=== PATIENT | male | born 1965 | race Caucasian/White ===

== ENCOUNTER 2017-02-24 12:22 | Emergency (ER) | payer MEDICARE ==
[2017-02-24] MEDS ORDERED: Ketorolac Tromethamine 30 MG/ML VIAL ONE (12:57)
[2017-02-24] MEDS ORDERED: Morphine 4 MG/ML VIAL ONE (12:57)
[2017-02-24 13:03] LABS: #Basophils 0.1 thou/uL (0.0-0.2); #Eosinphils 0.3 thou/uL (0.0-0.7); #Lymphocytes 2.4 thou/uL (1.20-3.40); #Monocytes 1.2 thou/uL (0.11-0.59); #Neutrophils 7.6 thou/uL (1.40-6.50); %Basophils 0.7 % (0.0-1.0); %Eosinophils 2.2 % (0.0-10.0); %Monocytes 10.6 % (0.0-10.0); Hematocrit 52.6 % (42.0-52.0); Mean Platelet Volume 8.6 fL (7.4-10.4); Red Blood Cell (RBC) Count 6.18 mill/uL (4.70-6.10); White Blood Cell (WBC) Count 11.6 thou/uL (4.8-10.8)
[2017-02-24 13:33] LABS: ALT (SGPT) 43 U/L (8-55); AST (SGOT) 28 U/L (5-34); Alkaline Phosphatase 109 U/L (40-150); Anion Gap 13 mmol/L (10-20); BUN (Urea Nitrogen) 15 mg/dL (8.9-20.6); Bilirubin, Total 0.7 mg/dL (0.2-1.2); CK (CPK) 52 U/L (30-200); Calc. Creatinine Clearance 0 mL/min (70-130); Carbon Dioxide 24 mmol/L (22-29); Chloride 104 mmol/L (98-107); Estimated GFR-MDRD Greater than 90; Globulin 3.3 g/dL (2.4-3.5); Protein, Total 7.4 g/dL (6.0-8.3)
[2017-02-24 13:37] LABS: Troponin I Less than 0.010 ng/mL (< 0.028)
--- NOTE | 2017-02-24 13:37 | RAD ---
CHEST 1 VIEW: HISTORY: Dizziness. COMPARISON: None. FINDINGS: Lungs are clear. No pneumothorax or effusion. Atrial appendage occlusion device is present. Multiple median sternotomy wires. IMPRESSION: No acute intrathoracic abnormality. POS: ONEL
== END 2017-02-24 15:13 | disposition home or self-care (01) ==
LOC: ERS 12:22
DX: R00.0 Tachycardia, unspecified (principal); R53.1 Weakness; I48.91 Unspecified atrial fibrillation; F17.210 Nicotine dependence, cigarettes, uncomplicated; Z79.899 Other long term (current) drug therapy
CPT/HCPCS: 71010; 80053; 82553; 83880; 84484; 85025; 93005; 96361; 96374; 96375; 99406; J1885; J2270

== ENCOUNTER 2017-08-12 19:12 | Observation (INO) | payer MEDICARE ==
[2017-08-12 19:52] LABS: #Basophils 0.1 thou/uL (0.0-0.2); #Eosinphils 0.5 thou/uL (0.0-0.7); #Lymphocytes 2.1 thou/uL (1.20-3.40); #Monocytes 0.9 thou/uL (0.11-0.59); #Neutrophils 6.1 thou/uL (1.40-6.50); %Basophils 0.6 % (0.0-1.0); %Eosinophils 4.9 % (0.0-10.0); %Lymphocytes 22.1 % (21.0-51.0); %Neutrophils 63.5 % (42.0-75.0); Hemoglobin 14.4 g/dL (14.0-18.0); Mean Corpuscular HGB CONC 32.1 g/dL (32.0-36.0); Mean Corpuscular Hemoglobin 26.8 pg (27.0-31.0); Mean Corpuscular Volume 83.6 fl (80.0-94.0); Mean Platelet Volume 7.9 fL (7.4-10.4); Platelet Count 240 thou/uL (130-400); Red Blood Cell (RBC) Count 5.37 mill/uL (4.70-6.10); White Blood Cell (WBC) Count 9.6 thou/uL (4.8-10.8)
[2017-08-12 20:07] LABS: ALT (SGPT) 41 U/L (8-55); AST (SGOT) 33 U/L (5-34); Alkaline Phosphatase 100 U/L (40-150); Anion Gap 12 mmol/L (10-20); BUN (Urea Nitrogen) 30 mg/dL (8.9-20.6); Bilirubin, Total 0.5 mg/dL (0.2-1.2); CK (CPK) 92 U/L (30-200); Calc. Creatinine Clearance 0 mL/min (70-130); Calcium 9.8 mg/dL (7.8-10.44); Carbon Dioxide 29 mmol/L (22-29); Chloride 102 mmol/L (98-107); Estimated GFR-MDRD Greater than 90; Globulin 3.3 g/dL (2.4-3.5); Glucose 91 mg/dL (70-105); Potassium 4.5 mmol/L (3.5-5.1); Protein, Total 7.3 g/dL (6.0-8.3); Sodium 138 mmol/L (136-145)
[2017-08-12 20:12] LABS: Troponin I 0.048 ng/mL (< 0.028)
--- NOTE | 2017-08-12 20:28 | RAD ---
PORTABLE CHEST: 08/12/17 HISTORY: Chest pain. COMPARISON: 02/24/17 Lung chappell appear. Heart size is upper normal and stable. Postop sternotomy changes. IMPRESSION: No acute finding or interval change noted. POS: AGW
[2017-08-12] MEDS ORDERED: Milk Of Magnesia 30 ML UDCUP PO PRN (22:56)
[2017-08-12] MEDS ORDERED: Acetaminophen 325 MG TAB PO PRN (22:56)
[2017-08-12] MEDS ORDERED: Nitroglycerin 0.4 MG TAB (25 Tab Bottle) PO PRN (22:57)
[2017-08-12] MEDS ORDERED: Albuterol Sulfate 2.5 mg/3 ml Neb NEB PRN (22:58)
[2017-08-12 23:41] LABS: Troponin I 0.057 ng/mL (< 0.028)
--- NOTE | 2017-08-13 00:28 | HP ---
PRIMARY CARE PHYSICIAN: None. PRESENTING COMPLAINT: Chest pain. HISTORY OF PRESENT ILLNESS: Mr. Carlos Young is a 51-year-old male with a past medical history of ankylosing spondylitis, COPD, history of polysubstance abuse and ? two valve replacements a year ago who presented to the emergency room for evaluation of chest pain. He reports sharp left-sided intermittent chest pain lasting about 30 seconds that have been occurring since yesterday. It does not radiate and has no aggravating or relieving factors. He also reports some nausea and weakness, but denies palpitations, cough, sputum production, loss of consciousness, PND, orthopnea, or lower extremity edema. There is no history of fevers, chills. He has no abdominal or urinary symptoms. He decided to come to the emergency room due to the frequent occurrences of this chest pain. PAST MEDICAL HISTORY: As stated in the HPI. PAST SURGICAL HISTORY: Reports heart surgery a year ago and has had back surgery. FAMILY HISTORY: Reviewed and noncontributory. SOCIAL HISTORY: He is a smoker, smokes every day. He drinks alcohol occasionally and reports recent use of methamphetamines. ALLERGIES: None. HOME MEDICATIONS: None. The patient has not taken any medications for several months. REVIEW OF SYSTEMS: Constitutional: Denies fevers or chills. HEENT: Negative. Cardiovascular: As stated in the HPI. Respiratory: Denies cough, sputum production. Abdomen: Positive for nausea, but otherwise negative. Neurologic: Negative. Psychiatric: Negative. Allergy/Immunology: Negative. Skin: Negative. Musculoskeletal: Negative. PHYSICAL EXAMINATION: VITAL SIGNS: Blood pressure on arrival was 124/81, oxygen saturation was 99% on room air, temperature was 97.6 degree Fahrenheit, respiratory rate was 16, and pulse rate was 89. GENERAL: Not in acute distress. He is lying comfortably in bed. HEENT: Normocephalic, atraumatic. Not pale, anicteric. Moist mucous membranes. PERRLA, EOMI. RESPIRATORY: Chest nontender to palpation. Vesicular breath sounds bilaterally. No wheezes, rales, or rhonchi. CARDIOVASCULAR: S1 and S2 only. No murmurs, rubs, or gallops. Regular rate and rhythm. NECK: Supple, full range of movement. ABDOMEN: Soft, nontender, nondistended. Bowel sounds normoactive. No hepatosplenomegaly. NEUROLOGIC: Alert and well oriented to time, place, and person. No focal deficits. SKIN: Warm, dry, well-perfused. No rashes or lesions. MUSCULOSKELETAL: Moves all extremities spontaneously and no edema. PSYCHIATRIC: Normal mood and affect. LABORATORY DATA: CBC was unremarkable. Serum chemistry was also unremarkable except for initial troponin of 0.048. Lipase was 16. EKG showed no signs of acute pathology. Chest x-ray showed no acute cardiopulmonary abnormalities as well. ASSESSMENT AND PLAN: 1. Chest pain: The patient with unclear cardiac history, presenting with unstable angina as concern for possibly drug induced chest pain. We will obtain a urine toxicology, trend troponin. He will be admitted to telemetry as well and placed on sublingual nitroglycerin p.r.n. for chest pain. Cardiology will also be consulted for stress test versus cardiac catheterization. He is currently chest pain free. Due to possibility of cocaine-induced chest pain, we will hold on beta-blockers for now. We will start patient on daily aspirin and monitor troponins. 2. Chronic obstructive pulmonary disease: The patient has not been taken any medications and is currently not in acute exacerbation. We will place him on p.r.n. bronchodilator therapy. 3. History of polysubstance abuse: The patient reports he has been sober, but recently used methamphetamines "accidentally." We will follow up on urine toxicology result and insurance counselor on cessation. CODE STATUS: FULL CODE. Deep venous thrombosis prophylaxis with subcutaneous heparin. MTDD
[2017-08-13 01:18] VITALS: BMI 26.7
[2017-08-13 02:07] LABS: Troponin I 0.059 ng/mL (< 0.028)
[2017-08-13 04:03] LABS: Medtox Reader # READER 1
[2017-08-13 04:04] LABS: Amphetamine Detected (NotDetected); Barbiturates Screen Not Detected (NotDetected); Benzodiazepine Screen Not Detected (NotDetected); Cocaine Metabolite Screen Not Detected (NotDetected); Medtox Control Line Valid? VALID (VALID); Methadone Not Detected (NotDetected); Methamphetamine Not Detected (NotDetected); Opiate Screen Not Detected (NotDetected); Oxycodone Screen Not Detected (NotDetected); Phencyclidine (PCP) Not Detected (NotDetected); THC/Cannabinoid Screen Detected (NotDetected); Tricyclic Screen Not Detected (NotDetected)
[2017-08-13 04:42] LABS: #Basophils 0.1 thou/uL (0.0-0.2); #Eosinphils 0.5 thou/uL (0.0-0.7); #Lymphocytes 2.2 thou/uL (1.20-3.40); #Monocytes 0.7 thou/uL (0.11-0.59); #Neutrophils 5.5 thou/uL (1.40-6.50); %Basophils 0.7 % (0.0-1.0); %Eosinophils 5.5 % (0.0-10.0); %Lymphocytes 24.3 % (21.0-51.0); %Monocytes 7.9 % (0.0-10.0); %Neutrophils 61.6 % (42.0-75.0); Hemoglobin 13.5 g/dL (14.0-18.0); Mean Corpuscular HGB CONC 31.8 g/dL (32.0-36.0); Mean Corpuscular Hemoglobin 26.7 pg (27.0-31.0); Mean Corpuscular Volume 83.8 fl (80.0-94.0); Mean Platelet Volume 8.3 fL (7.4-10.4); Platelet Count 232 thou/uL (130-400); RBC Distribution Width 13.9 % (11.5-14.5); Red Blood Cell (RBC) Count 5.07 mill/uL (4.70-6.10); White Blood Cell (WBC) Count 8.9 thou/uL (4.8-10.8)
[2017-08-13 04:53] LABS: Anion Gap 15 mmol/L (10-20); BUN (Urea Nitrogen) 24 mg/dL (8.9-20.6); Calc. Creatinine Clearance 130 mL/min (70-130); Calcium 9.4 mg/dL (7.8-10.44); Carbon Dioxide 24 mmol/L (22-29); Chloride 104 mmol/L (98-107); Estimated GFR-MDRD Greater than 90; Glucose 118 mg/dL (70-105); Potassium 4.2 mmol/L (3.5-5.1); Sodium 139 mmol/L (136-145)
[2017-08-13 06:52] LABS: Troponin I 0.068 ng/mL (< 0.028)
[2017-08-13] MEDS: Aspirin 325 MG TAB PO SCH (09:08)
[2017-08-13] MEDS: Heparin 5,000 UNITS/ML VIAL SC SCH ×4 (09:09→19:24)
[2017-08-13] MEDS: Docusate 100 MG CAP PO SCH ×2 (09:09→19:24)
[2017-08-13] MEDS: HYDROcodone/Acetaminophen 5/325 mg Tablet PO PRN ×2 (11:49→18:42)
[2017-08-13 12:35] LABS: Troponin I 0.058 ng/mL (< 0.028)
--- NOTE | 2017-08-13 12:53 | PDOC.PN ---
- Subjective Encounter Start Date: 08/13/17 Encounter Start Time: 12:51 Subjective: feels a little better.little wheezy but no chest pain/SOB -: reports H/O A-fib and Mitral & Tricuspid valve replacements last year - Objective MAR Reviewed: Yes Vital Signs & Weight: Vital Signs (12 hours) Temp Pulse Resp BP BP Pulse Ox 08/13/17 11:54 97.5 F L 96 20 139/89 97 08/13/17 08:00 97.5 F L 94 16 08/13/17 07:42 97.5 F L 94 16 138/89 96 08/13/17 05:58 97 18 135/86 95 08/13/17 02:30 96 Weight Weight 181 lb 6 oz I&O: 08/12/17 08/13/17 08/14/17 06:59 06:59 06:59 Intake Total 200 Balance 200 Result Diagrams: 08/13/17 01:35 08/13/17 01:35 Additional Labs: Laboratory Tests 08/12/17 08/12/17 08/13/17 19:46 22:54 01:35 Troponin I 0.048 H 0.057 H 0.059 H 08/13/17 08/13/17 06:02 11:29 Troponin I 0.068 H 0.058 H Radiology Reviewed by me: Yes EKG Reviewed by me: Yes (tele -NSR) Phys Exam - Physical Examination Constitutional: NAD HEENT: PERRLA, moist MMs, sclera anicteric, oral pharynx no lesions Neck: no nodes, no JVD, supple, full ROM Respiratory: no rales, no rhonchi, wheezing present, clear to auscultation bilateral Cardiovascular: RRR, no significant murmur, no rub, gallop Gastrointestinal: soft, non-tender, no distention, positive bowel sounds Musculoskeletal: no edema, pulses present Neurological: non-focal, normal sensation, moves all 4 limbs Psychiatric: normal affect, A&O x 3 Skin: no rash Dx/Plan (1) Chest pain Code(s): R07.9 - CHEST PAIN, UNSPECIFIED Status: Acute (2) Troponin level elevated Code(s): R74.8 - ABNORMAL LEVELS OF OTHER SERUM ENZYMES Status: Acute (3) Amphetamine abuse, episodic Code(s): F15.10 - OTHER STIMULANT ABUSE, UNCOMPLICATED Status: Acute (4) H/O atrial fibrillation without current medication Code(s): Z86.79 - PERSONAL HISTORY OF OTHER DISEASES OF THE CIRCULATORY SYSTEM Status: Chronic Comment: s/p Left atrial appandage clipping (5) Mitral valve replaced Code(s): Z95.2 - PRESENCE OF PROSTHETIC HEART VALVE Status: Chronic (6) Tricuspid valve replaced Code(s): Z95.2 - PRESENCE OF PROSTHETIC HEART VALVE Status: Chronic (7) COPD (chronic obstructive pulmonary disease) Status: Chronic - Plan out of bed/ambulate, DVT proph w/SCDs cont ASA.check ECHO. 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 * will follow. Review of Systems - Review of Systems Constitutional: weakness, malaise. negative: fever, chills, sweats, other ENT: negative: Ear Pain, Ear Discharge, Nose Pain, Nose Discharge, Nose Congestion, Mouth Pain, Mouth Swelling, Throat Pain, Throat Swelling, Other Respiratory: negative: Cough, Dry, Shortness of Breath, Hemoptysis, SOB with Excertion, Pleuritic Pain, Sputum, Wheezing Cardiovascular: negative: chest pain, palpitations, orthopnea, paroxysmal nocturnal dyspnea, edema, light headedness, other Gastrointestinal: negative: Nausea, Vomiting, Abdominal Pain, Diarrhea, Constipation, Melena, Hematochezia, Other Genitourinary: negative: Dysuria, Frequency, Incontinence, Hematuria, Retention , Other Musculoskeletal: negative: Neck Pain, Shoulder Pain, Arm Pain, Back Pain, Hand Pain, Leg Pain, Foot Pain, Other Skin: negative: Rash, Lesions, Yousuf, Bruising, Other Neurological: negative: Weakness, Numbness, Incoordination, Change in Speech, Confusion, Seizures, Other - Medications/Allergies Allergies/Adverse Reactions: Allergies Allergy/AdvReac Type Severity Reaction Status Date / Time No Known Drug Allergies Allergy Unverified 08/12/17 23:00 Medications: Current Medications Acetaminophen (Tylenol) 650 mg PO Q4H PRN PRN Reason: Headache/Fever or Pain Last Admin: 08/13/17 01:25 Dose: 650 mg Hydrocodone Bitart/Acetaminophen ([place] 5/325) 1 tab PO Q4H PRN PRN Reason: mod pain Last Admin: 08/13/17 11:49 Dose: 1 tab Albuterol Sulfate (Ventolin) 2.5 mg NEB [id number] PRN PRN Reason: SOB &/or Wheezing Albuterol/Ipratropium (Duoneb) 3 ml NEB [id number] PRN PRN Reason: SOB &/or Wheezing Albuterol/Ipratropium (Duoneb) 3 ml NEB [id number] [facility] Aspirin (Aspirin) 325 mg PO DAILY [facility] Last Admin: 08/13/17 09:08 Dose: 325 mg Docusate Sodium (Colace) 100 mg PO BID [facility] Last Admin: 08/13/17 09:09 Dose: 100 mg Heparin Sodium (Porcine) (Heparin) 5,000 units SC TID [facility] Last Admin: 08/13/17 09:09 Dose: 5,000 units Lactulose (Lactulose) 20 gm PO DAILYPRN PRN PRN Reason: Constipation Magnesium Hydroxide (Milk Of Magnesium) 30 ml PO DAILYPRN PRN PRN Reason: Constipation Nitroglycerin (Nitrostat) 0.4 mg PO Q5MIN PRN PRN Reason: Chest Pain
--- NOTE | 2017-08-13 14:47 | CON ---
DATE OF CONSULTATION: 08/13/2017 REASON FOR CONSULTATION: Chest pain. HISTORY OF PRESENT ILLNESS: Mr. Young is a pleasant 51-year-old white gentleman who comes to the ospital for chest pain. He states that about 3 days ago, he inhaled something that a friend gave him to get his back pain better and he states that ever since then he was having chest pain. It has bee n pretty much constant but he just kept working tried to get over it, but yesterday felt an electrica l sensation all over his body, so he decided to come in for evaluation. In the ER, he was found to h lione positive urine drug screen for amphetamines and for cannabis. He admits to the cannabis, but sta humphrey that the amphetamines are probably what his friend gave him just a few days ago. He otherwise is feeling much better now and he would like to go home. He does have a significant history. He has h ad a mitral valve repair, had a mitral valve ring placed and he also has a history of atrial fibrilla tion which is probably valvular atrial fibrillation. He has cards for mitral ring annuloplasty and zaida nielsen also has a card for left atrial appendage clip which he had all placed last year in May. Befo re this procedure, he had a heart catheterization that was unremarkable. He did not receive any [facility] ss at that time. PAST MEDICAL HISTORY: 1. Ankylosing spondylitis with chronic pain. 2. COPD. 3. Polysubstance abuse. 4. Mitral valve ring annuloplasty a year ago. 5. Atrial fibrillation, valvular. 6. Status post left atrial appendage clippage during his open heart surgery. 7. Normal heart catheterization a year ago. PAST SURGICAL HISTORY: As above. FAMILY HISTORY: Noncontributory. SOCIAL HISTORY: He smokes every day, drinks alcohol occasionally. Uses marijuana, but he denies con sistently using amphetamines or cocaine; however, when I told him that all his symptoms are probably related to the amphetamine, he told me that what he thought he was going to take was cocaine, which t ells me that he might have used as well in the past. OUTPATIENT MEDICATIONS: None for several months. ALLERGIES: No known drug allergies. REVIEW OF SYSTEMS: A 12 point review of systems was done and is negative unless stated in the histor y of present illness. PHYSICAL EXAMINATION: VITAL SIGNS: Temperature 97.5, pulse 96, respiration rate 20, satting 97% on room air, blood pressur e 139/89. GENERAL: Awake, alert, oriented x3, in no distress. HEENT: Normocephalic, atraumatic. NECK: Supple. LUNGS: Clear. CARDIOVASCULAR: S1, S2, no S3, S4. There is a very soft grade 2/6 systolic murmur in the right uppe r sternal border. ABDOMEN: Soft with good bowel sounds. EXTREMITIES: No edema. SKIN: Warm and dry. Multiple tattoos on both arms. LABORATORY WORK: Reviewed. CBC is unremarkable. Chemistry is unremarkable. GFR greater than 90. Troponin was 0.05, 0.05, 0.06 and 0.05. Toxicology positive for amphetamines and cannabis. EKG was reviewed. ASSESSMENT AND PLAN: 1. Chest pain, most likely related to amphetamine use. He had a negative catheterization before his mitral annuloplasty and left atrial appendage clipping. His elevation in troponins is more consiste nt with demand type of ischemia. I told him that he needs an echocardiogram to see what his LV funct ion looks like given his substance abuse and he tells me that he would like to do all of this as an o utpatient and he has moved here to [place] recently and has not established with a bath steward/stewardess yet. Zaida nielsen is adamant that he would prefer to leave today. I think it should be safe and he will follow up. I gave him my card and he will follow up with us in 1-2 weeks. We will get an echocardiogram as an o utpatient. I counseled him on the necessity of following up as it is very important to know what his heart function is at this time. He states that he will do so. He has no signs or symptoms of heart failure, mostly of just substance abuse. He also denies having injected himself with anything, it is just he snorted everything and smoked it. Thank you for letting us to participate in the care of your patient. He should be able to be dischar ge home today. Follow up in the office in 2 weeks.
[2017-08-14] MEDS: Aspirin 325 MG TAB PO SCH (08:36)
[2017-08-14] MEDS: Docusate 100 MG CAP PO SCH (08:36)
[2017-08-14] MEDS: HYDROcodone/Acetaminophen 5/325 mg Tablet PO PRN (08:37)
[2017-08-14] MEDS: Heparin 5,000 UNITS/ML VIAL SC SCH (08:38)
[2017-08-14] MEDS ORDERED: Metoprolol Tartrate 25 MG TAB PO SCH (09:00)
[2017-08-14 11:41] VITALS: BP 129/86; TEMP 97.9
--- NOTE | 2017-08-14 12:55 | PDOC.CTH ---
Cardiology Progress Note - Subjective He is doing well. he is not having any more episodes of chest pain. He has been walking around without issues. - Objective Vital Signs Temp Pulse Resp BP Pulse Ox 08/14/17 11:37 97.9 F 80 16 129/86 99 08/14/17 08:39 97 16 96 08/14/17 08:00 97.8 F 104 H 16 08/14/17 07:21 97.8 F 104 H 16 130/85 97 08/14/17 04:39 97.5 F L 110 H 18 161/104 H 98 Admit Weight 181 lb 6 oz Weight 181 lb 6 oz 08/13/17 08/14/17 08/15/17 06:59 06:59 06:59 Intake Total 200 1700 240 Output Total 1345 Balance 200 355 240 - Physical Examination General/Neuro: alert & oriented x3, NAD Neck: no JVD present Lungs: CTA, unlabored respirations Heart: RRR, other: (Same murmur) Abdomen: NT/ND Extremities: other: (no edema) - Telemetry Telemetry Rhythm: NSR - Labs Result Diagrams: 08/13/17 01:35 08/13/17 01:35 Troponin/CKMB CK-MB (CK-2) 4.0 ng/mL (0-6.6) 08/12/17 19:46 Troponin I 0.058 ng/mL (< 0.028) H 08/13/17 11:29 - Assessment/Plan 1. Chest pain, likely from amphetamine use. normal coronaries Feb last year. 2. S/P Mitral valve ring annuloplasty 3. S/P Tricuspid valve ring annuloplasty 4. Afib s/p KATERINA clipage 5. Mild LV dysfunction. EF at 45-50%. PLAN: - He is doing better. - Will plan on doing a KIRBY to evaluate his valves, I cannot see the mitral valve function well enough on transthoracic echo and I cant see how much AI he may have. he is not having any fevers or chills, no signs of infection. He is stable at this time, no evidence of ACS. - He may be discharged home and will plan on doing KIRBY as outpatient on of this week. - Mild troponin leak likely related to amphetamine use, it is not on a rise and fall pattern to suggest ACS and he remains asymptomatic now. - LV dysfunction I suspect is related to mitral valve repair and substance abuse. - Will have him sign as release of information to get records before he leaves today.
--- NOTE | 2017-08-14 20:23 | DIS ---
DATE OF ADMISSION: 08/12/2017 DATE OF DISCHARGE: 08/14/2017 CONDITION AT THE TIME OF DISCHARGE: Stable and improved. DISCHARGE DISPOSITION: Home. DISCHARGE DIAGNOSES: 1. Demand ischemia from amphetamine use. 2. Chest pain, likely from amphetamine use with history of normal cardiac catheterization in 05/2016 . 2. Hypertension. 3. Anxiety. 4. History of mitral valve and tricuspid valve ring annuloplasty. 5. History of atrial fibrillation, status post left atrial appendage clipping. 6. Mild left ventricular dysfunction with ejection fraction of 45%-50%. DISCHARGE MEDICATIONS: Aspirin 325 mg daily, metoprolol tartrate 25 mg p.o. b.i.d., DuoNeb as needed and albuterol inhaler as needed. INHOUSE CONSULTATION: Cardiology, Dr. Islas. PROCEDURES DONE IN THE HOSPITAL: Include transthoracic echocardiogram, which shows EF of 45%-50% wit h tricuspid and mitral ring in place and trivial aortic regurgitation. HISTORY OF PRESENTING ILLNESS: Mr. Young is a very pleasant 51-year-old male with past medical his tory of atrial fibrillation, hypertension, ankylosing spondylitis, COPD, history of tobacco and polys ubstance abuse, who presented to the ER with complaints of chest pain. Upon presentation, his chest x-ray was unremarkable. EKG was unremarkable. His initial troponin was elevated to 0.048. He was a dmitted for further evaluation and care. Cardiology was consulted. Please see admission history and physical for further details. HOSPITAL COURSE: The patient's urine drug screen did come back positive for marijuana and amphetamin es. His cardiac enzymes were trended and his troponin peaked to 0.068 and then started to trend down again. He was chest pain free throughout his hospitalization. It was found that the patient had cardiac catheterization and all of his cardiac care in [place]. He has history of mitral valve and tricuspid valve ring annuloplasty as well as history of atrial fibri llation treated with left atrial appendage clipping. Because of all this, Cardiology was consulted a nd he underwent echocardiogram which was normal. Dr. Islas saw the patient and recommended that he needs to get a KIRBY as an outpatient for further evaluation of his valves. Other than that, he was re started on aspirin and beta quin with improvement in his symptoms. At this time, he is instructed to follow up and establish care with a new physician in the area for primary care and he will be see n by Dr. Islas in his clinic on of this coming week for KIRBY. For now, the patient is hemod ynamically stable and symptom free. Most of his symptoms are thought due to be secondary to amphetam ine use. He has been extensively counseled about that and is very receptive. [facility] as well and will be discharged today. He was seen and examined prior to discharge. PHYSICAL EXAMINATION: This morning include, VITAL SIGNS: Temperature 97.9, pulse of 80, respirations 16, saturating 99% on room air, blood press ure 129/86. GENERAL: No acute distress, awake, alert, oriented x3. CHEST: Clear to auscultation without any wheezing, rales or rhonchi. Rate and rhythm is regular wit hout any murmur, rubs or gallops. NEUROLOGIC: Nonfocal. He is cleared for discharge from the hospital as he is hemodynamically stable at this time. Once aga in, he is instructed to establish care with a primary care physician locally as he has recently moved here from [place].
== END 2017-08-14 14:15 | disposition home or self-care (01) ==
LOC: ERS 19:12 → 2SW 08-13 00:56
PROVIDERS: ADMIT Internal Medicine; ATTEND Internal Medicine
DX: R07.89 Other chest pain (principal); I24.8 Other forms of acute ischemic heart disease; J44.9 Chronic obstructive pulmonary disease, unspecified; M45.9 Ankylosing spondylitis of unspecified sites in spine; I10 Essential (primary) hypertension; I48.91 Unspecified atrial fibrillation; F19.10 Other psychoactive substance abuse, uncomplicated; F12.10 Cannabis abuse, uncomplicated; F15.10 Other stimulant abuse, uncomplicated; F17.200 Nicotine dependence, unspecified, uncomplicated; Z98.890 Other specified postprocedural states
CPT/HCPCS: 71045; 80048; 80053; 80306; 82550; 82553; 83690; 84484 ×4; 85025 ×2; 93005; 93306; 94640 ×3; 94760; 99285; 99406; G0378; 36415; J1644; J7620

== ENCOUNTER → 2017-08-19 | Day surgery (SDC) | payer MEDICARE ==
[2017-08-18 16:27] VITALS: BMI 26.7
[~2017-08-19] MED LIST: Ketamine 50 MG/ML VIAL ONE; Lidocaine 1% PF 5 ML VIAL ONE; PROPOFOL 200 MG/20 ML VIAL ONE
--- NOTE | 2017-08-19 14:45 | ECHO ---
TRANSESOPHAGEAL ECHOCARDIOGRAM: DATE OF SERVICE: 08/19/17 REASON FOR STUDY: Transesophageal echo was performed for evaluation of tricuspid and mitral valves rings. DETAILS: The anesthesia department provided anesthesia for the patient. Please see their notes for details. Af ter adequate sedation was achieved, the transesophageal echo probe was inserted into the mouth and in to the esophagus without issues. Multiplanar views were then obtained. FINDINGS: Left ventricle is normal size and wall thickness. Systolic function is normal, estimated EF of 50-55% . Left atrium is a mildly dilated. Left atrial appendage is completely gone, consistent with his histo ry of left atrial appendage clippage. Right atrium is normal size. Interatrial septum appears to be intact; however, color Doppler suggest a small, fenestrated ASD. Right ventricle is normal size, normal RV systolic function. Aortic valve is a normal, three cusps. No stenosis or regurgitation. Pulmonary valve is structurally normal. No stenosis or regurgitation. Mitral valve has mitral annular ring. No stenosis. Mild mitral regurgitation. Tricuspid valve has tricuspid annular ring. No stenosis. Mild regurgitation. Thoracic aorta is normal caliber with no aneurysmal dilatations or dissections. No atherosclerotic di sease. CONCLUSIONS: 1. Normal systolic function, EF of 50-55%. 2. Small, fenestrated ASD. 3. Absence of left atrial appendage, consistent with history of surgical excision. 4. Mild left atrial enlargement. 5. Mitral annular ring with mild MR. Normal functioning. No vegetations. 6. Tricuspid annular ring with mild TR. No vegetations. Normal functioning.
== END ==
LOC: CCL 06:11
PROVIDERS: ATTEND Internal Medicine Cardiovascular Disease
PROC: B24BZZ4 Ultrasonography of Heart with Aorta, Transesophageal (ICD-10-PCS; principal; 2017-08-19)
DX: R07.89 Other chest pain (principal); I08.1 Rheumatic disorders of both mitral and tricuspid valves; M45.9 Ankylosing spondylitis of unspecified sites in spine; J44.9 Chronic obstructive pulmonary disease, unspecified; F19.10 Other psychoactive substance abuse, uncomplicated; F15.90 Other stimulant use, unspecified, uncomplicated; F17.200 Nicotine dependence, unspecified, uncomplicated; Z95.2 Presence of prosthetic heart valve; Z98.890 Other specified postprocedural states
CPT/HCPCS: 93312; J2001; J2704

== ENCOUNTER 2017-11-07 13:46 | Inpatient (IN) | payer MEDICARE ==
[~2017-11-07 13:46] MED LIST changes: +ISOVUE-370 76%-LOCM 1 ML ONE; -Ketamine 50 MG/ML VIAL ONE; -Lidocaine 1% PF 5 ML VIAL ONE; -PROPOFOL 200 MG/20 ML VIAL ONE
[2017-11-07 14:49] LABS: #Eosinphils 0.1 thou/uL (0.0-0.7); #Lymphocytes 1.4 thou/uL (1.20-3.40); #Monocytes 0.6 thou/uL (0.11-0.59); #Neutrophils 6.4 thou/uL (1.40-6.50); %Basophils 0.4 % (0.0-1.0); %Eosinophils 1.7 % (0.0-10.0); %Lymphocytes 16.7 % (21.0-51.0); %Monocytes 6.4 % (0.0-10.0); %Neutrophils 74.8 % (42.0-75.0); Hemoglobin 14.7 g/dL (14.0-18.0); Mean Corpuscular HGB CONC 31.2 g/dL (32.0-36.0); Mean Corpuscular Hemoglobin 26.7 pg (27.0-31.0); Mean Corpuscular Volume 85.6 fL (78.0-98.0); Mean Platelet Volume 8.7 fL (7.4-10.4); Platelet Count 160 thou/uL (130-400); RBC Distribution Width 15.7 % (11.5-14.5); White Blood Cell (WBC) Count 8.5 thou/uL (4.8-10.8)
[2017-11-07 15:11] LABS: ALT (SGPT) 23 U/L (8-55); AST (SGOT) 22 U/L (5-34); Alkaline Phosphatase 102 U/L (40-150); Anion Gap 13 mmol/L (10-20); BUN (Urea Nitrogen) 15 mg/dL (8.9-20.6); Bilirubin, Total 0.9 mg/dL (0.2-1.2); Calc. Creatinine Clearance 0 mL/min (70-130); Calcium 9.7 mg/dL (7.8-10.44); Carbon Dioxide 25 mmol/L (22-29); Chloride 103 mmol/L (98-107); Estimated GFR-MDRD Greater than 90; Globulin 3.3 g/dL (2.4-3.5); Glucose 135 mg/dL (70-105); Potassium 4.8 mmol/L (3.5-5.1); Protein, Total 7.3 g/dL (6.0-8.3); Sodium 136 mmol/L (136-145)
[2017-11-07 15:15] LABS: CKMB 5.1 ng/mL (0-6.6); Troponin I 0.017 ng/mL (< 0.028)
[2017-11-07] MEDS ORDERED: Furosemide 40 MG/4 ML VIAL ONE (16:20)
[2017-11-07 16:45] LABS: CK (CPK) 52 U/L (30-200); Lipase 15 U/L (8-78)
--- NOTE | 2017-11-07 17:41 | RAD ---
CHEST ONE VIEW: HISTORY: Dyspnea. Chest pain. COMPARISON: 08/12/2017 FINDINGS: The cardiac silhouette is magnified and enlarged. The pulmonary vasculature is at the upper limits o f normal. The mediastinum is midline with postoperative changes. Opacity at the right base has the appearance of a combination of parenchymal infiltrate and pleural fluid. Smoothly marginated density along the right upper lateral hemithorax has the appearance of loculated fluid. The left lung is cl ear. No evidence of pneumothorax. IMPRESSION: Right basilar infiltrate and pleural fluid with probable loculated fluid along the right upper latera l chest wall. Cause is not evident. POS: [facility]
[2017-11-07] MEDS ORDERED: Nitroglycerin 2% Ointment 1 INCH/1 GM Packet ONE (18:11)
--- NOTE | 2017-11-07 18:57 | PDOC.FPRHP ---
- History of Present Illness Chief Complaint: SOB History of Present Illness: Patient is a 52 yo male with PMH significant for CHF, presenting with SOB and substernal chest discomfort for the past 5 days. The patient states the chest discomfort comes and goes but lasts days at a time. He has noticed swelling in his bilateral lower extremities, feels fluid overloaded in his belly up to his neck. His SOB is worse lying flat and with exertion. He reports taking his albuterol inhaler which improved his SOB. He has not been taking his usual medications of plavix, metoprolol and ASA as he ran out about a month ago. The patient also endorses migraine headaches that he has had for years, but that have been worse the past few days. Loud sounds, noises make it worse and he has blurry vision during the migraine. He denies abdominal pain, fever, chills, NVD. ED Course: 40ml lasix, ASA, Nitro - Allergies/Adverse Reactions Allergies Allergy/AdvReac Type Severity Reaction Status Date / Time No Known Drug Allergies Allergy Verified 08/18/17 16:27 - Home Medications Medication Instructions Recorded Confirmed Type Clopidogrel Bisulfate [Plavix] 75 mg PO DAILY 08/13/17 11/07/17 History Albuterol Sulfate [Ventolin Hfa] 2 puff INH TID PRN #60 [email or web address] 08/14/17 Rx Ipratropium/Albuterol Sulfate 3 ml NEB QID PRN #30 neb 08/14/17 11/07/17 Rx [Duoneb] Metoprolol Tartrate 25 mg PO BID #60 tablet 08/14/17 11/07/17 Rx Nebulizer Accessories [Aeroneb Go] 1 each MC ASDIR #30 each 08/14/17 11/07/17 Rx Aspirin [Aspirin EC] 1 tab PO DAILY 08/18/17 11/07/17 History - History PMHx: CHF, atrial fibrillation, ankylosing spondylosis PSHx: mitral/tricuspid valve replacement 1 yr ago; cut atrial appendage FHx: mother: lung cancer; several other family members with bone cancers Social: smokes 1/2 pack/day for 35 yrs, - Review of Systems General: denies: fever/chills, weight/appetite/sleep changes, night sweats, fatigue Eyes: reports: vision changes (associated with migraines). denies: eye pain ENT: denies: nasal congestion, rhinorrhea Respiratory: reports: shortness of breath, exercise intolerance. denies: cough , congestion Cardiovascular: reports: chest pain, edema, orthopnea. denies: palpitation, paroxysmal nocturnal dyspnea Gastrointestinal: denies: nausea, vomiting, diarrhea, constipation, abdominal pain Genitourinary: denies: incontinence, dysuria, polyuria Skin: denies: rashes, lesions, jaundice Musculoskeletal: denies: pain, tenderness, stiffness, swelling Neurological: denies: numbness, syncope, seizure Psychological: denies: anxiety, depression - Vital signs BP: 136/95 HR: 118 RR: 16 Tmax: 97.4 Pox: 98% on RA Wt: 77.11 - Physical Exam Constitutional: NAD, awake, alert and oriented, well developed HEENT: normocephalic and atraumatic, EOMI, grossly normal vision, grossly normal hearing Neck: supple, no bruits, other (JVD +) Chest: no-tender to palpation, no lesions Heart: RRR, normal S1/S2, pulses present, other (1+ edema in bilateral extremities, midsystolic click) Lungs: other (Crackles heard in bilateral lower lung chappell, wheezing heard diffusely) Abdomen: bowel sounds present, other (distended, tympanic) Musculoskeletal: normal structure, normal tone Neurological: no focal deficit, CN II-XII intact Skin: no rash/lesions Heme/Lymphatic: no unusual bruising or bleeding, no purpura, no petechia Psychiatric: normal mood and affect FMR H&P: Results - Labs Result Diagrams: 11/07/17 14:41 11/07/17 14:41 Lab results: WBC 8.5 thou/uL (4.8-10.8) 11/07/17 14:41 Hgb 14.7 g/dL (14.0-18.0) 11/07/17 14:41 Hct 47.0 % (42.0-52.0) 11/07/17 14:41 MCV 85.6 fL (78.0-98.0) 11/07/17 14:41 Plt Count 160 thou/uL (130-400) 11/07/17 14:41 Neutrophils % 74.8 % (42.0-75.0) 11/07/17 14:41 Sodium 136 mmol/L (136-145) 11/07/17 14:41 Potassium 4.8 mmol/L (3.5-5.1) 11/07/17 14:41 Chloride 103 mmol/L (98-107) 11/07/17 14:41 Carbon Dioxide 25 mmol/L (22-29) 11/07/17 14:41 BUN 15 mg/dL (8.9-20.6) 11/07/17 14:41 Creatinine 0.84 mg/dL (0.6-1.3) 11/07/17 14:41 Glucose 135 mg/dL (70-105) H 11/07/17 14:41 Lactic Acid 2.1 mmol/L (0.5-2.2) 11/07/17 14:40 Calcium 9.7 mg/dL (7.8-10.44) 11/07/17 14:41 Total Bilirubin 0.9 mg/dL (0.2-1.2) 11/07/17 14:41 AST 22 U/L (5-34) 11/07/17 14:41 ALT 23 U/L (8-55) 11/07/17 14:41 Alkaline Phosphatase 102 U/L (40-150) 11/07/17 14:41 Creatine Kinase 52 U/L (30-200) 11/07/17 14:41 CK-MB (CK-2) 5.1 ng/mL (0-6.6) 11/07/17 14:41 B-Natriuretic Peptide 894.6 pg/mL (0-100) H 11/07/17 14:41 Serum Total Protein 7.3 g/dL (6.0-8.3) 11/07/17 14:41 Albumin 4.0 g/dL (3.5-5.0) 11/07/17 14:41 Lipase 15 U/L (8-78) 11/07/17 14:41 - EKG Interpretation EKG: Sinus tacycardia, RBBB, no ST elevation - Radiology Interpretation Chest x-ray Status: report reviewed by me Additional comment: Right basilar infiltrate and pleural fluid with probable loculated fluid along the right lateral chest wall CT scan - chest Additional comment: no pulmonary embolism, bilateral pleural effusions, right greater than left. FMR H&P: A/P - Problem List (1) CHF (congestive heart failure) Current Visit: Yes Status: Acute Code(s): I50.9 - HEART FAILURE, UNSPECIFIED (2) COPD (chronic obstructive pulmonary disease) Current Visit: No Status: Chronic (3) H/O atrial fibrillation without current medication Current Visit: No Status: Chronic Code(s): Z86.79 - PERSONAL HISTORY OF OTHER DISEASES OF THE CIRCULATORY SYSTEM Comment: s/p Left atrial appandage clipping (4) Mitral valve replaced Current Visit: No Status: Chronic Code(s): Z95.2 - PRESENCE OF PROSTHETIC HEART VALVE (5) Tricuspid valve replaced Current Visit: No Status: Chronic Code(s): Z95.2 - PRESENCE OF PROSTHETIC HEART VALVE (6) Tobacco abuse Current Visit: Yes Status: Acute Code(s): Z72.0 - TOBACCO USE - Plan 1. CHF exacerbation - Trend trop, EKG - Lasix Q8hr - Will start metoprolol 25mg - Will give prophylactic lovenox - Will order Echo for tomorrow - HEART Score 3 2. COPD exacerbation - Duoneb PRN - Start Prednisone 3. Mitral/Tricuspid Valve replacement - on prophylactic lovenox - Will monitor 4. A fib with RVR - started on metoprolol - Will monitor 5. HTN - Started on metoprolol - Will monitor BPs 6. Tobacco use - Pt counseled on quitting smoking and would like to try the patch - Will give nicotine patch Disposition/LOS: DISPO: likely stay > 2 midnights CODE: DNI Case discussed with Dr. Irvin FMR H&P: Upper Level - Pertinent history 52 y/o M with hx/o mitral and tricuspid valve replacement presents for SOB for 5d. Associated orthopnea, LE edema extending to belly. Some SOB Has not taken any additional medications for problem and problem is worsening. Has not taken his meds in around 1 month. Also has a hx/o amphetamine use. - Pertinent findings GEN: NAD, CARDIO: RRR, no MRG RESP: crackles at bases, mild wheezes or ronchi Extremities: 1+ LE edema to knees, pulses strong ABD: distendended an hard, no R/G or peritoneal signs. Neuro: no focal deficits, CN intact PSYCH: A&O x4, thoughts normal - Plan Date/Time: 11/07/171853 Bossman Cox, have evaluated this patient and agree with findings/plan as outlined by graphics intern resident. Pertinent changes/additions are listed here. # CHF Exacerbation: Possibly 2/2 valvular disease given recent ECHO, and medication noncompliance contributing to cardiomyopathy. Does have elevated BNP with fluid overload. Continue Diuresis, repeat BNP, O2 PRN. Pt already relieved of most sx in ED after Lasix. B/L pleural effusions present. Maintaining sats > 92% on RA. #Hx/o Valvular disease: Will restart ASA/Plavix and Metoprolol # Tachycardia: Restarting Metoprolol and continue to monitor. #FEN: regular diet, fluid restriction Attending Addendum - Attending Addendum Date/Time: 11/08/17 0005 I personally evaluated the patient and discussed the management with Dr. Higgins. I agree with the History, Examination, Assessment and Plan documented above with any addition or exceptions noted below. Noncompliance with meds has contributed to his CHF condition, Afib with RVR. Meds restarted. He reports never being on warfarin for his mechanical valves. We will address at this visit.
--- NOTE | 2017-11-07 19:27 | CT ---
CT PULMONARY ANGIOGRAM WITH IV CONTRAST AND 3D POST PROCESSING: HISTORY: Dyspnea. Chest pain. CHF. FINDINGS: The pulmonary arterial vasculature is well opacified without filling defects to suggest pulmonary emb olism. No evidence of aneurysmal dilatation of the thoracic aorta is seen. No pneumothoraces or per icardial effusion is identified. There are bilateral pleural effusions, right greater than left. Ad jacent infiltrate/atelectatic changes are present. IMPRESSION: 1. No CT evidence of pulmonary embolism. 2. Bilateral pleural effusions, right greater than left. POS: ONEL
[2017-11-07 20:09] LABS: Troponin I 0.013 ng/mL (< 0.028)
[2017-11-07] MEDS ORDERED: Ondansetron ODT 4 MG TAB SL PRN (21:10)
[2017-11-07] MEDS ORDERED: Ondansetron HCl/PF 4 MG/2 ML Vial IVP PRN (21:10)
[2017-11-07] MEDS ORDERED: Acetaminophen 650 MG Suppository PR PRN (21:12)
[2017-11-07] MEDS ORDERED: Acetaminophen 325 MG TAB PO PRN (21:12)
[2017-11-07 21:30] LABS: Lactic Acid 1.5 mmol/L (0.5-2.2)
[2017-11-07 21:43] LABS: Troponin I 0.014 ng/mL (< 0.028)
[2017-11-07] MEDS: Nicotine 14 MG PATCH TD SCH (21:52)
[2017-11-07] MEDS ORDERED: HYDROcodone/Acetaminophen 5/325 mg Tablet PO SCH (22:00)
[2017-11-07] MEDS: Furosemide 20 MG/2 ML VIAL SLOW IVP SCH (22:02)
--- NOTE | 2017-11-08 05:39 | PDOC.FM ---
- Subjective Subjective: Pt. states that his breathing is improved from over night. He states that he is still having some dyspnea. He denies chest pain. He states that he is having some nausea and a headache. The nurse states that pt. received nitro and that is what started the headache. He states that he is having decreased swelling. - Objective MAR Reviewed: Yes Vital Signs & Weight: Vital Signs (12 hours) Temp Pulse Resp BP Pulse Ox 11/08/17 04:00 98.1 F 116 H 20 123/80 92 L 11/07/17 21:12 97.9 F 117 H 16 11/07/17 20:45 97.9 F 117 H 16 129/81 95 Weight Weight 78.97 kg Result Diagrams: 11/08/17 05:39 11/08/17 05:39 Phys Exam - Physical Examination Constitutional: NAD HEENT: PERRLA, moist MMs Neck: no JVD, full ROM Respiratory: no rhonchi Pt. is moving air Cardiovascular: no significant murmur tachycardia Gastrointestinal: soft, non-tender, no distention, positive bowel sounds Musculoskeletal: edema present (1+ pitting to mid calf) Psychiatric: normal affect, A&O x 3 Skin: cap refill <2 seconds Dx/Plan (1) HTN (hypertension) Code(s): I10 - ESSENTIAL (PRIMARY) HYPERTENSION Status: Acute (2) CHF (congestive heart failure) Code(s): I50.9 - HEART FAILURE, UNSPECIFIED Status: Acute (3) Tobacco abuse Code(s): Z72.0 - TOBACCO USE Status: Acute (4) COPD (chronic obstructive pulmonary disease) Status: Chronic (5) H/O atrial fibrillation without current medication Code(s): Z86.79 - PERSONAL HISTORY OF OTHER DISEASES OF THE CIRCULATORY SYSTEM Status: Chronic (6) Mitral valve replaced Code(s): Z95.2 - PRESENCE OF PROSTHETIC HEART VALVE Status: Chronic (7) Tricuspid valve replaced Code(s): Z95.2 - PRESENCE OF PROSTHETIC HEART VALVE Status: Chronic - Plan Plan: This is a 52 yo male with a PMH of CHF, AFIB, ankylosing spondylitis CHF exacerbation -Troponins came back negative x3, EKG showed no ST changes, Xray showed pleural effusions. Pt. is receiving lasix and metoprolol for his CHF. He will get an echo today due to a heart score of 3 Acute bronchitis -Pt. is receiving duoneb PRN and prednisone. Mitral/tricuspid valve replacement -Pt. is on lovenox prophylaxis Afib with RVR -pt. is on metoprolol HTN -Metoprolol Tobacco use -Encourage cessation, will use patch during stay.
[2017-11-08] MEDS: Furosemide 20 MG/2 ML VIAL SLOW IVP SCH ×3 (05:52→22:19)
[2017-11-08] MEDS ORDERED: Aspirin 325 mg Enteric Coated Tablet PO SCH (06:00)
[2017-11-08 06:15] LABS: #Basophils 0.1 thou/uL (0.0-0.2); #Eosinphils 0.3 thou/uL (0.0-0.7); #Lymphocytes 2.1 thou/uL (1.20-3.40); #Monocytes 0.9 thou/uL (0.11-0.59); #Neutrophils 5.7 thou/uL (1.40-6.50); %Basophils 0.9 % (0.0-1.0); %Lymphocytes 23.2 % (21.0-51.0); %Monocytes 10.2 % (0.0-10.0); %Neutrophils 62.6 % (42.0-75.0); Hemoglobin 13.9 g/dL (14.0-18.0); Mean Corpuscular HGB CONC 30.9 g/dL (32.0-36.0); Mean Corpuscular Hemoglobin 26.1 pg (27.0-31.0); Mean Corpuscular Volume 84.5 fL (78.0-98.0); Mean Platelet Volume 8.7 fL (7.4-10.4); Platelet Count 181 thou/uL (130-400); RBC Distribution Width 15.7 % (11.5-14.5); Red Blood Cell (RBC) Count 5.32 mill/uL (4.70-6.10); White Blood Cell (WBC) Count 9.1 thou/uL (4.8-10.8)
[2017-11-08] MEDS ORDERED: HYDROcodone/Acetaminophen 5/325 mg Tablet PO SCH (06:15)
[2017-11-08 06:26] LABS: Anion Gap 12 mmol/L (10-20); BUN (Urea Nitrogen) 17 mg/dL (8.9-20.6); Calc. Creatinine Clearance 115 mL/min (70-130); Calcium 9.8 mg/dL (7.8-10.44); Carbon Dioxide 31 mmol/L (22-29); Chloride 101 mmol/L (98-107); Estimated GFR-MDRD Greater than 90; Glucose 96 mg/dL (70-105); Sodium 140 mmol/L (136-145)
[2017-11-08] MEDS ORDERED: Ondansetron ORAL SOLN. 4 MG/5 ML UDCUP PO PRN (06:54)
[2017-11-08 07:14] LABS: Amphetamine Not Detected (NotDetected); Barbiturates Screen Not Detected (NotDetected); Benzodiazepine Screen Not Detected (NotDetected); Cocaine Metabolite Screen Not Detected (NotDetected); Medtox Control Line Valid? VALID (VALID); Medtox Reader # READER 4; Methadone Not Detected (NotDetected); Methamphetamine Detected (NotDetected); Opiate Screen Not Detected (NotDetected); Oxycodone Screen Not Detected (NotDetected); Phencyclidine (PCP) Not Detected (NotDetected); THC/Cannabinoid Screen Not Detected (NotDetected); Tricyclic Screen Not Detected (NotDetected)
[2017-11-08] MEDS: predniSONE 20 MG TAB PO SCH (10:24)
[2017-11-08] MEDS: Enoxaparin Sodium 40 MG/0.4 ML SYRINGE SC SCH (10:24)
--- NOTE | 2017-11-08 11:21 | HP ---
I have examined the patient and discussed the case with Dr. Lisa Higgins. BRIEF HISTORY: Mr. Young is a 52-year-old white male patient who is status post mitral valve repai r who presented with symptoms of pulmonary congestion and heart failure. He has been given several d osages of Lasix and looks and feels much better. We are awaiting the results of an echocardiogram. PHYSICAL EXAMINATION: VITAL SIGNS: His blood pressure is 140/87, his heart rate is 110. He is afebrile and his room air p ulse ox is 98%. GENERAL: He is awake, alert, in no distress, lying nearly flat. EARS, NOSE AND THROAT: No erythema or exudate. NECK: Supple. He does have mild JVD. CARDIAC: Heart rhythm regular, no gallop or murmur noted. LUNGS: A few crackles heard at the lower lung chappell. He is in no distress and is not using accesso ry muscles. ABDOMEN: Flat and soft. No guarding, rebound or rigidity. NEUROLOGIC: No focal deficits. LABORATORY DATA: CBC: White count 7500, hemoglobin 14.7, hematocrit 47.0, MCV is 85.7. Chemistries : Sodium 140, potassium 4, chloride 101, bicarbonate 31, BUN 17, creatinine 0.83. TSH is 3.17. His chest x-ray shows a right basilar infiltrate and pleural fluid. The cardiac silhouette is magnif ied and enlarged. The pulmonary vasculature is at the upper limits of normal. Serum troponins are negative. EKG shows no acute ischemic changes. His EF in August was 55%. ASSESSMENT: 1. Possible heart failure with preserved ejection fraction. 2. Chronic obstructive pulmonary disease. PLAN: The patient has received Lasix and already feels better. He has also gotten some ____ for his COPD and his respirations now appear normal. We will await the results of his echo.
[2017-11-08 12:42] VITALS: BMI 24.7
[2017-11-08 13:33] LABS: Syphilis Antibody Nonreactive (Nonreactive); Syphilis Antibody Index 0.04 S/CO (<1.00 Non-Reactive)
[2017-11-08 13:53] LABS: HBSAB Concentration 1.96 mIU/mL; HBSAg Index 0.21 S/CO (0-0.99); HIV (1/2) Antibody/Antigen Non-Reactive (NonReactive); HIV 1/2 INDEX 0.16 S/CO (<1.00); Hep B Core Total Ab Non-Reactive (NonReactive); Hep B Core Total Index 0.15 S/CO (0-0.79); Hep B Surf AB Non-Reactive (NonReactive); Hep B Surf Ag Non-Reactive S/CO (NonReactive)
[2017-11-08] MEDS ORDERED: Lisinopril 5 MG TAB PO SCH (14:30)
[2017-11-08 16:31] LABS: Hep C IgG Ab Reflex HepC Qnt (NonReactive)
[2017-11-08 16:34] LABS: Hep C Index 11.25 S/CO (0-0.79)
[2017-11-08] MEDS ORDERED: Ketorolac Tromethamine 30 MG/ML VIAL IVP SCH (19:15)
[2017-11-08] MEDS: Nicotine 14 MG PATCH TD SCH (20:13)
[2017-11-09] MEDS: Furosemide 20 MG/2 ML VIAL SLOW IVP SCH (05:56)
--- NOTE | 2017-11-09 06:07 | PDOC.FM ---
- Subjective Subjective: Pt. states that he slept ok over night. He states that his back pain was severe and kept him up. He denies chest pain, trouble breathing, abdominal pain, and nausea/vomiting. He did state that he had some constipation. - Objective MAR Reviewed: Yes Vital Signs & Weight: Vital Signs (12 hours) Temp Pulse Resp BP Pulse Ox 11/09/17 04:00 97.9 F 122 H 18 116/74 94 L 11/08/17 22:52 77 110/77 11/08/17 20:09 98.1 F 120 H 18 122/92 H 95 11/08/17 20:00 98.1 F 120 H 18 95 Weight Admit Weight 78.97 kg Weight 73.21 kg I&O: 11/07/17 11/08/17 11/09/17 06:59 06:59 06:59 Intake Total 440 Output Total 2450 Balance -2009 Result Diagrams: 11/09/17 05:17 11/09/17 05:17 Phys Exam - Physical Examination Constitutional: NAD HEENT: PERRLA, moist MMs Neck: no JVD, full ROM rhonchi present, improved breath sounds Cardiovascular: no significant murmur tachycardic Gastrointestinal: soft, non-tender, no distention, positive bowel sounds Musculoskeletal: pulses present no edema today, improved from yesterday Neurological: moves all 4 limbs Psychiatric: normal affect, A&O x 3 Skin: normal turgor, cap refill <2 seconds Dx/Plan (1) HTN (hypertension) Code(s): I10 - ESSENTIAL (PRIMARY) HYPERTENSION Status: Acute (2) CHF (congestive heart failure) Code(s): I50.9 - HEART FAILURE, UNSPECIFIED Status: Acute (3) Tobacco abuse Code(s): Z72.0 - TOBACCO USE Status: Acute (4) COPD (chronic obstructive pulmonary disease) Status: Chronic (5) H/O atrial fibrillation without current medication Code(s): Z86.79 - PERSONAL HISTORY OF OTHER DISEASES OF THE CIRCULATORY SYSTEM Status: Chronic (6) Mitral valve replaced Code(s): Z95.2 - PRESENCE OF PROSTHETIC HEART VALVE Status: Chronic (7) Tricuspid valve replaced Code(s): Z95.2 - PRESENCE OF PROSTHETIC HEART VALVE Status: Chronic - Plan Plan: This is a 52 yo male with a PMH of CHF, Afib, and akylosing spondylitis CHF exacerbation -troponins neg x3, EKG showed no st changes, xray showed pleural effusions, pt. is receiving lasix and metoprolol for his CHF. Echo showed EF of 25-30%, sclerotic aortic valve, and intact mitral annuloplasty. We will continue to treat with lasix to improve his breathing. We are consulting cardioloigy due to his recent drop in EF from 45-50%. Acute bronchitis -Pt. has PRN duonebs for SOB/Wheezing Mitral/tricuspid replacement -Pt. is on prophylaxis lovenox Hx of Afib with RVR -pt. is on metoprolol HTN -Metoprolol Tobacco use -Pt. is motivated to quit. He is currently denying cravings Constipation -Miralax
[2017-11-09 06:10] LABS: #Basophils 0.1 thou/uL (0.0-0.2); #Eosinphils 0.1 thou/uL (0.0-0.7); #Monocytes 1.4 thou/uL (0.11-0.59); %Basophils 0.3 % (0.0-1.0); %Eosinophils 0.8 % (0.0-10.0); %Lymphocytes 13.8 % (21.0-51.0); %Monocytes 9.4 % (0.0-10.0); %Neutrophils 75.6 % (42.0-75.0); Hemoglobin 14.9 g/dL (14.0-18.0); Mean Corpuscular HGB CONC 32.4 g/dL (32.0-36.0); Mean Corpuscular Hemoglobin 27.2 pg (27.0-31.0); Mean Corpuscular Volume 83.9 fL (78.0-98.0); Mean Platelet Volume 8.9 fL (7.4-10.4); Platelet Count 201 thou/uL (130-400); RBC Distribution Width 15.3 % (11.5-14.5); Red Blood Cell (RBC) Count 5.47 mill/uL (4.70-6.10); White Blood Cell (WBC) Count 14.5 thou/uL (4.8-10.8)
[2017-11-09 06:22] LABS: Anion Gap 16 mmol/L (10-20); BUN (Urea Nitrogen) 23 mg/dL (8.9-20.6); Calc. Creatinine Clearance 106 mL/min (70-130); Calcium 9.7 mg/dL (7.8-10.44); Carbon Dioxide 27 mmol/L (22-29); Chloride 99 mmol/L (98-107); Estimated GFR-MDRD Greater than 90; Glucose 92 mg/dL (70-105); Potassium 4.3 mmol/L (3.5-5.1); Sodium 138 mmol/L (136-145)
[2017-11-09] MEDS ORDERED: Ketorolac Tromethamine 10 MG TAB PO PRN (08:38)
[2017-11-09] MEDS ORDERED: Ketorolac Tromethamine 10 MG TAB PO SCH (08:45)
[2017-11-09] MEDS ORDERED: Methocarbamol 1 GM in Sodium Chloride 0.9% 100 ML IVPB SCH (09:15)
[2017-11-09] MEDS: predniSONE 20 MG TAB PO SCH (10:36)
[2017-11-09] MEDS: Lisinopril 5 MG TAB PO SCH (10:36)
[2017-11-09] MEDS: Polyethylene Glycol 3350 17 GM Packet PO SCH (10:37)
--- NOTE | 2017-11-09 12:48 | ADD-PRG ---
DATE OF SERVICE: 11/09/2017 This is an addendum to the note of Dr. Ignacio Hill. Mr. Young looks and feels better and is diuresing briskly. His echo however, does demonstrate a si gnificant diminution in his EF down to 25%. We will ask Cardiology to see him regarding this and the placement of a defibrillator. Clinically, however, the patient is improved. His hepatitis C antibo dy was positive, and we are awaiting the results of hepatitis C RNA in order to proceed with this pro blem. Otherwise, continue medical management of his significant heart failure.
[2017-11-09] MEDS: Enoxaparin Sodium 40 MG/0.4 ML SYRINGE SC SCH (17:32)
--- NOTE | 2017-11-09 17:57 | CON ---
DATE OF CONSULTATION: 11/09/2017 CARDIOLOGY CONSULTATION INDICATION FOR CONSULTATION: A 52-year-old patient who has undergone both a tricuspid and mitral leigh ann ve repair with ring placement. He does not have any evidence of mitral valve or tricuspid valve repl acements. He also had a clip placed over the left atrial appendage. He has had a history of atrial fibrillation in the past. He is now in sinus rhythm. He had been on medications in the past for atr ial fibrillation, but this has subsequently been stopped. He seems to be maintaining a sinus rhythm. He presented to the emergency room after he complained of lower extremity edema. He said he felt l fara he had fluid all over and he had fullness in his chest, but he has fullness everywhere according to him. He said he had lower extremity edema for about 5 days, worse in the last 3 days. He denied any significant chest pain, just some fullness. He has not been compliant with followups in the [facility] nor has he taken his medications. He has been out of these medications for over a month and has n ot taken these medications. At the time of his cardiac catheterization prior to undergoing his valve repairs, apparently he had normal coronary arteries. His EKG does show evidence of what appears to be right ventricular hypertrophy and also right bundle branch block with some nonspecific T-wave rodriguez ges and sinus tachycardia. He continues to have sinus tachycardia in the hospital at this time. He denies any chest pain. He has diuresed about 3 liters and is feeling better and he has almost no low er extremity edema, but does have some minimal edema at this time. He is otherwise comfortable and w ants to know when he can be discharged from the hospital. Also of interest is he has a history of il licit drug use in the past and is positive for amphetamines at this time. He denies any other sympto ms and is doing quite well. PAST MEDICAL HISTORY: Significant for mitral valve ring replacement, tricuspid valve ring replacemen t and a left atrial appendage clip. He has had a history of intermittent atrial fibrillation in the past, but has remained in sinus rhythm. He has a history of ankylosing spondylitis with chronic pain . He has COPD, polysubstance abuse. He has had a history of tobacco abuse. He continues to smoke u nfortunately. He also says he has a history of asthma and this is in the form of his COPD. FAMILY HISTORY: Noncontributory. SOCIAL HISTORY: He has occasional alcohol use. He continues to smoke cigarettes. He also apparentl y continues to use amphetamines. MEDICATIONS: He had been on metoprolol as well as Plavix and aspirin, but has not been taking these medications. In the past, he was also taking amiodarone, but this was discontinued. His medications in the hospital included aspirin, atorvastatin. He has been placed on Lovenox, Lasix IV. He is on ketorolac, also lisinopril, methocarbamol, metoprolol, Nicoderm patch, potassium, pred nisone, ipratropium, albuterol inhaler or nebulizer treatments, Zofran. His last ejection fraction by echocardiogram showed ejection fraction of 50%-55% with left atrial dil atation, but also which was only mild to moderate. He also had evidence of a left atrial appendage l igation. He did have evidence also of mitral and tricuspid valve rings, which were placed, but there was no indication that the patient had any bioprosthetic or prosthetic valve replacements. Apparent ly at the time of his surgery, he did not have any bypass that was performed. It was felt that he mo st likely had normal coronary arteries. ALLERGIES: None. REVIEW OF SYSTEMS: A 12-point review of systems was unremarkable except what was noted in the histor y of present illness and lower extremity edema. PHYSICAL EXAMINATION: GENERAL: Reveals a middle-aged gentleman who is in no acute distress. He is alert and oriented. He denies any complaints at this time. VITAL SIGNS: His blood pressure is 109/71. He is afebrile. Heart rate is anywhere between 80-110, 120 at times, respiratory rate 16, O2 saturation 95% on room air. HEENT: Shows the head to be normocephalic and atraumatic. Carotid pulses are present. I did not he ar any bruits. CHEST: Decreased breath sounds in the right side at the base and he also has some rhonchi and some w heezing. Otherwise, his chest did not have any significant rales noted. CARDIOVASCULAR: Unremarkable. I did not hear any gross murmurs, heaves, thrills, bruits or rubs. H e has a regular rate and rhythm, occasionally some tachycardia during the examination, but this was s till regular. ABDOMEN: Soft and nontender. Positive bowel sounds are present. EXTREMITIES: Showed no clubbing, cyanosis or edema. Pedal pulses are present. NEUROLOGIC: The patient appears to be fully intact. There is no evidence of any significant abnorma lities. SKIN: Warm and dry. LABORATORY DATA: Shows WBC of 14.5, hemoglobin 14.9. Potassium is 4.3, creatinine 0.86. Cardiac en zymes are negative. Chest x-ray shows some small bilateral pleural effusions, right being more than the left. Also the laboratory data does show that the patient may have hepatitis C. He has at least been exposed to hepatitis C in the past. BNP was 894. IMPRESSION AND PLAN: 1. Mild congestive heart failure exacerbation due to noncompliance with taking his medications. The patient should go back on his medications and continue to take these. If he needs assistance, then this should be discussed with the patient if he does have Medicare, but may not be able to afford his medications. At this time, he has been placed on his medications. 2. History of mitral valve ring and tricuspid valve ring due to the repairs. I am uncertain as to w hy he underwent these procedures. He may have had endocarditis, but seems to be doing very well with this now. His last echocardiogram showed an ejection fraction of 50%-55%. This was in August of this year by Dr. Islas at which time he had mild mitral valve regurgitation and some mild left atrial dil atation. He also has had a clip placed over the left atrial appendage, which significantly decreases the risk of embolic phenomenon and cerebrovascular accidents. At this time, he remains in sinus rhy thm and I would not anticipate the patient would be on Coumadin or anticoagulation certainly if he loya s been noncompliant with followups and taking his medications, but since he has a clip in place, he i s certainly at low risk of having any acute embolic phenomenon associated with any atrial fibrillatio n, but I do not see any atrial fibrillation on the monitor. 3. History of chronic obstructive pulmonary disease in the form of asthma. He will continue taking his nebulizer treatments. 4. Lower extremity edema, which is significantly improved after he was started on diuretics. At thi s time, it would appear that the patient would be much more stable if he would just continue to take his medications and follow up in the office. 5. Patient does have a history of atrial fibrillation in the past, but remains in sinus rhythm. He has had a mitral and tricuspid valve repair with a ring. He does not have valves and he has had a cl ip placed over the left atrial appendage, which makes him at very low risk of any embolic phenomenon associated that would cause a CVA and it is not indicated to be on anticoagulation at this time, carmencita cially since the patient has been noncompliant with medical management. He is at low risk for any em bolic phenomenon associated with atrial fibrillation, especially since he remains in sinus rhythm and has had a clip placed over the left atrial appendage.
[2017-11-09] MEDS ORDERED: Atorvastatin Calcium 40 MG TAB PO SCH (21:00)
[2017-11-09] MEDS: Nicotine 14 MG PATCH TD SCH (21:30)
[2017-11-09] MEDS ORDERED: Ketorolac Tromethamine 60 MG/2 ML VIAL IM SCH (21:30)
[2017-11-09] MEDS ORDERED: Ketorolac Tromethamine 30 MG/ML VIAL IM SCH (21:45)
--- NOTE | 2017-11-10 05:23 | PDOC.FM ---
- Subjective Subjective: Pt. states he did well over night. No trouble breathing or chest pain. He states that his leg swelling is gone. Pt. denies nausea,vomiting, diarrhea, or constipation. He has no questions or concerns this morning. - Objective MAR Reviewed: Yes Vital Signs & Weight: Vital Signs (12 hours) Temp Pulse Resp BP Pulse Ox 11/10/17 04:20 97.7 F 117 H 14 110/76 95 11/09/17 20:00 98.3 F 120 H 16 115/74 95 Weight Admit Weight 78.97 kg Weight 73.21 kg I&O: 11/08/17 11/09/17 11/10/17 06:59 06:59 06:59 Intake Total 640 Output Total 2900 700 Balance -2260 -700 Result Diagrams: 11/10/17 05:48 11/10/17 05:48 Phys Exam - Physical Examination Constitutional: NAD HEENT: PERRLA, moist MMs Neck: no JVD, full ROM Respiratory: no wheezing, clear to auscultation bilateral Cardiovascular: no significant murmur tachycardia Gastrointestinal: soft, non-tender, no distention, positive bowel sounds Musculoskeletal: no edema, pulses present Neurological: normal sensation, moves all 4 limbs Psychiatric: normal affect, A&O x 3 Skin: normal turgor, cap refill <2 seconds Dx/Plan (1) HTN (hypertension) Code(s): I10 - ESSENTIAL (PRIMARY) HYPERTENSION Status: Acute (2) CHF (congestive heart failure) Code(s): I50.9 - HEART FAILURE, UNSPECIFIED Status: Acute (3) Tobacco abuse Code(s): Z72.0 - TOBACCO USE Status: Acute (4) COPD (chronic obstructive pulmonary disease) Status: Chronic (5) H/O atrial fibrillation without current medication Code(s): Z86.79 - PERSONAL HISTORY OF OTHER DISEASES OF THE CIRCULATORY SYSTEM Status: Chronic (6) Mitral valve replaced Code(s): Z95.2 - PRESENCE OF PROSTHETIC HEART VALVE Status: Chronic (7) Tricuspid valve replaced Code(s): Z95.2 - PRESENCE OF PROSTHETIC HEART VALVE Status: Chronic - Plan Plan: This is a 52 yo male with PMH of CHF, Afib, and ankylosing spondylitis CHF exacerbation -ER Tests: Troponins neg x3, EKG with no st changes, x ray showed pleural effusions -Pt. has been receiving lasix, metoprolol, and lisinopril for his CHF. Echo showed EF of 25-30 percent and previous echo showed ef of 45-50 percent. We consulted cardiology and they suggested close follow up with strict adherence to medications. Pt. appears improved clinically Acute bronchitis -Pt. breathing has improved and has duonebs for any SOB/Wheezing Mitral/tricuspid replacement -Pt. is on lovenox Hx of Afib with RVR -Tele has shown tachycardia in the 110s and NSR HTN -Medications from #1 Tobacco use -Pt. is motivated to quit Ankylosing spondilitis -Pt. complained of back pain yesterday. Pt. has history of IV drug abuse and we tried to minimize the use of opioid medications to treat his pain Constipation -Miralax Hyperkalemia 5.6 -Pt. is on lasix, will follow up in the out patient setting New diagnosis of Hepatitis C with Pending PCR -Will have patient follow up with PCP regarding treatment direction
[2017-11-10 06:25] LABS: #Monocytes 1.4 thou/uL (0.11-0.59); #Neutrophils 12.8 thou/uL (1.40-6.50); %Basophils 0.3 % (0.0-1.0); %Eosinophils 0.1 % (0.0-10.0); %Lymphocytes 12.3 % (21.0-51.0); %Monocytes 8.6 % (0.0-10.0); %Neutrophils 78.7 % (42.0-75.0); Hemoglobin 15.4 g/dL (14.0-18.0); Mean Corpuscular HGB CONC 30.8 g/dL (32.0-36.0); Mean Corpuscular Hemoglobin 26.1 pg (27.0-31.0); Mean Corpuscular Volume 84.8 fL (78.0-98.0); Mean Platelet Volume 8.6 fL (7.4-10.4); Platelet Count 231 thou/uL (130-400); RBC Distribution Width 15.3 % (11.5-14.5); Red Blood Cell (RBC) Count 5.91 mill/uL (4.70-6.10); White Blood Cell (WBC) Count 16.2 thou/uL (4.8-10.8)
[2017-11-10 06:42] LABS: Anion Gap 16 mmol/L (10-20); BUN (Urea Nitrogen) 27 mg/dL (8.9-20.6); Calc. Creatinine Clearance 101 mL/min (70-130); Calcium 10.1 mg/dL (7.8-10.44); Carbon Dioxide 29 mmol/L (22-29); Chloride 99 mmol/L (98-107); Estimated GFR-MDRD 88; Glucose 90 mg/dL (70-105); Potassium 5.6 mmol/L (3.5-5.1); Sodium 138 mmol/L (136-145)
[2017-11-10] MEDS ORDERED: Furosemide 40 MG TAB PO SCH (07:30)
[2017-11-10] MEDS ORDERED: Potassium Chloride 10 MEQ TAB PO SCH (08:00)
[2017-11-10] MEDS: Lisinopril 5 MG TAB PO SCH (08:14)
[2017-11-10] MEDS: Polyethylene Glycol 3350 17 GM Packet PO SCH (08:16)
[2017-11-10] MEDS ORDERED: predniSONE 20 MG TAB PO SCH (09:00)
--- NOTE | 2017-11-10 09:48 | PQF ---
CLINICAL DOCUMENTATION IMPROVEMENT CLARIFICATION FORM: ICD-10 Updated PLEASE DO AN ADDENDUM TO THE PROGRESS NOTE WITH ANY DOCUMENTATION UPDATES OR ADDITIONS AND CARRY THROUGH TO DC SUMMARY. THANK YOU. DATE: 11/10 ATTN: DR. PB TEIXEIRA / DR. Nikita CAPONE Please exercise your independent, professional judgment in responding to the clarification form. Clinical indicators are provided on the bottom of this form for your review. Please check appropriate box(s): HEART FAILURE, UNSPECIFIED, ACUTE TYPE: [ x ] Systolic / HFrEF [ ] Diastolic / HFpEF [ ] Combined Systolic / Diastolic [ ] Other diagnosis [ ] Unable to determine For continuity of documentation, please document condition throughout progress notes and discharge summary. Thank You. CLINICAL INDICATORS - SIGNS / SYMPTOMS / LABS ER PHYSICIAN DIAGNOSES 11/07: CHF EXACERBATION PHYSICIAN H&P DOCUMENTATION 11/07: PROBLEM LIST: 1) CHF, UNSPECIFIED, ACUTE PHYSICIAN PN 11/08 - 11/10: DX/PLAN: 2) CHF, UNSPECIFIED, ACUTE ECHO 11/08: OVERALL L VENTRICULAR FUNCTION IS SEVERELY DEPRESSED. EF VISUALLY ESTIMATED AT 25-30%. THE L ATRIUM IS MODERATELY DILATED BNP: 894 (11/07) RISKS: HISTORY OF CHF TOBACCO ABUSE AMPHETAMINE ABUSE TREATMENTS: IV LASIX (11/07 - 11/09) CARDIOLOGY CONSULT (11/09) ECHO (11/08) THANK YOU! Kendra (This form is maintained as a part of the permanent medical record) 2014 [employer]. All Rights Reserved Kendra Packer RN, BSN [email or web address] Office: [phone] [facility]
[2017-11-10 12:35] LABS: Anion Gap 14 mmol/L (10-20); BUN (Urea Nitrogen) 27 mg/dL (8.9-20.6); Calc. Creatinine Clearance 116 mL/min (70-130); Calcium 10.1 mg/dL (7.8-10.44); Carbon Dioxide 26 mmol/L (22-29); Chloride 102 mmol/L (98-107); Estimated GFR-MDRD Greater than 90; Glucose 97 mg/dL (70-105); Potassium 4.5 mmol/L (3.5-5.1); Sodium 137 mmol/L (136-145)
--- NOTE | 2017-11-10 13:02 | PRG ---
DATE OF SERVICE: 11/10/2017 Mr. Young continues to look and feel better. He continues to have reduction of his edema and short ness of breath. He was seen in consultation yesterday by Dr. Guthrie and we appreciate her input. She felt we should continue on medical management of his heart failure and felt that he also would be dif ficult because of previous noncompliance. As a courtesy, we will touch base with Dr. Islas before d ischarge since this is his regular 911 dispatcher. We were concerned about the recent diminution in hi s ejection fraction, but he seems to be responding well to medical therapy.
--- NOTE | 2017-11-10 14:28 | PDOC.CTH ---
Cardiology Progress Note - Subjective He is doing better. His breathing is back to baseline. - Objective Vital Signs Temp Pulse Resp BP BP Pulse Ox 11/10/17 12:09 97.5 F L 101 H 20 115/81 97 11/10/17 08:23 97.5 F L 101 H 20 99 11/10/17 08:14 108 H 120/74 11/10/17 04:20 97.7 F 117 H 14 110/76 95 Admit Weight 174 lb 1.6 oz Weight 163 lb 3.2 oz 11/09/17 11/10/17 11/11/17 06:59 06:59 06:59 Intake Total 640 200 Output Total 2900 1550 Balance -2260 -1350 - Physical Examination General/Neuro: alert & oriented x3, NAD Neck: no JVD present Lungs: CTA, unlabored respirations Heart: RRR Abdomen: NT/ND Extremities: + edema B (Trace) - Telemetry Telemetry Rhythm: NSR, NS VT. - Labs Result Diagrams: 11/10/17 05:48 11/10/17 12:05 Troponin/CKMB CK-MB (CK-2) 5.1 ng/mL (0-6.6) 11/07/17 14:41 Troponin I 0.014 ng/mL (< 0.028) 11/07/17 21:05 - Assessment/Plan 1. Dilated Cardiomyopathy, non ischemic 2. Substance abuse 3. HTN 4. EF at 20-25% 5. Non sustained VT 6. S/P Tricuspid valve replacement and mitral valve repair. 7. Paroxysmal afib 8. S/P KATERINA clippage. PLAN: - Will need lifevest setup before discharge. - Will increase BB dose - Continue ACEI. - Counselled on cessation of substance abuse.
[2017-11-10 16:02] VITALS: BP 129/84; TEMP 98.6
--- NOTE | 2017-11-11 06:30 | DIS-2 ---
DATE OF ADMISSION: 11/07/2017 DATE OF DISCHARGE: 11/10/2017 RESIDENT: Ignacio Hill DO. ADMITTING ATTENDING: Dr. Jonathon Lee. DISCHARGE ATTENDING: Dr. Jonathon Lee. CONSULTATIONS: Cardiology. PROCEDURES: Chest x-ray shows right basilar infiltrate and pleural effusions suspicious of loculated fluid along the right upper chest wall, cause not evident. Chest thorax CT, no evidence of PE, bilateral pleural effusions greater on the right. Echocardiogram shows severely depressed left ventricle function, ejection fraction is 25% to 30%. Left atrium is moderately dilated. Mitral annuloplasty ring in place. [id number] tricuspid regurgitation. PRIMARY DIAGNOSES: Congestive heart failure exacerbation, acute bronchitis. SECONDARY DIAGNOSES: Congestive heart failure, atrial fibrillation, ankylosing spondylitis, history of IV substance abuse. DISCHARGE MEDICATIONS: Atorvastatin 40 mg p.o. at bedtime, furosemide 40 mg p.o. daily, lisinopril 5 mg p.o. daily, metoprolol 50 mg p.o. daily, potassium 10 mEq p.o. daily, prednisone 60 mg p.o. daily. DISCONTINUED MEDICATIONS: None. HISTORY OF PRESENT ILLNESS AND HOSPITAL COURSE: This is a 52-year-old male who presented on the with a chief complaint of shortness of breath, accompanied by chest discomfort and lower leg swelling. Patient states that he ran out of his Plavix, metoprolol, and aspirin 1 month ago. Patient was put on Lasix, aspirin, and nitro in the ER, which resolved his chest pain. He has really received DuoNebs p.r.n. as needed for shortness of breath or wheezing. In the ER, we trended troponins were negative x3, EKG showed no ST changes. Cardiology was consulted due to decrease in ejection fraction from August. In August , his echocardiogram showed an EF of 50% to 55%. Echocardiogram, during this visit showed 25% to 30%. Cardiology was consulted and it was determined that he needed LifeVest before he could go home. We also diuresed the patient until symptomatically improved and clinically improved. We checked for hepatitis B and C, HIV, and syphilis. Hepatitis C came back positive for preliminary tests. Patient was informed of this diagnosis. Patient will be called upon completion of the final test. DISPOSITION: Stable. DISCHARGE INSTRUCTIONS: 1. Location: Home. 2. Diet: Heart-healthy. 3. Activity: As tolerated. 4. Follow up with primary care physician in 1-2 weeks. MTDD
[2017-11-12 04:17] LABS: HCV log10 4.843 (.); Hep C PCR-Quant 69700 IU/mL (.)
--- NOTE | 2017-11-13 23:03 | EKG ---
Test Reason : Blood Pressure : / mmHG Vent. Rate : 113 BPM Atrial Rate : 113 BPM P-R Int : 144 ms QRS Dur : 128 ms QT Int : 388 ms P-R-T Axes : 078 143 037 degrees QTc Int : 532 ms Sinus tachycardia Right bundle branch block Abnormal ECG When compared with ECG of 07-NOV-2017 13:52, (Unconfirmed) Non-specific change in ST segment in Anterior leads Confirmed by Alice CONDE ([id number]) on 11/13/2017 11:03:06 PM Referred By: PUNEET jackson Confirmed By:Alice CONDE
--- NOTE | 2017-11-13 23:09 | EKG ---
Test Reason : STAT Blood Pressure : / mmHG Vent. Rate : 115 BPM Atrial Rate : 115 BPM P-R Int : 136 ms QRS Dur : 124 ms QT Int : 378 ms P-R-T Axes : 000 137 039 degrees QTc Int : 522 ms Sinus tachycardia Right bundle branch block Abnormal ECG When compared with ECG of 10-NOV-2017 01:38, (Unconfirmed) Questionable change in QRS axis Confirmed by Alice CONDE ([id number]) on 11/13/2017 11:08:52 PM Referred By: KEIRA jackson Confirmed By:Alice CONDE
--- NOTE | 2017-11-13 23:09 | EKG ---
Test Reason : STAT Blood Pressure : / mmHG Vent. Rate : 119 BPM Atrial Rate : 119 BPM P-R Int : 134 ms QRS Dur : 126 ms QT Int : 374 ms P-R-T Axes : 000 194 042 degrees QTc Int : 526 ms Sinus tachycardia Right bundle branch block Abnormal ECG When compared with ECG of 09-NOV-2017 09:17, (Unconfirmed) ST now depressed in Anterior leads Confirmed by Alice CONDE ([id number]) on 11/13/2017 11:08:45 PM Referred By: KEIRA jackson Confirmed By:Alice CONDE
== END 2017-11-10 17:32 | disposition home or self-care (01) | DRG 292 ==
LOC: ERS 13:46 → 2NO 20:34
PROVIDERS: ADMIT Family Medicine; ATTEND Family Medicine
DX: I11.0 Hypertensive heart disease with heart failure (principal); J44.0 Chronic obstructive pulmonary disease with (acute) lower respiratory infection; I47.2 Ventricular tachycardia; I50.9 Heart failure, unspecified; J20.9 Acute bronchitis, unspecified; B19.20 Unspecified viral hepatitis C without hepatic coma; Z91.14 Patient's other noncompliance with medication regimen; I48.0 Paroxysmal atrial fibrillation; I42.0 Dilated cardiomyopathy; Z95.2 Presence of prosthetic heart valve; K59.00 Constipation, unspecified; E87.5 Hyperkalemia; M45.9 Ankylosing spondylitis of unspecified sites in spine; Z79.02 Long term (current) use of antithrombotics/antiplatelets; Z79.82 Long term (current) use of aspirin
CPT/HCPCS: 36415; 71045; 71275; 80048; 80053; 80306; 82553; 83605; 83690; 83880; 84443; 84484; 85025; 86704; 86706; 86780; 86803; 87040; 87340; 87389; 87522; 93005; 93010; 93306; 93798; 96374; 99406; A4216; J1650; J1885; J1940; J2800; J7050; J7506; Q0162

== ENCOUNTER 2017-11-13 10:08 | Emergency (ER) | payer MEDICARE ==
[2017-11-13 10:40] LABS: #Basophils 0.1 thou/uL (0.0-0.2); #Eosinphils 0.5 thou/uL (0.0-0.7); #Monocytes 1.3 thou/uL (0.11-0.59); #Neutrophils 7.7 thou/uL (1.40-6.50); %Basophils 0.7 % (0.0-1.0); %Eosinophils 3.6 % (0.0-10.0); %Monocytes 10.3 % (0.0-10.0); %Neutrophils 61.4 % (42.0-75.0); Hemoglobin 16.3 g/dL (14.0-18.0); Mean Corpuscular HGB CONC 30.7 g/dL (32.0-36.0); Mean Corpuscular Hemoglobin 26.5 pg (27.0-31.0); Mean Corpuscular Volume 86.5 fL (78.0-98.0); Mean Platelet Volume 8.7 fL (7.4-10.4); Platelet Count 234 thou/uL (130-400); RBC Distribution Width 15.4 % (11.5-14.5); Red Blood Cell (RBC) Count 6.15 mill/uL (4.70-6.10); White Blood Cell (WBC) Count 12.6 thou/uL (4.8-10.8)
[2017-11-13 10:49] LABS: PTT 31.4 SEC (22.9-36.1); Prothrombin Time 13.5 SEC (12.0-14.7)
[2017-11-13 11:05] LABS: ALT (SGPT) 35 U/L (8-55); AST (SGOT) 25 U/L (5-34); Albumin 4.6 g/dL (3.5-5.0); Alkaline Phosphatase 124 U/L (40-150); Anion Gap 19 mmol/L (10-20); BUN (Urea Nitrogen) 33 mg/dL (8.9-20.6); Bilirubin, Total 0.7 mg/dL (0.2-1.2); CK (CPK) 45 U/L (30-200); Calc. Creatinine Clearance 0 mL/min (70-130); Calcium 9.9 mg/dL (7.8-10.44); Carbon Dioxide 25 mmol/L (22-29); Chloride 104 mmol/L (98-107); Estimated GFR-MDRD 65; Globulin 3.2 g/dL (2.4-3.5); Glucose 72 mg/dL (70-105); Lipase 243 U/L (8-78); Potassium 4.9 mmol/L (3.5-5.1); Protein, Total 7.8 g/dL (6.0-8.3); Sodium 143 mmol/L (136-145)
[2017-11-13 11:09] LABS: CKMB 3.7 ng/mL (0-6.6); Troponin I 0.011 ng/mL (< 0.028)
--- NOTE | 2017-11-13 11:59 | RAD ---
CHEST 1 VIEW: Date: 11/13/17 HISTORY: Dyspnea. COMPARISON: Chest radiograph dated 11/07/17. FINDINGS: There is improvement of right basilar air space opacity and effusion. Heart size is enlarged. Pulmona ry arteries are dilated. IMPRESSION: Improved right basilar pneumonia and effusion. POS: CLINTH
== END 2017-11-13 14:52 | disposition home or self-care (01) ==
LOC: ERS 10:08
DX: T82.198A Other mechanical complication of other cardiac electronic device, initial encounter (principal); I48.91 Unspecified atrial fibrillation; I50.9 Heart failure, unspecified; I34.1 Nonrheumatic mitral (valve) prolapse; F17.210 Nicotine dependence, cigarettes, uncomplicated; Z79.82 Long term (current) use of aspirin; Z79.899 Other long term (current) drug therapy
CPT/HCPCS: 71045; 80053; 82553; 83690; 83880; 84484; 85025; 85610; 85730; 93005

== ENCOUNTER 2018-02-01 01:19 | Inpatient (IN) | payer MEDICARE ==
[2018-02-01 02:11] LABS: #Basophils 0.1 thou/uL (0.0-0.2); #Eosinphils 0.4 thou/uL (0.0-0.7); #Monocytes 0.9 thou/uL (0.11-0.59); #Neutrophils 8.4 thou/uL (1.40-6.50); %Basophils 0.5 % (0.0-1.0); %Eosinophils 3.4 % (0.0-10.0); %Monocytes 7.9 % (0.0-10.0); %Neutrophils 71.1 % (42.0-75.0); Mean Corpuscular Hemoglobin 25.5 pg (27.0-31.0); Mean Corpuscular Volume 85.2 fL (78.0-98.0); Mean Platelet Volume 8.8 fL (7.4-10.4); Platelet Count 238 thou/uL (130-400); RBC Distribution Width 15.5 % (11.5-14.5); Red Blood Cell (RBC) Count 5.87 mill/uL (4.70-6.10); White Blood Cell (WBC) Count 11.7 thou/uL (4.8-10.8)
[2018-02-01 02:15] LABS: ALT (SGPT) 50 U/L (8-55); AST (SGOT) 29 U/L (5-34); Albumin 4.3 g/dL (3.5-5.0); Alkaline Phosphatase 101 U/L (40-150); Anion Gap 12 mmol/L (10-20); BUN (Urea Nitrogen) 22 mg/dL (8.9-20.6); Bilirubin, Total 0.7 mg/dL (0.2-1.2); Calc. Creatinine Clearance 0 mL/min (70-130); Calcium 10.3 mg/dL (7.8-10.44); Carbon Dioxide 32 mmol/L (22-29); Chloride 102 mmol/L (98-107); Estimated GFR-MDRD 53; Globulin 3.7 g/dL (2.4-3.5); Glucose 123 mg/dL (70-105); Potassium 4.7 mmol/L (3.5-5.1); Sodium 141 mmol/L (136-145)
[2018-02-01 02:20] LABS: CKMB 5.6 ng/mL (0-6.6); Troponin I 0.017 ng/mL (< 0.028)
[2018-02-01 02:31] LABS: INR-International Normal Ratio 1.1; Prothrombin Time 14.4 SEC (12.0-14.7)
[2018-02-01] MEDS ORDERED: methylPREDNISolone Sod Succ/PF 125 MG/2 ML VIAL ONE (03:27)
[2018-02-01] MEDS ORDERED: Loperamide HCl 2 MG CAP PO PRN (05:16)
[2018-02-01] MEDS ORDERED: Nitroglycerin 0.4 MG TAB (25 Tab Bottle) SL PRN (05:16)
[2018-02-01] MEDS ORDERED: Bisacodyl 10 MG SUPP PR PRN (05:16)
[2018-02-01] MEDS ORDERED: Eucerin (Mineral Oil/Petrolatum,White) 30 gm Jar TOP PRN (05:16)
[2018-02-01] MEDS ORDERED: hydrALAZINE 20 MG/ML VIAL SLOW IVP PRN (05:16)
[2018-02-01] MEDS ORDERED: Bisacodyl 5 MG TAB PO PRN (05:16)
[2018-02-01] MEDS ORDERED: Loratadine 10 MG TAB PO PRN (05:16)
[2018-02-01] MEDS ORDERED: Senokot S 8.6-50 MG TAB PO PRN (05:16)
[2018-02-01] MEDS ORDERED: Artificial Tears 18 DROP/0.9 ML EA EYE PRN (05:16)
[2018-02-01] MEDS ORDERED: Cepastat Lozenges 1 LOZ PO PRN (05:16)
[2018-02-01] MEDS ORDERED: Ondansetron PF 4 MG/2 ML Vial IVP PRN (05:16)
[2018-02-01] MEDS ORDERED: Calcium Carbonate 500 MG ChewTAB PO PRN (05:16)
[2018-02-01] MEDS ORDERED: Diabetic Tussin 200 MG/10 ML UDCUP PO PRN (05:16)
[2018-02-01] MEDS ORDERED: Acetaminophen 325 MG TAB PO PRN (05:16)
[2018-02-01] MEDS ORDERED: Zolpidem Tartrate 5 MG TAB PO PRN (05:16)
[2018-02-01] MEDS ORDERED: Sodium Chloride 0.65% Nasal 44 ML BOT EA NARE PRN (05:16)
[2018-02-01] MEDS ORDERED: Ondansetron ODT 4 MG TAB PO PRN (05:16)
[2018-02-01] MEDS ORDERED: methylPREDNISolone Sod Succ/PF 125 MG/2 ML VIAL IVP SCH (06:00)
[2018-02-01 06:01] LABS: Troponin I 0.024 ng/mL (< 0.028)
--- NOTE | 2018-02-01 06:17 | HP ---
PRIMARY CARE PHYSICIAN: City call admission. REASON FOR ADMISSION: Acute bronchitis, acute on chronic systolic congestive heart failure exacerbation. HISTORY OF PRESENT ILLNESS: A 52-year-old male who has a diagnosis of chronic systolic heart failure. Based on most recent echocardiography on 10/2017, his EF is 25-30%. Patient was recently admitted in November in our hospital. At that time, LifeVest was arranged for low EF. The patient is not using LifeVest consistent basis. The patient also reports that he ran out all medication today including his inhalers and breathing treatment. For the last one week, the patient was experiencing upper respiratory symptoms including runny nose, postnasal drip, sore throat. For last 4 days, he has increasing cough productive of yellowish green sputum. He was also hearing his own wheezing. His shortness of breath gradually gotten worse. The patient was taking all his medication up until today, but he ran out everything and today his shortness of breath gotten worse. He was not able to talk in full sentences and he was not able to lie down flat because of shortness of breath. He was having subjective low-grade fever, but he did not measure temperature at home. He denies any hemoptysis. He denies any pleurisy. He denies any UTI symptoms. He denies any constipation, diarrhea, melena or lower extremity edema. He denies any PND. He does report chest tightness which he attributes due to shortness of breath. He was feeling congested in his chest. For the last couple of nights, he was not able to sleep because of shortness of breath. Patient denies any smoking. He quit smoking since last admission. He denies any focal neurological symptoms. He denies any UTI symptoms. In the emergency room, when he presented at that time, patient appeared in respiratory distress. He was tachycardic, tachypneic. He was relatively hypoxic. He was requiring oxygen. He was wheezing in his both lung chappell. He was also having rales. He was given 2 times DuoNeb therapy as well as Solu- Medrol. Even after that, the patient was not improved and he was still feeling shortness of breath and that is why we decided to keep this patient in hospital for admission. REVIEW OF SYSTEMS: The following complete review of systems was negative, unless otherwise mentioned in the HPI or below: Constitutional: Weight loss or gain, ability to conduct usual activities. Skin: Rash, itching. Eyes: Double vision, pain. ENT/Mouth: Nose bleeding, neck stiffness, pain, tenderness. Cardiovascular: Palpitations, dyspnea on exertion, orthopnea. Respiratory: Shortness of breath, wheezing, cough, hemoptysis, fever or night sweats. Gastrointestinal: Poor appetite, abdominal pain, heartburn, nausea, vomiting, constipation, or diarrhea. Genitourinary: Urgency, frequency, dysuria, nocturia. Musculoskeletal: Pain, swelling. Neurologic/Psychiatric: Anxiety, depression. Allergy/Immunologic: Skin rash, bleeding tendency. Please see my HPI for pertinent positive and negative. All other review of systems reviewed and negative except as mentioned in the HPI. ALLERGIES: No known drug allergies. CURRENT HOME MEDICATIONS: Patient did not bring any home medication and he reports that he ran out all medication, but based on our hospital record, the patient is on following medication: Aspirin 81 mg p.o. daily, Plavix 75 mg p.o. daily, Ventolin inhaler 2 puffs q.8 hourly p.r.n., Lasix 40 mg p.o. daily, Lipitor 40 mg p.o. at bedtime, DuoNeb q.i.d, lisinopril 5 mg p.o. daily, Toprol- XL 50 mg p.o. daily, potassium chloride 10 mEq p.o. daily. PAST MEDICAL HISTORY: Chronic systolic heart failure, nonischemic cardiomyopathy, asthma, paroxysmal atrial fibrillation, history of ankylosing spondylosis, history of tricuspid valve replacement and mitral valve repair, history of nonsustained ventricular tachycardia, history of polysubstance abuse , history of left atrial appendage clippage. PAST SURGICAL HISTORY: Back surgery, tricuspid valve replacement, mitral valve repair, left atrial appendage clippage. PAST PSYCHIATRIC HISTORY: Reviewed and negative. SOCIAL HISTORY: The patient has history of polysubstance abuse including marijuana smoking. Patient reports that he quit smoking one month ago, otherwise he used to smoke 1 pack per day for 30 years. FAMILY HISTORY: No strong family history of premature coronary artery disease, stroke, or cancer. EMERGENCY ROOM COURSE: Patient is given Solu-Medrol 125 mg, DuoNeb x2. PHYSICAL EXAMINATION: VITAL SIGNS: On arrival, blood pressure 149/99, temperature 98.3, pulse 130, respiratory rate 28, saturation 90% on room air, weight 74.8 kilograms. GENERAL: Patient is currently alert, awake, mild respiratory distress. HEAD: Normocephalic, atraumatic. EYES: Pupils round, reactive to light. Extraocular muscle intact. ENT: Oropharynx within normal limits. Moist mucous membranes. No oral lesion , no pharyngeal erythema, no exudate. NECK: Supple. No JVD, no thyromegaly, no carotid bruit. LUNGS: The patient does have bibasilar rales and expiratory wheezing heard bilaterally. No accessory muscles of respiration in use. CARDIAC: S1, S2 regular, tachycardia, systolic murmur noted. No gallop, no rub. ABDOMEN: Soft, bowel sounds present, nontender, nondistended. No organomegaly , no mass, no suprapubic tenderness. BACK: Unremarkable, no CVA tenderness. EXTREMITIES: Upper extremity: Passive movement of all joints are normal. Lower extremities: No edema. Good distal pulsation. SKIN: No skin rash. HEMATOLOGICAL: No lymphadenopathy. PSYCHIATRIC: Normal affect. NEUROLOGIC: The patient is alert, oriented x3. Cranial nerves II through XII intact. Motor and sensation within normal limits. No focal neurological deficit noted. SIGNIFICANT LABORATORY AND DIAGNOSTIC DATA: EKG showing sinus tachycardia, incomplete right bundle branch block pattern. Chest x-ray based on my review, the patient does have moderate bilateral upper and lower lobe bronchial wall thickening consistent with reactive airway disease. CT angiography reviewed. CBC: WBC 11.7, hemoglobin 15.0, platelet 238,000. INR 1.1. BMP: Sodium 141, potassium 4.7, chloride 102, carbon dioxide 32, BUN 22, creatinine 1.41, glucose 123, calcium 10.3. LFT: AST 29, ALT 50, alkaline phosphatase is 101, albumin 4.3, CK-MB 15.6, troponin 0.017. BNP 418.6. ASSESSMENT AND PLAN: 1. Acute asthmatic bronchitis with a history of chronic bronchitis/chronic obstructive pulmonary disease with exacerbation. This patient has increasing cough. He had a recent upper respiratory infection that has precipitated current problem. Patient also ran out all his rescue inhaler as well as DuoNeb solution. At this point, patient will require admission. We will give him empiric antibiotic therapy with Levaquin 500 mg IV daily, DuoNeb therapy every 4 hourly and p.r.n. basis, Solu-Medrol 40 mg IV q.8 hourly, Mucinex 600 mg twice daily, Dulera 2 puffs inhalation b.i.d. 2. Acute on chronic systolic congestive heart failure with history of nonischemic cardiomyopathy. This patient already has LifeVest at home, but he is noncompliant with using LifeVest. At this point, the patient will need outpatient Cardiology followup for repeat echocardiography to see any improvement in his EF. Otherwise, this patient will benefit from automated implantable cardioverter defibrillator evaluation. At this point, the patient does have mild congestive heart failure exacerbation and that is why we will continue Lasix 20 mg IV b.i.d. We will change his Toprol-XL to Coreg 12.5 mg twice daily. We will also continue lisinopril 5 mg p.o. daily. Fluid restriction 1500 mL per day. 3. Dyslipidemia. Continue Lipitor 40 mg p.o. at bedtime. 4. Polysubstance abuse. Patient is given counseling to avoid polysubstance abuse as well as to stick with a nonsmoking. 5. Chronic kidney disease, stage 3. We will monitor renal function and avoid nephrotoxin agents. 6. Deep venous thrombosis prophylaxis. Lovenox 40 mg subcu daily. 7. Gastrointestinal prophylaxis. Pepcid 20 mg p.o. daily. CODE STATUS: The patient is FULL CODE. Patient does not have any surrogate decision maker. Disposition plan based on clinical course. We are expecting patient's stay in hospital more than 2 midnights. Plan of care discussed with the patient in detail. MTDD
--- NOTE | 2018-02-01 08:19 | CT ---
PRELIMINARY REPORT/[facility]/EMERGENTY AFTER-HOURS PROCEDURE CT Angiography Chest With Intravenous Contrast EXAM DATE/TIME: 02/01/2018 2:01 AM CLINICAL HISTORY: 52 years old, male; Signs and symptoms; Dyspnea TECHNIQUE: Axial computed tomographic angiography images of the chest with intravenous contrast using CT angiogr aphy protocol. All CT scans at this facility use at least one of these dose optimization techniques: automated exposure control; mA and/or kV adjustment per patient size (includes targeted exams where d ose is matched to clinical indication); or iterative reconstruction. MIP reconstructed images were created and reviewed. COMPARISON: No relevant prior studies available. FINDINGS: Pulmonary arteries: No pulmonary embolism. Aorta: Normal. No aortic aneurysm. No aortic dissection. Lungs: Moderate bilateral upper and lower lobe bronchial wall thickening, compatible with reactive ai rway disease or bronchitis. Pleural space: Normal. No pneumothorax. No pleural effusion. Heart: Surgical changes of prior sternotomy with tricuspid and mitral valve repairs, as well as left atrial appendage occlusion. Mild four-chamber cardiac enlargement. Bones/joints: Partially visualized posterior lumbar spine fusion hardware. Soft tissues: Unremarkable. Lymph nodes: Unremarkable. No enlarged lymph nodes. Kidneys and ureters: Nonobstructive 3 mm left nephrolithiasis. IMPRESSION: 1. No pulmonary embolism. 2. Moderate bilateral upper and lower lobe bronchial wall thickening, compatible with reactive airway disease or bronchitis. Thank you for allowing us to participate in the care of your patient. Dictated and Authenticated by: Corey Guillen MD 02/01/2018 3:04 AM Central Time ([place] & [place]) FINAL REPORT: CT ARTERIOGRAM CHEST: Date: 02-01-18 Performed on an emergency basis at 0203 hours. History: Chest pain, dyspnea. Comparison: 11-07-17 FINDINGS: I agree with the preliminary report by Dr. Guillen from [facility]. No CT evidence of pulmonary embolus. Code QA
[2018-02-01 09:21] LABS: Troponin I 0.012 ng/mL (< 0.028)
[2018-02-01] MEDS ORDERED: Famotidine 20 MG TAB ONE (11:15)
[2018-02-01] MEDS ORDERED: ISOVUE-370 76%-LOCM 1 ML ONE (11:15)
[2018-02-01] MEDS ORDERED: Levofloxacin 500 mg/D5W 100 ml Premix Bag ONE (11:15)
[2018-02-01] MEDS ORDERED: Furosemide 20 MG/2 ML VIAL ONE (11:15)
[2018-02-01] MEDS ORDERED: Enoxaparin Sodium 40 MG/0.4 ML SYRINGE ONE (11:15)
[2018-02-01] MEDS ORDERED: Aspirin 81 mg Enteric Coated Tablet ONE (11:15)
[2018-02-01] MEDS ORDERED: Clopidogrel Bisulfate 75 MG TAB ONE (11:15)
[2018-02-01] MEDS ORDERED: HYDROcodone/Acetaminophen 5/325 mg Tablet ONE (11:32)
[2018-02-01] MEDS: Mometasone/Formoterol 120 PUFF INHALER INH SCH ×2 (12:01→18:58)
[2018-02-01] MEDS: Carvedilol 6.25 MG TAB PO SCH ×2 (17:01→22:01)
[2018-02-01] MEDS: Furosemide 20 MG/2 ML VIAL SLOW IVP SCH (17:01)
[2018-02-01] MEDS: Enoxaparin Sodium 40 MG/0.4 ML SYRINGE SC SCH (17:02)
[2018-02-01] MEDS: guaiFENesin ER 600 MG TAB PO SCH ×2 (17:02→22:01)
[2018-02-01] MEDS: Clopidogrel Bisulfate 75 MG TAB PO SCH (17:02)
[2018-02-01] MEDS: Famotidine 20 MG TAB PO SCH ×2 (17:02→22:00)
[2018-02-01] MEDS: Lisinopril 5 MG TAB PO SCH (17:03)
[2018-02-01] MEDS: HYDROcodone/Acetaminophen 5/325 mg Tablet PO PRN ×2 (17:30→22:35)
[2018-02-01] MEDS: Atorvastatin Calcium 40 MG TAB PO SCH (22:01)
[2018-02-02 05:33] LABS: Anion Gap 12 mmol/L (10-20); BUN (Urea Nitrogen) 27 mg/dL (8.9-20.6); Calc. Creatinine Clearance 108 mL/min (70-130); Calcium 10.2 mg/dL (7.8-10.44); Carbon Dioxide 32 mmol/L (22-29); Chloride 100 mmol/L (98-107); Estimated GFR-MDRD Greater than 90; Glucose 115 mg/dL (70-105); Potassium 4.6 mmol/L (3.5-5.1); Sodium 139 mmol/L (136-145); Uric Acid 6.3 mg/dL (3.5-7.2)
[2018-02-02] MEDS: Furosemide 20 MG/2 ML VIAL SLOW IVP SCH ×3 (05:36→13:58)
[2018-02-02] MEDS: HYDROcodone/Acetaminophen 5/325 mg Tablet PO PRN ×4 (05:56→22:12)
[2018-02-02 06:00] LABS: Band 15 % (5-11); Hemoglobin 15.1 g/dL (14.0-18.0); Lymphocytes 6 % (21-51); MDiff Complete? YES; Mean Corpuscular HGB CONC 29.6 g/dL (32.0-36.0); Mean Corpuscular Hemoglobin 25.4 pg (27.0-31.0); Mean Corpuscular Volume 85.8 fL (78.0-98.0); Mean Platelet Volume 8.7 fL (7.4-10.4); Monocytes 2 % (0-10); Neutrophil 77 % (42-75); Platelet Count 260 thou/uL (130-400); RBC Distribution Width 15.5 % (11.5-14.5); Red Blood Cell (RBC) Count 5.96 mill/uL (4.70-6.10); White Blood Cell (WBC) Count 23.3 thou/uL (4.8-10.8)
[2018-02-02] MEDS: Mometasone/Formoterol 120 PUFF INHALER INH SCH ×2 (08:31→19:00)
[2018-02-02] MEDS: Famotidine 20 MG TAB PO SCH ×2 (10:22→22:09)
[2018-02-02] MEDS: Clopidogrel Bisulfate 75 MG TAB PO SCH (10:22)
[2018-02-02] MEDS: Enoxaparin Sodium 40 MG/0.4 ML SYRINGE SC SCH (10:22)
[2018-02-02] MEDS: Carvedilol 6.25 MG TAB PO SCH ×2 (10:22→22:21)
[2018-02-02] MEDS: guaiFENesin ER 600 MG TAB PO SCH ×2 (10:23→22:09)
[2018-02-02] MEDS: Lisinopril 5 MG TAB PO SCH (10:23)
[2018-02-02 13:52] VITALS: BMI 24.5
--- NOTE | 2018-02-02 14:22 | PDOC.PN ---
- Subjective Encounter Start Date: 02/02/18 Encounter Start Time: 11:15 Subjective: pt up in bed no complains - Objective Resuscitation Status: Resuscitation Status FULL:Full Resuscitation Vital Signs & Weight: Vital Signs (12 hours) Temp Pulse Resp BP BP Pulse Ox 02/02/18 11:57 97.9 F 100 18 91/74 97 02/02/18 11:16 100 20 02/02/18 10:23 100 109/80 02/02/18 10:22 109/80 02/02/18 08:32 94 L 02/02/18 08:31 108 H 20 94 L 02/02/18 08:30 108 H 20 94 L 02/02/18 07:50 92 L 02/02/18 07:48 97.5 F L 100 18 109/80 92 L 02/02/18 04:00 96.6 F L 105 H 20 117/80 97 Weight Admit Weight 160 lb 11.2 oz Weight 165 lb 14.4 oz I&O: 02/01/18 02/02/18 02/03/18 06:59 06:59 06:59 Intake Total 500 700 Output Total 1400 Balance 500 -700 Result Diagrams: 02/02/18 04:21 02/02/18 04:21 Phys Exam - Physical Examination Neck: no nodes, no JVD, supple, full ROM Respiratory: no wheezing, no rales, no rhonchi, wheezing present, clear to auscultation bilateral Cardiovascular: RRR, no significant murmur, no rub, gallop, irregular Gastrointestinal: soft, non-tender, no distention, positive bowel sounds Dx/Plan (1) SOB (shortness of breath) Code(s): R06.02 - SHORTNESS OF BREATH Status: Acute (2) Bronchitis Code(s): J40 - BRONCHITIS, NOT SPECIFIED ACUTE OR CHRONIC Status: Acute (3) HTN (hypertension) Code(s): I10 - ESSENTIAL (PRIMARY) HYPERTENSION Status: Acute - Plan pt's last echo indicated worsening ef than his previous one on 08/2017 -: will check echo -: pt feels better will continue abx and steroids -: leukocytosis from iv steroids will change to po -: pt does not wear life vest * . Review of Systems - Review of Systems Respiratory: negative: Cough, Dry, Shortness of Breath, Hemoptysis, SOB with Excertion, Pleuritic Pain, Sputum, Wheezing Cardiovascular: negative: chest pain, palpitations, orthopnea, paroxysmal nocturnal dyspnea, edema, light headedness, other Gastrointestinal: negative: Nausea, Vomiting, Abdominal Pain, Diarrhea, Constipation, Melena, Hematochezia, Other - Medications/Allergies Allergies/Adverse Reactions: Allergies Allergy/AdvReac Type Severity Reaction Status Date / Time No Known Drug Allergies Allergy Verified 11/09/17 04:57 Medications: Current Medications Acetaminophen (Tylenol) 650 mg PO Q4H PRN PRN Reason: Headache/Fever/Mild Pain (1-3) Hydrocodone Bitart/Acetaminophen ([place] 5/325) 1 tab PO Q4H PRN PRN Reason: Moderate Pain (4-6) Last Admin: 02/02/18 10:23 Dose: 1 tab Albuterol/Ipratropium (Duoneb) 3 ml NEB [id number] [facility] Last Admin: 02/02/18 11:16 Dose: 3 ml Artificial Tears (Tears Naturale) 2 drop EA EYE PRN PRN PRN Reason: Dry Eyes Aspirin (Aspirin Chewable) 81 mg PO DAILY [facility] Last Admin: 02/02/18 10:22 Dose: 81 mg Atorvastatin Calcium (Lipitor) 40 mg PO HS [facility] Last Admin: 02/01/18 22:01 Dose: 40 mg Bisacodyl (Dulcolax) 10 mg PO DAILYPRN PRN PRN Reason: Constipation Bisacodyl (Dulcolax) 10 mg [place] DAILYPRN PRN PRN Reason: Constipation Calcium Carbonate (Tums) 1,000 mg PO Q4H PRN PRN Reason: Heartburn or Indigestion Carvedilol (Coreg) 12.5 mg PO BID [facility] Last Admin: 02/02/18 10:22 Dose: 12.5 mg Clopidogrel Bisulfate (Plavix) 75 mg PO DAILY [facility] Last Admin: 02/02/18 10:22 Dose: 75 mg Enoxaparin Sodium (Lovenox) 40 mg SC 0900 [facility] Last Admin: 02/02/18 10:22 Dose: 40 mg Famotidine (Pepcid) 20 mg PO BID [facility] Last Admin: 02/02/18 10:22 Dose: 20 mg Furosemide (Lasix) 20 mg SLOW IVP 0600,1400 [facility] Last Admin: 10/25/18 13:58 Dose: 20 mg Guaifenesin (Mucinex) 600 mg PO Q12HR [facility] Last Admin: 02/02/18 10:23 Dose: 600 mg Guaifenesin (Robitussin Sf) 200 mg PO Q4H PRN PRN Reason: Cough Hydralazine HCl (Apresoline) 10 mg SLOW IVP Q4H PRN PRN Reason: SBP > 180 and HR < 70 Levofloxacin 500 mg/ Device 100 mls @ 100 mls/hr IVPB DAILY [facility] Last Admin: 02/02/18 10:24 Dose: 100 mls Lisinopril (Zestril) 5 mg PO DAILY [facility] Last Admin: 02/02/18 10:23 Dose: 5 mg Loperamide HCl (Imodium) 2 mg PO PRN PRN PRN Reason: Diarrhea/Loose Stools Loratadine (Claritin) 10 mg PO DAILYPRN PRN PRN Reason: Sinus Symptoms Mineral Oil/White Petrolatum (Eucerin Cream) 0 gm TOP BIDPRN PRN PRN Reason: Dry Skin Mometasone Furoate/Formoterol Fumar (Dulera 200 Mcg/5 Mcg Inhaler) 2 puff INH BID-RT [facility] Last Admin: 02/02/18 08:31 Dose: 2 puff Nitroglycerin (Nitrostat) 0.4 mg SL Q5MIN PRN PRN Reason: Chest Pain Ondansetron HCl (Zofran Odt) 4 mg PO Q6H PRN PRN Reason: Nausea/Vomiting Ondansetron HCl (Zofran) 4 mg IVP Q6H PRN PRN Reason: Nausea/Vomiting Prednisone (Prednisone) 40 mg PO QA-[facility] Senna/Docusate Sodium (Senokot S) 2 tab PO BIDPRN PRN PRN Reason: Constipation Sodium Chloride ([place] Nasal [place] 0.65%) 0 ml EA NARE QIDPRN PRN PRN Reason: Nasal Congestion Throat Lozenges (Cepastat Lozenges) 1 geno PO Q2H PRN PRN Reason: Sore Throat Zolpidem Tartrate (Ambien) 5 mg PO HSPRN PRN PRN Reason: Insomnia
[2018-02-02] MEDS: Atorvastatin Calcium 40 MG TAB PO SCH (22:09)
[2018-02-03] MEDS: HYDROcodone/Acetaminophen 5/325 mg Tablet PO PRN ×4 (05:01→19:05)
[2018-02-03] MEDS: Furosemide 20 MG/2 ML VIAL SLOW IVP SCH ×2 (06:10→14:37)
[2018-02-03 06:43] LABS: #Eosinphils 0.1 thou/uL (0.0-0.7); #Lymphocytes 2.2 thou/uL (1.20-3.40); #Monocytes 1.8 thou/uL (0.11-0.59); %Basophils 0.2 % (0.0-1.0); %Eosinophils 0.4 % (0.0-10.0); %Lymphocytes 10.2 % (21.0-51.0); %Monocytes 8.5 % (0.0-10.0); %Neutrophils 80.7 % (42.0-75.0); Hemoglobin 14.5 g/dL (14.0-18.0); Mean Corpuscular HGB CONC 29.1 g/dL (32.0-36.0); Mean Corpuscular Hemoglobin 25.3 pg (27.0-31.0); Mean Corpuscular Volume 86.8 fL (78.0-98.0); Mean Platelet Volume 8.7 fL (7.4-10.4); Platelet Count 259 thou/uL (130-400); RBC Distribution Width 15.7 % (11.5-14.5); Red Blood Cell (RBC) Count 5.75 mill/uL (4.70-6.10); White Blood Cell (WBC) Count 21.1 thou/uL (4.8-10.8)
[2018-02-03] MEDS: Mometasone/Formoterol 120 PUFF INHALER INH SCH (08:21)
[2018-02-03] MEDS: predniSONE 20 MG TAB PO SCH (09:06)
[2018-02-03] MEDS: Enoxaparin Sodium 40 MG/0.4 ML SYRINGE SC SCH (09:06)
[2018-02-03] MEDS: Clopidogrel Bisulfate 75 MG TAB PO SCH (09:06)
[2018-02-03] MEDS: Famotidine 20 MG TAB PO SCH ×2 (09:07→21:34)
[2018-02-03] MEDS: guaiFENesin ER 600 MG TAB PO SCH ×2 (09:07→21:35)
[2018-02-03] MEDS: Lisinopril 5 MG TAB PO SCH (10:38)
[2018-02-03] MEDS: Carvedilol 6.25 MG TAB PO SCH ×2 (10:39→21:34)
[2018-02-03] MEDS ORDERED: Fentanyl 100 MCG/2 ML VIAL ONE (14:40)
[2018-02-03] MEDS ORDERED: HYDROmorphone 2 MG/ML VIAL ONE (14:41)
--- NOTE | 2018-02-03 16:50 | PDOC.PN ---
- Subjective Encounter Start Date: 02/03/18 Encounter Start Time: 09:00 Subjective: pt up in bed no complains - Objective Resuscitation Status: Resuscitation Status FULL:Full Resuscitation Vital Signs & Weight: Vital Signs (12 hours) Temp Pulse Pulse Pulse Resp BP BP 02/03/18 16:41 93 20 02/03/18 15:59 98.0 F 82 16 02/03/18 11:29 97.5 F L 102 H 18 02/03/18 10:39 118/81 02/03/18 10:38 105 H 118/81 02/03/18 09:48 105 H 89 118/81 02/03/18 07:44 97.9 F 92 16 02/03/18 07:30 BP BP Pulse Ox Pulse Ox Pulse Ox 02/03/18 16:41 98 02/03/18 15:59 85/64 L 95 02/03/18 11:29 94/68 97 02/03/18 10:39 02/03/18 10:38 02/03/18 09:48 99/60 92 L 97 02/03/18 07:44 86/68 L 92 L 02/03/18 07:30 92 L Weight Admit Weight 160 lb 11.2 oz Weight 165 lb 14.4 oz I&O: 02/02/18 02/03/18 02/04/18 06:59 06:59 06:59 Intake Total 500 1600 700 Output Total 2550 1040 Balance 500 -950 -340 Result Diagrams: 02/03/18 06:22 02/02/18 04:21 Phys Exam - Physical Examination Neck: no nodes, no JVD, supple, full ROM Respiratory: no wheezing, no rales, no rhonchi, wheezing present, clear to auscultation bilateral Cardiovascular: RRR, no significant murmur, no rub, gallop, irregular Gastrointestinal: soft, non-tender, no distention, positive bowel sounds Dx/Plan (1) SOB (shortness of breath) Code(s): R06.02 - SHORTNESS OF BREATH Status: Acute (2) Bronchitis Code(s): J40 - BRONCHITIS, NOT SPECIFIED ACUTE OR CHRONIC Status: Acute (3) HTN (hypertension) Code(s): I10 - ESSENTIAL (PRIMARY) HYPERTENSION Status: Acute - Plan echo done pending -: possible discharge today or daquan -: if ef on echo is worse will consult cardio * . Review of Systems - Review of Systems Cardiovascular: negative: chest pain, palpitations, orthopnea, paroxysmal nocturnal dyspnea, edema, light headedness, other Gastrointestinal: negative: Nausea, Vomiting, Abdominal Pain, Diarrhea, Constipation, Melena, Hematochezia, Other Genitourinary: negative: Dysuria, Frequency, Incontinence, Hematuria, Retention , Other - Medications/Allergies Allergies/Adverse Reactions: Allergies Allergy/AdvReac Type Severity Reaction Status Date / Time No Known Drug Allergies Allergy Verified 11/09/17 04:57 Medications: Current Medications Acetaminophen (Tylenol) 650 mg PO Q4H PRN PRN Reason: Headache/Fever/Mild Pain (1-3) Hydrocodone Bitart/Acetaminophen ([place] 5/325) 1 tab PO Q4H PRN PRN Reason: Moderate Pain (4-6) Last Admin: 02/03/18 14:42 Dose: 1 tab Albuterol/Ipratropium (Duoneb) 3 ml NEB Q4H PRN PRN Reason: SOB Last Admin: 02/03/18 16:41 Dose: 3 ml Artificial Tears (Tears Naturale) 2 drop EA EYE PRN PRN PRN Reason: Dry Eyes Aspirin (Aspirin Chewable) 81 mg PO DAILY [facility] Last Admin: 02/03/18 09:06 Dose: 81 mg Atorvastatin Calcium (Lipitor) 40 mg PO HS [facility] Last Admin: 02/02/18 22:09 Dose: 40 mg Bisacodyl (Dulcolax) 10 mg PO DAILYPRN PRN PRN Reason: Constipation Bisacodyl (Dulcolax) 10 mg [place] DAILYPRN PRN PRN Reason: Constipation Calcium Carbonate (Tums) 1,000 mg PO Q4H PRN PRN Reason: Heartburn or Indigestion Carvedilol (Coreg) 12.5 mg PO BID [facility] Last Admin: 02/03/18 10:39 Dose: 12.5 mg Clopidogrel Bisulfate (Plavix) 75 mg PO DAILY [facility] Last Admin: 02/03/18 09:06 Dose: 75 mg Enoxaparin Sodium (Lovenox) 40 mg SC 0900 [facility] Last Admin: 02/03/18 09:06 Dose: 40 mg Famotidine (Pepcid) 20 mg PO BID [facility] Last Admin: 02/03/18 09:07 Dose: 20 mg Furosemide (Lasix) 20 mg SLOW IVP 0600,1400 [facility] Last Admin: 02/03/18 14:37 Dose: 20 mg Guaifenesin (Mucinex) 600 mg PO Q12HR [facility] Last Admin: 02/03/18 09:07 Dose: 600 mg Guaifenesin (Robitussin Sf) 200 mg PO Q4H PRN PRN Reason: Cough Hydralazine HCl (Apresoline) 10 mg SLOW IVP Q4H PRN PRN Reason: SBP > 180 and HR < 70 Levofloxacin 500 mg/ Device 100 mls @ 100 mls/hr IVPB DAILY [facility] Last Admin: 02/03/18 09:01 Dose: 100 mls Lisinopril (Zestril) 5 mg PO DAILY [facility] Last Admin: 02/03/18 10:38 Dose: 5 mg Loperamide HCl (Imodium) 2 mg PO PRN PRN PRN Reason: Diarrhea/Loose Stools Loratadine (Claritin) 10 mg PO DAILYPRN PRN PRN Reason: Sinus Symptoms Mineral Oil/White Petrolatum (Eucerin Cream) 0 gm TOP BIDPRN PRN PRN Reason: Dry Skin Nitroglycerin (Nitrostat) 0.4 mg SL Q5MIN PRN PRN Reason: Chest Pain Ondansetron HCl (Zofran Odt) 4 mg PO Q6H PRN PRN Reason: Nausea/Vomiting Ondansetron HCl (Zofran) 4 mg IVP Q6H PRN PRN Reason: Nausea/Vomiting Prednisone (Prednisone) 40 mg PO QAM-[facility] Last Admin: 02/03/18 09:06 Dose: 40 mg Senna/Docusate Sodium (Senokot S) 2 tab PO BIDPRN PRN PRN Reason: Constipation Sodium Chloride ([place] Nasal [place] 0.65%) 0 ml EA NARE QIDPRN PRN PRN Reason: Nasal Congestion Sodium Chloride (Flush - Normal Saline) 10 ml IVF Q12HR [facility] Sodium Chloride (Flush - Normal Saline) 10 ml IVF PRN PRN PRN Reason: Saline Flush Throat Lozenges (Cepastat Lozenges) 1 geno PO Q2H PRN PRN Reason: Sore Throat Zolpidem Tartrate (Ambien) 5 mg PO HSPRN PRN PRN Reason: Insomnia
[2018-02-03] MEDS: Atorvastatin Calcium 40 MG TAB PO SCH (21:35)
[2018-02-04] MEDS: HYDROcodone/Acetaminophen 5/325 mg Tablet PO PRN ×2 (00:08→06:33)
[2018-02-04] MEDS: Furosemide 20 MG/2 ML VIAL SLOW IVP SCH ×2 (06:33→15:41)
[2018-02-04] MEDS: Enoxaparin Sodium 40 MG/0.4 ML SYRINGE SC SCH (09:45)
[2018-02-04] MEDS: Carvedilol 6.25 MG TAB PO SCH (09:46)
[2018-02-04] MEDS: predniSONE 20 MG TAB PO SCH (09:46)
[2018-02-04] MEDS: Clopidogrel Bisulfate 75 MG TAB PO SCH (09:47)
[2018-02-04] MEDS: guaiFENesin ER 600 MG TAB PO SCH (09:47)
[2018-02-04] MEDS: Lisinopril 5 MG TAB PO SCH (09:47)
[2018-02-04] MEDS: Famotidine 20 MG TAB PO SCH (09:47)
--- NOTE | 2018-02-04 11:53 | EKG ---
Test Reason : Blood Pressure : / mmHG Vent. Rate : 134 BPM Atrial Rate : 134 BPM P-R Int : 114 ms QRS Dur : 120 ms QT Int : 334 ms P-R-T Axes : 000 159 023 degrees QTc Int : 498 ms Sinus tachycardia Right bundle branch block Abnormal ECG Confirmed by TEJAL JARAMILLO DO ([id number]), editor index DEANGELO RIZVI ([id number]) on 02/04/2018 11:52:30 AM Referred By: Confirmed By:TEJAL JARAMILLO DO
[2018-02-04 13:10] LABS: Amphetamine Not Detected (NotDetected); Barbiturates Screen Not Detected (NotDetected); Benzodiazepine Screen Not Detected (NotDetected); Cocaine Metabolite Screen Not Detected (NotDetected); Medtox Control Line Valid? VALID (VALID); Medtox Reader # READER 1; Methadone Not Detected (NotDetected); Methamphetamine Not Detected (NotDetected); Opiate Screen Detected (NotDetected); Oxycodone Screen Not Detected (NotDetected); Phencyclidine (PCP) Not Detected (NotDetected); THC/Cannabinoid Screen Detected (NotDetected); Tricyclic Screen Not Detected (NotDetected)
[2018-02-04 15:38] VITALS: BP 86/52; TEMP 97.6
--- NOTE | 2018-02-05 14:46 | PDOC.EVN ---
Event Note - Event Note Event Note: pt called and left message about change in his betablocker.
--- NOTE | 2018-02-05 17:04 | DIS ---
DATE OF ADMISSION: 02/01/2018 DATE OF DISCHARGE: 02/04/2018 DISCHARGE DIAGNOSES: As of the followin. Acute on chronic systolic heart failure. 2. Bronchitis. 3. Hypertension. 4. History of drug use. HOSPITAL COURSE: The patient is a very pleasant 52-year-old male who presented to the hospital initi ally with shortness of breath. He did have a CTA of his chest which indicated normal pulmonary arter ies. I just had some bilateral upper and lower bronchial wall thickening and possibly indicative to reactive bronchitis. The patient initially was put on breathing treatments, also was put on some mary beth roids for 5 days, also was put on prophylactic antibiotics. Patient also states that he has not been very compliant with his medication. His last echocardiogram which was done in 10/2017, indicated an EF of 25%-30%. He also has had a mitral and tricuspid valve replacement in the past. His repeat ec hocardiogram this admission indicate also an EF of 20%-25%. He does have a LifeVest which he is not very compliant with it either. Patient was encouraged to continue his medications take it very relig iously and also continue to wear his LifeVest. He was also asked to follow up with his hand spray operator and his primary care doctor, which patient stated that he will and also the fact that at this time, C ardiology was not really consulted since the patient has not been very compliant with his medication and also he has an upper respiratory bronchitis infection, I do not think he would be a candidate for AICD placement this time. I think he would benefit from taking at least 3 months of his medications regularly and then follow up with his hand spray operator if they feel that his EF is still low and AICD wo uld be ideal for this patient. The patient has been explained about this and the importance of follo wing up with the hand spray operator and he also is going to be following up with heart failure PHYSICAL EXAMINATION: VITAL SIGNS: Temperature of 97.5, 86, 14, 92% room air, blood pressure of 96/70. GENERAL: He is awake, alert, and oriented x3, does not appear in distress. CARDIOVASCULAR: S1, S2 present. No murmurs, rubs or gallops. ABDOMEN: Soft, nontender. Bowel sounds are present x2. EXTREMITIES: No edema. Pedal pulses are present x2. MEDICATIONS: Include potassium chloride 10 mEq daily, tramadol 50 q.6 hours p.r.n., metoclopramide 2 5 daily, lisinopril 5 mg daily, levofloxacin 500 daily, Lasix 40 mg daily, atorvastatin 40 mg daily, aspirin 1 tab daily and albuterol 2 puffs daily. I actually will change his metoprolol from 25 to [place] reg 3.125. The patient will follow up with his primary care doctor.
== END 2018-02-04 17:49 | disposition home or self-care (01) | DRG 291 ==
LOC: ERS 01:19 → ERHOLD 05:07 → 2SE 15:51
PROVIDERS: ADMIT Internal Medicine; ATTEND Internal Medicine
DX: I13.0 Hypertensive heart and chronic kidney disease with heart failure and stage 1 through stage 4 chronic kidney disease, or unspecified chronic kidney disease (principal); I50.23 Acute on chronic systolic (congestive) heart failure; N18.3 Chronic kidney disease, stage 3 (moderate); I42.8 Other cardiomyopathies; I48.0 Paroxysmal atrial fibrillation; Z79.899 Other long term (current) drug therapy; Z79.82 Long term (current) use of aspirin; Z79.02 Long term (current) use of antithrombotics/antiplatelets; Z95.2 Presence of prosthetic heart valve; F12.10 Cannabis abuse, uncomplicated; Z87.891 Personal history of nicotine dependence; E78.5 Hyperlipidemia, unspecified
CPT/HCPCS: 36415; 71275; 80048; 80053; 80306; 82553; 83605; 83735; 83880; 84443; 84484; 84550; 85025; 85610; 93005; 93306; 93798; 94640; 96365; 96372; 96375; J1170; J1650; J1940; J1956; J2920; J2930; J3010; J7506; J7620

== ENCOUNTER 2018-03-01 16:31 | Inpatient (IN) | payer MEDICARE ==
[2018-03-01 17:04] LABS: #Basophils 0.1 thou/uL (0.0-0.2); #Eosinphils 0.4 thou/uL (0.0-0.7); #Lymphocytes 1.3 thou/uL (1.20-3.40); #Monocytes 0.9 thou/uL (0.11-0.59); #Neutrophils 4.1 thou/uL (1.40-6.50); %Basophils 0.8 % (0.0-1.0); %Eosinophils 5.6 % (0.0-10.0); %Lymphocytes 19.2 % (21.0-51.0); %Monocytes 13.2 % (0.0-10.0); %Neutrophils 61.2 % (42.0-75.0); Hemoglobin 15.1 g/dL (14.0-18.0); Mean Corpuscular Hemoglobin 26.3 pg (27.0-31.0); Mean Corpuscular Volume 84.8 fL (78.0-98.0); Platelet Count 168 thou/uL (130-400); RBC Distribution Width 15.5 % (11.5-14.5); Red Blood Cell (RBC) Count 5.76 mill/uL (4.70-6.10); White Blood Cell (WBC) Count 6.7 thou/uL (4.8-10.8)
[2018-03-01] MEDS ORDERED: methylPREDNISolone Sod Succ/PF 125 MG/2 ML VIAL ONE (17:04)
[2018-03-01 17:09] LABS: Actual Bicarbonate (HCO3a) 35.5 mEq/L (22-28); Analyzer IN Cardio ER; Base Excess (BEa) 6.6 mEq/L (-2.0 to +3.0); Calcium, Ionized 1.27 mmol/L (1.12-1.30); Carboxyhemoglobin (COHb) 1.4 gm% (0.0-3.0); Hemoglobin (Hb) 15.2 g/dL (14.0-18.0); O2 Tension (PaO2) 73.9 mmHg (80.0-100.0); Potassium - ABG Lab 4.35 mmol/L (3.70-5.30); pH, Arterial 7.32 (7.35-7.45)
[2018-03-01 17:16] LABS: CO2 Tension 70.3 mmHg (35.0-45.0)
[2018-03-01 17:17] LABS: ALV-art Gradient 37.865 (0-20); Puncture Site LRA
[2018-03-01 17:24] LABS: ALT (SGPT) 43 U/L (8-55); AST (SGOT) 25 U/L (5-34); Albumin 4.4 g/dL (3.5-5.0); Alkaline Phosphatase 97 U/L (40-150); Anion Gap 11 mmol/L (10-20); BUN (Urea Nitrogen) 20 mg/dL (8.9-20.6); CK (CPK) 43 U/L (30-200); Calc. Creatinine Clearance 0 mL/min (70-130); Calcium 10.4 mg/dL (7.8-10.44); Carbon Dioxide 36 mmol/L (22-29); Chloride 98 mmol/L (98-107); Estimated GFR-MDRD 90; Globulin 3.5 g/dL (2.4-3.5); Glucose 113 mg/dL (70-105); Potassium 4.3 mmol/L (3.5-5.1); Protein, Total 7.9 g/dL (6.0-8.3); Sodium 141 mmol/L (136-145)
[2018-03-01 17:28] LABS: CKMB 3.4 ng/mL (0-6.6); Troponin I Less than 0.010 ng/mL (< 0.028)
--- NOTE | 2018-03-01 17:59 | RAD ---
PORTABLE CHEST: 03/01/18 HISTORY: Shortness of breath. Lungs appear clear. Heart and mediastinum unremarkable. Postop sternotomy. Device overlying the left heart indicates prior left atrial appendage occlusion procedure. IMPRESSION: No acute process. POS: ONEL
[2018-03-01] MEDS ORDERED: Acetaminophen 325 MG TAB PO PRN (18:57)
[2018-03-01] MEDS ORDERED: Senokot S 8.6-50 MG TAB PO PRN (18:57)
[2018-03-01] MEDS ORDERED: Guaifenesin DM 100-10/5 ML UDCUP PO PRN (18:57)
[2018-03-01 19:28] LABS: Acetaminophen Less than 6.0 mcg/mL (10.0-30.0); Alcohol Less than 10 mg/dL (Less than 10); Salicylate Less than 8.0 mg/dL (15.0-30.0)
[2018-03-01] MEDS ORDERED: Carvedilol 6.25 MG TAB PO SCH (19:30)
[2018-03-01] MEDS: Sodium Chloride 0.9% 1,000 ML IV SCH (19:54)
[2018-03-01] MEDS: Famotidine 20 MG TAB PO SCH (19:54)
[2018-03-01] MEDS: Atorvastatin Calcium 40 MG TAB PO SCH (19:55)
[2018-03-01] MEDS: Levofloxacin 750 mg/D5W 500 MG in Premix Bag 1 BAG IVPB SCH (19:55)
--- NOTE | 2018-03-01 20:12 | HP ---
REASON FOR ADMISSION: Acute respiratory failure with hypoxia and hypercarbia, COPD exacerbation. HISTORY OF PRESENT ILLNESS: The patient gives history of working outside in the cold for the last 3-4 days. He has developed cough with expectoration and sinus congestion. He is also having sore throat. All of these lasted for a week or so. He became very short of breath this afternoon. He was tripoding when EMS arrived. He was saturating 78% on room air when EMS arrived and was placed on Ventimask. The patient states he has had some change in medications a week back. The patient has known history of heart failure with EF dropping down to 20% a month back from 35%. He is wearing his LifeVest from last 3 months [address] He sees Dr. Islas. The patient has had history of repair of mitral and tricuspid valve. He quit smoking a month ago. Prior to which, he has smoked one pack a day for nearly 20-30 years now. No history of fever. Has no chest pain or palpitation. The patient has orthopnea at present. No PND. PAST MEDICAL AND SURGICAL HISTORY: History of CHF with ejection fraction of around 20%, history of CHF with an EF of 20-25%, mild to moderate tricuspid regurgitation and tricuspid annuloplasty ring in place. All of these were seen on the echo done on 02/03/2018. Patient also has a mitral annular ring. The patient has a clip over the left atrial appendage with likely prior history of atrial fibrillation; prior cardiac catheterization which was normal; history of ankylosing spondylitis with chronic pain; COPD; prior history of substance abuse. CURRENT MEDICATIONS: Patient is on Lasix 40 mg daily, potassium chloride 20 mEq p.o. daily, atorvastatin 40 mg p.o. daily, Coreg 6.25 mg p.o. twice daily, losartan 25 mg p.o. daily. ALLERGIES: No known drug allergies. PERSONAL HISTORY: Quit smoking a month back, prior to which has smoked one pack a day for nearly 20-30 years. No history of alcohol abuse. The patient denies substance abuse. FAMILY HISTORY: Mother at the age of 43 years. She has had history of lung cancer. Father is living and healthy. CODE STATUS: FULL. Power of attorney law clerk is his sister, Ms. Carmen Urbina. REVIEW OF SYSTEMS: The following complete review of systems was negative, unless otherwise mentioned in the HPI or below: Constitutional: Weight loss or gain, ability to conduct usual activities. Skin: Rash, itching. Eyes: Double vision, pain. ENT/Mouth: Nose bleeding, neck stiffness, pain, tenderness. Cardiovascular: Palpitations, dyspnea on exertion, orthopnea. Respiratory: Shortness of breath, wheezing, cough, hemoptysis, fever or night sweats. Gastrointestinal: Poor appetite, abdominal pain, heartburn, nausea, vomiting, constipation, or diarrhea. Genitourinary: Urgency, frequency, dysuria, nocturia. Musculoskeletal: Pain, swelling. Neurologic/Psychiatric: Anxiety, depression. Allergy/Immunologic: Skin rash, bleeding tendency. PHYSICAL EXAMINATION: GENERAL: The patient is a 52-year-old male who is currently in moderate respiratory distress. VITAL SIGNS: Blood pressure 124/80, pulse 106 per minute, respiratory rate 28 per minute, temperature 97.8 degrees Fahrenheit, saturating 78% on room air and 93% on 2 liters nasal cannula. NECK: Supple, no elevated JVD. HEENT: Extraocular muscles intact. Pupils reacting to light. Oral cavity, mucous membranes are dry. No exudates or congestion. CARDIOVASCULAR: S1, S2 heard. Regular rhythm. RESPIRATORY: Air entry 1+ bilateral. Scattered wheezes plus bilateral. ABDOMEN: Soft, bowel sounds heard. No tenderness, rigidity or guarding. EXTREMITIES: No peripheral edema or calf tenderness. VASCULAR SYSTEM: Peripheral pulses 1+ bilateral, no ischemic ulcerations or gangrene. CENTRAL NERVOUS SYSTEM: No gross focal deficits noted. Patient is alert, awake , oriented well. PSYCHIATRIC: The patient's mood is euthymic. No hallucinations or delusions. LABORATORY AND X-RAY FINDINGS: White count of 6.7, H&H 15 and 48, platelet count 168, MCV is 84 with 61% neutrophils. Blood gas done shows a pH of 7.32, PCO2 of 70, PO2 73. Electrolytes are stable. Serum bicarbonate 36, BUN 20, creatinine 0.8, serum glucose 113, BNP 195. Cardiac enzymes x1 is negative. Chest x-ray done shows no acute infiltrate. CLINICAL IMPRESSION AND PLAN: The patient will be admitted to [facility] for acute respiratory failure with hypoxia and hypercarbia, chronic obstructive pulmonary disease exacerbation. The patient appears clinically dry. He will be on normal saline at 80 mL per hour for a total of 2 bags. He will be on DuoNeb and steroids. We will continue him on aspirin, atorvastatin, Coreg and losartan as before. We will obtain a urine drug screen as well. The patient has had prior history of methamphetamine abuse and marijuana as well, although he denies it. We will obtain consultation with Dr. Tang who is on-call for Pulmonology. We will continue to closely monitor him on IMCU. If needed, the patient will be placed on BiPAP. The patient is currently refusing to go on BiPAP, but if he gets worse, he is willing to go on it. He is also FULL CODE. MTDD
[2018-03-01 21:16] LABS: Amphetamine Detected (NotDetected); Barbiturates Screen Not Detected (NotDetected); Benzodiazepine Screen Not Detected (NotDetected); Cocaine Metabolite Screen Not Detected (NotDetected); Medtox Control Line Valid? VALID (VALID); Medtox Reader # READER 1; Methadone Not Detected (NotDetected); Methamphetamine Detected (NotDetected); Opiate Screen Not Detected (NotDetected); Oxycodone Screen Not Detected (NotDetected); Phencyclidine (PCP) Not Detected (NotDetected); THC/Cannabinoid Screen Detected (NotDetected); Tricyclic Screen Not Detected (NotDetected)
[2018-03-01] MEDS: HYDROcodone/Acetaminophen 5/325 mg Tablet PO PRN (21:24)
[2018-03-02 04:20] LABS: #Lymphocytes 0.5 thou/uL (1.20-3.40); #Monocytes 0.2 thou/uL (0.11-0.59); #Neutrophils 3.5 thou/uL (1.40-6.50); %Eosinophils 0.1 % (0.0-10.0); %Lymphocytes 10.8 % (21.0-51.0); %Neutrophils 85.1 % (42.0-75.0); Hemoglobin 14.6 g/dL (14.0-18.0); Mean Corpuscular HGB CONC 30.4 g/dL (32.0-36.0); Mean Corpuscular Hemoglobin 26.1 pg (27.0-31.0); Mean Corpuscular Volume 85.8 fL (78.0-98.0); Mean Platelet Volume 9.2 fL (7.4-10.4); Platelet Count 144 thou/uL (130-400); RBC Distribution Width 15.4 % (11.5-14.5); White Blood Cell (WBC) Count 4.1 thou/uL (4.8-10.8)
[2018-03-02 04:28] LABS: Anion Gap 11 mmol/L (10-20); BUN (Urea Nitrogen) 19 mg/dL (8.9-20.6); Calc. Creatinine Clearance 126 mL/min (70-130); Calcium 9.9 mg/dL (7.8-10.44); Carbon Dioxide 31 mmol/L (22-29); Chloride 102 mmol/L (98-107); Estimated GFR-MDRD Greater than 90; Glucose 147 mg/dL (70-105); Potassium 4.9 mmol/L (3.5-5.1); Sodium 139 mmol/L (136-145)
[2018-03-02] MEDS: HYDROcodone/Acetaminophen 5/325 mg Tablet PO PRN ×3 (06:16→20:30)
[2018-03-02] MEDS: Aspirin 81 mg Enteric Coated Tablet PO SCH (09:27)
[2018-03-02] MEDS: Famotidine 20 MG TAB PO SCH ×2 (09:27→20:24)
[2018-03-02] MEDS: Carvedilol 6.25 MG TAB PO SCH ×2 (09:27→17:28)
[2018-03-02] MEDS: Sodium Chloride 0.9% 1,000 ML IV SCH (09:28)
[2018-03-02] MEDS: Enoxaparin Sodium 40 MG/0.4 ML SYRINGE SC SCH (09:28)
[2018-03-02] MEDS: Losartan 25 MG TAB PO SCH (09:28)
[2018-03-02] MEDS ORDERED: Furosemide 40 MG TAB PO SCH (13:30)
[2018-03-02] MEDS ORDERED: Potassium Chloride 20 MEQ TAB PO SCH (13:30)
--- NOTE | 2018-03-02 14:50 | CON ---
DATE OF CONSULTATION: 03/02/2018 HISTORY OF PRESENT ILLNESS: He is a 52-year-old unfortunate gentleman who was recently discharged fr om the hospital on 01/20/2018 with a diagnosis of CHF, bronchitis, hypertension, and apparently drug abuse. He was hospitalized on 02/01/2018 at that time with a diagnosis of bronchitis. It appears, Philipp chun had never seen the patient during the last admission. The patient states he has been smoking up until recently month ago and he quit smoking. He is working out in the cold weather cough, shortness of breath, congestion and yellowish sput um. PAST MEDICAL HISTORY: Pertinent otherwise for CHF, cardiac arrhythmia, ankylosing spondylitis. PAST SURGICAL HISTORY: Back surgery, valve replacement surgery. His EF is apparently 25%. He has a LifeVest in place. MEDICATIONS: From home includes potassium 20, Cozaar 25, Lasix 40, Coreg 6.25, Lipitor 40, aspirin, albuterol inhaler. Since admission, he was started neb treatments, steroids, Levaquin. ALLERGIES: None. SOCIAL AND FAMILY HISTORY: . REVIEW OF SYSTEMS: A 10-point negative. PHYSICAL EXAMINATION: VITAL SIGNS: Blood pressure 150/93, temperature 98, sats are 93 on 2 liters. CHEST: Bilateral rhonchi and crackles. CARDIAC: Normal S1, S2. No gallops. ABDOMEN: Soft. No masses. LABORATORY DATA: His pO2 was 73, pCO2 70, pH 7.32 on admission. His electrolytes are normal. BNP w as only 195. His white count is 4000, H&H is 14 and 48, platelet count is normal. IMPRESSION: 1. Bronchitis. 2. Congestive heart failure. 3. Former smoker. PLAN: Continue steroids, neb treatments and Dulera. Deescalate antibiotics when he is better. Continue cardiac care. This is a consultation note of 70 minutes, in which 50% spent in direct patient care.
--- NOTE | 2018-03-02 15:56 | CON ---
DATE OF CONSULTATION: 03/02/2018 CARDIOLOGY CONSULTATION REASON FOR CONSULTATION: Heart failure. HISTORY OF PRESENT ILLNESS: Mr. Young is a 52-year-old white gentleman who comes to the hospital f or increased shortness of breath. He was working outside in the cold. He felt a sore throat and sta rted becoming more short of breath in the afternoon and had to call 911. EMS arrived, he was satting of 78% on room air. Placed him on a Ventimask and brought him in. He was initially treated for LABORER SAWMILL D exacerbation, but he has a known history of nonischemic cardiomyopathy with an EF about 20%. He wa s advised to wear a LifeVest and this was back in November of this year. I have never seen him in the office. I think he is followed up with the [facility] once or twice. He has not smoked for the last month; however, he tells me that he has done some drugs. Last time was about 4-5 days ago. Last time he says it was a very minimal amount. PAST MEDICAL HISTORY: 1. History of nonischemic cardiomyopathy, EF at 20%-25%. 2. TR status post ring annuloplasty. 3. Severe MR, status post mitral ring annuloplasty. 4. History of paroxysmal atrial fibrillation with a clip in the appendage. 5. Ankylosing spondylitis. 6. Chronic back pain. 7. Chronic obstructive pulmonary disease. 8. Substance abuse. 9. Tobacco abuse. 10. Quit smoking a month ago. OUTPATIENT MEDICATIONS: 1. Lasix 40 mg a day. 2. Potassium chloride 20 mEq a day. 3. Atorvastatin 40 mg a day. 4. Coreg 6.25 b.i.d. 5. Losartan 25 mg a day. This was because he developed cough with lisinopril. ALLERGIES: No known drug allergies. SOCIAL HISTORY: Quit smoking a month ago, but he used to smoke a pack a day for about 30 years. No alcohol use. Denies substance abuse, but he has tested positive for methamphetamines in the past and he tells he most recently did something on Tuesday of this week. FAMILY HISTORY: Noncontributory. REVIEW OF SYSTEMS: Twelve point review of systems was done and it is all negative unless stated in t he history of present illness. PHYSICAL EXAMINATION: VITAL SIGNS: Temperature 99.1, pulse 105, respiration rate 18, satting 99% on 2 liters, blood pressu re 142/80. GENERAL: Awake, alert, and oriented x3, in no distress. HEENT: Normocephalic, atraumatic. NECK: Supple. LUNGS: Have severely reduced breath sounds with expiratory wheezes. CARDIOVASCULAR: S1, S2, no S3, S4. There is a grade 2/6 systolic murmur at the apex. ABDOMEN: Soft with positive bowel sounds. EXTREMITIES: No edema. SKIN: Normal and dry. LABORATORY DATA: Laboratory work was reviewed. White count 4.1, hemoglobin 14, hematocrit 48, plate let count 144. ABG was reviewed. Chemistries were reviewed. Toxicology was reviewed. Amphetamines , methamphetamines and cannabinoid were all detected. Troponin has been less than assay limit x1. BNP was 195. ASSESSMENT: 1. Acute on chronic systolic heart failure. 2. Chronic obstructive pulmonary disease exacerbation. 3. Acute hypoxic hypercapnic respiratory insufficiency, improving. 4. Severe nonischemic cardiomyopathy, EF at 20%-25%. 5. Substance abuse. 6. Noncompliance. PLAN: 1. Continue medical therapy. 2. Probably give 1 more dose of IV Lasix today. 3. Most of his respiratory issues today I believe are related to his chronic obstructive pulmonary d isease, some level of heart failure is also in place. 4. We will repeat echocardiogram and if LV function still reduced he would be a candidate for an AIC D. I would prefer that he get this prior to discharge as long as his blood cultures remain negative. Thank you for letting us to participate in the care of your patient. We will follow.
--- NOTE | 2018-03-02 17:03 | PDOC.PN ---
- Subjective Encounter Start Date: 03/02/18 Encounter Start Time: 17:01 Subjective: feels a little better but still easily winded -: reports that is taking all the meds as prescribed.lisinopril changed to -: losartan due to cough.quit smoking 1 month ago feels that his legs are swollen - Objective Resuscitation Status: Resuscitation Status FULL:Full Resuscitation MAR Reviewed: Yes Vital Signs & Weight: Vital Signs (12 hours) Temp Pulse Resp BP BP Pulse Ox 03/02/18 11:18 99.1 F 105 H 18 142/80 H 99 03/02/18 09:27 152/93 H 03/02/18 08:31 109 H 20 100 03/02/18 08:00 94 L 03/02/18 07:30 98.6 F 104 H 18 124/84 95 Weight Weight 165 lb 1.6 oz I&O: 03/01/18 03/02/18 03/03/18 06:59 06:59 06:59 Intake Total 1401 Output Total 301 Balance 1100 Result Diagrams: 03/02/18 03:35 03/02/18 03:35 Additional Labs: Microbiology 03/01/18 21:31 Nasopharyngeal swab Respiratory Virus Panel (PCR) - Final 03/01/18 19:26 Venous blood - Right Arm Blood Culture - Preliminary Specimen has been received and culture in progress. No Growth to date. 03/01/18 19:21 Venous blood - Right Hand Blood Culture - Preliminary Specimen has been received and culture in progress. No Growth to date. Laboratory Tests 08/12/17 08/12/17 08/13/17 19:46 22:54 01:35 Troponin I 0.048 H 0.057 H 0.059 H 08/13/17 08/13/17 06:02 11:29 Troponin I 0.068 H 0.058 H Phys Exam - Physical Examination Constitutional: NAD easily SOB w conversation HEENT: PERRLA, moist MMs, sclera anicteric, oral pharynx no lesions Neck: no nodes, no JVD, supple, full ROM Respiratory: no wheezing, no rales, no rhonchi, clear to auscultation bilateral Cardiovascular: RRR, no significant murmur Gastrointestinal: soft, non-tender, no distention, positive bowel sounds Musculoskeletal: pulses present, edema present (mild) Neurological: non-focal, normal sensation, moves all 4 limbs Psychiatric: normal affect, A&O x 3 Skin: no rash Dx/Plan (1) Acute respiratory failure with hypoxia Code(s): J96.01 - ACUTE RESPIRATORY FAILURE WITH HYPOXIA Status: Acute (2) COPD with acute exacerbation Code(s): J44.1 - CHRONIC OBSTRUCTIVE PULMONARY DISEASE W (ACUTE) EXACERBATION Status: Acute (3) Acute on chronic systolic CHF (congestive heart failure) Code(s): I50.23 - ACUTE ON CHRONIC SYSTOLIC (CONGESTIVE) HEART FAILURE Status : Acute (4) Amphetamine abuse, episodic Code(s): F15.10 - OTHER STIMULANT ABUSE, UNCOMPLICATED Status: Acute (5) HTN (hypertension) Code(s): I10 - ESSENTIAL (PRIMARY) HYPERTENSION Status: Acute (6) Mitral valve replaced Code(s): Z95.2 - PRESENCE OF PROSTHETIC HEART VALVE Status: Chronic (7) Tricuspid valve replaced Code(s): Z95.2 - PRESENCE OF PROSTHETIC HEART VALVE Status: Chronic (8) h/o atrial fibrillation Status: Chronic Comment: s/p left atrial appendage ligation (9) Non-ischemic cardiomyopathy Code(s): I42.8 - OTHER CARDIOMYOPATHIES Status: Chronic Comment: Lifevest in place - Plan continue antibiotics, PT/OT, respiratory therapy, incentive spirometry, out of bed/ambulate, DVT proph w/SCDs Diurese.reconcile home meds.cont nebs,steroids -: judith Duran during this hospitalization as pt rather non compliant -: he might have followed up at HF clinic,but didn't f/u w Cardiology OP -: cont ASA,statin.BB,ARB -: cont empiric IV ABx.monitor on tele * .HD stable. * OK to transfer to Tele unit * am labs Review of Systems - Review of Systems Constitutional: weakness, malaise. negative: fever, chills, sweats, other ENT: negative: Ear Pain, Ear Discharge, Nose Pain, Nose Discharge, Nose Congestion, Mouth Pain, Mouth Swelling, Throat Pain, Throat Swelling, Other Respiratory: Shortness of Breath, SOB with Excertion. negative: Cough, Dry, Hemoptysis, Pleuritic Pain, Sputum, Wheezing Cardiovascular: edema. negative: chest pain, palpitations, orthopnea, paroxysmal nocturnal dyspnea, light headedness, other Gastrointestinal: negative: Nausea, Vomiting, Abdominal Pain, Diarrhea, Constipation, Melena, Hematochezia, Other Genitourinary: negative: Dysuria, Frequency, Incontinence, Hematuria, Retention , Other Musculoskeletal: negative: Neck Pain, Shoulder Pain, Arm Pain, Back Pain, Hand Pain, Leg Pain, Foot Pain, Other Skin: negative: Rash, Lesions, Yousuf, Bruising, Other Neurological: negative: Weakness, Numbness, Incoordination, Change in Speech, Confusion, Seizures, Other - Medications/Allergies Allergies/Adverse Reactions: Allergies Allergy/AdvReac Type Severity Reaction Status Date / Time No Known Drug Allergies Allergy Verified 11/09/17 04:57 Medications: Current Medications Acetaminophen (Tylenol) 650 mg PO Q4H PRN PRN Reason: Headache/Fever/Mild Pain (1-3) Hydrocodone Bitart/Acetaminophen ([place] 5/325) 1 tab PO Q6H PRN PRN Reason: Moderate Pain (4-6) Last Admin: 03/02/18 11:12 Dose: 1 tab Albuterol/Ipratropium (Duoneb) 3 ml NEB [id number] [facility] Last Admin: 03/02/18 13:32 Dose: Not Given Aspirin (Ecotrin) 81 mg PO DAILY [facility] Last Admin: 03/02/18 09:27 Dose: 81 mg Atorvastatin Calcium (Lipitor) 40 mg PO HS [facility] Last Admin: 03/01/18 19:55 Dose: 40 mg Carvedilol (Coreg) 6.25 mg PO BID-WM [facility] Last Admin: 03/02/18 09:27 Dose: 6.25 mg Enoxaparin Sodium (Lovenox) 40 mg SC 0900 [facility] Last Admin: 03/02/18 09:28 Dose: 40 mg Famotidine (Pepcid) 20 mg PO BID [facility] Last Admin: 03/02/18 09:27 Dose: 20 mg Furosemide (Lasix) 40 mg PO QAM [facility] Guaifenesin/Dextromethorphan (Robitussin Dm) 15 ml PO Q4H PRN PRN Reason: Cough Levofloxacin 500 mg/ Device 100 mls @ 100 mls/hr IVPB Q24HR [facility] Last Admin: 03/01/18 19:55 Dose: 100 mls Sodium Chloride (Normal Saline 0.9%) 1,000 mls @ 80 mls/hr IV .[id number] [facility] Stop: 03/02/18 19:59 Last Admin: 03/02/18 09:28 Dose: 1,000 mls Losartan Potassium (Cozaar) 25 mg PO DAILY [facility] Last Admin: 03/02/18 09:28 Dose: 25 mg Methylprednisolone Sodium Succinate (Solu-Medrol) 40 mg IVP Q6HR [facility] Last Admin: 03/02/18 11:11 Dose: 40 mg Mometasone Furoate/Formoterol Fumar (Dulera 200 Mcg/5 Mcg Inhaler) 2 puff INH BID-RT [facility] Potassium Chloride (K-Dur) 20 meq PO QAM [facility] Senna/Docusate Sodium (Senokot S) 2 tab PO BIDPRN PRN PRN Reason: Constipation
[2018-03-02] MEDS: Mometasone/Formoterol 120 PUFF INHALER INH SCH (19:07)
[2018-03-02] MEDS: Levofloxacin 750 mg/D5W 500 MG in Premix Bag 1 BAG IVPB SCH (20:24)
[2018-03-02] MEDS: Atorvastatin Calcium 40 MG TAB PO SCH (20:25)
[2018-03-03 05:23] LABS: Anion Gap 12 mmol/L (10-20); BUN (Urea Nitrogen) 22 mg/dL (8.9-20.6); Calc. Creatinine Clearance 122 mL/min (70-130); Carbon Dioxide 33 mmol/L (22-29); Chloride 100 mmol/L (98-107); Estimated GFR-MDRD Greater than 90; Glucose 173 mg/dL (70-105); Potassium 4.6 mmol/L (3.5-5.1); Sodium 140 mmol/L (136-145)
[2018-03-03] MEDS: Mometasone/Formoterol 120 PUFF INHALER INH SCH ×2 (07:17→18:56)
[2018-03-03] MEDS ORDERED: Furosemide 40 MG TAB PO SCH (09:00)
[2018-03-03] MEDS: Losartan 25 MG TAB PO SCH (09:15)
[2018-03-03] MEDS ORDERED: Furosemide 40 MG/4 ML VIAL SLOW IVP SCH ×2 (09:15→14:00)
[2018-03-03] MEDS: Potassium Chloride 20 MEQ TAB PO SCH (09:16)
[2018-03-03] MEDS: Enoxaparin Sodium 40 MG/0.4 ML SYRINGE SC SCH (09:16)
[2018-03-03] MEDS: Carvedilol 6.25 MG TAB PO SCH ×2 (09:16→17:05)
[2018-03-03] MEDS: Famotidine 20 MG TAB PO SCH ×2 (09:16→20:21)
[2018-03-03] MEDS: Aspirin 81 mg Enteric Coated Tablet PO SCH (09:16)
[2018-03-03] MEDS: HYDROcodone/Acetaminophen 5/325 mg Tablet PO PRN ×3 (09:19→23:40)
--- NOTE | 2018-03-03 11:56 | PDOC.PN ---
- Subjective Encounter Start Date: 03/03/18 Encounter Start Time: 11:54 Subjective: feels much better. breathing easier -: denies any CP/Orthopnea/leg swelling -: reports that Urine OP is not accuratel as he urinated in toilet - Objective Resuscitation Status: Resuscitation Status FULL:Full Resuscitation MAR Reviewed: Yes Vital Signs & Weight: Vital Signs (12 hours) Temp Pulse Resp BP Pulse Ox 03/03/18 09:15 94 L 03/03/18 07:29 97.3 F L 98 18 136/88 94 L 03/03/18 07:17 95 16 94 L 03/03/18 07:08 94 L 03/03/18 07:05 95 16 93 L 03/03/18 03:43 98.3 F 108 H 20 118/74 94 L 03/03/18 00:30 93 16 Weight Weight 182 lb 3.2 oz I&O: 03/02/18 03/03/18 03/04/18 06:59 06:59 06:59 Intake Total 1401 652 Output Total 301 550 Balance 1100 102 Result Diagrams: 03/02/18 03:35 03/03/18 04:36 Additional Labs: Microbiology 03/01/18 21:31 Nasopharyngeal swab Respiratory Virus Panel (PCR) - Final 03/01/18 19:26 Venous blood - Right Arm Blood Culture - Preliminary NO GROWTH AT 48 HOURS 03/01/18 19:21 Venous blood - Right Hand Blood Culture - Preliminary NO GROWTH AT 48 HOURS Phys Exam - Physical Examination Constitutional: NAD HEENT: PERRLA, moist MMs, sclera anicteric, oral pharynx no lesions Neck: no nodes, no JVD, supple, full ROM Respiratory: no rales, no rhonchi, wheezing present, clear to auscultation bilateral Cardiovascular: RRR, no significant murmur, no rub Gastrointestinal: soft, non-tender, no distention, positive bowel sounds Musculoskeletal: no edema, pulses present Neurological: non-focal, normal sensation, moves all 4 limbs Psychiatric: normal affect, A&O x 3 Skin: no rash Dx/Plan (1) Acute respiratory failure with hypoxia Code(s): J96.01 - ACUTE RESPIRATORY FAILURE WITH HYPOXIA Status: Acute (2) COPD with acute exacerbation Code(s): J44.1 - CHRONIC OBSTRUCTIVE PULMONARY DISEASE W (ACUTE) EXACERBATION Status: Acute (3) Acute on chronic systolic CHF (congestive heart failure) Code(s): I50.23 - ACUTE ON CHRONIC SYSTOLIC (CONGESTIVE) HEART FAILURE Status : Acute (4) Amphetamine abuse, episodic Code(s): F15.10 - OTHER STIMULANT ABUSE, UNCOMPLICATED Status: Acute (5) HTN (hypertension) Code(s): I10 - ESSENTIAL (PRIMARY) HYPERTENSION Status: Acute (6) Mitral valve replaced Code(s): Z95.2 - PRESENCE OF PROSTHETIC HEART VALVE Status: Chronic (7) Tricuspid valve replaced Code(s): Z95.2 - PRESENCE OF PROSTHETIC HEART VALVE Status: Chronic (8) h/o atrial fibrillation Status: Chronic Comment: s/p left atrial appendage ligation (9) Non-ischemic cardiomyopathy Code(s): I42.8 - OTHER CARDIOMYOPATHIES Status: Chronic Comment: Lifevest in place.on ASA,statin,BB,ARB,:Lasix - Plan continue antibiotics, PT/OT, respiratory therapy, incentive spirometry, out of bed/ambulate, DVT proph w/SCDs 1 doseIV lasix today.strict I/Os.doubt that weight is accurately listed -: cont nebs, steroids,O2 PNC,epmiric ABx. -: AICD prior to DC -: Repeat ECHO pending * . Review of Systems - Review of Systems Constitutional: negative: fever, chills, sweats, weakness, malaise, other ENT: negative: Ear Pain, Ear Discharge, Nose Pain, Nose Discharge, Nose Congestion, Mouth Pain, Mouth Swelling, Throat Pain, Throat Swelling, Other Respiratory: negative: Cough, Dry, Shortness of Breath, Hemoptysis, SOB with Excertion, Pleuritic Pain, Sputum, Wheezing Cardiovascular: negative: chest pain, palpitations, orthopnea, paroxysmal nocturnal dyspnea, edema, light headedness, other Gastrointestinal: negative: Nausea, Vomiting, Abdominal Pain, Diarrhea, Constipation, Melena, Hematochezia, Other Genitourinary: negative: Dysuria, Frequency, Incontinence, Hematuria, Retention , Other Musculoskeletal: negative: Neck Pain, Shoulder Pain, Arm Pain, Back Pain, Hand Pain, Leg Pain, Foot Pain, Other Skin: negative: Rash, Lesions, Yousuf, Bruising, Other Neurological: negative: Weakness, Numbness, Incoordination, Change in Speech, Confusion, Seizures, Other - Medications/Allergies Allergies/Adverse Reactions: Allergies Allergy/AdvReac Type Severity Reaction Status Date / Time No Known Drug Allergies Allergy Verified 11/09/17 04:57 Medications: Current Medications Acetaminophen (Tylenol) 650 mg PO Q4H PRN PRN Reason: Headache/Fever/Mild Pain (1-3) Hydrocodone Bitart/Acetaminophen ([place] 5/325) 1 tab PO Q6H PRN PRN Reason: Moderate Pain (4-6) Last Admin: 03/03/18 09:19 Dose: 1 tab Albuterol/Ipratropium (Duoneb) 3 ml NEB [id number] [facility] Last Admin: 03/03/18 07:05 Dose: 3 ml Aspirin (Ecotrin) 81 mg PO DAILY [facility] Last Admin: 03/03/18 09:16 Dose: 81 mg Atorvastatin Calcium (Lipitor) 40 mg PO HS [facility] Last Admin: 03/02/18 20:25 Dose: 40 mg Carvedilol (Coreg) 6.25 mg PO BID-[facility] Last Admin: 03/03/18 09:16 Dose: 6.25 mg Enoxaparin Sodium (Lovenox) 40 mg SC 0900 [facility] Last Admin: 03/03/18 09:16 Dose: 40 mg Famotidine (Pepcid) 20 mg PO BID [facility] Last Admin: 03/03/18 09:16 Dose: 20 mg Furosemide (Lasix) 40 mg SLOW IVP ONE [facility] Stop: 03/03/18 12:00 Last Admin: 03/03/18 09:15 Dose: 40 mg Furosemide (Lasix) 40 mg SLOW IVP DAILY [facility] Guaifenesin/Dextromethorphan (Robitussin Dm) 15 ml PO Q4H PRN PRN Reason: Cough Levofloxacin 500 mg/ Device 100 mls @ 100 mls/hr IVPB Q24HR [facility] Losartan Potassium (Cozaar) 25 mg PO DAILY [facility] Last Admin: 03/03/18 09:15 Dose: 25 mg Methylprednisolone Sodium Succinate (Solu-Medrol) 40 mg IVP Q6HR [facility] Last Admin: 03/03/18 05:11 Dose: 40 mg Mometasone Furoate/Formoterol Fumar (Dulera 200 Mcg/5 Mcg Inhaler) 2 puff INH BID-RT [facility] Last Admin: 03/03/18 07:17 Dose: 2 puff Potassium Chloride (K-Dur) 20 meq PO QAM [facility] Last Admin: 03/03/18 09:16 Dose: 20 meq Senna/Docusate Sodium (Senokot S) 2 tab PO BIDPRN PRN PRN Reason: Constipation Sodium Chloride (Flush - Normal Saline) 10 ml IVF Q12HR [facility] Last Admin: 03/03/18 09:17 Dose: 10 ml Sodium Chloride (Flush - Normal Saline) 10 ml IVF PRN PRN PRN Reason: Saline Flush Last Admin: 03/03/18 05:11 Dose: 10 ml
--- NOTE | 2018-03-03 14:38 | PDOC.CTH ---
Cardiology Progress Note - Subjective Breathing better. Still SOB with any exertion and needing O2 supplementation. - Objective Vital Signs Temp Pulse Resp BP BP Pulse Ox 03/03/18 12:34 90 16 99 03/03/18 12:09 97.9 F 89 18 130/82 96 03/03/18 09:15 94 L 03/03/18 07:29 97.3 F L 98 18 136/88 94 L 03/03/18 07:17 95 16 94 L 03/03/18 07:08 94 L 03/03/18 07:05 95 16 93 L 03/03/18 03:43 98.3 F 108 H 20 118/74 94 L Weight 182 lb 3.2 oz 03/02/18 03/03/18 03/04/18 06:59 06:59 06:59 Intake Total 1401 652 Output Total 301 550 Balance 1100 102 - Physical Examination General/Neuro: alert & oriented x3, NAD Neck: no JVD present Lungs: CTA, unlabored respirations Heart: RRR Abdomen: NT/ND Extremities: other: (no edema.) - Telemetry Telemetry Rhythm: NSR - Labs Result Diagrams: 03/02/18 03:35 03/03/18 04:36 Troponin/CKMB CK-MB (CK-2) 3.4 ng/mL (0-6.6) 03/01/18 16:50 Troponin I Less than 0.010 ng/mL (< 0.028) 03/01/18 16:50 - Assessment/Plan 1. Acute on chronic systolic heart failure. 2. COPD with acute exacerbation. 3. Respiratory insufficiency 4. Tobacco abuse, none for 1 month. 5. Substance abuse. 6. Dilated non ischemic CM. EF at 20-25% on last echo. PLAN: - Echo pending. - If EF still under 35% will need an AICD. - One dose IV lasix today.
--- NOTE | 2018-03-03 16:45 | PRG ---
DATE OF SERVICE: 03/03/2018 SUBJECTIVE: Mr. Young says he is getting a little better attitude. Hopefully, he will be out of [facility] early next week. OBJECTIVE: VITAL SIGNS: He is afebrile, heart rate is 89, respiratory rate is 18, oximetry is 96 on 2 liters, b lood pressure 130/82. LUNGS: Clear anteriorly with only end expiratory wheezes. HEART: Regular rhythm. ABDOMEN: Soft. IMPRESSION: 1. Chronic obstructive pulmonary disease with improved exacerbation. 2. Left ventricular systolic dysfunction with a nonischemic cardiomyopathy and an ejection fraction of 20%-25%, reported history of medical noncompliance. 3. Positive drug screens for methamphetamine, cannabinoids. PLAN: Continue current care measures. Decisions will be made by the treasury assistant and cardiol ogist regarding the next step.
[2018-03-03 19:52] VITALS: BMI 28.0
[2018-03-03] MEDS: Atorvastatin Calcium 40 MG TAB PO SCH (20:21)
[2018-03-04] MEDS: HYDROcodone/Acetaminophen 5/325 mg Tablet PO PRN ×2 (06:07→14:07)
[2018-03-04] MEDS: Aspirin 81 mg Enteric Coated Tablet PO SCH (08:44)
[2018-03-04] MEDS: Carvedilol 6.25 MG TAB PO SCH ×2 (08:44→16:18)
[2018-03-04] MEDS: Potassium Chloride 20 MEQ TAB PO SCH (08:45)
[2018-03-04] MEDS: Furosemide 40 MG/4 ML VIAL SLOW IVP SCH (08:45)
[2018-03-04] MEDS: Enoxaparin Sodium 40 MG/0.4 ML SYRINGE SC SCH (08:45)
[2018-03-04] MEDS: Losartan 25 MG TAB PO SCH (08:45)
[2018-03-04] MEDS: Famotidine 20 MG TAB PO SCH ×2 (08:45→21:22)
[2018-03-04] MEDS: Mometasone/Formoterol 120 PUFF INHALER INH SCH ×2 (09:38→20:08)
--- NOTE | 2018-03-04 13:51 | PDOC.PN ---
- Subjective Encounter Start Date: 03/04/18 Encounter Start Time: 13:49 Subjective: feels better.no SOB/CP - Objective Resuscitation Status: Resuscitation Status FULL:Full Resuscitation MAR Reviewed: Yes Vital Signs & Weight: Vital Signs (12 hours) Temp Pulse Resp BP Pulse Ox 03/04/18 11:43 98 F 86 18 98/57 L 100 03/04/18 09:38 83 20 93 L 03/04/18 08:42 97.5 F L 79 18 111/67 98 03/04/18 08:26 93 L 03/04/18 08:16 83 20 93 L 03/04/18 04:00 97.5 F L 86 16 92/65 93 L Weight Weight 182 lb 4.8 oz I&O: 03/03/18 03/04/18 03/05/18 06:59 06:59 06:59 Intake Total 652 710 Output Total 550 2250 Balance 102 -1540 Result Diagrams: 03/02/18 03:35 03/03/18 04:36 Phys Exam - Physical Examination Constitutional: NAD HEENT: PERRLA, moist MMs, sclera anicteric, oral pharynx no lesions Neck: no nodes, no JVD, supple, full ROM Respiratory: no wheezing, no rales, no rhonchi, clear to auscultation bilateral Cardiovascular: RRR, no significant murmur, no rub Gastrointestinal: soft, non-tender, no distention, positive bowel sounds Musculoskeletal: no edema, pulses present Neurological: non-focal, normal sensation, moves all 4 limbs Psychiatric: normal affect, A&O x 3 Skin: no rash Dx/Plan (1) Acute respiratory failure with hypoxia Code(s): J96.01 - ACUTE RESPIRATORY FAILURE WITH HYPOXIA Status: Acute (2) COPD with acute exacerbation Code(s): J44.1 - CHRONIC OBSTRUCTIVE PULMONARY DISEASE W (ACUTE) EXACERBATION Status: Acute (3) Acute on chronic systolic CHF (congestive heart failure) Code(s): I50.23 - ACUTE ON CHRONIC SYSTOLIC (CONGESTIVE) HEART FAILURE Status : Acute (4) Amphetamine abuse, episodic Code(s): F15.10 - OTHER STIMULANT ABUSE, UNCOMPLICATED Status: Acute (5) HTN (hypertension) Code(s): I10 - ESSENTIAL (PRIMARY) HYPERTENSION Status: Acute (6) Mitral valve replaced Code(s): Z95.2 - PRESENCE OF PROSTHETIC HEART VALVE Status: Chronic (7) Tricuspid valve replaced Code(s): Z95.2 - PRESENCE OF PROSTHETIC HEART VALVE Status: Chronic (8) h/o atrial fibrillation Status: Chronic Comment: s/p left atrial appendage ligation (9) Non-ischemic cardiomyopathy Code(s): I42.8 - OTHER CARDIOMYOPATHIES Status: Chronic Comment: Lifevest in place.on ASA,statin,BB,ARB,:Lasix - Plan PT/OT, respiratory therapy, incentive spirometry, out of bed/ambulate, DVT proph w/SCDs cont lasix IV.I/Os .improved output.clinically better -: taper Steroids and ABx. -: AICd when Ok w Cardiology -: labs in am * . Review of Systems - Review of Systems Constitutional: negative: fever, chills, sweats, weakness, malaise, other ENT: negative: Ear Pain, Ear Discharge, Nose Pain, Nose Discharge, Nose Congestion, Mouth Pain, Mouth Swelling, Throat Pain, Throat Swelling, Other Respiratory: negative: Cough, Dry, Shortness of Breath, Hemoptysis, SOB with Excertion, Pleuritic Pain, Sputum, Wheezing Cardiovascular: negative: chest pain, palpitations, orthopnea, paroxysmal nocturnal dyspnea, edema, light headedness, other Gastrointestinal: negative: Nausea, Vomiting, Abdominal Pain, Diarrhea, Constipation, Melena, Hematochezia, Other Genitourinary: negative: Dysuria, Frequency, Incontinence, Hematuria, Retention , Other Musculoskeletal: negative: Neck Pain, Shoulder Pain, Arm Pain, Back Pain, Hand Pain, Leg Pain, Foot Pain, Other Skin: negative: Rash, Lesions, Yousuf, Bruising, Other Neurological: negative: Weakness, Numbness, Incoordination, Change in Speech, Confusion, Seizures, Other - Medications/Allergies Allergies/Adverse Reactions: Allergies Allergy/AdvReac Type Severity Reaction Status Date / Time No Known Drug Allergies Allergy Verified 11/09/17 04:57 Medications: Current Medications Acetaminophen (Tylenol) 650 mg PO Q4H PRN PRN Reason: Headache/Fever/Mild Pain (1-3) Hydrocodone Bitart/Acetaminophen ([place] 5/325) 1 tab PO Q6H PRN PRN Reason: Moderate Pain (4-6) Last Admin: 03/04/18 06:07 Dose: 1 tab Albuterol/Ipratropium (Duoneb) 3 ml NEB [id number] [facility] Last Admin: 03/04/18 08:16 Dose: 3 ml Aspirin (Ecotrin) 81 mg PO DAILY [facility] Last Admin: 03/04/18 08:44 Dose: 81 mg Atorvastatin Calcium (Lipitor) 40 mg PO HS [facility] Last Admin: 03/03/18 20:21 Dose: 40 mg Carvedilol (Coreg) 6.25 mg PO BID-WM [facility] Last Admin: 03/04/18 08:44 Dose: 6.25 mg Enoxaparin Sodium (Lovenox) 40 mg SC 0900 [facility] Last Admin: 03/04/18 08:45 Dose: 40 mg Famotidine (Pepcid) 20 mg PO BID [facility] Last Admin: 03/04/18 08:45 Dose: 20 mg Furosemide (Lasix) 40 mg SLOW IVP DAILY [facility] Last Admin: 03/04/18 08:45 Dose: 40 mg Guaifenesin/Dextromethorphan (Robitussin Dm) 15 ml PO Q4H PRN PRN Reason: Cough Levofloxacin (Levaquin) 500 mg PO 0600 [facility] Losartan Potassium (Cozaar) 25 mg PO DAILY [facility] Last Admin: 03/04/18 08:45 Dose: 25 mg Methylprednisolone Sodium Succinate (Solu-Medrol) 40 mg IVP Q8HR [facility] Mometasone Furoate/Formoterol Fumar (Dulera 200 Mcg/5 Mcg Inhaler) 2 puff INH BID-RT [facility] Last Admin: 03/04/18 09:38 Dose: 2 puff Potassium Chloride (K-Dur) 20 meq PO QAM [facility] Last Admin: 03/04/18 08:45 Dose: 20 meq Senna/Docusate Sodium (Senokot S) 2 tab PO BIDPRN PRN PRN Reason: Constipation Sodium Chloride (Flush - Normal Saline) 10 ml IVF Q12HR [facility] Last Admin: 03/04/18 08:45 Dose: 10 ml Sodium Chloride (Flush - Normal Saline) 10 ml IVF PRN PRN PRN Reason: Saline Flush Last Admin: 03/04/18 06:05 Dose: 10 ml
[2018-03-04] MEDS: Atorvastatin Calcium 40 MG TAB PO SCH (21:22)
--- NOTE | 2018-03-04 21:26 | PDOC.CTH ---
Cardiology Progress Note - Subjective The pt seen and examined. No overnight events. No cardiac complaints. However , he cont. having difficulty breathing and stated Cpap @ HS. - Objective Vital Signs Temp Pulse Resp BP Pulse Ox 03/04/18 20:09 94 L 03/04/18 20:08 94 L 03/04/18 20:07 94 L 03/04/18 19:45 98.4 F 99 18 100/62 95 03/04/18 16:02 97.9 F 98 18 99/59 L 95 03/04/18 15:59 100 24 H 03/04/18 11:43 98 F 86 18 98/57 L 100 03/04/18 09:38 83 20 93 L Weight 182 lb 4.8 oz 03/03/18 03/04/18 03/05/18 06:59 06:59 06:59 Intake Total 652 710 821 Output Total 550 2250 1300 Balance 564 -5382 -059 - Physical Examination General/Neuro: alert & oriented x3 Neck: no JVD present Lungs: other: (wheezing and coarses) Heart: RRR Abdomen: soft Extremities: other: (No edema) - Telemetry Telemetry Rhythm: SR - Labs Result Diagrams: 03/02/18 03:35 03/03/18 04:36 Troponin/CKMB CK-MB (CK-2) 3.4 ng/mL (0-6.6) 03/01/18 16:50 Troponin I Less than 0.010 ng/mL (< 0.028) 03/01/18 16:50 - Assessment/Plan 1. Acute on chronic systolic HF - Stable Lasix, bblocker, ARB; 2. Acute COPD exacerbation - managed by dental patient coordinator 3. Respiratory insufficiency 2/2 hx of ankylosing spondylitis - Cpap at HS 4. Dilated non ischemic CMY with EF at 20-25% on last echo - Echo is pending. If EF still under 35% will need an AICD. 5. S/p MV replacement - Echo is pending 6. hx of Afib with clip in to appendage - remains in SR; 7. Substance abuse. 6. Ex-smoker, quit in 01/2018. MAR reviewed Review of Systems - Review of Systems Constitutional: reports: no symptoms reported EENTM: reports: no symptoms reported Respiratory: reports: see HPI Cardiac (ROS): reports: no symptoms reported ABD/GI: reports: no symptoms reported : reports: no symptoms reported Musculoskeletal: reports: no symptoms reported
[2018-03-05] MEDS: HYDROcodone/Acetaminophen 5/325 mg Tablet PO PRN ×4 (05:44→22:58)
[2018-03-05] MEDS: Mometasone/Formoterol 120 PUFF INHALER INH SCH ×2 (07:03→20:21)
[2018-03-05 07:06] LABS: Anion Gap 14 mmol/L (10-20); BUN (Urea Nitrogen) 29 mg/dL (8.9-20.6); Calc. Creatinine Clearance 132 mL/min (70-130); Calcium 9.3 mg/dL (7.8-10.44); Carbon Dioxide 31 mmol/L (22-29); Chloride 98 mmol/L (98-107); Estimated GFR-MDRD Greater than 90; Glucose 118 mg/dL (70-105); Potassium 4.5 mmol/L (3.5-5.1); Sodium 138 mmol/L (136-145)
[2018-03-05] MEDS: Aspirin 81 mg Enteric Coated Tablet PO SCH (08:22)
[2018-03-05] MEDS: Losartan 25 MG TAB PO SCH (08:22)
[2018-03-05] MEDS: Carvedilol 6.25 MG TAB PO SCH ×2 (08:22→16:09)
[2018-03-05] MEDS: Enoxaparin Sodium 40 MG/0.4 ML SYRINGE SC SCH (08:22)
[2018-03-05] MEDS: Furosemide 40 MG/4 ML VIAL SLOW IVP SCH (08:22)
[2018-03-05] MEDS: Famotidine 20 MG TAB PO SCH ×2 (08:22→20:39)
[2018-03-05] MEDS: Potassium Chloride 20 MEQ TAB PO SCH (08:22)
--- NOTE | 2018-03-05 11:47 | PDOC.CTH ---
Cardiology Progress Note - Subjective No new complaints. 15 beats of NSVTACH at 15:10. - Objective Vital Signs Temp Pulse Resp BP Pulse Ox 03/05/18 11:20 98.1 F 99 14 105/61 93 L 03/05/18 08:00 97 03/05/18 07:49 97.4 F L 84 16 109/68 97 03/05/18 07:03 87 20 97 03/05/18 06:48 97 03/05/18 06:46 87 20 97 03/05/18 03:53 97.0 F L 89 14 119/76 92 L 03/05/18 00:12 92 L 03/04/18 23:57 94 L Weight 181 lb 14.4 oz 03/04/18 03/05/18 03/06/18 06:59 06:59 06:59 Intake Total 710 1181 Output Total 2250 1985 Balance -5900 -724 - Physical Examination General/Neuro: alert & oriented x3 Neck: no JVD present Lungs: other: (right wheezing.) Heart: RRR Abdomen: soft - Telemetry Telemetry Rhythm: NSR. - Labs Result Diagrams: 03/02/18 03:35 03/05/18 05:36 Troponin/CKMB CK-MB (CK-2) 3.4 ng/mL (0-6.6) 03/01/18 16:50 Troponin I Less than 0.010 ng/mL (< 0.028) 03/01/18 16:50 - Assessment/Plan 1. Acute on chronic systolic HF - Stable Lasix, bblocker, ARB; 2. Acute COPD exacerbation - managed by truck mechanic apprentice 3. Respiratory insufficiency 2/2 hx of ankylosing spondylitis - Cpap at HS 4. Dilated non ischemic CMY with EF at 20-25% on last echo. If EF still under 35% will need an AICD. EF yesterday appears to be 35-40 % but there was an episode of NSVTACH. 5. S/p MV replacement - Echo is pending 6. hx of Afib with clip in to appendage - remains in SR; 7. Substance abuse. 6. Ex-smoker, quit in 01/2018. 8. NSVTACH. asymptomatic. He thinks that he was coughing before the event. Continue Coreg. May need amiodarone. MAR reviewed
--- NOTE | 2018-03-05 13:00 | PDOC.PN ---
- Subjective Encounter Start Date: 03/05/18 Encounter Start Time: 12:57 Subjective: feels much better. no more SOB /wheezing.no CP/palpitation -: NSVT on monitor-asymptomatic - Objective Resuscitation Status: Resuscitation Status FULL:Full Resuscitation MAR Reviewed: Yes Vital Signs & Weight: Vital Signs (12 hours) Temp Pulse Resp BP Pulse Ox 03/05/18 11:20 98.1 F 99 14 105/61 93 L 03/05/18 08:00 97 03/05/18 07:49 97.4 F L 84 16 109/68 97 03/05/18 07:03 87 20 97 03/05/18 06:48 97 03/05/18 06:46 87 20 97 03/05/18 03:53 97.0 F L 89 14 119/76 92 L Weight Weight 181 lb 14.4 oz I&O: 03/04/18 03/05/18 03/06/18 06:59 06:59 06:59 Intake Total 710 1181 Output Total 2250 1985 Balance -1540 -804 Result Diagrams: 03/02/18 03:35 03/05/18 05:36 Additional Labs: ECHO-EF 35-40% Phys Exam - Physical Examination Constitutional: NAD HEENT: PERRLA, moist MMs, sclera anicteric, oral pharynx no lesions Neck: no nodes, no JVD, supple, full ROM Respiratory: no wheezing, no rales, no rhonchi, clear to auscultation bilateral Cardiovascular: RRR, no significant murmur, no rub Gastrointestinal: soft, non-tender, no distention, positive bowel sounds Musculoskeletal: no edema, pulses present Neurological: non-focal, normal sensation, moves all 4 limbs Psychiatric: normal affect, A&O x 3 Skin: no rash Dx/Plan (1) COPD with acute exacerbation Code(s): J44.1 - CHRONIC OBSTRUCTIVE PULMONARY DISEASE W (ACUTE) EXACERBATION Status: Acute (2) Acute on chronic systolic CHF (congestive heart failure) Code(s): I50.23 - ACUTE ON CHRONIC SYSTOLIC (CONGESTIVE) HEART FAILURE Status : Acute (3) Amphetamine abuse, episodic Code(s): F15.10 - OTHER STIMULANT ABUSE, UNCOMPLICATED Status: Acute (4) HTN (hypertension) Code(s): I10 - ESSENTIAL (PRIMARY) HYPERTENSION Status: Acute (5) Mitral valve replaced Code(s): Z95.2 - PRESENCE OF PROSTHETIC HEART VALVE Status: Chronic (6) Tricuspid valve replaced Code(s): Z95.2 - PRESENCE OF PROSTHETIC HEART VALVE Status: Chronic (7) h/o atrial fibrillation Status: Chronic Comment: s/p left atrial appendage ligation (8) Non-ischemic cardiomyopathy Code(s): I42.8 - OTHER CARDIOMYOPATHIES Status: Chronic Comment: Lifevest in place.on ASA,statin,BB,ARB,:Lasix (9) Acute respiratory failure with hypoxia Code(s): J96.01 - ACUTE RESPIRATORY FAILURE WITH HYPOXIA Status: Resolved - Plan DVT proph w/SCDs cont lasix.change to PO.cloinicaly better -: cont steroids,nebs prn etc -: Cardiology to decide if he needs AICD w improved EF but w NSVT -: HD stable otherwise. -: I/Os. am labs * . Review of Systems - Review of Systems Constitutional: negative: fever, chills, sweats, weakness, malaise, other ENT: negative: Ear Pain, Ear Discharge, Nose Pain, Nose Discharge, Nose Congestion, Mouth Pain, Mouth Swelling, Throat Pain, Throat Swelling, Other Respiratory: negative: Cough, Dry, Shortness of Breath, Hemoptysis, SOB with Excertion, Pleuritic Pain, Sputum, Wheezing Cardiovascular: negative: chest pain, palpitations, orthopnea, paroxysmal nocturnal dyspnea, edema, light headedness, other Gastrointestinal: negative: Nausea, Vomiting, Abdominal Pain, Diarrhea, Constipation, Melena, Hematochezia, Other Genitourinary: negative: Dysuria, Frequency, Incontinence, Hematuria, Retention , Other Musculoskeletal: negative: Neck Pain, Shoulder Pain, Arm Pain, Back Pain, Hand Pain, Leg Pain, Foot Pain, Other Skin: negative: Rash, Lesions, Yousuf, Bruising, Other Neurological: negative: Weakness, Numbness, Incoordination, Change in Speech, Confusion, Seizures, Other - Medications/Allergies Allergies/Adverse Reactions: Allergies Allergy/AdvReac Type Severity Reaction Status Date / Time No Known Drug Allergies Allergy Verified 11/09/17 04:57 Medications: Current Medications Acetaminophen (Tylenol) 650 mg PO Q4H PRN PRN Reason: Headache/Fever/Mild Pain (1-3) Hydrocodone Bitart/Acetaminophen ([place] 5/325) 1 tab PO Q6H PRN PRN Reason: Moderate Pain (4-6) Last Admin: 03/05/18 11:00 Dose: 1 tab Albuterol/Ipratropium (Duoneb) 3 ml NEB [id number] [facility] Last Admin: 03/05/18 06:46 Dose: 3 ml Aspirin (Ecotrin) 81 mg PO DAILY [facility] Last Admin: 03/05/18 08:22 Dose: 81 mg Atorvastatin Calcium (Lipitor) 40 mg PO HS [facility] Last Admin: 03/04/18 21:22 Dose: 40 mg Carvedilol (Coreg) 6.25 mg PO BID-WM [facility] Last Admin: 03/05/18 08:22 Dose: Not Given Enoxaparin Sodium (Lovenox) 40 mg SC 0900 [facility] Last Admin: 03/05/18 08:22 Dose: 40 mg Famotidine (Pepcid) 20 mg PO BID [facility] Last Admin: 03/05/18 08:22 Dose: 20 mg Furosemide (Lasix) 40 mg SLOW IVP DAILY [facility] Last Admin: 03/05/18 08:22 Dose: 40 mg Guaifenesin/Dextromethorphan (Robitussin Dm) 15 ml PO Q4H PRN PRN Reason: Cough Levofloxacin (Levaquin) 500 mg PO 0600 [facility] Last Admin: 03/05/18 05:42 Dose: 500 mg Losartan Potassium (Cozaar) 25 mg PO DAILY [facility] Last Admin: 03/05/18 08:22 Dose: 25 mg Methylprednisolone Sodium Succinate (Solu-Medrol) 40 mg IVP Q8HR [facility] Last Admin: 03/05/18 05:42 Dose: 40 mg Mometasone Furoate/Formoterol Fumar (Dulera 200 Mcg/5 Mcg Inhaler) 2 puff INH BID-RT [facility] Last Admin: 03/05/18 07:03 Dose: 2 puff Potassium Chloride (K-Dur) 20 meq PO QAM [facility] Last Admin: 03/05/18 08:22 Dose: 20 meq Senna/Docusate Sodium (Senokot S) 2 tab PO BIDPRN PRN PRN Reason: Constipation Sodium Chloride (Flush - Normal Saline) 10 ml IVF Q12HR [facility] Last Admin: 03/05/18 08:23 Dose: 10 ml Sodium Chloride (Flush - Normal Saline) 10 ml IVF PRN PRN PRN Reason: Saline Flush Last Admin: 03/04/18 06:05 Dose: 10 ml
[2018-03-05] MEDS: Atorvastatin Calcium 40 MG TAB PO SCH (20:39)
--- NOTE | 2018-03-05 22:35 | PRG ---
DATE OF SERVICE: 03/05/2018 SUBJECTIVE: Mr. Carlos Young is in no distress. He is noted that he had some nonsustained ventricular tachycardia within the last 24 hours. He denies shortness of breath. OBJECTIVE: VITAL SIGNS: His vital signs have been stable. He is in sinus rhythm on the monitor. Blood pressure is 105/61, respiratory rate is in the teens, oximetry is 93-97. He is afebrile. LABORATORY DATA: Electrolytes are normal. BUN is 29, creatinine 0.78. IMPRESSION: 1. Chronic obstructive pulmonary disease, stable. 2. Acute on chronic systolic heart failure. 3. History of ankylosing spondylitis. 4. Ischemic cardiomyopathy with improved ejection fraction .Even with an improved ejection fraction,there is a concern about his nonsustained V-tach. We will continue with supportive care per Cardiology. His COPD is quite stable at this point and not a clinical issue. [facility]
[2018-03-06] MEDS: Mometasone/Formoterol 120 PUFF INHALER INH SCH ×2 (07:44→19:00)
[2018-03-06] MEDS: Potassium Chloride 20 MEQ TAB PO SCH (08:31)
[2018-03-06] MEDS: Carvedilol 6.25 MG TAB PO SCH ×2 (08:31→17:47)
[2018-03-06] MEDS: Aspirin 81 mg Enteric Coated Tablet PO SCH (08:31)
[2018-03-06] MEDS: Losartan 25 MG TAB PO SCH (08:31)
[2018-03-06] MEDS: Furosemide 40 MG TAB PO SCH (08:31)
[2018-03-06] MEDS: Famotidine 20 MG TAB PO SCH ×2 (08:32→21:02)
[2018-03-06] MEDS: predniSONE 20 MG TAB PO SCH (08:32)
[2018-03-06] MEDS: Enoxaparin Sodium 40 MG/0.4 ML SYRINGE SC SCH (08:32)
[2018-03-06] MEDS: HYDROcodone/Acetaminophen 5/325 mg Tablet PO PRN ×3 (08:45→21:01)
--- NOTE | 2018-03-06 10:50 | PDOC.PN ---
- Subjective Encounter Start Date: 03/06/18 Encounter Start Time: 10:48 Subjective: feels much better. still some SOB when walks -: no cough or wheezing - Objective Resuscitation Status: Resuscitation Status FULL:Full Resuscitation MAR Reviewed: Yes Vital Signs & Weight: Vital Signs (12 hours) Temp Pulse Resp BP BP Pulse Ox 03/06/18 08:00 97.6 F 92 16 125/75 92 L 03/06/18 07:44 93 L 03/06/18 07:42 83 18 93 L 03/06/18 04:04 99.0 F 94 15 102/52 L 80 L 03/06/18 00:12 94 L Weight Weight 184 lb 6.4 oz I&O: 03/05/18 03/06/18 03/07/18 06:59 06:59 06:59 Intake Total 1181 1170 Output Total 1985 1700 Balance -804 530 Result Diagrams: 03/02/18 03:35 03/05/18 05:36 Radiology Reviewed by me: Yes (ECHO Ef 35-40%) Phys Exam - Physical Examination Constitutional: NAD HEENT: PERRLA, moist MMs, sclera anicteric, oral pharynx no lesions Neck: no nodes, no JVD, supple, full ROM Respiratory: no wheezing, no rales, no rhonchi, clear to auscultation bilateral Cardiovascular: RRR, no significant murmur, no rub Gastrointestinal: soft, non-tender, no distention, positive bowel sounds Musculoskeletal: no edema, pulses present Neurological: non-focal, normal sensation, moves all 4 limbs Psychiatric: normal affect, A&O x 3 Skin: no rash Dx/Plan (1) COPD with acute exacerbation Code(s): J44.1 - CHRONIC OBSTRUCTIVE PULMONARY DISEASE W (ACUTE) EXACERBATION Status: Acute (2) Acute on chronic systolic CHF (congestive heart failure) Code(s): I50.23 - ACUTE ON CHRONIC SYSTOLIC (CONGESTIVE) HEART FAILURE Status : Acute (3) Amphetamine abuse, episodic Code(s): F15.10 - OTHER STIMULANT ABUSE, UNCOMPLICATED Status: Acute (4) HTN (hypertension) Code(s): I10 - ESSENTIAL (PRIMARY) HYPERTENSION Status: Acute (5) Mitral valve replaced Code(s): Z95.2 - PRESENCE OF PROSTHETIC HEART VALVE Status: Chronic (6) Tricuspid valve replaced Code(s): Z95.2 - PRESENCE OF PROSTHETIC HEART VALVE Status: Chronic (7) h/o atrial fibrillation Status: Chronic Comment: s/p left atrial appendage ligation (8) Non-ischemic cardiomyopathy Code(s): I42.8 - OTHER CARDIOMYOPATHIES Status: Chronic Comment: Lifevest in place.on ASA,statin,BB,ARB,:Lasix (9) Acute respiratory failure with hypoxia Code(s): J96.01 - ACUTE RESPIRATORY FAILURE WITH HYPOXIA Status: Resolved - Plan continue antibiotics, incentive spirometry, out of bed/ambulate, DVT proph w/ SCDs clinically better. +ve fluid status.will give 1 dose zaroxolyn -: AICD decision to be made by cardiology -: improved EF but episode of NSVT. -: cont ASA,statin,ARB,BB. -: empiric ABx,steroids,nebs. * .If no AICD planned for this hospitalization ,may DC mayuri elater today * HD stable Review of Systems - Review of Systems Constitutional: negative: fever, chills, sweats, weakness, malaise, other ENT: negative: Ear Pain, Ear Discharge, Nose Pain, Nose Discharge, Nose Congestion, Mouth Pain, Mouth Swelling, Throat Pain, Throat Swelling, Other Respiratory: SOB with Excertion. negative: Cough, Dry, Shortness of Breath, Hemoptysis, Pleuritic Pain, Sputum, Wheezing Cardiovascular: negative: chest pain, palpitations, orthopnea, paroxysmal nocturnal dyspnea, edema, light headedness, other Gastrointestinal: negative: Nausea, Vomiting, Abdominal Pain, Diarrhea, Constipation, Melena, Hematochezia, Other Genitourinary: negative: Dysuria, Frequency, Incontinence, Hematuria, Retention , Other Musculoskeletal: negative: Neck Pain, Shoulder Pain, Arm Pain, Back Pain, Hand Pain, Leg Pain, Foot Pain, Other Neurological: negative: Weakness, Numbness, Incoordination, Change in Speech, Confusion, Seizures, Other - Medications/Allergies Allergies/Adverse Reactions: Allergies Allergy/AdvReac Type Severity Reaction Status Date / Time No Known Drug Allergies Allergy Verified 11/09/17 04:57 Medications: Current Medications Acetaminophen (Tylenol) 650 mg PO Q4H PRN PRN Reason: Headache/Fever/Mild Pain (1-3) Hydrocodone Bitart/Acetaminophen ([place] 5/325) 1 tab PO Q6H PRN PRN Reason: Moderate Pain (4-6) Last Admin: 03/06/18 08:45 Dose: 1 tab Albuterol/Ipratropium (Duoneb) 3 ml NEB [id number] [facility] Last Admin: 03/06/18 07:42 Dose: 3 ml Aspirin (Ecotrin) 81 mg PO DAILY [facility] Last Admin: 03/06/18 08:31 Dose: 81 mg Atorvastatin Calcium (Lipitor) 40 mg PO HS [facility] Last Admin: 03/05/18 20:39 Dose: 40 mg Carvedilol (Coreg) 6.25 mg PO BID-WM [facility] Last Admin: 03/06/18 08:31 Dose: 6.25 mg Enoxaparin Sodium (Lovenox) 40 mg SC 0900 [facility] Last Admin: 03/06/18 08:32 Dose: 40 mg Famotidine (Pepcid) 20 mg PO BID [facility] Last Admin: 03/06/18 08:32 Dose: 20 mg Furosemide (Lasix) 40 mg PO DAILY-AC [facility] Last Admin: 03/06/18 08:31 Dose: 40 mg Guaifenesin/Dextromethorphan (Robitussin Dm) 15 ml PO Q4H PRN PRN Reason: Cough Levofloxacin (Levaquin) 500 mg PO 0600 [facility] Last Admin: 03/06/18 05:40 Dose: 500 mg Losartan Potassium (Cozaar) 25 mg PO DAILY [facility] Last Admin: 03/06/18 08:31 Dose: 25 mg Mometasone Furoate/Formoterol Fumar (Dulera 200 Mcg/5 Mcg Inhaler) 2 puff INH BID-RT [facility] Last Admin: 03/06/18 07:44 Dose: 2 puff Potassium Chloride (K-Dur) 20 meq PO QAM [facility] Last Admin: 03/06/18 08:31 Dose: 20 meq Prednisone (Prednisone) 20 mg PO QAM-WM [facility] Last Admin: 03/06/18 08:32 Dose: 20 mg Senna/Docusate Sodium (Senokot S) 2 tab PO BIDPRN PRN PRN Reason: Constipation Sodium Chloride (Flush - Normal Saline) 10 ml IVF Q12HR [facility] Last Admin: 03/06/18 08:32 Dose: 10 ml Sodium Chloride (Flush - Normal Saline) 10 ml IVF PRN PRN PRN Reason: Saline Flush Last Admin: 03/04/18 06:05 Dose: 10 ml
[2018-03-06] MEDS ORDERED: Metolazone 5 MG TAB PO SCH (11:00)
[2018-03-06 11:49] LABS: Potassium 4.9 mmol/L (3.5-5.1)
--- NOTE | 2018-03-06 16:25 | PDOC.CTH ---
Cardiology Progress Note - Subjective Doing better. Breathing is closer to baseline. - Objective Vital Signs Temp Pulse Resp BP Pulse Ox 03/06/18 14:00 86 20 92 L 03/06/18 12:00 98.6 F 91 17 118/72 94 L 03/06/18 08:00 97.6 F 92 16 125/75 92 L 03/06/18 07:44 93 L 03/06/18 07:42 83 18 93 L Weight 184 lb 6.4 oz 03/05/18 03/06/18 03/07/18 06:59 06:59 06:59 Intake Total 1181 1170 Output Total 1984 1700 Balance -804 -530 - Physical Examination General/Neuro: alert & oriented x3, NAD Neck: no JVD present Lungs: unlabored respirations, other: (reduced breath sounds. ) Heart: RRR Abdomen: NT/ND Extremities: other: (no edema) - Telemetry Telemetry Rhythm: NSR - Labs Result Diagrams: 03/02/18 03:35 03/06/18 11:20 Troponin/CKMB CK-MB (CK-2) 3.4 ng/mL (0-6.6) 03/01/18 16:50 Troponin I Less than 0.010 ng/mL (< 0.028) 03/01/18 16:50 - Assessment/Plan 1. Acute on chronic systolic heart failure. 2. COPD with acute exacerbation. 3. Respiratory insufficiency 4. Tobacco abuse, none for 1 month. 5. Substance abuse. 6. Dilated non ischemic CM. EF at 20-25% on last echo. PLAN: - EF at 35-40%, improved. Will hold off on AICD. If he continues to have non sustained VT we will consider EP evaluation for EP study see if he qualifies for an AICD in that setting. . - Continue CHF meds. Guideline directed therapies in place.
[2018-03-06] MEDS: Atorvastatin Calcium 40 MG TAB PO SCH (21:02)
[2018-03-07] MEDS: Mometasone/Formoterol 120 PUFF INHALER INH SCH (07:19)
[2018-03-07] MEDS: Losartan 25 MG TAB PO SCH (09:24)
[2018-03-07] MEDS: Famotidine 20 MG TAB PO SCH (09:25)
[2018-03-07] MEDS: Carvedilol 6.25 MG TAB PO SCH ×2 (09:25→16:17)
[2018-03-07] MEDS: Furosemide 40 MG TAB PO SCH (09:25)
[2018-03-07] MEDS: Potassium Chloride 20 MEQ TAB PO SCH (09:25)
[2018-03-07] MEDS: predniSONE 20 MG TAB PO SCH (09:25)
[2018-03-07] MEDS: Aspirin 81 mg Enteric Coated Tablet PO SCH (09:26)
[2018-03-07] MEDS: Enoxaparin Sodium 40 MG/0.4 ML SYRINGE SC SCH (09:26)
[2018-03-07] MEDS: HYDROcodone/Acetaminophen 5/325 mg Tablet PO PRN ×2 (09:33→16:16)
[2018-03-07 11:57] VITALS: TEMP 97.7
[2018-03-07 16:20] VITALS: BP 127/76
--- NOTE | 2018-03-08 07:05 | DIS ---
PRIMARY CARE PHYSICIAN: Dmitriy Tovar DATE OF ADMISSION: 03/01/2018 DATE OF DISCHARGE: 03/07/2018 CONDITION AT THE TIME OF DISCHARGE: Stable and improved. DISCHARGE DISPOSITION: Home. DISCHARGE DIAGNOSES: 1. Acute hypoxic respiratory failure. 2. Acute chronic obstructive pulmonary disease exacerbation. 3. Acute on chronic systolic congestive heart failure. 4. Amphetamine abuse. 5. Nonischemic dilated cardiomyopathy. 6. History of paroxysmal atrial fibrillation. 7. Hypertension. 8. History of replacement of mitral and tricuspid valve. DISCHARGE MEDICATIONS: Remain the same as admission medications except for prednisone tapering Dosep ak. Resume home medications as follows: Aspirin 81 mg daily, Ventolin p.r.n., potassium chloride 20 mEq daily, Lipitor 40 mg daily, Cozaar 25 mg daily, Coreg 6.25 mg p.o. b.i.d., Lasix 40 mg daily. PROCEDURES DONE IN THE HOSPITAL: Transthoracic echocardiogram. EF is improved from 20-25% to 35-40 % at this hospitalization. Mild diastolic dysfunction is noticed. Right ventricular cavity is enlar ged and left atrium is enlarged. CONSULTATIONS INHOUSE: Cardiology, Dr. Islas, and Pulmonary Medicine, Dr. Miller. HOSPITAL COURSE: Mr. Young is a pleasant 52-year-old male with known history of nonischemic cardio myopathy who was recently admitted to our facility and was fitted with a LifeVest for low EF and was started on appropriate cardio prudent medications, presented to the emergency room with complaints of worsening shortness of breath. He was initially in severe respiratory distress requiring a Ventimas k upon presentation to the emergency room. His chest x-ray did not show any acute infiltrate. ABG s howed pH of 7.32, pCO2 of 70, oxygen of 73. Cardiac enzymes were negative. His BNP was 195. He was admitted to [facility] for acute hypoxic respiratory failure likely secondary to acute chronic obstructive pulmonary disease exacerbation. He was started on nebulizer and IV steroids as well as oxygen and P ulmonary Medicine was consulted. Please see admission history and physical for further details. His urine drug screen was positive for methamphetamine and marijuana and he reported that he did it only once because of severe stress. HOSPITAL COURSE: The patient improved quite significantly over the course of his hospitalization, th ough he did complain of some fluid retention. Cardiology, Dr. Islas, was consulted and he started t he patient on IV diuretics. The patient had significant improvement in his symptoms because of that. AICD placement was entertained as the patient has not followed up with Dr. Islas in the clinic sin ce his last hospitalization and continues to wear the LifeVest for over 3 months. Repeat echo showed improvement in his EF to 35-40% and at this time, decision was made that the patient will follow up with repeat echo in another few months with Dr. Islas and at this time continue cardio prudent medic ations. LifeVest was also discontinued and the patient was discharged earlier today after being carlene red by Cardiology for discharge as well. He remained otherwise hemodynamically stable without any ac debi events throughout his hospitalization. He was seen and examined prior to discharge and medicatio n compliance and drug abstinence was encouraged once again. The patient appears very receptive to ad vice. PHYSICAL EXAMINATION: VITAL SIGNS: Temperature 97.7, pulse of 88, respirations 16, saturating 100% on room air, blood pres sure 113/81. GENERAL: No acute distress. CHEST: Clear to auscultation, no wheezing, no crackles. Rate and rhythm regular. He will follow up with Heart Failure Clinic as well as Cardiology in the outpatient setting. His [facility] rt Failure Clinic appointment is on 03/14/2018 at 2:15 p.m. Discharge medications were reconciled an d the patient reports no need for prescription refills as he has plenty. Total time spent in the discharge of this patient 35 minutes.
--- NOTE | 2018-03-11 15:22 | EKG ---
Test Reason : Blood Pressure : / mmHG Vent. Rate : 099 BPM Atrial Rate : 099 BPM P-R Int : 118 ms QRS Dur : 120 ms QT Int : 402 ms P-R-T Axes : 065 124 072 degrees QTc Int : 515 ms Normal sinus rhythm Right bundle branch block Possible Lateral infarct , age undetermined Abnormal ECG Poor baseline Confirmed by HA SERRATO DO ([id number]), photo editor FLORENTINO GARCIA ([id number]) on 03/11/2018 3:21:48 PM Referred By: Confirmed By:HA SERRATO DO
== END 2018-03-07 18:05 | disposition home or self-care (01) | DRG 189 ==
LOC: ERS 16:31 → IMCU/EMU 19:05 → 2NO 03-02 13:37
PROVIDERS: ADMIT Internal Medicine; ATTEND Internal Medicine
DX: J96.01 Acute respiratory failure with hypoxia (principal); I50.23 Acute on chronic systolic (congestive) heart failure; J44.1 Chronic obstructive pulmonary disease with (acute) exacerbation; I42.0 Dilated cardiomyopathy; I47.2 Ventricular tachycardia; J96.02 Acute respiratory failure with hypercapnia; Z87.891 Personal history of nicotine dependence; Z91.19 Patient's noncompliance with other medical treatment and regimen; F15.10 Other stimulant abuse, uncomplicated; I11.0 Hypertensive heart disease with heart failure; Z95.2 Presence of prosthetic heart valve; F12.10 Cannabis abuse, uncomplicated; M45.9 Ankylosing spondylitis of unspecified sites in spine
CPT/HCPCS: 36415; 71045; 80048; 80053; 80306; 80307; 82550; 82553; 82805; 83880; 84132; 84484; 85025; 87040; 87633; 93005; 93306; 94640; 94660; 94760; 96374; J1650; J1940; J1956; J2920; J2930; J7506; J7620

== ENCOUNTER 2018-06-13 11:05 | Inpatient (IN) | payer MEDICARE ==
[~2018-06-13 11:05] MED LIST changes: -ISOVUE-370 76%-LOCM 1 ML ONE; +Iopamidol 370 76% 100 ML VIAL ONE
[2018-06-13 11:51] LABS: PTT 32.1 SEC (22.9-36.1)
[2018-06-13 11:52] LABS: D-Dimer Test 0.57 *mcg/mL (0.27-0.43)
[2018-06-13 11:59] LABS: INR-International Normal Ratio 1.1; Prothrombin Time 14.2 SEC (12.0-14.7)
[2018-06-13] MEDS ORDERED: Carvedilol 6.25 MG TAB PO SCH (12:00)
[2018-06-13] MEDS ORDERED: Morphine 4 MG/ML VIAL ONE ×2 (12:10→16:01)
[2018-06-13 12:14] LABS: #Basophils 0.1 thou/uL (0.0-0.2); #Eosinphils 0.2 thou/uL (0.0-0.7); #Lymphocytes 1.6 thou/uL (1.20-3.40); #Monocytes 0.8 thou/uL (0.11-0.59); #Neutrophils 6.1 thou/uL (1.40-6.50); %Basophils 0.9 % (0.0-1.0); %Eosinophils 2.2 % (0.0-10.0); %Lymphocytes 18.3 % (21.0-51.0); %Monocytes 9.3 % (0.0-10.0); %Neutrophils 69.3 % (42.0-75.0); Hemoglobin 14.9 g/dL (14.0-18.0); Mean Corpuscular HGB CONC 28.7 g/dL (32.0-36.0); Mean Corpuscular Hemoglobin 24.1 pg (27.0-31.0); Mean Corpuscular Volume 84.1 fL (78.0-98.0); Mean Platelet Volume 9.2 fL (7.4-10.4); Platelet Count 197 thou/uL (130-400); RBC Distribution Width 15.2 % (11.5-14.5); Red Blood Cell (RBC) Count 6.17 mill/uL (4.70-6.10); White Blood Cell (WBC) Count 8.7 thou/uL (4.8-10.8)
[2018-06-13 12:16] LABS: MDiff Complete? YES; Platelet Morphology Comment Appears Adequate; Polychromasia MODERATE = 3-4 cells (100X) (0-2/hpf)
[2018-06-13] MEDS ORDERED: Nitroglycerin 2% Ointment 1 INCH/1 GM Packet ONE (12:17)
[2018-06-13 12:19] LABS: ALT (SGPT) 35 U/L (8-55); AST (SGOT) 27 U/L (5-34); Albumin 4.1 g/dL (3.5-5.0); Alkaline Phosphatase 122 U/L (40-150); Anion Gap 12 mmol/L (10-20); BUN (Urea Nitrogen) 20 mg/dL (8.9-20.6); Bilirubin, Total 0.7 mg/dL (0.2-1.2); Calc. Creatinine Clearance 0 mL/min (70-130); Calcium 10.4 mg/dL (7.8-10.44); Carbon Dioxide 31 mmol/L (22-29); Chloride 103 mmol/L (98-107); Estimated GFR-MDRD 72; Globulin 3.6 g/dL (2.4-3.5); Glucose 109 mg/dL (70-105); Potassium 4.7 mmol/L (3.5-5.1); Protein, Total 7.7 g/dL (6.0-8.3); Sodium 141 mmol/L (136-145)
[2018-06-13] MEDS ORDERED: Furosemide 40 MG/4 ML VIAL ONE (13:18)
--- NOTE | 2018-06-13 13:21 | RAD ---
RADIOGRAPH CHEST 1 VIEW: DATE: 06/13/2018. TIME: 11:42 a.m. HISTORY: A 52-year-old male with dyspnea. FINDINGS: There are no air space densities, pulmonary edema, pneumothorax, or cardiomegaly. The lateral costop hrenic angles are sharp. There are sternotomy wires. There is a metallic device in the left atrial appendage. There is no interval change since 03/01/2018. IMPRESSION: 1. No acute cardiopulmonary findings. 2. Left atrial appendage closure device. 3. Evidence of previous open heart surgery. kike [] POS: ONEL
--- NOTE | 2018-06-13 13:43 | CT ---
CT ARTERIOGRAM CHEST WITH IV CONTRAST AND 3D MIP IMAGING: HISTORY: Chest pain. Dyspnea. COMPARISON: 02/01/2018 FINDINGS: There is good contrast opacification of the pulmonary arteries. Contrast has not yet reached the aor ta. No pleural fluid or pneumothorax. No mediastinal adenopathy evident. Within the partially visu alized upper abdomen, left adrenal adenoma appears stable. IMPRESSION: No CT evidence of pulmonary embolus. POS: [facility]
[2018-06-13] MEDS ORDERED: Acetaminophen 650 MG Suppository PR PRN (15:09)
[2018-06-13] MEDS ORDERED: Acetaminophen 325 MG TAB PO PRN (15:09)
[2018-06-13 15:47] LABS: Troponin I 0.025 ng/mL (< 0.028)
--- NOTE | 2018-06-13 15:51 | HP ---
PRIMARY CARE PROVIDER: None. CHIEF COMPLAINT: Shortness of breath. HISTORY OF PRESENT ILLNESS: Mr. Young is a pleasant 52-year-old gentleman, who was seen at [facility] on June 13, 2018. He reports that he has a history of congestive heart failure. He is also on warfarin because he had a heart valve replaced. He is followed by the Heart Failure Clinic at this hospital. Reports that over the last five days, he has been feeling short of breath. He has been feeling fatigued. Shortness of breath is worse with exertion. He also endorses orthopnea and reports sleeping in the chair. He reports bilateral lower extremity swelling. He also reports epigastric discomfort. He denies any chest pain. He denies any fevers or chills. He denies any nausea or vomiting. REVIEW OF SYSTEMS: All other systems reviewed and found to be negative. PAST MEDICAL HISTORY: Nonischemic cardiomyopathy; tricuspid regurgitation, status post ring annuloplasty; severe mitral regurgitation, status post mitral ring annuloplasty; paroxysmal atrial fibrillation with a clip in the appendage; ankylosing spondylitis; chronic back pain; chronic obstructive pulmonary disease; and substance abuse. PAST SURGICAL HISTORY: Mitral ring annuloplasty, tricuspid ring annuloplasty, and clipping the atrial appendage. SOCIAL HISTORY: The patient uses marijuana. He denies alcohol use. He denies current tobacco use. FAMILY HISTORY: No family history of premature coronary artery disease. ALLERGIES: NO KNOWN DRUG ALLERGIES. CURRENT MEDICATIONS: The patient reports that he has not been taking warfarin for the last week. He also takes, 1. Potassium chloride 20 mEq daily. 2. Losartan 25 mg daily. 3. Atorvastatin 40 mg daily. 4. Carvedilol 6.25 mg 2 times a day. 5. Ventolin nebulizers p.r.n. PHYSICAL EXAMINATION: GENERAL: Mr. Young is awake and alert, not in acute distress. VITAL SIGNS: Blood pressure is 144/90, pulse 122, respiratory rate 16, and oxygen saturation 96% on room air. He is afebrile. EYES: No scleral icterus, no conjunctival pallor. ENT: Moist mucosal membranes. No oropharyngeal erythema or exudates. NECK: Supple, nontender. Trachea midline. He has jugular venous distention. RESPIRATORY: Accessory muscles of breathing are mildly active. Chest wall movements are symmetric bilaterally. LUNGS: Reveal bibasilar crackles. CARDIOVASCULAR: S1 and S2 are heard, tachycardic and regular. Peripheral pulses palpable. No carotid bruit. No pericardial rub. ABDOMEN: Soft, nontender. Bowel sounds heard. No hepatomegaly. No splenomegaly. NEUROLOGIC: Cranial nerves 2 through 12 intact. Deep tendon reflexes 2+. SKIN: No rashes or subcutaneous nodules. EXTREMITIES: He has bilateral lower extremity pitting edema. LYMPHATIC: No cervical lymphadenopathy. PSYCHIATRIC: Normal mood, normal affect. The patient is oriented to person, place, and time. LABORATORY DATA: Mr. Young's labs and investigations were reviewed. I reviewed his electrocardiogram, which shows sinus tachycardia, no ST changes to suggest an acute coronary syndrome. I also reviewed his chest x-ray, which does not show any pulmonary infiltrates. CT angiogram of the chest did not show any evidence of pulmonary embolism. He has normal white count, normal hemoglobin, normal platelet count. Elevated D-dimer of 0.57. INR 1.1. Normal sodium, normal potassium, normal creatinine, elevated BNP of 766, and normal troponin I. ASSESSMENT AND PLAN: Mr. Young is a pleasant 52-year-old gentleman, who was seen at [facility] on June 13, 2018. His problem list includes: 1. Acute respiratory failure: Mr. Young is presenting with acute respiratory failure, most likely secondary to congestive heart failure exacerbation. He will be admitted to the hospital for further management. 2. Acute systolic congestive heart failure exacerbation: NYHA stage III and ACC/AHA class C. the patient will be admitted to the hospital and treated with intravenous furosemide. We will have his 2D echocardiogram checked. We will also consult Cardiology Service for opinion and help with management. 3. Chronic obstructive pulmonary disease: Appears to be stable. We will start p.r.n. bronchodilator nebulizers. 4. Hypertension: We will resume home medications, monitor vital signs and titrate antihypertensives as needed. Many thanks for allowing me to participate in your patient's care. Please feel free to contact me with any questions or concerns. LEVEL OF RISK: High. LEVEL OF COMPLEXITY: High. Job ID: [id number]
[2018-06-13] MEDS ORDERED: Enoxaparin Sodium 80 MG/0.8 ML SYRINGE SC SCH (18:00)
[2018-06-13] MEDS: Warfarin Sodium 5 MG TAB PO SCH (18:34)
[2018-06-13 18:59] LABS: Troponin I 0.026 ng/mL (< 0.028)
--- NOTE | 2018-06-13 19:57 | CON ---
DATE OF CONSULTATION: 06/13/2018 REASON FOR CONSULTATION: Congestive heart failure. HISTORY OF PRESENT ILLNESS: Mr. Young is an unfortunate 52-year-old gentleman who is a patient of Dr. Quique Islas. He states his LVEF has improved from 15% to 40% recently. He represented with increased shortness of breath and lower extremity edema. No chest pain or pressure noted. Unfortunately, continues to abuse methamphetamine. He states he has chronic back pain and cannot get relief outside of methamphetamine. During my interview, he is also eating pizza. Dietary discretion is also an issue. PAST MEDICAL HISTORY: Nonischemic cardiomyopathy, severe TR status post angioplasty, severe MR status post angioplasty, paroxysmal atrial fibrillation, status post clip, COPD, methamphetamine use, tobacco abuse. HOME MEDICATIONS: 1. Lasix. 2. Potassium. 3. Atorvastatin. 4. Coreg. 5. Losartan. ALLERGIES: NONE. SOCIAL HISTORY: As above. REVIEW OF SYSTEMS: A 10-point review of systems is reviewed and as above, otherwise negative. PHYSICAL EXAMINATION: GENERAL: Patient is a pleasant male who is in no acute distress. The patient appears their stated age. VITAL SIGNS: Blood pressure 120/70, pulse 80, respirations 20. NEUROLOGIC: The patient is alert and oriented x3 with no focal neurologic deficits. HEENT: Sclerae without icterus. Mouth has moist mucous membranes with normal pallor. NECK: No JVD. Carotid upstroke brisk. No bruits bilaterally. LUNGS: Crackles noted bilaterally. BACK: No scoliosis or kyphosis. CARDIAC: Regular rate and rhythm with normal S1 and S2. No S3 or S4 noted. No significant rubs, murmurs, thrills, or gallops noted throughout the precordium. PMI is not displaced. There is no parasternal heave. ABDOMEN: Soft, nontender, nondistended. No peritoneal signs present. No hepatosplenomegaly. No abnormal striae. EXTREMITIES: 2+ femoral and 2+ dorsalis pedis pulses. No cyanosis, clubbing, or edema. SKIN: No gross abnormalities. PERTINENT LABORATORY DATA: Hemoglobin 14.9, hematocrit 51.9, creatinine 1.08, globulin 3.6, and albumin 4.1. Last echo dated 03/05/2018 with LVEF 35% to 40%. IMPRESSION: 1. Acute on chronic systolic heart failure. 2. Nonischemic cardiomyopathy. 3. Polysubstance abuse. 4. Chronic obstructive pulmonary disease. RECOMMENDATIONS: Unfortunately, Mr. Young's demise may be multifactorial. He states he has been taking the medication, but also continues to have dietary indiscretion in addition continue methamphetamine use. I counseled him on the above. At this point, we would recommend Lasix therapy. This has been started. We then placed on his outpatient medication. We will need continued heart failure clinic followup and drug and alcohol counselor on dietary indiscretion. Further recommendation per Dr. Quique Islas in a.m. Job ID: [id number]
[2018-06-13] MEDS: Atorvastatin Calcium 40 MG TAB PO SCH (21:36)
[2018-06-13] MEDS: Carvedilol 6.25 MG TAB PO SCH (21:44)
[2018-06-13 22:14] VITALS: BMI 25.1
[2018-06-13] MEDS: Morphine 4 MG/ML VIAL SLOW IVP PRN (22:38)
[2018-06-14] MEDS: Morphine 2 MG/ML SYRINGE SLOW IVP PRN ×4 (05:24→22:24)
[2018-06-14] MEDS: Furosemide 40 MG/4 ML VIAL SLOW IVP SCH ×2 (05:24→12:57)
[2018-06-14 05:37] LABS: #Basophils 0.1 thou/uL (0.0-0.2); #Eosinphils 0.2 thou/uL (0.0-0.7); #Lymphocytes 1.5 thou/uL (1.20-3.40); #Monocytes 0.9 thou/uL (0.11-0.59); %Basophils 0.6 % (0.0-1.0); %Eosinophils 2.6 % (0.0-10.0); %Lymphocytes 16.9 % (21.0-51.0); %Monocytes 10.1 % (0.0-10.0); %Neutrophils 69.8 % (42.0-75.0); Hemoglobin 13.6 g/dL (14.0-18.0); Mean Corpuscular HGB CONC 29.5 g/dL (32.0-36.0); Mean Corpuscular Hemoglobin 25.1 pg (27.0-31.0); Mean Platelet Volume 9.5 fL (7.4-10.4); Platelet Count 170 thou/uL (130-400); RBC Distribution Width 15.1 % (11.5-14.5); Red Blood Cell (RBC) Count 5.43 mill/uL (4.70-6.10); White Blood Cell (WBC) Count 8.6 thou/uL (4.8-10.8)
[2018-06-14 05:40] LABS: INR-International Normal Ratio 1.1; Prothrombin Time 14.4 SEC (12.0-14.7)
[2018-06-14 05:52] LABS: Anion Gap 10 mmol/L (10-20); BUN (Urea Nitrogen) 26 mg/dL (8.9-20.6); Calc. Creatinine Clearance 103 mL/min (70-130); Calcium 9.7 mg/dL (7.8-10.44); Carbon Dioxide 34 mmol/L (22-29); Chloride 100 mmol/L (98-107); Estimated GFR-MDRD 85; Glucose 113 mg/dL (70-105); Potassium 4.8 mmol/L (3.5-5.1); Sodium 139 mmol/L (136-145)
[2018-06-14] MEDS: Enoxaparin Sodium 80 MG/0.8 ML SYRINGE SC SCH ×2 (09:57→20:26)
[2018-06-14] MEDS: Aspirin 81 mg Enteric Coated Tablet PO SCH (09:57)
[2018-06-14] MEDS: Carvedilol 6.25 MG TAB PO SCH ×2 (09:57→20:26)
[2018-06-14] MEDS: Losartan 25 MG TAB PO SCH (09:57)
--- NOTE | 2018-06-14 14:41 | PDOC.PN ---
- Subjective Encounter Start Date: 06/14/18 Encounter Start Time: 07:20 Pt seen for followup re: acute hypoxic respiratory failure. feels better. - Objective Vital Signs & Weight: Vital Signs (12 hours) Temp Pulse Resp BP Pulse Ox 06/14/18 11:40 97.7 F 107 H 20 122/87 93 L 06/14/18 08:00 97 06/14/18 07:58 97.2 F L 99 20 107/77 97 06/14/18 04:00 97.8 F 97 18 109/78 95 Weight Weight 168 lb 10.458 oz I&O: 06/13/18 06/14/18 06/15/18 06:59 06:59 06:59 Intake Total 1000 Output Total 350 925 Balance 650 -925 Result Diagrams: 06/14/18 05:00 06/14/18 05:00 Phys Exam - Physical Examination Constitutional: NAD HEENT: moist MMs, sclera anicteric, oral pharynx no lesions, 2+ tonsils Neck: no nodes, supple, full ROM JVD Respiratory: clear to auscultation bilateral Cardiovascular: RRR, no rub S1, S2 Gastrointestinal: soft, non-tender, no distention, positive bowel sounds Musculoskeletal: edema present Neurological: moves all 4 limbs Psychiatric: normal affect, A&O x 3 Deviation from normal: tattoos Dx/Plan (1) Acute on chronic systolic CHF (congestive heart failure) Code(s): I50.23 - ACUTE ON CHRONIC SYSTOLIC (CONGESTIVE) HEART FAILURE Status : Acute Comment: continue furosemide NYHA Stage 3 ACC/AHA Class C (2) HTN (hypertension) Code(s): I10 - ESSENTIAL (PRIMARY) HYPERTENSION Status: Chronic Comment: controlled (3) COPD (chronic obstructive pulmonary disease) Status: Chronic Comment: stable (4) Non-ischemic cardiomyopathy Code(s): I42.8 - OTHER CARDIOMYOPATHIES Status: Chronic Comment: continue beta quin and ARB (5) Noncompliance with medication regimen Code(s): Z91.14 - PATIENT'S OTHER NONCOMPLIANCE WITH MEDICATION REGIMEN Status : Chronic Comment: counseled patient - Plan * . Review of Systems - Review of Systems Constitutional: negative: fever, chills, sweats, weakness, malaise Respiratory: Cough, Dry, SOB with Excertion. negative: Shortness of Breath, Hemoptysis, Pleuritic Pain, Sputum, Wheezing Cardiovascular: orthopnea. negative: chest pain, palpitations, paroxysmal nocturnal dyspnea, edema, light headedness Gastrointestinal: negative: Nausea, Vomiting, Abdominal Pain, Diarrhea, Constipation, Melena, Hematochezia Genitourinary: negative: Dysuria, Frequency, Incontinence, Hematuria, Retention - Medications/Allergies Allergies/Adverse Reactions: Allergies Allergy/AdvReac Type Severity Reaction Status Date / Time No Known Drug Allergies Allergy Verified 11/09/17 04:57 Medications: Current Medications Acetaminophen (Tylenol) 650 mg PO Q4H PRN PRN Reason: Headache/Fever/Mild Pain (1-3) Last Admin: 06/13/18 21:39 Dose: 650 mg Acetaminophen (Tylenol) 650 mg [place] Q4H PRN PRN Reason: Headache/Fever/Mild Pain (1-3) Albuterol/Ipratropium (Duoneb) 3 ml NEB [id number]-[id number] PRN PRN Reason: SOB &/or Wheezing Last Admin: 06/13/18 22:22 Dose: 3 ml Aspirin (Ecotrin) 81 mg PO DAILY [facility] Last Admin: 06/14/18 09:57 Dose: 81 mg Atorvastatin Calcium (Lipitor) 40 mg PO HS [facility] Last Admin: 06/13/18 21:36 Dose: 40 mg Carvedilol (Coreg) 6.25 mg PO BID [facility] Last Admin: 06/14/18 09:57 Dose: 6.25 mg Enoxaparin Sodium (Lovenox) 80 mg SC Q12HR [facility] Last Admin: 06/14/18 09:57 Dose: 80 mg Furosemide (Lasix) 40 mg SLOW IVP 0600,1400 [facility] Last Admin: 06/14/18 12:57 Dose: 40 mg Losartan Potassium (Cozaar) 25 mg PO DAILY [facility] Last Admin: 06/14/18 09:57 Dose: 25 mg Miscellaneous Medication (Pharmacy To Dose) 1 each PO PRN PRN PRN Reason: Pharmacy to dose Morphine Sulfate (Morphine) 4 mg SLOW IVP Q4H PRN PRN Reason: Severe Pain (7-10) Last Admin: 06/13/18 22:38 Dose: 4 mg Morphine Sulfate (Morphine) 2 mg SLOW IVP Q4H PRN PRN Reason: Moderate Pain (4-6) Last Admin: 06/14/18 12:55 Dose: 2 mg Warfarin Sodium (Coumadin) 5 mg PO 1700 [facility] Last Admin: 06/13/18 18:34 Dose: 5 mg
[2018-06-14] MEDS: Warfarin Sodium 5 MG TAB PO SCH (17:21)
[2018-06-14] MEDS: Atorvastatin Calcium 40 MG TAB PO SCH (20:26)
--- NOTE | 2018-06-14 20:59 | PDOC.CTH ---
Cardiology Progress Note - Subjective Has diuresed well. Feels better already. - Objective Vital Signs Temp Pulse Resp BP Pulse Ox 06/14/18 16:00 98.8 F 96 20 112/72 94 L 06/14/18 11:40 97.7 F 107 H 20 122/87 93 L Weight 168 lb 10.458 oz 06/13/18 06/14/18 06/15/18 06:59 06:59 06:59 Intake Total 1000 840 Output Total 350 2055 Balance 650 -1215 - Physical Examination General/Neuro: alert & oriented x3, NAD Neck: no JVD present Lungs: unlabored respirations Heart: RRR Abdomen: NT/ND Extremities: other: (no edema) - Telemetry Telemetry Rhythm: NSR - Labs Result Diagrams: 06/14/18 05:00 06/14/18 05:00 Troponin/CKMB Troponin I 0.026 ng/mL (< 0.028) 06/13/18 18:02 - Assessment/Plan 1. Acute on chronic systolic heart faliure 2. Dietary indiscretions. 3. Substance abuse 4. S/P Mitral annuloplasty 5. S/P Tricuspid annuloplasty PLAN: - Continue IV diuresis - Continue other meds. - Counselled on substance abuse cessation and dietary changes.
[2018-06-15] MEDS: Morphine 2 MG/ML SYRINGE SLOW IVP PRN ×4 (02:45→19:59)
[2018-06-15] MEDS: Furosemide 40 MG/4 ML VIAL SLOW IVP SCH ×2 (05:18→14:25)
[2018-06-15 05:36] LABS: INR-International Normal Ratio 1.1; Prothrombin Time 14.3 SEC (12.0-14.7)
[2018-06-15 05:38] LABS: #Basophils 0.1 thou/uL (0.0-0.2); #Eosinphils 0.4 thou/uL (0.0-0.7); #Lymphocytes 1.8 thou/uL (1.20-3.40); #Monocytes 1.1 thou/uL (0.11-0.59); #Neutrophils 6.6 thou/uL (1.40-6.50); %Basophils 0.8 % (0.0-1.0); %Lymphocytes 17.7 % (21.0-51.0); %Monocytes 10.7 % (0.0-10.0); %Neutrophils 66.7 % (42.0-75.0); Hemoglobin 13.9 g/dL (14.0-18.0); Mean Corpuscular HGB CONC 29.8 g/dL (32.0-36.0); Mean Corpuscular Hemoglobin 25.2 pg (27.0-31.0); Mean Corpuscular Volume 84.7 fL (78.0-98.0); Mean Platelet Volume 9.5 fL (7.4-10.4); Platelet Count 176 thou/uL (130-400); Red Blood Cell (RBC) Count 5.54 mill/uL (4.70-6.10); White Blood Cell (WBC) Count 9.9 thou/uL (4.8-10.8)
[2018-06-15 05:52] LABS: Anion Gap 12 mmol/L (10-20); BUN (Urea Nitrogen) 31 mg/dL (8.9-20.6); Calc. Creatinine Clearance 82 mL/min (70-130); Carbon Dioxide 35 mmol/L (22-29); Chloride 97 mmol/L (98-107); Estimated GFR-MDRD 66; Glucose 106 mg/dL (70-105); Potassium 4.5 mmol/L (3.5-5.1); Sodium 139 mmol/L (136-145)
[2018-06-15] MEDS: Carvedilol 6.25 MG TAB PO SCH ×2 (09:43→19:58)
[2018-06-15] MEDS: Aspirin 81 mg Enteric Coated Tablet PO SCH (09:43)
[2018-06-15] MEDS: Losartan 25 MG TAB PO SCH (09:43)
[2018-06-15] MEDS: Enoxaparin Sodium 80 MG/0.8 ML SYRINGE SC SCH ×2 (09:47→19:58)
--- NOTE | 2018-06-15 11:34 | PDOC.CTH ---
Cardiology Progress Note - Subjective Breathing better. - Objective Vital Signs Temp Pulse Resp BP BP Pulse Ox 06/15/18 09:50 93 L 06/15/18 09:43 117/84 06/15/18 07:47 98 F 105 H 18 101/67 93 L 06/15/18 05:16 97.8 F 101 H 16 99/63 93 L Weight 166 lb 7.184 oz 06/14/18 06/15/18 06/16/18 06:59 06:59 06:59 Intake Total 1000 1760 Output Total 350 2955 Balance 650 -1195 - Physical Examination General/Neuro: alert & oriented x3, NAD Neck: no JVD present Lungs: unlabored respirations Heart: RRR Abdomen: NT/ND Extremities: other: (no edema) - Telemetry Telemetry Rhythm: NSR, NS VT - Labs Result Diagrams: 06/15/18 05:09 06/15/18 05:09 Troponin/CKMB Troponin I 0.026 ng/mL (< 0.028) 06/13/18 18:02 - Assessment/Plan 1. Acute on chronic systolic heart failure 2. Dietary indiscretions. 3. Substance abuse 4. S/P Mitral annuloplasty 5. S/P Tricuspid annuloplasty 6. Paroxysmal afib 7. Non sustained VT PLAN: - Continue IV diuresis today, switch to PO tomorrow. - Continue other meds. - Counselled on substance abuse cessation and dietary changes. - Will order lifevest before discharge,. - Not a good candidate for anti arrhythmics due to compliance.
--- NOTE | 2018-06-15 15:38 | PDOC.PN ---
- Subjective Encounter Start Date: 06/15/18 Encounter Start Time: 10:20 Pt seen for followup re: systolic CHF exacerbation. Feels better. - Objective MAR Reviewed: Yes Vital Signs & Weight: Vital Signs (12 hours) Temp Pulse Resp BP BP Pulse Ox 06/15/18 11:45 97.6 F 96 18 115/76 93 L 06/15/18 09:50 93 L 06/15/18 09:43 117/84 06/15/18 07:47 98 F 105 H 18 101/67 93 L 06/15/18 05:16 97.8 F 101 H 16 99/63 93 L Weight Weight 166 lb 7.184 oz I&O: 06/14/18 06/15/18 06/16/18 06:59 06:59 06:59 Intake Total 1000 1760 1904 Output Total 350 2955 725 Balance 650 -1195 1179 Result Diagrams: 06/15/18 05:09 06/15/18 05:09 EKG Reviewed by me: Yes (Tele: NSR) Phys Exam - Physical Examination Constitutional: NAD HEENT: moist MMs Neck: supple Respiratory: clear to auscultation bilateral Cardiovascular: RRR Gastrointestinal: soft Neurological: moves all 4 limbs Psychiatric: normal affect Deviation from normal: tattoos Dx/Plan (1) Acute on chronic systolic CHF (congestive heart failure) Code(s): I50.23 - ACUTE ON CHRONIC SYSTOLIC (CONGESTIVE) HEART FAILURE Status : Acute Comment: Improved, continue furosemide (2) HTN (hypertension) Code(s): I10 - ESSENTIAL (PRIMARY) HYPERTENSION Status: Chronic Comment: controlled (3) COPD (chronic obstructive pulmonary disease) Status: Chronic Comment: stable (4) Non-ischemic cardiomyopathy Code(s): I42.8 - OTHER CARDIOMYOPATHIES Status: Chronic Comment: on beta quin and ARB (5) Noncompliance with medication regimen Code(s): Z91.14 - PATIENT'S OTHER NONCOMPLIANCE WITH MEDICATION REGIMEN Status : Chronic Comment: counseled patient - Plan * . Pt is awaiting Life Vest On anticoagulation for paroxysmal atrial fibrillation. Review of Systems - Review of Systems Respiratory: negative: Cough, Shortness of Breath, SOB with Excertion, Pleuritic Pain, Wheezing Cardiovascular: negative: chest pain, palpitations, orthopnea, paroxysmal nocturnal dyspnea, edema, light headedness - Medications/Allergies Allergies/Adverse Reactions: Allergies Allergy/AdvReac Type Severity Reaction Status Date / Time No Known Drug Allergies Allergy Verified 11/09/17 04:57 Medications: Current Medications Acetaminophen (Tylenol) 650 mg PO Q4H PRN PRN Reason: Headache/Fever/Mild Pain (1-3) Last Admin: 06/13/18 21:39 Dose: 650 mg Acetaminophen (Tylenol) 650 mg [place] Q4H PRN PRN Reason: Headache/Fever/Mild Pain (1-3) Albuterol/Ipratropium (Duoneb) 3 ml NEB Q3VJ-BP PRN PRN Reason: SOB &/or Wheezing Last Admin: 06/14/18 22:22 Dose: 3 ml Aspirin (Ecotrin) 81 mg PO DAILY [facility] Last Admin: 06/15/18 09:43 Dose: 81 mg Atorvastatin Calcium (Lipitor) 40 mg PO HS [facility] Last Admin: 06/14/18 20:26 Dose: 40 mg Carvedilol (Coreg) 6.25 mg PO BID [facility] Last Admin: 06/15/18 09:43 Dose: 6.25 mg Enoxaparin Sodium (Lovenox) 80 mg SC Q12HR [facility] Last Admin: 06/15/18 09:47 Dose: 80 mg Furosemide (Lasix) 40 mg SLOW IVP 0600,1400 [facility] Stop: 06/15/18 23:59 Last Admin: 06/15/18 14:25 Dose: 40 mg Furosemide (Lasix) 40 mg PO DAILY-AC [facility] Losartan Potassium (Cozaar) 25 mg PO DAILY [facility] Last Admin: 06/15/18 09:43 Dose: 25 mg Miscellaneous Medication (Pharmacy To Dose) 1 each PO PRN PRN PRN Reason: Pharmacy to dose Morphine Sulfate (Morphine) 4 mg SLOW IVP Q4H PRN PRN Reason: Severe Pain (7-10) Last Admin: 06/13/18 22:38 Dose: 4 mg Morphine Sulfate (Morphine) 2 mg SLOW IVP Q4H PRN PRN Reason: Moderate Pain (4-6) Last Admin: 06/15/18 14:56 Dose: 2 mg Warfarin Sodium (Coumadin) 7.5 mg PO 1700 [facility]
[2018-06-15] MEDS: Warfarin Sodium 7.5 MG TAB PO SCH (17:03)
[2018-06-15] MEDS: Atorvastatin Calcium 40 MG TAB PO SCH (19:57)
[2018-06-16] MEDS: Morphine 2 MG/ML SYRINGE SLOW IVP PRN ×3 (00:29→15:35)
[2018-06-16 04:13] VITALS: TEMP 97.9
[2018-06-16 05:51] LABS: INR-International Normal Ratio 1.2; Prothrombin Time 15.5 SEC (12.0-14.7)
[2018-06-16 06:04] LABS: #Basophils 0.1 thou/uL (0.0-0.2); #Eosinphils 0.4 thou/uL (0.0-0.7); #Lymphocytes 2.1 thou/uL (1.20-3.40); #Neutrophils 5.3 thou/uL (1.40-6.50); %Basophils 0.8 % (0.0-1.0); %Eosinophils 4.1 % (0.0-10.0); %Lymphocytes 24.1 % (21.0-51.0); %Monocytes 11.6 % (0.0-10.0); %Neutrophils 59.4 % (42.0-75.0); Hemoglobin 13.5 g/dL (14.0-18.0); Mean Corpuscular HGB CONC 28.6 g/dL (32.0-36.0); Mean Corpuscular Hemoglobin 24.1 pg (27.0-31.0); Mean Corpuscular Volume 84.2 fL (78.0-98.0); Mean Platelet Volume 9.7 fL (7.4-10.4); Platelet Count 186 thou/uL (130-400); RBC Distribution Width 15.1 % (11.5-14.5); Red Blood Cell (RBC) Count 5.59 mill/uL (4.70-6.10); White Blood Cell (WBC) Count 8.9 thou/uL (4.8-10.8)
[2018-06-16 06:12] LABS: Anion Gap 12 mmol/L (10-20); BUN (Urea Nitrogen) 27 mg/dL (8.9-20.6); Calc. Creatinine Clearance 113 mL/min (70-130); Calcium 9.3 mg/dL (7.8-10.44); Carbon Dioxide 30 mmol/L (22-29); Chloride 99 mmol/L (98-107); Estimated GFR-MDRD Greater than 90; Glucose 88 mg/dL (70-105); Potassium 4.5 mmol/L (3.5-5.1); Sodium 136 mmol/L (136-145)
[2018-06-16] MEDS: Morphine 4 MG/ML VIAL SLOW IVP PRN (06:32)
[2018-06-16] MEDS ORDERED: Furosemide 40 MG TAB PO SCH (07:30)
[2018-06-16] MEDS: Aspirin 81 mg Enteric Coated Tablet PO SCH (11:13)
[2018-06-16] MEDS: Losartan 25 MG TAB PO SCH (11:13)
[2018-06-16] MEDS: Carvedilol 6.25 MG TAB PO SCH (11:13)
[2018-06-16] MEDS: Enoxaparin Sodium 80 MG/0.8 ML SYRINGE SC SCH (11:14)
[2018-06-16 16:26] VITALS: BP 102/60
[2018-06-16] MEDS: Warfarin Sodium 7.5 MG TAB PO SCH (18:18)
--- NOTE | 2018-06-17 03:58 | DIS ---
DATE OF ADMISSION: 06/13/2018 DATE OF DISCHARGE: 06/16/2018 PRIMARY CARE PROVIDER: [facility]. DISCHARGE DIAGNOSES: 1. Acute on chronic systolic congestive heart failure, NYHA stage III and ACC AHA stage C. 2. Nonischemic cardiomyopathy. 3. Noncompliance with medication regimen. CONDITION OF PATIENT ON THE DAY OF DISCHARGE: Stable. I assessed Mr. Young on the day of discharge. He denies any chest pain or shortness of breath. Vital signs are stable. S1 and S2 are heard, regular. Lungs are clear to auscultation bilaterally. DISCHARGE MEDICATIONS: 1. Coreg 6.25 mg 2 times a day. 2. Losartan 25 mg daily. 3. Aspirin 81 mg daily. 4. Lipitor 40 mg at bedtime. 5. Lasix 40 mg daily. 6. Warfarin 6 mg daily, with 7 doses being dispensed, further doses depending on INR checks through his primary care provider. 7. Ventolin HFA p.r.n. CONSULTATIONS DURING THIS HOSPITALIZATION: Cardiology, Dr. Kothari. HOSPITAL COURSE: Mr. Young is a pleasant 52-year-old gentleman, who was admitted to [facility] on 06/13/2018, for congestive heart failure exacerbation. Please refer to my history and physical note dated 06/13/2018, for further details. He was seen by Cardiology Service. He was treated with diuretics. 2D echocardiogram showed left ventricular ejection fraction of 20% to 25%. He is being fitted with a LifeVest prior to discharge. He is advised to follow up with his primary care provider and have his INR, creatinine, and electrolytes rechecked. Many thanks for allowing me to participate in Mr. Young's care. Please feel free to contact me with any questions or concerns. DISCHARGE DESTINATION: Home. TOTAL AMOUNT OF TIME SPENT COORDINATING THIS DISCHARGE: 33 minutes. Job ID: [id number] MTDD
--- NOTE | 2018-06-17 20:09 | EKG ---
Test Reason : SOB Blood Pressure : / mmHG Vent. Rate : 121 BPM Atrial Rate : 121 BPM P-R Int : 132 ms QRS Dur : 128 ms QT Int : 360 ms P-R-T Axes : 086 122 043 degrees QTc Int : 511 ms Sinus tachycardia Right bundle branch block Abnormal ECG Similar to FEB 2018 Confirmed by YUSEF NOEL MD ([id number]), avid editor FLORENTINO GARCIA ([id number] on 06/17/2018 8:09:23 PM Referred By: [facility] Confirmed By:YUSEF NOEL MD
== END 2018-06-16 18:42 | disposition home or self-care (01) | DRG 291 ==
LOC: ERS 11:05 → ERHOLD 13:45 → 2SE 20:03
PROVIDERS: ADMIT Internal Medicine; ATTEND Internal Medicine
DX: I11.0 Hypertensive heart disease with heart failure (principal); J96.01 Acute respiratory failure with hypoxia; I47.2 Ventricular tachycardia; I50.33 Acute on chronic diastolic (congestive) heart failure; I48.0 Paroxysmal atrial fibrillation; F17.200 Nicotine dependence, unspecified, uncomplicated; F15.90 Other stimulant use, unspecified, uncomplicated; J44.9 Chronic obstructive pulmonary disease, unspecified; F12.90 Cannabis use, unspecified, uncomplicated; M54.9 Dorsalgia, unspecified; G89.29 Other chronic pain; Z98.890 Other specified postprocedural states; Z91.14 Patient's other noncompliance with medication regimen; Z79.899 Other long term (current) drug therapy; Z95.2 Presence of prosthetic heart valve
CPT/HCPCS: 36415; 71045; 71275; 80048; 80053; 83880; 84484; 85025; 85379; 85610; 85730; 93005; 93306; 93798; 94640; 96361; 96374; 96375; J1650; J1940; J2270; J7620; Q9967

== ENCOUNTER 2018-07-05 16:15 | Inpatient (IN) | payer MEDICARE ==
[2018-07-05 16:39] LABS: #Eosinphils 0.2 thou/uL (0.0-0.7); #Lymphocytes 1.1 thou/uL (1.20-3.40); #Monocytes 0.5 thou/uL (0.11-0.59); #Neutrophils 6.5 thou/uL (1.40-6.50); %Basophils 0.6 % (0.0-1.0); %Eosinophils 2.2 % (0.0-10.0); %Lymphocytes 13.4 % (21.0-51.0); %Monocytes 6.1 % (0.0-10.0); %Neutrophils 77.7 % (42.0-75.0); Hemoglobin 13.7 g/dL (14.0-18.0); Mean Corpuscular HGB CONC 29.6 g/dL (32.0-36.0); Mean Corpuscular Hemoglobin 24.5 pg (27.0-31.0); Mean Corpuscular Volume 82.8 fL (78.0-98.0); Mean Platelet Volume 8.8 fL (7.4-10.4); Platelet Count 187 thou/uL (130-400); RBC Distribution Width 15.1 % (11.5-14.5); Red Blood Cell (RBC) Count 5.59 mill/uL (4.70-6.10); White Blood Cell (WBC) Count 8.4 thou/uL (4.8-10.8)
--- NOTE | 2018-07-05 16:51 | RAD ---
FRadiograph chest one view: 07/05/2018 HISTORY: 52 year old male with dyspnea. COMPARISON: 06/13/2018 FINDINGS: There is a new small region of patchy airspace density in the right lower lobe. Again noted are the s ternotomy wires and the left atrial appendage closure device. No pulmonary edema or pneumothorax. IMPRESSION: Suspicious for right lower lobe pneumonia. Recommend follow-up.
[2018-07-05 16:58] LABS: ALT (SGPT) 25 U/L (8-55); AST (SGOT) 20 U/L (5-34); Albumin 3.9 g/dL (3.5-5.0); Alkaline Phosphatase 100 U/L (40-150); Anion Gap 8 mmol/L (10-20); BUN (Urea Nitrogen) 19 mg/dL (8.9-20.6); Bilirubin, Total 0.8 mg/dL (0.2-1.2); Calc. Creatinine Clearance 0 mL/min (70-130); Calcium 9.6 mg/dL (7.8-10.44); Carbon Dioxide 34 mmol/L (22-29); Chloride 101 mmol/L (98-107); Estimated GFR-MDRD 82; Globulin 3.1 g/dL (2.4-3.5); Glucose 130 mg/dL (70-105); Potassium 4.4 mmol/L (3.5-5.1); Sodium 139 mmol/L (136-145)
[2018-07-05] MEDS ORDERED: Furosemide 20 MG/2 ML VIAL ONE (17:57)
[2018-07-05] MEDS ORDERED: Heparin 25,000 units/D5W 500 ML IV SCH (18:15)
[2018-07-05] MEDS ORDERED: Heparin 10,000 UNITS/ 10 ML VIAL SLOW IVP SCH (18:15)
[2018-07-05] MEDS ORDERED: Aspirin Chewable 81 MG TAB ONE (18:16)
[2018-07-05 19:00] LABS: PTT 32.4 SEC (22.9-36.1); Prothrombin Time 13.7 SEC (12.0-14.7)
[2018-07-05 19:53] LABS: Troponin I 0.016 ng/mL (< 0.028)
[2018-07-05] MEDS ORDERED: Senokot S 8.6-50 MG TAB PO PRN (20:54)
[2018-07-05] MEDS ORDERED: Acetaminophen 650 MG Suppository PR PRN (20:54)
[2018-07-05] MEDS ORDERED: Guaifenesin DM 100-10/5 ML UDCUP PO PRN (20:54)
[2018-07-05] MEDS ORDERED: Ondansetron PF 4 MG/2 ML Vial IVP PRN (20:54)
[2018-07-05] MEDS ORDERED: PROVENTIL INHALER 6.7 G (200 INHALATIONS) INH PRN (20:54)
[2018-07-05] MEDS ORDERED: Acetaminophen 325 MG TAB PO PRN (20:54)
[2018-07-05] MEDS ORDERED: Warfarin Sodium 3 MG TAB PO SCH (21:30)
[2018-07-05] MEDS: HYDROcodone/Acetaminophen 10/325 mg Tablet PO PRN (21:35)
[2018-07-05] MEDS: Atorvastatin Calcium 40 MG TAB PO SCH (21:37)
[2018-07-05] MEDS: Docusate 100 MG CAP PO SCH (21:37)
[2018-07-05] MEDS: Carvedilol 6.25 MG TAB PO SCH (21:37)
[2018-07-05] MEDS: Famotidine 20 MG TAB PO SCH (21:37)
[2018-07-05 21:58] VITALS: BMI 25.9
--- NOTE | 2018-07-05 23:27 | HP ---
PRIMARY CARE PHYSICIAN: Silverio Ren. CHIEF COMPLAINT: Chest pain, shortness of breath, and ran out of his Coumadin. HISTORY OF PRESENT ILLNESS: This is a 52-year-old white male, who was just recently in the hospital at the beginning of this month for acute on chronic systolic congestive heart failure, worsening, so now with a LifeVest again and plan for possible defibrillator placement in the future. The patient had previously had mitral and tricuspid valve repairs and had previously had paroxysmal atrial fibrillation, but with a clip of the atrial appendage and not been on any anticoagulation, but last hospitalization was started on warfarin. I do not see the documentation of the exact reason why, but is most likely due to his worsening ejection fraction and for stroke prevention. The patient was discharged with 1 week of Coumadin and was supposed to follow up in the clinic. He has had a lot of conflict. He is staying with a family member, he has a lot of conflict with him. There is reportedly a very malignant relationship there. This has caused severe depression for him and he did not follow up with any of his appointments. He has a history of drug use, specifically amphetamines most recently, however, he has not used any of those in the past couple of weeks. The patient had some increased swelling of lower extremities and some increased distention of stomach over the last week and some increased shortness of breath, though he states he has not been drinking any more fluids than normal and no extra salt intake and has been taking his Lasix and other medications just his warfarin was out. However, he did decide to go ahead and follow up with the clinic as he had been instructed and he [facility] today. When he told them that he had stopped the warfarin, they told him to go ahead and go into the emergency room. In the ER, the patient was found to have some shortness of breath. No active chest pain, though he has been having old chest pain on and off, which is somewhat chronic for him. He had negative troponins. His brain natriuretic peptide was elevated at 520, but that was down from earlier in the month of 766. Dr. Ashton was notified from the emergency room that the patient had had some valve replacements and he was off his Coumadin and Dr. Ashton asked that they start him on a heparin drip and put him in the hospital. Per the ER report, the patient has also been given Lasix injection in the emergency room along with aspirin. PAST MEDICAL HISTORY: 1. Nonischemic dilated cardiomyopathy with most recent ejection fraction earlier this month of 20% to 25%. 2. Mitral and tricuspid valve failure, status post ring repair. 3. Paroxysmal atrial fibrillation, status post clips to the appendage. 4. Ankylosing spondylitis with chronic back and neck pain. 5. COPD. 6. Hypertension. 7. Hepatitis C possibly. PAST SURGICAL HISTORY: 1. Tricuspid and mitral valve ring repair. 2. Clip to the left atrial appendage. 3. Previous cardiac catheterization, which showed normal coronaries. 4. Multiple back surgeries with hardware. PAST PSYCHIATRIC HISTORY: No previous severe depression or suicidal ideations or attempts. SOCIAL HISTORY: Previous smoker, not currently smoking. He is chewing tobacco as well. History of polysubstance abuse including marijuana and then amphetamines as per HPI. No alcohol use. The patient lives in relatives place along with his 2 teenage sons who are 17. FAMILY HISTORY: Mother at age of 43 with history of lung cancer. No other known family history. REVIEW OF SYSTEMS: CONSTITUTIONAL: No fevers. No chills. EYES: No double vision or blurred vision. ENT: No congestion, drainage, or sore throat. CARDIOVASCULAR: Intermittent mild chest pains. None currently. No palpitations or racing heart. PULMONARY: He has some shortness of breath. No coughing or wheezing. GASTROINTESTINAL: He has some abdominal bloating and decreased appetite, and some constipation. No diarrhea. GENITOURINARY: No dysuria or hematuria. MUSCULOSKELETAL: The patient has chronic muscle aches and joint pains all throughout his back and his extremities as well. NEUROLOGIC: The patient has some numbness like a glove sort of sensation over his right upper extremity. This has been going on for months. No new neurologic symptoms. SKIN: No rashes or other lesions noted. PHYSICAL EXAMINATION: VITAL SIGNS: Current vital signs are blood pressure 127/89, pulse 107, respirations 19, O2 saturation 94% on room air, and temperature 97.5. GENERAL: This is a well-developed and well-nourished white male, in no acute distress. HEENT: Pupils are equal, round, and reactive to light. Oropharynx clear without any lesions, erythema, or exudate. NECK: Supple. No lymphadenopathy. No thyroid nodules or enlargement. He does have some chronic pain in the neck and he does also has some mild JVD. HEART: Regular rate and rhythm. No murmurs, rubs, or gallops. LUNGS: Clear to auscultation bilaterally. No wheezes, crackles, or rhonchi. ABDOMEN: Soft, a little bit distended, nontender to palpation. Normoactive bowel sounds. No hepatosplenomegaly or other masses. EXTREMITIES: No clubbing or cyanosis. He does have some trace edema to bilateral feet and ankles. He states this is a lot worse if he sits up. SKIN: No rashes or lesions noted. NEUROLOGIC: He has intact strength and sensation in all extremities. No facial droop. PSYCHIATRIC: The patient is alert and oriented x3. He has a depressed affect, a little bit teary-eye when talking about his social situation, though he did not want to discuss everything that is going on causing his stressors right now. He denies current suicidal ideation, just fleeting thoughts about being better if he was not around, but no plan. He does say he needs to get some sort of counseling or talk to someone about this. LABORATORY DATA: CBC grossly within normal limits. Coagulation profile normal. Complete metabolic panel is notable for carbon dioxide of 34 and a glucose of 130. Rest is completely normal. Troponins negative x2. Brain natriuretic peptide 120, which is down from earlier this month. EKG, the patient's EKG shows a sinus tachycardia with a complete right bundle branch block. No ST-segment changes. Chest x-ray, I did review the chest x-ray done in the emergency room along with the radiologist's report does show a new small region of patchy airspace density in the right lower lobe. No pulmonary edema. ASSESSMENT: 1. Acute on chronic congestive heart failure, systolic. The patient was previously put on Coumadin the last month likely for this. We will restart Coumadin now and daily PT INRs. I believe he was on 6 mg daily when he was discharged. We will continue heparin drip and have the patient Cardiology see the patient in the morning. 2. Tachycardia, likely secondary to the patient's drug use, or to pain from his back pain. It also may be related to his congestive heart failure. 3. Hypertension. Resume the patient's home blood pressure medications. 4. Chronic obstructive pulmonary disease. We will give the patient nebs as needed. 5. History of polysubstance abuse. We will get a urine drug screen. 6. Chronic back pain. I did inform the patient we can give IV morphine for chronic pain problem like this, but I will write for some hydrocodone while he is in the hospital. 7. Gastrointestinal prophylaxis. The patient on Pepcid twice a day. 8. Deep venous thrombosis prophylaxis, he was started on heparin and we are going to restart Coumadin. 9. Depression with fleeting thoughts of hurting himself by stopping all medications. The patient would benefit from an [facility] referral evaluation before discharge after he is medically stable. He also needs to get set up with Psychiatry in counseling as an outpatient. I will go ahead and start him on some Celexa in-house while he is here. CODE STATUS: I did discuss this with the patient. He is a full code. Should he be incapacitated, he stated that his medical decision maker would be his sister, Carmen Buck. Job ID: [id number]
[2018-07-05 23:43] LABS: Bilirubin Negative (Negative); Blood, Urine Negative (Negative); Clarity CLEAR (Clear); Glucose, Urine (Dipstick) Negative (Negative); Leukocyte Negative (Negative); Nitrite Negative (Negative); Protein, Urine (Dipstick) Negative (Neg-Trace); Specific Gravity, Urine 1.014 (1.002-1.036); Urobilinogen 0.2 mg/dL (0.2-1.0)
[2018-07-05 23:55] LABS: Medtox Reader # READER 4; THC/Cannabinoid Screen Detected (NotDetected)
[2018-07-05 23:56] LABS: Amphetamine Not Detected (NotDetected); Barbiturates Screen Not Detected (NotDetected); Benzodiazepine Screen Not Detected (NotDetected); Cocaine Metabolite Screen Not Detected (NotDetected); Medtox Control Line Valid? VALID (VALID); Methadone Not Detected (NotDetected); Methamphetamine Not Detected (NotDetected); Opiate Screen Not Detected (NotDetected); Oxycodone Screen Detected (NotDetected); Phencyclidine (PCP) Not Detected (NotDetected); Tricyclic Screen Not Detected (NotDetected)
[2018-07-06] MEDS ORDERED: Heparin 10,000 UNITS/ 10 ML VIAL SLOW IVP SCH (01:30)
[2018-07-06] MEDS: Furosemide 40 MG/4 ML VIAL SLOW IVP SCH ×2 (06:08→14:12)
[2018-07-06 06:13] LABS: #Basophils 0.1 thou/uL (0.0-0.2); #Eosinphils 0.3 thou/uL (0.0-0.7); #Lymphocytes 1.6 thou/uL (1.20-3.40); #Monocytes 0.7 thou/uL (0.11-0.59); #Neutrophils 4.9 thou/uL (1.40-6.50); %Basophils 0.7 % (0.0-1.0); %Eosinophils 4.4 % (0.0-10.0); %Lymphocytes 21.1 % (21.0-51.0); %Monocytes 9.7 % (0.0-10.0); %Neutrophils 64.1 % (42.0-75.0); Hemoglobin 12.5 g/dL (14.0-18.0); Mean Corpuscular HGB CONC 29.2 g/dL (32.0-36.0); Mean Corpuscular Hemoglobin 24.4 pg (27.0-31.0); Mean Corpuscular Volume 83.7 fL (78.0-98.0); Platelet Count 181 thou/uL (130-400); RBC Distribution Width 15.1 % (11.5-14.5); Red Blood Cell (RBC) Count 5.12 mill/uL (4.70-6.10); White Blood Cell (WBC) Count 7.6 thou/uL (4.8-10.8)
[2018-07-06 06:18] LABS: INR-International Normal Ratio 1.1; Prothrombin Time 13.8 SEC (12.0-14.7)
[2018-07-06 06:31] LABS: Anion Gap 10 mmol/L (10-20); BUN (Urea Nitrogen) 20 mg/dL (8.9-20.6); Calc. Creatinine Clearance 110 mL/min (70-130); Calcium 9.3 mg/dL (7.8-10.44); Carbon Dioxide 34 mmol/L (22-29); Chloride 101 mmol/L (98-107); Estimated GFR-MDRD 89; Glucose 89 mg/dL (70-105); Potassium 4.9 mmol/L (3.5-5.1); Sodium 140 mmol/L (136-145)
[2018-07-06] MEDS ORDERED: WARFARIN PO PRN (09:17)
[2018-07-06] MEDS: Citalopram 20 MG TAB PO SCH (09:28)
[2018-07-06] MEDS: Docusate 100 MG CAP PO SCH ×2 (09:28→20:36)
[2018-07-06] MEDS: Aspirin 81 mg Enteric Coated Tablet PO SCH (09:28)
[2018-07-06] MEDS: Carvedilol 6.25 MG TAB PO SCH ×2 (09:28→20:36)
[2018-07-06] MEDS: Famotidine 20 MG TAB PO SCH ×2 (09:29→20:36)
[2018-07-06] MEDS: HYDROcodone/Acetaminophen 10/325 mg Tablet PO PRN (09:29)
[2018-07-06] MEDS: Losartan 25 MG TAB PO SCH (09:29)
[2018-07-06] MEDS: Ondansetron ODT 4 MG TAB PO PRN ×2 (11:19→17:36)
[2018-07-06] MEDS: Morphine 2 MG/ML SYRINGE SLOW IVP PRN (14:13)
--- NOTE | 2018-07-06 14:54 | PDOC.PN ---
- Subjective Encounter Start Date: 07/06/18 Encounter Start Time: 14:51 Subjective: feels overwhelmed. c/o pain and doesn't want us to think that he is narcoti -: seeker.breathing much better - Objective Resuscitation Status - Order Detail: 07/05/18 19:31 Resuscitation Status Routine Resuscitation Status: FULL: Full Resuscitation Discussed with: Patient MAYURI Reviewed: Yes Vital Signs & Weight: Vital Signs (12 hours) Temp Pulse Pulse Resp BP BP BP 07/06/18 11:20 97.5 F L 111 H 19 118/69 07/06/18 08:58 97.3 F L 96 18 137/83 07/06/18 08:53 103 H 127/58 L 137/83 07/06/18 03:00 97.9 F 113 H 16 123/79 Pulse Ox 07/06/18 11:20 97 07/06/18 08:58 99 07/06/18 08:53 07/06/18 03:00 Weight Weight 175 lb 6 oz Result Diagrams: 07/06/18 06:00 07/06/18 06:00 Additional Labs: Microbiology 03/01/18 21:31 Nasopharyngeal swab Respiratory Virus Panel (PCR) - Final 03/01/18 19:26 Venous blood - Right Arm Blood Culture - Final NO GROWTH IN 5 DAYS 03/01/18 19:21 Venous blood - Right Hand Blood Culture - Final NO GROWTH IN 5 DAYS Laboratory Tests 07/05/18 07/05/18 07/05/18 16:26 16:26 19:10 Troponin I 0.013 0.016 B-Natriuretic Peptide 520.4 H Ur Oxycodone Screen U Cannabinoids Screen 07/05/18 07/05/18 22:25 23:25 Troponin I 0.020 B-Natriuretic Peptide Ur Oxycodone Screen Detected H U Cannabinoids Screen Detected H Phys Exam - Physical Examination Constitutional: NAD HEENT: PERRLA, moist MMs, sclera anicteric, oral pharynx no lesions Neck: no nodes, no JVD, supple, full ROM Respiratory: no wheezing, no rales, no rhonchi, clear to auscultation bilateral Cardiovascular: RRR, no significant murmur, no rub Gastrointestinal: soft, non-tender, no distention, positive bowel sounds Musculoskeletal: no edema, pulses present Neurological: non-focal, normal sensation, moves all 4 limbs Psychiatric: normal affect, A&O x 3 Skin: no rash Dx/Plan (1) Acute on chronic systolic CHF (congestive heart failure) Code(s): I50.23 - ACUTE ON CHRONIC SYSTOLIC (CONGESTIVE) HEART FAILURE Status : Acute Comment: Improved, continue furosemide (2) COPD (chronic obstructive pulmonary disease) Status: Chronic Comment: stable (3) HTN (hypertension) Code(s): I10 - ESSENTIAL (PRIMARY) HYPERTENSION Status: Chronic Comment: controlled (4) Mitral valve replaced Code(s): Z95.2 - PRESENCE OF PROSTHETIC HEART VALVE Status: Chronic (5) Non-ischemic cardiomyopathy Code(s): I42.8 - OTHER CARDIOMYOPATHIES Status: Chronic Comment: on beta quin and ARB,ASA and statin (6) Noncompliance with medication regimen Code(s): Z91.14 - PATIENT'S OTHER NONCOMPLIANCE WITH MEDICATION REGIMEN Status : Chronic Comment: counseled patient (7) Tricuspid valve replaced Code(s): Z95.2 - PRESENCE OF PROSTHETIC HEART VALVE Status: Chronic (8) h/o atrial fibrillation Status: Chronic Comment: s/p left atrial appendage ligation .Stopped Coumadin few weeks ago.started on again w heparin bridging - Plan DVT proph w/SCDs Monitor INR and stop Heparin drip when INR therapeutic.. -: cont diuresis. -: consult Pain Medicine given chr pain and narcotic reqiurment -: Hd stable.cont ASA,ARB,BB -: am labs.strict I/Os. * .cont Celexa. no SI Review of Systems - Review of Systems Constitutional: negative: fever, chills, sweats, weakness, malaise, other ENT: negative: Ear Pain, Ear Discharge, Nose Pain, Nose Discharge, Nose Congestion, Mouth Pain, Mouth Swelling, Throat Pain, Throat Swelling, Other Respiratory: negative: Cough, Dry, Shortness of Breath, Hemoptysis, SOB with Excertion, Pleuritic Pain, Sputum, Wheezing Cardiovascular: negative: chest pain, palpitations, orthopnea, paroxysmal nocturnal dyspnea, edema, light headedness, other Gastrointestinal: negative: Nausea, Vomiting, Abdominal Pain, Diarrhea, Constipation, Melena, Hematochezia, Other Genitourinary: negative: Dysuria, Frequency, Incontinence, Hematuria, Retention , Other Musculoskeletal: negative: Neck Pain, Shoulder Pain, Arm Pain, Back Pain, Hand Pain, Leg Pain, Foot Pain, Other Skin: negative: Rash, Lesions, Yousuf, Bruising, Other Neurological: negative: Weakness, Numbness, Incoordination, Change in Speech, Confusion, Seizures, Other - Medications/Allergies Allergies/Adverse Reactions: Allergies Allergy/AdvReac Type Severity Reaction Status Date / Time No Known Drug Allergies Allergy Verified 11/09/17 04:57 Medications: Current Medications Acetaminophen (Tylenol) 650 mg PO Q4H PRN PRN Reason: Headache/Fever/Mild Pain (1-3) Acetaminophen (Tylenol) 650 mg SD Q4H PRN PRN Reason: Headache/Fever/Mild Pain (1-3) Hydrocodone Bitart/Acetaminophen ([place] 10/325) 1 tab PO Q4H PRN PRN Reason: Moderate Pain (4-6) Last Admin: 07/06/18 09:29 Dose: 1 tab Hydrocodone Bitart/Acetaminophen ([place] 10/325) 2 tab PO Q4H PRN PRN Reason: Severe Pain (7-10) Albuterol Sulfate (Proventil Hfa) 2 puff INH TID PRN PRN Reason: SOB &/or Wheezing Albuterol/Ipratropium (Duoneb) 3 ml NEB [id number] PRN PRN Reason: SOB &/or Wheezing Aspirin (Ecotrin) 81 mg PO DAILY [facility] Last Admin: 07/06/18 09:28 Dose: 81 mg Atorvastatin Calcium (Lipitor) 40 mg PO HS [facility] Last Admin: 07/05/18 21:37 Dose: 40 mg Carvedilol (Coreg) 6.25 mg PO BID [facility] Last Admin: 07/06/18 09:28 Dose: 6.25 mg Citalopram Hydrobromide (Celexa) 20 mg PO DAILY [facility] Last Admin: 07/06/18 09:28 Dose: 20 mg Docusate Sodium (Colace) 100 mg PO BID [facility] Last Admin: 07/06/18 09:28 Dose: 100 mg Famotidine (Pepcid) 20 mg PO BID [facility] Last Admin: 07/06/18 09:29 Dose: 20 mg Furosemide (Lasix) 40 mg SLOW IVP 0600,1400 [facility] Last Admin: 07/06/18 14:12 Dose: 40 mg Guaifenesin/Dextromethorphan (Robitussin Dm) 15 ml PO Q4H PRN PRN Reason: Cough Heparin Sodium (Porcine) (Heparin 1,000 Units/Ml (10 Ml)) 0 units SLOW IVP WILLCALL [facility] Last Admin: 07/06/18 11:06 Dose: 2,391 unit Heparin Sodium/Dextrose (Heparin 25,000 Units/D5w 500 Ml) 500 mls @ 0 mls/hr IV INF TIFFANY; Protocol Losartan Potassium (Cozaar) 25 mg PO DAILY [facility] Last Admin: 07/06/18 09:29 Dose: 25 mg Miscellaneous Medication (Pharmacy To Dose) 1 each PO PRN PRN PRN Reason: GOAL INR = 2.5-3.5 Morphine Sulfate (Morphine) 2 mg SLOW IVP Q3H PRN PRN Reason: Pain Last Admin: 07/06/18 14:13 Dose: 2 mg Ondansetron HCl (Zofran Odt) 4 mg PO Q6H PRN PRN Reason: Nausea/Vomiting Last Admin: 07/06/18 11:19 Dose: 4 mg Ondansetron HCl (Zofran) 4 mg IVP Q6H PRN PRN Reason: Nausea/Vomiting Senna/Docusate Sodium (Senokot S) 2 tab PO BID PRN PRN Reason: Constipation Sodium Chloride (Flush - Normal Saline) 10 ml IVF Q12HR [facility] Sodium Chloride (Flush - Normal Saline) 10 ml IVF PRN PRN PRN Reason: Saline Flush Last Admin: 07/06/18 14:14 Dose: 10 ml Warfarin Sodium (Coumadin) 6 mg PO 1700 TIFFANY
[2018-07-06] MEDS ORDERED: Warfarin Sodium 3 MG TAB PO SCH (17:00)
--- NOTE | 2018-07-06 18:16 | CON ---
DATE OF CONSULTATION: 07/06/2018 REASON FOR CONSULTATION: Heart failure. HISTORY OF PRESENT ILLNESS: Mr. Young is a 52-year-old white gentleman, very well known to myself, who comes to the hospital for increased shortness of breath. He has a history of nonischemic cardiomyopathy, likely substance abuse related. He ran out of his Coumadin recently. He also has a history of ring repair of his tricuspid and mitral valves. He was sent home just a few weeks ago on Coumadin for his history of atrial fibrillation. However, he does have a left atrial appendage clip during his surgery. Currently, he is a little more short winded than normal. His home situation is very stressful for him, and this might have tipped him over into heart failure either with dietary indiscretions versus just elevated blood pressure. Currently, he is feeling better. He is still requiring oxygen supplementation. He has already started to diurese and already feeling a little bit better. PAST MEDICAL HISTORY: 1. Nonischemic cardiomyopathy, EF at 30% to 35%. 2. Severe TR and severe MR, status post mitral ring and tricuspid ring annuloplasty. 3. Paroxysmal atrial fibrillation. 4. Status post left atrial appendage clip. 5. COPD. 6. Methamphetamine use. 7. Tobacco abuse. OUTPATIENT MEDICATIONS: 1. Albuterol inhaler. 2. Lasix 40 mg a day. 3. Ventolin HFA. 4. Losartan 25 mg a day. 5. Carvedilol 6.25 b.i.d. 6. Atorvastatin 40 mg at bedtime. 7. Aspirin daily. 8. Warfarin was started on discharge. However, there is no clear indication for this. ALLERGIES: NO KNOWN DRUG ALLERGIES. SOCIAL HISTORY: Continues to use marijuana, but no methamphetamines for the last 2 weeks. Continues to smoke. FAMILY HISTORY: Noncontributory. REVIEW OF SYSTEMS: A 12-point review of systems is done and is all negative unless stated in the history of present illness. PHYSICAL EXAMINATION: VITAL SIGNS: Temperature 98.2, pulse 104, respiratory rate 17, saturating 94% on room air, and blood pressure 192/61. GENERAL: Awake, alert, and oriented x3, in no distress. HEENT: Normocephalic and atraumatic. NECK: Supple. LUNGS: Clear. CARDIOVASCULAR: S1 and S2. No S3 or S4. No murmurs. ABDOMEN: Soft. Positive bowel sounds. EXTREMITIES: 2+ edema. SKIN: Warm and dry. LABORATORY DATA: Laboratory work was reviewed. CBC, coags, and chemistries were reviewed. Troponin was negative x3, and BNP is only 520. UA was unremarkable. Toxicology is positive for oxycodone and cannabis. ASSESSMENT AND PLAN: 1. Acute on chronic systolic heart failure. 2. Noncompliance. 3. Substance abuse. 4. Status post ring annuloplasty of the mitral valve and tricuspid valve. 5. Paroxysmal atrial fibrillation, status post left atrial appendage clipping. PLAN: 1. No indication for Coumadin as he has a clip on his left atrial appendage. 2. We will stop heparin drip and warfarin if not needed. 3. Continue IV diuresis for one more day, probably home over the weekend. 4. We will follow. Job ID: [id number]
[2018-07-06] MEDS: Atorvastatin Calcium 40 MG TAB PO SCH (20:36)
[2018-07-07] MEDS: Furosemide 40 MG/4 ML VIAL SLOW IVP SCH (05:52)
[2018-07-07] MEDS: Ondansetron ODT 4 MG TAB PO PRN (05:52)
[2018-07-07 06:31] LABS: INR-International Normal Ratio 1.1; Prothrombin Time 14.1 SEC (12.0-14.7)
[2018-07-07 06:38] LABS: Hemoglobin 12.6 g/dL (14.0-18.0); Platelet Count 177 thou/uL (130-400)
[2018-07-07 06:44] LABS: Anion Gap 12 mmol/L (10-20); BUN (Urea Nitrogen) 29 mg/dL (8.9-20.6); Calc. Creatinine Clearance 79 mL/min (70-130); Calcium 9.5 mg/dL (7.8-10.44); Carbon Dioxide 31 mmol/L (22-29); Chloride 97 mmol/L (98-107); Estimated GFR-MDRD 61; Glucose 94 mg/dL (70-105); Potassium 5.1 mmol/L (3.5-5.1); Sodium 135 mmol/L (136-145)
[2018-07-07] MEDS: Carvedilol 6.25 MG TAB PO SCH ×2 (08:35→20:18)
[2018-07-07] MEDS: Famotidine 20 MG TAB PO SCH ×2 (08:35→20:18)
[2018-07-07] MEDS: Losartan 25 MG TAB PO SCH (08:35)
[2018-07-07] MEDS: Citalopram 20 MG TAB PO SCH (08:36)
[2018-07-07] MEDS: Aspirin 81 mg Enteric Coated Tablet PO SCH (08:36)
[2018-07-07] MEDS: Docusate 100 MG CAP PO SCH ×2 (08:36→20:18)
[2018-07-07] MEDS ORDERED: Metolazone 5 MG TAB PO SCH (10:00)
[2018-07-07] MEDS: HYDROcodone/Acetaminophen 10/325 mg Tablet PO PRN (13:31)
--- NOTE | 2018-07-07 13:43 | PDOC.PN ---
- Subjective Encounter Start Date: 07/07/18 Encounter Start Time: 13:38 Subjective: feels "like i have flu'.do not feel good -: c/o generalised pain - Objective Resuscitation Status - Order Detail: 07/05/18 19:31 Resuscitation Status Routine Resuscitation Status: FULL: Full Resuscitation Discussed with: Nona MESSINA Reviewed: Yes Vital Signs & Weight: Vital Signs (12 hours) Temp Pulse Resp BP BP Pulse Ox 07/07/18 13:29 109 H 109/74 07/07/18 12:27 97.7 F 107 H 16 99/55 L 94 L 07/07/18 07:20 97.9 F 112 H 18 121/74 95 07/07/18 03:44 98.3 F 114 H 20 104/65 95 Weight Weight 175 lb 8 oz I&O: 07/06/18 07/07/18 07/08/18 06:59 06:59 06:59 Intake Total 1563 Output Total 1070 Balance 493 Result Diagrams: 07/07/18 06:03 07/07/18 06:03 Additional Labs: Laboratory Tests 07/05/18 07/07/18 16:26 06:03 B-Natriuretic Peptide 520.4 H 545.2 H Phys Exam - Physical Examination Constitutional: NAD HEENT: PERRLA, moist MMs, sclera anicteric, oral pharynx no lesions Neck: no nodes, no JVD, supple, full ROM Respiratory: no wheezing, no rales, no rhonchi, clear to auscultation bilateral Cardiovascular: RRR, no significant murmur, no rub Gastrointestinal: soft, non-tender, no distention, positive bowel sounds Musculoskeletal: no edema, pulses present Neurological: non-focal, normal sensation, moves all 4 limbs Psychiatric: normal affect, A&O x 3 Skin: no rash Dx/Plan (1) Acute on chronic systolic CHF (congestive heart failure) Code(s): I50.23 - ACUTE ON CHRONIC SYSTOLIC (CONGESTIVE) HEART FAILURE Status : Acute Comment: Improved, continue furosemide (2) COPD (chronic obstructive pulmonary disease) Status: Chronic Comment: stable (3) HTN (hypertension) Code(s): I10 - ESSENTIAL (PRIMARY) HYPERTENSION Status: Chronic Comment: controlled (4) Mitral valve replaced Code(s): Z95.2 - PRESENCE OF PROSTHETIC HEART VALVE Status: Chronic (5) Non-ischemic cardiomyopathy Code(s): I42.8 - OTHER CARDIOMYOPATHIES Status: Chronic Comment: on beta quin and ARB,ASA and statin (6) Noncompliance with medication regimen Code(s): Z91.14 - PATIENT'S OTHER NONCOMPLIANCE WITH MEDICATION REGIMEN Status : Chronic Comment: counseled patient (7) Tricuspid valve replaced Code(s): Z95.2 - PRESENCE OF PROSTHETIC HEART VALVE Status: Chronic (8) h/o atrial fibrillation Status: Chronic Comment: s/p left atrial appendage ligation . - Plan PT/OT, respiratory therapy, incentive spirometry, out of bed/ambulate, DVT proph w/SCDs Coumadin /heparin stopped as pt has Left atrial appandage -: cont diuresis.not much output-will give 1 dose zaroxolyn -: check viral PCR -: start dvt prophyalctic dose lovenox -: Potassium trending up.Hold ARB. * . Review of Systems - Review of Systems Constitutional: negative: fever, chills, sweats, weakness, malaise, other ENT: negative: Ear Pain, Ear Discharge, Nose Pain, Nose Discharge, Nose Congestion, Mouth Pain, Mouth Swelling, Throat Pain, Throat Swelling, Other Respiratory: negative: Cough, Dry, Shortness of Breath, Hemoptysis, SOB with Excertion, Pleuritic Pain, Sputum, Wheezing Cardiovascular: negative: chest pain, palpitations, orthopnea, paroxysmal nocturnal dyspnea, edema, light headedness, other Gastrointestinal: negative: Nausea, Vomiting, Abdominal Pain, Diarrhea, Constipation, Melena, Hematochezia, Other Genitourinary: negative: Dysuria, Frequency, Incontinence, Hematuria, Retention , Other Musculoskeletal: negative: Neck Pain, Shoulder Pain, Arm Pain, Back Pain, Hand Pain, Leg Pain, Foot Pain, Other Neurological: negative: Weakness, Numbness, Incoordination, Change in Speech, Confusion, Seizures, Other - Medications/Allergies Allergies/Adverse Reactions: Allergies Allergy/AdvReac Type Severity Reaction Status Date / Time No Known Drug Allergies Allergy Verified 11/09/17 04:57 Medications: Current Medications Acetaminophen (Tylenol) 650 mg PO Q4H PRN PRN Reason: Headache/Fever/Mild Pain (1-3) Acetaminophen (Tylenol) 650 mg [place] Q4H PRN PRN Reason: Headache/Fever/Mild Pain (1-3) Hydrocodone Bitart/Acetaminophen ([place] 10/325) 1 tab PO Q4H PRN PRN Reason: Moderate Pain (4-6) Last Admin: 07/07/18 13:31 Dose: 1 tab Hydrocodone Bitart/Acetaminophen ([place] 10/325) 2 tab PO Q4H PRN PRN Reason: Severe Pain (7-10) Albuterol Sulfate (Proventil Hfa) 2 puff INH TID PRN PRN Reason: SOB &/or Wheezing Albuterol/Ipratropium (Duoneb) 3 ml NEB [id number] PRN PRN Reason: SOB &/or Wheezing Aspirin (Ecotrin) 81 mg PO DAILY [facility] Last Admin: 07/07/18 08:36 Dose: 81 mg Atorvastatin Calcium (Lipitor) 40 mg PO HS [facility] Last Admin: 07/06/18 20:36 Dose: 40 mg Carvedilol (Coreg) 6.25 mg PO BID [facility] Last Admin: 07/07/18 08:35 Dose: 6.25 mg Citalopram Hydrobromide (Celexa) 20 mg PO DAILY [facility] Last Admin: 07/07/18 08:36 Dose: 20 mg Docusate Sodium (Colace) 100 mg PO BID [facility] Last Admin: 07/07/18 08:36 Dose: 100 mg Famotidine (Pepcid) 20 mg PO BID [facility] Last Admin: 07/07/18 08:35 Dose: 20 mg Guaifenesin/Dextromethorphan (Robitussin Dm) 15 ml PO Q4H PRN PRN Reason: Cough Miscellaneous Medication (Pharmacy To Dose) 1 each PO PRN PRN PRN Reason: GOAL INR = 2.5-3.5 Morphine Sulfate (Morphine) 2 mg SLOW IVP Q3H PRN PRN Reason: Pain Last Admin: 07/06/18 14:13 Dose: 2 mg Ondansetron HCl (Zofran Odt) 4 mg PO Q6H PRN PRN Reason: Nausea/Vomiting Last Admin: 07/07/18 05:52 Dose: 4 mg Ondansetron HCl (Zofran) 4 mg IVP Q6H PRN PRN Reason: Nausea/Vomiting Senna/Docusate Sodium (Senokot S) 2 tab PO BID PRN PRN Reason: Constipation Sodium Chloride (Flush - Normal Saline) 10 ml IVF Q12HR [facility] Last Admin: 07/07/18 08:36 Dose: 10 ml Sodium Chloride (Flush - Normal Saline) 10 ml IVF PRN PRN PRN Reason: Saline Flush Last Admin: 07/06/18 14:14 Dose: 10 ml
--- NOTE | 2018-07-07 14:12 | PDOC.CTH ---
Cardiology Progress Note - Subjective Breathing at baseline. He feels like he is coming down with the flu. - Objective Vital Signs Temp Pulse Resp BP BP Pulse Ox 07/07/18 13:29 109 H 109/74 07/07/18 12:27 97.7 F 107 H 16 99/55 L 94 L 07/07/18 07:20 97.9 F 112 H 18 121/74 95 07/07/18 03:44 98.3 F 114 H 20 104/65 95 Weight 175 lb 8 oz 07/06/18 07/07/18 07/08/18 06:59 06:59 06:59 Intake Total 1563 Output Total 1070 Balance 493 - Physical Examination General/Neuro: alert & oriented x3, NAD Neck: no JVD present Lungs: CTA, unlabored respirations Heart: RRR Abdomen: NT/ND Extremities: other: (no edema) - Telemetry Telemetry Rhythm: Sinus tach - Labs Result Diagrams: 07/07/18 06:03 07/07/18 06:03 Troponin/CKMB Troponin I 0.020 ng/mL (< 0.028) 07/05/18 22:25 - Assessment/Plan 1. Acute on chronic systolic heart failure. 2. Substance abuse 3. Non ischemic CM. 4. S/P Mitral and tricuspid ring annuloplasty. PLAN: - Will hold diuresis for now as he seems euvolemic and his creatinine bumped. - Continue other meds for now.
[2018-07-07] MEDS: Atorvastatin Calcium 40 MG TAB PO SCH (20:17)
--- NOTE | 2018-07-07 20:58 | CON ---
DATE OF CONSULTATION: 07/07/2018 REASON FOR CONSULTATION: Chronic back pain. HISTORY OF PRESENT ILLNESS: This is a 52-year-old gentleman with history of nonischemic cardiomyopathy, atrial fibrillation, and COPD, recently admitted to the hospital for increased shortness of breath. Apparently, he is not being compliant with his cardiac medications at home, thus leading to hospital admission. He is currently being managed by Cardiology with anticoagulant therapy and diuretic therapy. In regard to his chronic back pain, he reports a history of extensive lumbar fusion several years ago in [place]. Apparently, he underwent an L1-L5 fusion in the past, however, no imaging has been completed recently to verify that level. His pain is primarily bilateral lumbar, sacral pain that radiates across the low back and intermittently radiates down the bilateral lower extremities to the feet. Pain is described as a dull, achy, throbbing pain with intermittent radiating, sharp pain. Pain is worsened with any functional and physical activity as well as recurring at rest. He denies any lower extremity weakness, no falls, no bowel or bladder dysfunction reported that is new. He has undergone therapy in the past after surgery, however, none recently. He reports using marijuana for his pain at times with effective relief. He has not been able to get any THC recently, and reports an increase in his pain. He denies every being on chronic opioid use for his pain. Currently, he is resting in bed, he reports he is feeling not well overall, feels flu like symptoms. He reports pain at 5/10 to the bilateral low back while resting in bed. He is currently getting morphine sulfate IV 2 mg q.3 for pain and hydrocodone 10/325 mg tablet one p.o. q.4 for pain as well. He reports taking one dose of the morphine IV and one of the oral hydrocodone in the past 24 hours with minimal relief of his pain. He does report some adverse reactions including nausea associated with morphine, appears to be tolerating the hydrocodone well. PAST MEDICAL HISTORY: Ischemic cardiomyopathy with an ejection fraction at 30% to 35%, atrial fibrillation status post clips to the appendages, COPD, methamphetamine use, hypertension, chronic back and neck pain. PAST SURGICAL HISTORY: Includes tricuspid and mitral valve ring repair, clip to the left atrial appendage, previous cardiac catheterizations, reports of an L1 to L5 lumbar fusion in [place]. SOCIAL HISTORY: History of smoking, however he is currently not smoking, using smokeless tobacco currently. There is a history of polysubstance abuse including marijuana and methamphetamine use, he tells me he last used 2 to 3 weeks ago. Currently, he lives with family and does have 2 teenage sons living with him. He is disabled. He also reports a history of IV drug use in the past. FAMILY HISTORY: Includes history of lung cancer in his mother, who at 43. ALLERGIES: NO KNOWN DRUG ALLERGIES. REVIEW OF SYSTEMS: Negative for all systems except pertinent positives discussed above in the HPI. PHYSICAL EXAMINATION: VITAL SIGNS: Blood pressure 104/65, heart rate 114, temperature 98.3, respirations 20, and he is 95% on room air. GENERAL APPEARANCE: He is alert, awake, and oriented x3, in no distress. HEENT: He is normocephalic and atraumatic. RESPIRATIONS: He does have some symmetric expansion of this chest wall, breathing is unlabored. CARDIOVASCULAR: He has 2+ lower extremity edema, peripheral pulses are +2. ABDOMEN: Soft, nontender, and nondistended. MUSCULOSKELETAL: There are lumbar surgical incisions that are noted and healed. There is tenderness that is diffuse to the lumbar sacral region, paraspinal musculature tenderness appreciated. Tenderness with palpation to bilateral SI joints on exam. Bilateral lower extremity strength is +4/5 with bilateral dorsi flexion and plantar flexions intact. Negative bilateral straight leg raise, +2 patella reflexes. Bilateral upper extremity strength is 5/5. No cervical spine tenderness or thoracic spine tenderness on exam. He has full range of motion at the C-spine, appears to be able to maneuver well in the bed. NEUROLOGIC: He reflexes bilaterally +2, no clonus, no tremors. ASSESSMENT AND PLAN: 1. Lumbar pain. This is a 52-year-old gentleman, who is status post extensive lumbar fusion from L1 to L5 with ongoing lumbar/sacral pain for which he manages with THC at home. He is currently admitted for congestive heart failure. At this time, no changes are recommended in his pain management. He is not currently a candidate for interventional procedures due to his congestive heart failure exacerbation and anticoagulated state. Due to polysubstance abuse in the past and in light of recent UDS screen positive for THC and OxyContin, we would not recommend any narcotics for chronic pain. Of note, in review of the [employer] website, it appears the patient received tramadol in 2018 from a physician in [place], likely postoperative. There has not been any prescriptions for OxyContin released or prescribed to this patient in the state of [place]. In addition to his history of polysubstance abuse in combination with his depression, he would likely benefit from a treatment facility that would be able to manage his depression and psych needs as well as his chronic pain concurrently. Recommend to continue current plan of care as provided by hospitalist group. 2. Sacroiliac inflammation, his exam is positive for bilateral SI joint pain on exam. Consider bilateral SI injections on an outpatient basis if this pain remains problematic after discharge and he is medically stable. We will sign off this case for now. Thanks for this consultation. No further recommendations to be made from pain management. Job ID: [id number] PHILLIP
[2018-07-08] MEDS: HYDROcodone/Acetaminophen 10/325 mg Tablet PO PRN ×4 (03:23→21:48)
[2018-07-08 07:19] LABS: Anion Gap 12 mmol/L (10-20); BUN (Urea Nitrogen) 28 mg/dL (8.9-20.6); Calc. Creatinine Clearance 89 mL/min (70-130); Calcium 9.7 mg/dL (7.8-10.44); Carbon Dioxide 35 mmol/L (22-29); Chloride 95 mmol/L (98-107); Estimated GFR-MDRD 71; Glucose 93 mg/dL (70-105); Potassium 4.8 mmol/L (3.5-5.1); Sodium 137 mmol/L (136-145)
[2018-07-08] MEDS: Aspirin 81 mg Enteric Coated Tablet PO SCH (10:39)
[2018-07-08] MEDS: Carvedilol 6.25 MG TAB PO SCH ×2 (10:39→21:47)
[2018-07-08] MEDS: Famotidine 20 MG TAB PO SCH ×2 (10:39→21:47)
[2018-07-08] MEDS: Citalopram 20 MG TAB PO SCH (10:40)
[2018-07-08] MEDS: Docusate 100 MG CAP PO SCH ×2 (10:40→21:47)
--- NOTE | 2018-07-08 13:52 | PDOC.PN ---
- Subjective Encounter Start Date: 07/08/18 Encounter Start Time: 13:50 Subjective: c/o "vein sticking out in neck when i stand up' -: "I feel my BP is high" -: no CP/SOB - Objective Resuscitation Status - Order Detail: 07/05/18 19:31 Resuscitation Status Routine Resuscitation Status: FULL: Full Resuscitation Discussed with: Patient MAYURI Reviewed: Yes Vital Signs & Weight: Vital Signs (12 hours) Temp Pulse Resp BP BP Pulse Ox 07/08/18 10:39 130/79 07/08/18 08:30 99.6 F 97 16 130/79 96 07/08/18 08:00 96 07/08/18 04:02 98.3 F 101 H 18 123/84 94 L Weight Weight 172 lb 11.2 oz I&O: 07/07/18 07/08/18 07/09/18 06:59 06:59 06:59 Intake Total 1563 1440 Output Total 1070 2280 Balance 493 -840 Result Diagrams: 07/07/18 06:03 07/08/18 06:46 Additional Labs: Microbiology 07/07/18 19:30 Nasopharyngeal swab Respiratory Panel (PCR) - Final Phys Exam - Physical Examination Constitutional: NAD HEENT: PERRLA, moist MMs, sclera anicteric, oral pharynx no lesions Neck: no nodes, no JVD, supple, full ROM Respiratory: no wheezing, no rhonchi few basilar crackles Cardiovascular: RRR, no significant murmur Gastrointestinal: soft, non-tender, no distention, positive bowel sounds Musculoskeletal: no edema, pulses present Neurological: non-focal, normal sensation, moves all 4 limbs Psychiatric: normal affect, A&O x 3 Skin: no rash Dx/Plan (1) Acute on chronic systolic CHF (congestive heart failure) Code(s): I50.23 - ACUTE ON CHRONIC SYSTOLIC (CONGESTIVE) HEART FAILURE Status : Acute Comment: Improved, continue furosemide (2) COPD (chronic obstructive pulmonary disease) Status: Chronic Comment: stable (3) HTN (hypertension) Code(s): I10 - ESSENTIAL (PRIMARY) HYPERTENSION Status: Chronic Comment: controlled (4) Mitral valve replaced Code(s): Z95.2 - PRESENCE OF PROSTHETIC HEART VALVE Status: Chronic (5) Non-ischemic cardiomyopathy Code(s): I42.8 - OTHER CARDIOMYOPATHIES Status: Chronic Comment: on beta quin and ARB,ASA and statin (6) Noncompliance with medication regimen Code(s): Z91.14 - PATIENT'S OTHER NONCOMPLIANCE WITH MEDICATION REGIMEN Status : Chronic Comment: counseled patient (7) Tricuspid valve replaced Code(s): Z95.2 - PRESENCE OF PROSTHETIC HEART VALVE Status: Chronic (8) h/o atrial fibrillation Status: Chronic Comment: s/p left atrial appendage ligation . - Plan DVT proph w/SCDs BP stable. osvaldo restart PO lasix as exam shows some Pulmonary fluid -: Otherwise he seems stable to be Dced soon -: will defer to cardiology * . Review of Systems - Review of Systems Constitutional: malaise ENT: negative: Ear Pain, Ear Discharge, Nose Pain, Nose Discharge, Nose Congestion, Mouth Pain, Mouth Swelling, Throat Pain, Throat Swelling, Other Respiratory: negative: Cough, Dry, Shortness of Breath, Hemoptysis, SOB with Excertion, Pleuritic Pain, Sputum, Wheezing Cardiovascular: negative: chest pain, palpitations, orthopnea, paroxysmal nocturnal dyspnea, edema, light headedness, other Gastrointestinal: negative: Nausea, Vomiting, Abdominal Pain, Diarrhea, Constipation, Melena, Hematochezia, Other Genitourinary: negative: Dysuria, Frequency, Incontinence, Hematuria, Retention , Other Musculoskeletal: negative: Neck Pain, Shoulder Pain, Arm Pain, Back Pain, Hand Pain, Leg Pain, Foot Pain, Other Skin: negative: Rash, Lesions, Yousuf, Bruising, Other - Medications/Allergies Allergies/Adverse Reactions: Allergies Allergy/AdvReac Type Severity Reaction Status Date / Time No Known Drug Allergies Allergy Verified 11/09/17 04:57 Medications: Current Medications Acetaminophen (Tylenol) 650 mg PO Q4H PRN PRN Reason: Headache/Fever/Mild Pain (1-3) Acetaminophen (Tylenol) 650 mg [place] Q4H PRN PRN Reason: Headache/Fever/Mild Pain (1-3) Hydrocodone Bitart/Acetaminophen ([place] 10/325) 1 tab PO Q4H PRN PRN Reason: Moderate Pain (4-6) Last Admin: 07/07/18 13:31 Dose: 1 tab Hydrocodone Bitart/Acetaminophen ([place] 10/325) 2 tab PO Q4H PRN PRN Reason: Severe Pain (7-10) Last Admin: 07/08/18 10:42 Dose: 2 tab Albuterol Sulfate (Proventil Hfa) 2 puff INH TID PRN PRN Reason: SOB &/or Wheezing Albuterol/Ipratropium (Duoneb) 3 ml NEB [id number] PRN PRN Reason: SOB &/or Wheezing Aspirin (Ecotrin) 81 mg PO DAILY [facility] Last Admin: 07/08/18 10:39 Dose: 81 mg Atorvastatin Calcium (Lipitor) 40 mg PO HS [facility] Last Admin: 07/07/18 20:17 Dose: Not Given Carvedilol (Coreg) 6.25 mg PO BID [facility] Last Admin: 07/08/18 10:39 Dose: 6.25 mg Citalopram Hydrobromide (Celexa) 20 mg PO DAILY [facility] Last Admin: 07/08/18 10:40 Dose: 20 mg Docusate Sodium (Colace) 100 mg PO BID [facility] Last Admin: 07/08/18 10:40 Dose: 100 mg Famotidine (Pepcid) 20 mg PO BID [facility] Last Admin: 07/08/18 10:39 Dose: 20 mg Guaifenesin/Dextromethorphan (Robitussin Dm) 15 ml PO Q4H PRN PRN Reason: Cough Miscellaneous Medication (Pharmacy To Dose) 1 each PO PRN PRN PRN Reason: GOAL INR = 2.5-3.5 Morphine Sulfate (Morphine) 2 mg SLOW IVP Q3H PRN PRN Reason: Pain Last Admin: 07/06/18 14:13 Dose: 2 mg Ondansetron HCl (Zofran Odt) 4 mg PO Q6H PRN PRN Reason: Nausea/Vomiting Last Admin: 07/07/18 05:52 Dose: 4 mg Ondansetron HCl (Zofran) 4 mg IVP Q6H PRN PRN Reason: Nausea/Vomiting Senna/Docusate Sodium (Senokot S) 2 tab PO BID PRN PRN Reason: Constipation Sodium Chloride (Flush - Normal Saline) 10 ml IVF Q12HR [facility] Last Admin: 07/08/18 10:44 Dose: 10 ml Sodium Chloride (Flush - Normal Saline) 10 ml IVF PRN PRN PRN Reason: Saline Flush Last Admin: 07/06/18 14:14 Dose: 10 ml
[2018-07-08] MEDS ORDERED: Furosemide 40 MG TAB PO SCH (14:00)
--- NOTE | 2018-07-08 15:39 | PDOC.CTH ---
Cardiology Progress Note - Subjective He is doing well. Breathing at baseline. - Objective Vital Signs Temp Pulse Resp BP BP Pulse Ox 07/08/18 10:39 130/79 07/08/18 08:30 99.6 F 97 16 130/79 96 07/08/18 08:00 96 07/08/18 04:02 98.3 F 101 H 18 123/84 94 L Weight 172 lb 11.2 oz 07/07/18 07/08/18 07/09/18 06:59 06:59 06:59 Intake Total 1563 1440 Output Total 1070 2280 Balance 493 -840 - Physical Examination General/Neuro: alert & oriented x3, NAD Neck: no JVD present Lungs: CTA, unlabored respirations Heart: RRR Abdomen: NT/ND Extremities: + edema B (trace) - Telemetry Telemetry Rhythm: NSR - Labs Result Diagrams: 07/07/18 06:03 07/08/18 06:46 Troponin/CKMB Troponin I 0.020 ng/mL (< 0.028) 07/05/18 22:25 - Assessment/Plan 1. Acute on chronic systolic heart failure. 2. Substance abuse 3. Non ischemic CM. 4. S/P Mitral and tricuspid ring annuloplasty. PLAN: - Restart home medications. - Home tomorrow from cardiac perspective if he remains stable.
[2018-07-08] MEDS: Atorvastatin Calcium 40 MG TAB PO SCH (21:47)
[2018-07-09] MEDS: Morphine 2 MG/ML SYRINGE SLOW IVP PRN ×2 (02:19→06:13)
[2018-07-09 05:35] LABS: BUN (Urea Nitrogen) 31 mg/dL (8.9-20.6); Calc. Creatinine Clearance 85 mL/min (70-130); Calcium 9.6 mg/dL (7.8-10.44); Estimated GFR-MDRD 67; Glucose 104 mg/dL (70-105)
[2018-07-09 05:44] LABS: Anion Gap 15 mmol/L (10-20); Carbon Dioxide 36 mmol/L (22-29); Chloride 91 mmol/L (98-107); Potassium 3.8 mmol/L (3.5-5.1); Sodium 138 mmol/L (136-145)
[2018-07-09] MEDS ORDERED: Furosemide 40 MG TAB PO SCH (07:30)
[2018-07-09] MEDS: Carvedilol 6.25 MG TAB PO SCH (09:32)
[2018-07-09] MEDS: Aspirin 81 mg Enteric Coated Tablet PO SCH (09:32)
[2018-07-09] MEDS: Docusate 100 MG CAP PO SCH (09:33)
[2018-07-09] MEDS: Citalopram 20 MG TAB PO SCH (09:33)
[2018-07-09] MEDS: Famotidine 20 MG TAB PO SCH (09:33)
[2018-07-09] MEDS: HYDROcodone/Acetaminophen 10/325 mg Tablet PO PRN ×2 (11:51→17:45)
--- NOTE | 2018-07-09 12:44 | PDOC.PN ---
- Subjective Encounter Start Date: 07/09/18 Encounter Start Time: 12:42 Subjective: reprots that he feels good today -: RN reports that his O2 sats are lower without supplemental oxygen - Objective Resuscitation Status - Order Detail: 07/05/18 19:31 Resuscitation Status Routine Resuscitation Status: FULL: Full Resuscitation Discussed with: Patient MAYURI Reviewed: Yes Vital Signs & Weight: Vital Signs (12 hours) Temp Pulse Resp BP BP Pulse Ox 07/09/18 11:37 97.8 F 89 16 100/70 92 L 07/09/18 07:47 98.0 F 96 16 132/84 96 07/09/18 03:59 97.8 F 106 H 15 142/99 H 95 Weight Weight 174 lb 3.2 oz I&O: 07/08/18 07/09/18 07/10/18 06:59 06:59 06:59 Intake Total 1440 1460 Output Total 2280 2350 Balance -840 -890 Result Diagrams: 07/07/18 06:03 07/09/18 04:43 Phys Exam - Physical Examination Constitutional: NAD HEENT: PERRLA, moist MMs, sclera anicteric, oral pharynx no lesions Neck: no nodes, no JVD, supple, full ROM Respiratory: no wheezing, no rales, no rhonchi, clear to auscultation bilateral Cardiovascular: RRR, no significant murmur Gastrointestinal: soft, non-tender, no distention, positive bowel sounds Musculoskeletal: no edema, pulses present Neurological: non-focal, normal sensation, moves all 4 limbs Psychiatric: normal affect, A&O x 3 Skin: no rash Dx/Plan (1) Acute on chronic systolic CHF (congestive heart failure) Code(s): I50.23 - ACUTE ON CHRONIC SYSTOLIC (CONGESTIVE) HEART FAILURE Status : Acute Comment: Improved, continue furosemide (2) COPD (chronic obstructive pulmonary disease) Status: Chronic Comment: stable (3) HTN (hypertension) Code(s): I10 - ESSENTIAL (PRIMARY) HYPERTENSION Status: Chronic Comment: controlled (4) Mitral valve replaced Code(s): Z95.2 - PRESENCE OF PROSTHETIC HEART VALVE Status: Chronic (5) Non-ischemic cardiomyopathy Code(s): I42.8 - OTHER CARDIOMYOPATHIES Status: Chronic Comment: on beta quin and ARB,ASA and statin (6) Noncompliance with medication regimen Code(s): Z91.14 - PATIENT'S OTHER NONCOMPLIANCE WITH MEDICATION REGIMEN Status : Chronic Comment: counseled patient (7) Tricuspid valve replaced Code(s): Z95.2 - PRESENCE OF PROSTHETIC HEART VALVE Status: Chronic (8) h/o atrial fibrillation Status: Chronic Comment: s/p left atrial appendage ligation . - Plan respiratory therapy, incentive spirometry, DVT proph w/SCDs Will continue diuresis and see if o2 sats improve -: if not, he may need home oxygen w h/o worsening Chr CHF and COPD -: cont rest as below and monitor -: will discuss w cardiology -: am labs.hold discharge for now * . Review of Systems - Review of Systems Constitutional: weakness, malaise. negative: fever, chills, sweats, other Respiratory: SOB with Excertion. negative: Cough, Dry, Shortness of Breath, Hemoptysis, Pleuritic Pain, Sputum, Wheezing Cardiovascular: negative: chest pain, palpitations, orthopnea, paroxysmal nocturnal dyspnea, edema, light headedness, other Gastrointestinal: negative: Nausea, Vomiting, Abdominal Pain, Diarrhea, Constipation, Melena, Hematochezia, Other Genitourinary: negative: Dysuria, Frequency, Incontinence, Hematuria, Retention , Other Musculoskeletal: negative: Neck Pain, Shoulder Pain, Arm Pain, Back Pain, Hand Pain, Leg Pain, Foot Pain, Other Skin: negative: Rash, Lesions, Yousuf, Bruising, Other - Medications/Allergies Allergies/Adverse Reactions: Allergies Allergy/AdvReac Type Severity Reaction Status Date / Time No Known Drug Allergies Allergy Verified 11/09/17 04:57 Medications: Current Medications Acetaminophen (Tylenol) 650 mg PO Q4H PRN PRN Reason: Headache/Fever/Mild Pain (1-3) Acetaminophen (Tylenol) 650 mg [place] Q4H PRN PRN Reason: Headache/Fever/Mild Pain (1-3) Hydrocodone Bitart/Acetaminophen ([place] 10/325) 1 tab PO Q4H PRN PRN Reason: Moderate Pain (4-6) Last Admin: 07/09/18 11:51 Dose: 1 tab Hydrocodone Bitart/Acetaminophen ([place] 10/325) 2 tab PO Q4H PRN PRN Reason: Severe Pain (7-10) Last Admin: 07/08/18 21:48 Dose: 2 tab Albuterol Sulfate (Proventil Hfa) 2 puff INH TID PRN PRN Reason: SOB &/or Wheezing Albuterol/Ipratropium (Duoneb) 3 ml NEB [id number] PRN PRN Reason: SOB &/or Wheezing Aspirin (Ecotrin) 81 mg PO DAILY [facility] Last Admin: 07/09/18 09:32 Dose: 81 mg Atorvastatin Calcium (Lipitor) 40 mg PO HS [facility] Last Admin: 07/08/18 21:47 Dose: 40 mg Carvedilol (Coreg) 6.25 mg PO BID [facility] Last Admin: 07/09/18 09:32 Dose: 6.25 mg Citalopram Hydrobromide (Celexa) 20 mg PO DAILY [facility] Last Admin: 07/09/18 09:33 Dose: 20 mg Docusate Sodium (Colace) 100 mg PO BID [facility] Last Admin: 07/09/18 09:33 Dose: 100 mg Famotidine (Pepcid) 20 mg PO BID [facility] Last Admin: 07/09/18 09:33 Dose: 20 mg Furosemide (Lasix) 40 mg PO DAILY-AC [facility] Last Admin: 07/09/18 07:57 Dose: 40 mg Guaifenesin/Dextromethorphan (Robitussin Dm) 15 ml PO Q4H PRN PRN Reason: Cough Miscellaneous Medication (Pharmacy To Dose) 1 each PO PRN PRN PRN Reason: GOAL INR = 2.5-3.5 Morphine Sulfate (Morphine) 2 mg SLOW IVP Q3H PRN PRN Reason: Pain Last Admin: 07/09/18 06:13 Dose: 2 mg Ondansetron HCl (Zofran Odt) 4 mg PO Q6H PRN PRN Reason: Nausea/Vomiting Last Admin: 07/07/18 05:52 Dose: 4 mg Ondansetron HCl (Zofran) 4 mg IVP Q6H PRN PRN Reason: Nausea/Vomiting Senna/Docusate Sodium (Senokot S) 2 tab PO BID PRN PRN Reason: Constipation Sodium Chloride (Flush - Normal Saline) 10 ml IVF Q12HR [facility] Last Admin: 07/09/18 09:33 Dose: 10 ml Sodium Chloride (Flush - Normal Saline) 10 ml IVF PRN PRN PRN Reason: Saline Flush Last Admin: 07/06/18 14:14 Dose: 10 ml
--- NOTE | 2018-07-09 16:03 | PDOC.EVN ---
Event Note - Event Note Event Note: Pt 's recheck oxygen sats low at RA <88%. discussed need for home o2.Agrees for home O2. will set up prior to DC today .Form filled out.
--- NOTE | 2018-07-09 17:35 | PDOC.CTH ---
Cardiology Progress Note - Subjective No new issues. Continues to require O2 supplementation. - Objective Vital Signs Temp Pulse Resp BP BP Pulse Ox 07/09/18 11:37 97.8 F 89 16 100/70 92 L 07/09/18 07:47 98.0 F 96 16 132/84 96 Weight 174 lb 3.2 oz 07/08/18 07/09/18 07/10/18 06:59 06:59 06:59 Intake Total 1440 1460 Output Total 2280 2350 Balance -840 -890 - Physical Examination General/Neuro: alert & oriented x3, NAD Neck: no JVD present Lungs: CTA, unlabored respirations Heart: RRR Abdomen: NT/ND Extremities: other: (no edema) - Telemetry Telemetry Rhythm: NSR - Labs Result Diagrams: 07/07/18 06:03 07/09/18 04:43 Troponin/CKMB Troponin I 0.020 ng/mL (< 0.028) 07/05/18 22:25 - Assessment/Plan 1. Acute on chronic systolic heart failure. 2. Substance abuse 3. Non ischemic CM. 4. S/P Mitral and tricuspid ring annuloplasty. 5. Consider COPD therapies if still needing O2. PLAN: - Continue home medications from cardiac perspective. - May need home O2 - Will recheck UDS. - He does have a history of COPD and may need some steroids to improve oxygenation.
[2018-07-09 17:54] VITALS: BP 115/70; TEMP 97.7
--- NOTE | 2018-07-11 04:45 | DIS ---
DATE OF ADMISSION: 07/05/2018 DATE OF DISCHARGE: 07/09/2018 CONDITION AT DISCHARGE: Stable and improved. DISCHARGE DISPOSITION: Home with Home Health. PRIMARY CARE PHYSICIAN: [facility]. PRIMARY ENGINE DESIGNER: Dr. Islas. IN-HOUSE CONSULTATION: 1. Cardiology, Dr. Islas. 2. Pain Medicine, Dr. Mary Dumont and Dr. Mckeon. DISCHARGE DIAGNOSES: 1. Acute hypoxic respiratory failure secondary to acute on chronic systolic congestive heart failure. 2. Chronic obstructive pulmonary disease. 3. Hypertension. 4. History of mitral and tricuspid valve annuloplasty. 5. Nonischemic cardiomyopathy on LifeVest. 6. History of atrial fibrillation status post left atrial appendage ligation. DISCHARGE MEDICATIONS: 1. Cozaar 25 mg daily. 2. Lasix 40 mg daily. 3. Celexa 20 mg daily. 4. Coreg 6.25 mg p.o. b.i.d. 5. Atorvastatin 40 mg daily. 6. Aspirin 81 mg daily. 7. Albuterol inhaler p.r.n. 8. Albuterol nebulizer p.r.n. The patient was set up for home oxygen through Home Health as his oxygen saturation remained low without it on room air and on ambulation. Please see documentation by nursing staff for accurate readings. HISTORY OF PRESENTING ILLNESS: Mr. Young is a 52-year-old male with known history of ischemic cardiomyopathy who is rather noncompliant with his treatment and abuses marijuana on a regular basis, who presented to the emergency room with complaints of chest pain. He has stopped all of his medications for a few weeks. He was found to have stopped the warfarin when he called [facility] and was told to come to the emergency room. In the emergency room, he was evaluated and his BNP was 520. He was started on heparin drip and Coumadin as he was on it prior to his admission and had stopped voluntarily. He was started on Lasix and was admitted for further evaluation and care with a presumptive diagnosis of acute on chronic congestive systolic heart failure. His troponins were negative. His oxygen saturation was 94% on room air upon presentation. Chest x-ray was unremarkable. Please see admission history and physical dictated by Dr. Nguyen on 07/05/2018. HOSPITAL COURSE: Cardiology saw the patient and Dr. Islas stopped the heparin and Coumadin as the patient has history of left atrial ligation and did not need any more anticoagulation given his history of atrial fibrillation. He was diuresed to euvolemia. He had complaints of chronic pain for which pain medication team was consulted as well as palliative care team. They will follow him in the outpatient setting. They had no new recommendations. They recommended no narcotics, given his polysubstance abuse. He has also tested positive again for THC and OxyContin during this admission. He was started on Celexa with good results with the help of palliative care team. By the time of discharge, he was back on his home medications and all the prescriptions were provided again and he was educated extensively about medication compliance and followups. Heart Failure clinic set up was once again done for him. Home Health was once again done for him. He was found to have difficulty to wean off oxygen with oxygen saturation dropping to low 80s without supplemental oxygen on room air, at rest, and ambulation. Home oxygen was set up. He was cleared for discharge from Cardiology standpoint. He was seen and examined prior to discharge. Please see a hospitalist progress note from the date of discharge for further details including [id number] interaction. Discharge plan was discussed with the patient who verbalized understanding. He remains a high risk for readmission because of poor insight into his disease process as well as substance abuse, depression, and medication noncompliance. I am afraid that at least one of his sons who was visiting his father might also be abusing substances. TOTAL TIME SPENT: 32 minutes. Job ID: [id number]
== END 2018-07-09 19:56 | disposition home or self-care (01) | DRG 293 ==
LOC: ERS 16:15 → 2NO 18:10
PROVIDERS: ADMIT Emergency Medicine; ATTEND Emergency Medicine
DX: I11.0 Hypertensive heart disease with heart failure (principal); I50.23 Acute on chronic systolic (congestive) heart failure; I48.0 Paroxysmal atrial fibrillation; F32.9 Major depressive disorder, single episode, unspecified; J44.9 Chronic obstructive pulmonary disease, unspecified; I42.9 Cardiomyopathy, unspecified; G89.29 Other chronic pain; M54.9 Dorsalgia, unspecified; M46.1 Sacroiliitis, not elsewhere classified; F12.90 Cannabis use, unspecified, uncomplicated; F17.220 Nicotine dependence, chewing tobacco, uncomplicated; B19.20 Unspecified viral hepatitis C without hepatic coma; F15.90 Other stimulant use, unspecified, uncomplicated; Z79.899 Other long term (current) drug therapy; Z91.14 Patient's other noncompliance with medication regimen; Z98.1 Arthrodesis status; Z79.82 Long term (current) use of aspirin; Z79.51 Long term (current) use of inhaled steroids; Z95.2 Presence of prosthetic heart valve
CPT/HCPCS: 36415; 71045; 80048; 80053; 80306; 81003; 83880; 84484; 85014; 85018; 85025; 85049; 85610; 85730; 87633; 87798; 93005; 93798; 96365; 96375; J1644; J1940; J2270; Q0162

== ENCOUNTER 2019-04-08 16:27 | Inpatient (IN) | payer MEDICARE ==
[~2019-04-08 16:27] MED LIST changes: -Iopamidol 370 76% 100 ML VIAL ONE; +Iopamidol-370 76% 500 ML 1 ML ONE
[2019-04-08 16:58] LABS: #Basophils 0.1 thou/uL (0.0-0.2); #Eosinphils 0.2 thou/uL (0.0-0.7); #Lymphocytes 1.5 thou/uL (1.20-3.40); #Monocytes 0.6 thou/uL (0.11-0.59); #Neutrophils 6.6 thou/uL (1.40-6.50); %Basophils 0.6 % (0.0-1.0); %Eosinophils 2.7 % (0.0-10.0); %Lymphocytes 16.6 % (21.0-51.0); %Monocytes 6.3 % (0.0-10.0); %Neutrophils 73.8 % (42.0-75.0); Hemoglobin 15.9 g/dL (14.0-18.0); Mean Corpuscular Hemoglobin 27.1 pg (27.0-31.0); Mean Corpuscular Volume 87.2 fL (78.0-98.0); Mean Platelet Volume 9.1 fL (7.4-10.4); Platelet Count 166 thou/uL (130-400); RBC Distribution Width 14.3 % (11.5-14.5); Red Blood Cell (RBC) Count 5.88 mill/uL (4.70-6.10)
[2019-04-08] MEDS ORDERED: Aspirin 325 MG TAB ONE (16:58)
[2019-04-08] MEDS ORDERED: Morphine 4 MG/ML VIAL ONE ×2 (16:58→20:53)
--- NOTE | 2019-04-08 17:04 | RAD ---
2 view chest: [04/08/2019] Comparison:07/05/2018 HISTORY: Chest pain and numbness, weakness with shortness of breath FINDINGS: Stable midline sternotomy wires. Mild increased linear interstitial density. No pneumothora x or pleural fluid. No focal consolidation or alveolar edema. IMPRESSION: Chronic findings as detailed above. No lobar consolidation or alveolar edema.
[2019-04-08 17:19] LABS: ALT (SGPT) 47 U/L (8-55); AST (SGOT) 38 U/L (5-34); Albumin 4.3 g/dL (3.5-5.0); Alkaline Phosphatase 118 U/L (40-110); BUN (Urea Nitrogen) 16 mg/dL (8.4-25.7); Bilirubin, Total 0.9 mg/dL (0.2-1.2); Calc. Creatinine Clearance 0 mL/min (70-130); Estimated GFR-MDRD Greater than 90; Globulin 3.5 g/dL (2.4-3.5); Glucose 113 mg/dL (70-105); Protein, Total 7.8 g/dL (6.0-8.3)
[2019-04-08 17:28] LABS: Anion Gap 15 mmol/L (10-20); Carbon Dioxide 34 mmol/L (22-29); Chloride 98 mmol/L (98-107); Potassium 4.4 mmol/L (3.5-5.1); Sodium 143 mmol/L (136-145)
[2019-04-08 17:39] LABS: CKMB 5.1 ng/mL (0-6.6)
--- NOTE | 2019-04-08 18:34 | CT ---
CT angiogram of the chest: 04/08/2019 COMPARISON: 06/13/2018 HISTORY: Pleural effusion, shortness of breath, chest pain TECHNIQUE: Axial CT imaging at 2.5 mm intervals through the chest with IV contrast using CT angiogram protocol. Coronal and sagittal 3-D reformatted imaging obtained. FINDINGS: No axillary, hilar, or mediastinal lymphadenopathy is appreciated. Limited assessment of th e upper abdomen demonstrates a low density adrenal mass on the left, unchanged when compared to the prior examination, likely on the basis of an adenoma or myelolipoma. No significant pleural, pericardial, or mediastinal fluid. Midline sternotomy wires are noted. There is no pneumothorax seen on either side. Mild bilateral upper lobe emphysematous changes are again noted. No discrete/dominant pulmonary parenchymal mass lesion or nodule is appreciated on either side. No endobronchial lesion is evident. No filling defect is seen within the pulmonary arterial vasculature to suggest the presence of acute pulmonary arterial embolism. No acute osseous abnormality. There is mild bilateral lower lobe bronchial wall thickening. IMPRESSION: No evidence for pulmonary arterial embolism. Mild bronchial wall thickening in the lung b ases may signify a degree of bronchial inflammation.
[2019-04-08 20:43] LABS: Troponin I 0.052 ng/mL (< 0.028)
[2019-04-08] MEDS ORDERED: Sodium Chloride 0.9% 1,000 ML IV SCH (21:34)
[2019-04-08 22:08] VITALS: BMI 26.7
[2019-04-08] MEDS ORDERED: Acetaminophen 325 MG TAB PO PRN (23:10)
[2019-04-08] MEDS ORDERED: Ondansetron PF 4 MG/2 ML Vial IVP PRN (23:10)
[2019-04-08] MEDS ORDERED: Senokot S 8.6-50 MG TAB PO PRN (23:10)
[2019-04-08] MEDS ORDERED: Bisacodyl 10 MG SUPP PR PRN (23:10)
[2019-04-08] MEDS ORDERED: Guaifenesin DM 100-10/5 ML UDCUP PO PRN (23:10)
[2019-04-08 23:27] LABS: Troponin I 0.015 ng/mL (< 0.028)
[2019-04-08 23:34] LABS: Acetaminophen Less than 6.0 mcg/mL (10.0-30.0); Alcohol Less than 10 mg/dL (Less than 10); Salicylate Less than 8.0 mg/dL (15.0-30.0)
--- NOTE | 2019-04-09 00:44 | HP ---
REASON FOR ADMISSION: Shortness of breath, mild COPD exacerbation, mild CHF exacerbation with history of nonischemic cardiomyopathy, chest pain, meth abuse. HISTORY OF PRESENTING ILLNESS: The patient gives history of shortness of breath from last 3 days. He says he got stressed out. He also admits to having taken meth 4 or 5 days back. He says his feet are tingling, both feet. The patient's chest pain was retrosternal with some radiation to the shoulder, which has resolved now. This pain was 3 to 4/10 in intensity, was off and on yesterday and day before. No expectoration of sputum. No fever at home. PAST MEDICAL AND SURGICAL HISTORY: History of nonischemic cardiomyopathy with ejection fraction of around 20% to 25%, severe tricuspid regurgitation, severe mitral regurgitations with history of mitral ring and tricuspid ring annuloplasty, paroxysmal atrial fibrillation, history of left atrial appendage clipping, COPD, chronic methamphetamine abuse, tobacco abuse, marijuana abuse, ankylosing spondylitis, chronic back pain. PERSONAL HISTORY: He smokes. The patient states he quit 4 months of smoking, but then restarted it and smokes 4-5 cigarettes a day. Admits to using meth 4 or 5 days back and uses marijuana off and on. Denies alcohol usage. FAMILY HISTORY: Mother at the age of 43 from lung cancer. Father is healthy and living. CODE STATUS: Do not attempt to resuscitate. Power of civil litigation attorney is his sister, Ms. Morales. CURRENT MEDICATIONS: The patient is on: 1. Aspirin 81 mg daily. 2. Losartan 25 mg daily. 3. Atorvastatin 40 mg p.o. at bedtime. ALLERGIES: NO KNOWN DRUG ALLERGIES. REVIEW OF SYSTEMS: CONSTITUTIONAL: Negative for weight loss or gain, ability to conduct usual activities. SKIN: Negative for rash, itching. EYES: Negative for double vision, pain. ENT/MOUTH: Negative for nose bleeding, neck stiffness, pain, tenderness. CARDIOVASCULAR: Negative for palpitations, dyspnea on exertion, orthopnea. RESPIRATORY: Negative for shortness of breath, wheezing, cough, hemoptysis, fever or night sweats. GASTROINTESTINAL: Negative for poor appetite, abdominal pain, heartburn, nausea , vomiting, constipation, or diarrhea. GENITOURINARY: Negative for urgency, frequency, dysuria, nocturia. MUSCULOSKELETAL: Negative for pain, swelling. NEUROLOGIC/PSYCHIATRIC: Negative for anxiety, depression. ALLERGY/IMMUNOLOGIC: Negative for skin rash, bleeding tendency. PHYSICAL EXAMINATION: GENERAL: The patient is a 53-year-old male who is currently not in any acute distress. VITAL SIGNS: Blood pressure 120/76, pulse 120 per minute, respiratory rate 24 per minute, temperature 98.2 degrees Fahrenheit, saturating 94% on 3 L of oxygen. NECK: Supple. No elevated JVD. HEENT: Eyes; extraocular muscles intact. Pupils are reacting to light. Oral cavity, mucous membranes are dry. No exudates or congestion. CARDIOVASCULAR: S1, S2 heard. Tachycardic. Regular rhythm. RESPIRATORY: Air entry 1+ bilateral. Scattered wheezes plus bilateral, rhonchi plus bilateral. ABDOMEN: Soft. Bowel sounds heard. No tenderness, rigidity, or guarding. EXTREMITIES: No peripheral edema or calf tenderness. VASCULAR: Peripheral pulses 1+ bilateral. SKIN: No ischemic ulcerations or gangrene. CENTRAL NERVOUS SYSTEM: No gross focal deficits noted. NEUROLOGIC: The patient is alert, awake, and oriented well. PSYCHIATRIC: The patient's mood is euthymic. No hallucinations or delusions. LABORATORY DATA: CT angio chest done shows no PE. There is bronchial wall thickening in the lung bases. Electrolytes are stable. Serum bicarb 34, BUN 16 , creatinine 0.8, serum glucose 113. AST 38, ALT 47, alkaline phosphatase 118. Troponin I is indeterminate, peaking up to 0.05, CK-MB 5.1. BNP 227, albumin 4.3. White count of 9, H and H are 15 and 51, platelet count 166 with 73% neutrophils , MCV is 87 clinical. IMAGING: EKG done shows sinus tach at 121 beats per minute. There is RBBB seen. QRS duration is 134 milliseconds. CLINICAL IMPRESSION AND PLAN: The patient will be admitted to telemetry for mild chronic obstructive pulmonary disease and congestive heart failure exacerbation with ongoing tobacco and substance abuse. He will be on Solu-Medrol 20 mg IV q.8 hourly, DuoNeb q.6 hourly, nitroglycerin paste half-inch q.8 hourly and we will continue him on aspirin, small dose of lisinopril for now. We will also give him a total of 3 doses of Lasix at 6 a.m. and 2 p.m. The patient's prognosis is guarded due to history of nonischemic cardiomyopathy with the patient's ongoing substance use and tobacco use and likely not compliant with medications as well. We will obtain cardiology consultation with Dr. Islas, his mandrel cleaner. Job ID: [id number] MTDD
[2019-04-09 04:55] LABS: #Eosinphils 0.2 thou/uL (0.0-0.7); #Lymphocytes 1.2 thou/uL (1.20-3.40); #Monocytes 0.7 thou/uL (0.11-0.59); %Basophils 0.6 % (0.0-1.0); %Eosinophils 3.3 % (0.0-10.0); %Lymphocytes 16.5 % (21.0-51.0); %Monocytes 9.2 % (0.0-10.0); %Neutrophils 70.4 % (42.0-75.0); Hemoglobin 14.4 g/dL (14.0-18.0); Mean Corpuscular HGB CONC 29.9 g/dL (32.0-36.0); Mean Corpuscular Hemoglobin 26.6 pg (27.0-31.0); Mean Corpuscular Volume 88.9 fL (78.0-98.0); Mean Platelet Volume 9.3 fL (7.4-10.4); Platelet Count 157 thou/uL (130-400); RBC Distribution Width 14.2 % (11.5-14.5); Red Blood Cell (RBC) Count 5.42 mill/uL (4.70-6.10); White Blood Cell (WBC) Count 7.2 thou/uL (4.8-10.8)
[2019-04-09 05:18] LABS: Anion Gap 10 mmol/L (10-20); BUN (Urea Nitrogen) 16 mg/dL (8.4-25.7); Calc. Creatinine Clearance 117 mL/min (70-130); Calcium 9.6 mg/dL (7.8-10.44); Carbon Dioxide 36 mmol/L (22-29); Chloride 98 mmol/L (98-107); Estimated GFR-MDRD Greater than 90; Glucose 95 mg/dL (70-105); Sodium 139 mmol/L (136-145)
[2019-04-09] MEDS: Furosemide 40 MG/4 ML VIAL SLOW IVP SCH ×2 (05:30→14:52)
[2019-04-09] MEDS: methylPREDNISolone Sod Succ 40 MG VIAL IVP SCH ×3 (05:30→21:13)
[2019-04-09] MEDS: Nitroglycerin 2% Ointment 1 INCH/1 GM Packet TOP SCH ×3 (05:31→21:15)
[2019-04-09 05:56] LABS: Medtox Reader # READER 1; Methamphetamine Detected (NotDetected); THC/Cannabinoid Screen Detected (NotDetected)
[2019-04-09 05:57] LABS: Amphetamine Detected (NotDetected); Barbiturates Screen Not Detected (NotDetected); Benzodiazepine Screen Not Detected (NotDetected); Cocaine Metabolite Screen Not Detected (NotDetected); Medtox Control Line Valid? VALID (VALID); Methadone Not Detected (NotDetected); Opiate Screen Detected (NotDetected); Oxycodone Screen Not Detected (NotDetected); Phencyclidine (PCP) Not Detected (NotDetected); Tricyclic Screen Not Detected (NotDetected)
[2019-04-09] MEDS: Enoxaparin Sodium 40 MG/0.4 ML SYRINGE SC SCH (08:38)
[2019-04-09] MEDS: Aspirin Chewable 81 MG TAB PO SCH (08:38)
[2019-04-09] MEDS: Famotidine 20 MG TAB PO SCH ×2 (08:38→21:13)
[2019-04-09] MEDS ORDERED: FLU VACC QS2019-20(6MOS UP)/PF 60 MCG/0.5 ML SYRINGE IM ONE (09:00)
[2019-04-09] MEDS ORDERED: Lisinopril 2.5 MG TAB PO SCH (09:00)
--- NOTE | 2019-04-09 09:20 | PDOC.HOSPP ---
- Subjective Encounter Date: 04/09/19 Encounter Time: 12:15 Subjective: Patient with persistent anterior sternal and right chest wall pain with chronic back pain. SOB markedly improved since meds in the ER. - Objective Vital Signs & Weight: Vital Signs (12 hours) Temp Pulse Resp BP Pulse Ox 04/09/19 08:31 97.9 F 106 H 18 114/72 95 04/09/19 06:46 79 18 95 04/09/19 04:00 98.2 F 124 H 20 113/67 92 L 04/09/19 01:10 19 95 04/09/19 00:00 97.9 F 126 H 20 121/78 96 04/08/19 23:10 96 04/08/19 22:22 98 04/08/19 21:27 98.4 F 125 H 24 H 123/85 95 Weight Weight 175 lb 12.8 oz Result Diagrams: 04/09/19 04:12 04/09/19 04:12 Hospitalist ROS - Review of Systems Constitutional: denies: fever, chills Respiratory: reports: shortness of breath. denies: cough Cardiovascular: reports: chest pain. denies: palpitations, orthopnea Gastrointestinal: denies: nausea, vomiting, abdominal pain - Medication Medications: Active Medications Generic Name Dose Route Start Last Admin Trade Name Freq PRN Reason Stop Dose Admin Acetaminophen 650 mg 04/08/19 23:10 04/09/19 05:54 Tylenol PO 650 mg Q4H PRN Administration Headache/Fever/Mild Pain (1-3) Albuterol/Ipratropium 3 ml 04/09/19 01:00 04/09/19 06:46 Duoneb NEB 3 ml [id number] TIFFANY Administration Aspirin 81 mg 04/09/19 09:00 04/09/19 08:38 Aspirin Chewable PO 81 mg DAILY TIFFANY Administration Enoxaparin Sodium 40 mg 04/09/19 09:00 04/09/19 08:38 Lovenox SC 40 mg 0900 TIFFANY Administration Famotidine 20 mg 04/09/19 09:00 04/09/19 08:38 Pepcid PO 20 mg BID TIFFANY Administration Furosemide 40 mg 04/09/19 06:00 04/09/19 05:30 Lasix SLOW IVP 04/10/19 06:01 40 mg 0600,1400 TIFFANY Administration Methylprednisolone Sodium Succinate 20 mg 04/09/19 06:00 04/09/19 05:30 Solu-Medrol IVP 20 mg Q8HR TIFFANY Administration Nitroglycerin 0.5 inch 04/09/19 06:00 04/09/19 05:31 Nitro-Bid 2% Ointment TOP Not Given Q8HR TIFFANY - Exam General Appearance: NAD Eye: anicteric sclera ENT: moist mucosa Heart: RRR, no murmur, no gallops, no rubs Respiratory: CTAB, no wheezes, no rales, no ronchi Gastrointestinal: soft, non-tender, non-distended, normal bowel sounds Psychiatric: normal affect, normal behavior, A&O x 3 Hosp A/P (1) Acute on chronic systolic CHF (congestive heart failure) Code(s): I50.23 - ACUTE ON CHRONIC SYSTOLIC (CONGESTIVE) HEART FAILURE Status : Acute (2) COPD with acute exacerbation Code(s): J44.1 - CHRONIC OBSTRUCTIVE PULMONARY DISEASE W (ACUTE) EXACERBATION Status: Acute (3) Mitral valve replaced Code(s): Z95.2 - PRESENCE OF PROSTHETIC HEART VALVE Status: Chronic (4) Tricuspid valve replaced Code(s): Z95.2 - PRESENCE OF PROSTHETIC HEART VALVE Status: Chronic (5) Paroxysmal atrial fibrillation Code(s): I48.0 - PAROXYSMAL ATRIAL FIBRILLATION Status: Chronic (6) Tobacco abuse Code(s): Z72.0 - TOBACCO USE Status: Chronic (7) Methamphetamine abuse Code(s): F15.10 - OTHER STIMULANT ABUSE, UNCOMPLICATED Status: Chronic - Plan out of bed/ambulate Shree chu, solu-medrol Cardiology consultation
[2019-04-09] MEDS ORDERED: HYDROcodone/Acetaminophen 5/325 mg Tablet PO PRN (12:59)
[2019-04-09] MEDS: HYDROcodone/Acetaminophen 5/325 mg Tablet PO PRN ×2 (16:50→21:15)
[2019-04-10] MEDS ORDERED: diphenhydrAMINE 25 MG CAP PO PRN (00:44)
[2019-04-10] MEDS: Melatonin 3 MG TAB PO PRN (02:24)
[2019-04-10] MEDS: HYDROcodone/Acetaminophen 5/325 mg Tablet PO PRN ×4 (02:24→20:31)
[2019-04-10] MEDS: methylPREDNISolone Sod Succ 40 MG VIAL IVP SCH ×3 (06:03→20:32)
[2019-04-10] MEDS: Furosemide 40 MG/4 ML VIAL SLOW IVP SCH (06:04)
[2019-04-10] MEDS: Nitroglycerin 2% Ointment 1 INCH/1 GM Packet TOP SCH ×2 (06:05→14:30)
--- NOTE | 2019-04-10 08:22 | PDOC.HOSPP ---
- Subjective Encounter Date: 04/10/19 Encounter Time: 15:00 Subjective: Patient with mild improvement in pain with [place]. Has had depression due to chronic pain, family stress. Previously on Celexa and really helped. No suicidal ideation currently. States he understands that the Amphetamines are not a good way of dealing with these issues and is determined to stop. - Objective Vital Signs & Weight: Vital Signs (12 hours) Temp Pulse Resp BP Pulse Ox 04/10/19 08:05 97.6 F 111 H 18 123/68 97 04/10/19 07:17 78 16 95 04/10/19 04:00 97.7 F 107 H 18 123/74 97 04/09/19 21:06 98.7 F 111 H 20 118/74 96 Weight Weight 169 lb 11.2 oz I&O: 04/09/19 04/10/19 04/11/19 06:59 06:59 06:59 Intake Total 1660 Output Total 1100 Balance 560 Result Diagrams: 04/09/19 04:12 04/09/19 04:12 Hospitalist ROS - Review of Systems Constitutional: denies: fever, chills Respiratory: denies: cough, shortness of breath Cardiovascular: reports: chest pain. denies: palpitations, orthopnea Gastrointestinal: denies: nausea, vomiting, abdominal pain Musculoskeletal: reports: back pain - Medication Medications: Active Medications Generic Name Dose Route Start Last Admin Trade Name Freq PRN Reason Stop Dose Admin Acetaminophen 650 mg 04/08/19 23:10 04/09/19 05:54 Tylenol PO 650 mg Q4H PRN Administration Headache/Fever/Mild Pain (1-3) Hydrocodone Bitart/Acetaminophen 2 tab 04/09/19 12:59 04/10/19 02:24 [place] 5/325 PO 2 tab Q4H PRN Administration Moderate to Severe Pain (6-10) Albuterol/Ipratropium 3 ml 04/09/19 01:00 04/10/19 07:17 Duoneb NEB 3 ml [id number] TIFFANY Administration Aspirin 81 mg 04/09/19 09:00 04/09/19 08:38 Aspirin Chewable PO 81 mg DAILY TIFFANY Administration Diphenhydramine HCl 25 mg 04/10/19 00:44 04/10/19 02:23 Benadryl PO 04/11/19 00:45 25 mg HS PRN Administration Itching & Insomnia Enoxaparin Sodium 40 mg 04/09/19 09:00 04/09/19 08:38 Lovenox SC 40 mg 0900 TIFFANY Administration Famotidine 20 mg 04/09/19 09:00 04/09/19 21:13 Pepcid PO 20 mg BID TIFFANY Administration Melatonin 3 mg 04/10/19 00:43 04/10/19 02:24 Melatonin PO 3 mg HS PRN Administration Insomnia Methylprednisolone Sodium Succinate 20 mg 04/09/19 06:00 04/10/19 06:03 Solu-Medrol IVP 20 mg Q8HR TIFFANY Administration Nitroglycerin 0.5 inch 04/09/19 06:00 04/10/19 06:05 Nitro-Bid 2% Ointment TOP 0.5 inch Q8HR TIFFANY Administration - Exam General Appearance: NAD, awake alert Eye: anicteric sclera ENT: moist mucosa Heart: RRR, no murmur, no gallops Respiratory: CTAB, no wheezes, no rales, no ronchi Gastrointestinal: soft, non-tender, non-distended, normal bowel sounds Psychiatric: normal affect, normal behavior, A&O x 3 Hosp A/P (1) Acute on chronic systolic CHF (congestive heart failure) Code(s): I50.23 - ACUTE ON CHRONIC SYSTOLIC (CONGESTIVE) HEART FAILURE Status : Acute (2) COPD with acute exacerbation Code(s): J44.1 - CHRONIC OBSTRUCTIVE PULMONARY DISEASE W (ACUTE) EXACERBATION Status: Acute (3) Mitral valve replaced Code(s): Z95.2 - PRESENCE OF PROSTHETIC HEART VALVE Status: Chronic (4) Tricuspid valve replaced Code(s): Z95.2 - PRESENCE OF PROSTHETIC HEART VALVE Status: Chronic (5) Paroxysmal atrial fibrillation Code(s): I48.0 - PAROXYSMAL ATRIAL FIBRILLATION Status: Chronic (6) Tobacco abuse Code(s): Z72.0 - TOBACCO USE Status: Chronic (7) Methamphetamine abuse Code(s): F15.10 - OTHER STIMULANT ABUSE, UNCOMPLICATED Status: Chronic - Plan Lasix duo nebs, solu-medrol Cardiology consultation- Dr. Guthrie has seen the patient recurrent afib/tachycardia
[2019-04-10] MEDS ORDERED: Sodium Chloride 0.9% 10 ML ONE (08:24)
[2019-04-10] MEDS: Enoxaparin Sodium 40 MG/0.4 ML SYRINGE SC SCH (09:25)
[2019-04-10] MEDS: Aspirin Chewable 81 MG TAB PO SCH (09:25)
[2019-04-10] MEDS: Famotidine 20 MG TAB PO SCH ×2 (09:25→20:31)
[2019-04-10] MEDS: Carvedilol 3.125 MG TAB PO SCH (16:57)
[2019-04-10] MEDS ORDERED: Carvedilol 3.125 MG TAB PO SCH (17:00)
[2019-04-11 05:11] LABS: #Lymphocytes 0.6 thou/uL (1.20-3.40); #Monocytes 0.8 thou/uL (0.11-0.59); #Neutrophils 18.4 thou/uL (1.40-6.50); %Lymphocytes 2.9 % (21.0-51.0); %Neutrophils 93.1 % (42.0-75.0); Hemoglobin 14.1 g/dL (14.0-18.0); Mean Corpuscular HGB CONC 30.2 g/dL (32.0-36.0); Mean Corpuscular Hemoglobin 26.6 pg (27.0-31.0); Mean Platelet Volume 9.2 fL (7.4-10.4); Platelet Count 191 thou/uL (130-400); RBC Distribution Width 14.4 % (11.5-14.5); White Blood Cell (WBC) Count 19.8 thou/uL (4.8-10.8)
[2019-04-11 05:39] LABS: Anion Gap 11 mmol/L (10-20); BUN (Urea Nitrogen) 30 mg/dL (8.4-25.7); Calc. Creatinine Clearance 105 mL/min (70-130); Calcium 9.6 mg/dL (7.8-10.44); Carbon Dioxide 34 mmol/L (22-29); Chloride 100 mmol/L (98-107); Estimated GFR-MDRD 85; Glucose 169 mg/dL (70-105); Potassium 4.9 mmol/L (3.5-5.1); Sodium 140 mmol/L (136-145)
[2019-04-11] MEDS: methylPREDNISolone Sod Succ 40 MG VIAL IVP SCH (05:55)
[2019-04-11] MEDS: Carvedilol 3.125 MG TAB PO SCH ×2 (07:57→16:55)
[2019-04-11] MEDS: Famotidine 20 MG TAB PO SCH ×2 (07:58→20:24)
[2019-04-11] MEDS: Aspirin Chewable 81 MG TAB PO SCH (07:58)
[2019-04-11] MEDS: Enoxaparin Sodium 40 MG/0.4 ML SYRINGE SC SCH (07:58)
[2019-04-11] MEDS: Citalopram 20 MG TAB PO SCH (07:58)
--- NOTE | 2019-04-11 08:08 | PDOC.HOSPP ---
- Subjective Encounter Date: 04/11/19 Encounter Time: 11:30 Subjective: Patient reports pain decently controlled. Stayed up late watching the New Year so sleepy this AM. Denies new complaints. No fever. No increase SOB. Breathing about back to baseline and usually on 2.5L O2 via NC at home. - Objective Vital Signs & Weight: Vital Signs (12 hours) Temp Pulse Resp BP BP Pulse Ox 04/11/19 07:13 97.2 F L 98 16 102/68 97 04/11/19 06:55 104 H 16 04/11/19 03:40 97.9 F 107 H 18 117/64 95 04/11/19 00:24 120 H 16 99 04/10/19 20:25 98.4 F 113 H 20 127/82 96 Weight Weight 175 lb 4.8 oz I&O: 04/10/19 04/11/19 04/12/19 06:59 06:59 06:59 Intake Total 1660 1420 Output Total 1100 1325 Balance 560 95 Result Diagrams: 04/11/19 04:40 04/11/19 04:40 Hospitalist ROS - Review of Systems Respiratory: denies: cough, shortness of breath Cardiovascular: denies: chest pain, palpitations, orthopnea Gastrointestinal: denies: nausea, vomiting, abdominal pain Musculoskeletal: reports: back pain - Medication Medications: Active Medications Generic Name Dose Route Start Last Admin Trade Name Freq PRN Reason Stop Dose Admin Acetaminophen 650 mg 04/08/19 23:10 04/09/19 05:54 Tylenol PO 650 mg Q4H PRN Administration Headache/Fever/Mild Pain (1-3) Hydrocodone Bitart/Acetaminophen 2 tab 04/09/19 12:59 04/10/19 20:31 [place] 5/325 PO 2 tab Q4H PRN Administration Moderate to Severe Pain (6-10) Albuterol/Ipratropium 3 ml 04/09/19 01:00 04/11/19 06:55 Duoneb NEB 3 ml [id number] TIFFANY Administration Aspirin 81 mg 04/09/19 09:00 04/11/19 07:58 Aspirin Chewable PO 81 mg DAILY TIFFANY Administration Carvedilol 3.125 mg 04/10/19 17:00 04/11/19 07:57 Coreg PO 3.125 mg BID-WM TIFFANY Administration Citalopram Hydrobromide 20 mg 04/11/19 09:00 04/11/19 07:58 Celexa PO 20 mg DAILY TIFFANY Administration Enoxaparin Sodium 40 mg 04/09/19 09:00 04/11/19 07:58 Lovenox SC 40 mg 0900 TIFFANY Administration Famotidine 20 mg 04/09/19 09:00 04/11/19 07:58 Pepcid PO 20 mg BID TIFFANY Administration Melatonin 3 mg 04/10/19 00:43 04/10/19 02:24 Melatonin PO 3 mg HS PRN Administration Insomnia Methylprednisolone Sodium Succinate 20 mg 04/09/19 06:00 04/11/19 05:55 Solu-Medrol IVP 20 mg Q8HR TIFFANY Administration - Exam General Appearance: NAD Eye: anicteric sclera ENT: moist mucosa Heart: RRR, no murmur, no gallops, no rubs Respiratory: CTAB, no wheezes, no rales, no ronchi Gastrointestinal: soft, non-tender, non-distended, normal bowel sounds Psychiatric: normal affect, normal behavior, A&O x 3 Hosp A/P (1) Acute on chronic systolic CHF (congestive heart failure) Code(s): I50.23 - ACUTE ON CHRONIC SYSTOLIC (CONGESTIVE) HEART FAILURE Status : Acute (2) COPD with acute exacerbation Code(s): J44.1 - CHRONIC OBSTRUCTIVE PULMONARY DISEASE W (ACUTE) EXACERBATION Status: Acute (3) Mitral valve replaced Code(s): Z95.2 - PRESENCE OF PROSTHETIC HEART VALVE Status: Chronic (4) Tricuspid valve replaced Code(s): Z95.2 - PRESENCE OF PROSTHETIC HEART VALVE Status: Chronic (5) Paroxysmal atrial fibrillation Code(s): I48.0 - PAROXYSMAL ATRIAL FIBRILLATION Status: Chronic (6) Tobacco abuse Code(s): Z72.0 - TOBACCO USE Status: Chronic (7) Methamphetamine abuse Code(s): F15.10 - OTHER STIMULANT ABUSE, UNCOMPLICATED Status: Chronic (8) Depression, major Code(s): F32.9 - MAJOR DEPRESSIVE DISORDER, SINGLE EPISODE, UNSPECIFIED Status : Chronic - Plan For some reason Lasix stopped yesterday, will put patient back on oral BID, appears fully diuresed duo nebs, solu-medrol--> oral prednisone, finish tomorrow 5th day Cardiology consultation- Dr. Guthrie has seen the patient, no new recs some tachycardia but it is sinus rhythm Depression from chronic pain/social situation, starting on Celexa which has worked well in the past New leukocytosis likely due to steroids as no symptoms of infection and clinically improved Likely d/c tomorrow if doing well on the oral Furosemide, f/u in clinic with Dr. Islas.
[2019-04-11] MEDS: HYDROcodone/Acetaminophen 5/325 mg Tablet PO PRN ×3 (08:10→20:24)
[2019-04-11] MEDS: Furosemide 20 MG TAB PO SCH ×2 (08:15→14:15)
--- NOTE | 2019-04-11 17:05 | PDOC.CPN ---
- Subjective Date: 04/11/19 Time: 17:16 Interval history: The pt seen and examined. No overnight events. No cardiac complaints. - Objective Allergies/Adverse Reactions: Allergies Allergy/AdvReac Type Severity Reaction Status Date / Time No Known Drug Allergies Allergy Verified 04/08/19 21:51 Visit Medications: Current Medications Acetaminophen (Tylenol) 650 mg PO Q4H PRN PRN Reason: Headache/Fever/Mild Pain (1-3) Last Admin: 04/09/19 05:54 Dose: 650 mg Hydrocodone Bitart/Acetaminophen ([place] 5/325) 1 tab PO Q4H PRN PRN Reason: Mild-Moderate Pain (1-5) Hydrocodone Bitart/Acetaminophen ([place] 5/325) 2 tab PO Q4H PRN PRN Reason: Moderate to Severe Pain (6-10) Last Admin: 04/11/19 14:24 Dose: 2 tab Albuterol/Ipratropium (Duoneb) 3 ml NEB [id number] [facility] Last Admin: 04/11/19 12:47 Dose: 3 ml Aspirin (Aspirin Chewable) 81 mg PO DAILY [facility] Last Admin: 04/11/19 07:58 Dose: 81 mg Bisacodyl (Dulcolax) 10 mg [place] DAILYPRN PRN PRN Reason: Constipation Carvedilol (Coreg) 3.125 mg PO BID-[facility] Last Admin: 04/11/19 16:55 Dose: 3.125 mg Citalopram Hydrobromide (Celexa) 20 mg PO DAILY [facility] Last Admin: 04/11/19 07:58 Dose: 20 mg Enoxaparin Sodium (Lovenox) 40 mg SC 0900 [facility] Last Admin: 04/11/19 07:58 Dose: 40 mg Famotidine (Pepcid) 20 mg PO BID [facility] Last Admin: 04/11/19 07:58 Dose: 20 mg Furosemide (Lasix) 40 mg PO 0900,1400 [facility] Last Admin: 04/11/19 14:15 Dose: 40 mg Guaifenesin/Dextromethorphan (Robitussin Dm) 15 ml PO Q4H PRN PRN Reason: Cough Melatonin (Melatonin) 3 mg PO HS PRN PRN Reason: Insomnia Last Admin: 04/10/19 02:24 Dose: 3 mg Ondansetron HCl (Zofran) 4 mg IVP Q6H PRN PRN Reason: Nausea/Vomiting Prednisone (Prednisone) 50 mg PO QAM-WM TIFFANY Stop: 04/12/19 10:00 Senna/Docusate Sodium (Senokot S) 2 tab PO BID PRN PRN Reason: Constipation Vital Signs & Weight: Vital Signs Temp Pulse Resp BP BP Pulse Ox 04/11/19 15:23 97.5 F L 104 H 18 117/71 95 04/11/19 12:47 108 H 16 04/11/19 12:12 97.6 F 100 16 107/70 95 04/11/19 07:15 97 04/11/19 07:13 97.2 F L 98 16 102/68 97 04/11/19 06:55 104 H 16 Weight 175 lb 4.8 oz - Physical Exam General: alert & oriented x3 HEENT: mucus membranes moist Neck: supple neck Cardiac: regular rate and rhythm, S1/S2 Lungs: decreased breath sounds Extremities: no edema - Labs Result Diagrams: 04/11/19 04:40 04/11/19 04:40 Troponin/CKMB CK-MB (CK-2) 5.1 ng/mL (0-6.6) 04/08/19 16:53 Troponin I 0.015 ng/mL (< 0.028) 04/08/19 22:56 - Telemetry Sinus rhythms and dysrhythmias: sinus rhythm - Assessment/Plan Assessment/Plan: 1. Acute on chronic systolic HF with EF 15-20% in 06/2018 - On Coreg 3.125mg BID and Lasix 40mg BID; will start ROE/ARB with stable VS 2. Non-ischemic CMY 3. Prox Afib - remains in SR-ST; 4. S/p Mitral and tricuspid ring annulopasty - 5. COPD - stable with RA 6. Tobacco and substance abuse 7. Depression MAR reviewed * Dr. Islas's pt . Pt. seen and eval. by me. I agree with the A/P by the CONTROL SYSTEMS DEVELOPER. Feels better today. Chest clear. RRR. [email or web address]
[2019-04-12] MEDS: HYDROcodone/Acetaminophen 5/325 mg Tablet PO PRN ×4 (01:26→20:25)
[2019-04-12] MEDS ORDERED: predniSONE 50 MG TAB PO SCH (08:00)
--- NOTE | 2019-04-12 08:27 | PDOC.HOSPP ---
- Subjective Encounter Date: 04/12/19 Encounter Time: 11:00 Subjective: Patient with a little lightheadedness this AM, but stayed up till 0500 this AM before sleeping. Did have some low BP this AM and had to hold the Lasix. Usually on 2.5L O2 at home. - Objective Vital Signs & Weight: Vital Signs (12 hours) Temp Pulse Resp BP BP Pulse Ox 04/12/19 08:14 97.7 F 106 H 16 104/71 97 04/12/19 06:43 102 H 18 100 04/12/19 03:45 97.9 F 105 H 18 133/85 97 04/12/19 00:40 101 H 16 99 Weight Weight 179 lb 4.8 oz I&O: 04/11/19 04/12/19 04/13/19 06:59 06:59 06:59 Intake Total 1420 1560 Output Total 1325 2045 Balance 95 485 Result Diagrams: 04/11/19 04:40 04/11/19 04:40 Hospitalist ROS - Review of Systems Constitutional: denies: fever, chills Respiratory: denies: cough, shortness of breath Cardiovascular: denies: chest pain, palpitations, orthopnea Gastrointestinal: denies: nausea, vomiting, abdominal pain Musculoskeletal: reports: back pain - Medication Medications: Active Medications Generic Name Dose Route Start Last Admin Trade Name Freq PRN Reason Stop Dose Admin Acetaminophen 650 mg 04/08/19 23:10 04/09/19 05:54 Tylenol PO 650 mg Q4H PRN Administration Headache/Fever/Mild Pain (1-3) Hydrocodone Bitart/Acetaminophen 2 tab 04/09/19 12:59 04/12/19 01:26 [place] 5/325 PO 2 tab Q4H PRN Administration Moderate to Severe Pain (6-10) Albuterol/Ipratropium 3 ml 04/09/19 01:00 04/12/19 06:43 Duoneb NEB 3 ml [id number] TIFFANY Administration Aspirin 81 mg 04/09/19 09:00 04/11/19 07:58 Aspirin Chewable PO 81 mg DAILY TIFFANY Administration Carvedilol 3.125 mg 04/10/19 17:00 04/11/19 16:55 Coreg PO 3.125 mg BID-WM TIFFANY Administration Citalopram Hydrobromide 20 mg 04/11/19 09:00 04/11/19 07:58 Celexa PO 20 mg DAILY TIFFANY Administration Enoxaparin Sodium 40 mg 04/09/19 09:00 04/11/19 07:58 Lovenox SC 40 mg 0900 TIFFANY Administration Famotidine 20 mg 04/09/19 09:00 04/11/19 20:24 Pepcid PO 20 mg BID TIFFANY Administration Furosemide 40 mg 04/11/19 09:00 04/11/19 14:15 Lasix PO 40 mg 0900,1400 TIFFANY Administration Melatonin 3 mg 04/10/19 00:43 04/10/19 02:24 Melatonin PO 3 mg HS PRN Administration Insomnia - Exam General Appearance: NAD Eye: anicteric sclera ENT: moist mucosa Heart: RRR, no murmur, no gallops, no rubs Respiratory: no rales, no ronchi, normal chest expansion, no tachypnea Respiratory - other findings: occ wheeze, good air movement throughout Gastrointestinal: soft, non-tender, non-distended, normal bowel sounds Psychiatric: normal affect, normal behavior, A&O x 3 Hosp A/P (1) Acute on chronic systolic CHF (congestive heart failure) Code(s): I50.23 - ACUTE ON CHRONIC SYSTOLIC (CONGESTIVE) HEART FAILURE Status : Acute (2) COPD with acute exacerbation Code(s): J44.1 - CHRONIC OBSTRUCTIVE PULMONARY DISEASE W (ACUTE) EXACERBATION Status: Acute (3) Mitral valve replaced Code(s): Z95.2 - PRESENCE OF PROSTHETIC HEART VALVE Status: Chronic (4) Tricuspid valve replaced Code(s): Z95.2 - PRESENCE OF PROSTHETIC HEART VALVE Status: Chronic (5) Paroxysmal atrial fibrillation Code(s): I48.0 - PAROXYSMAL ATRIAL FIBRILLATION Status: Chronic (6) Tobacco abuse Code(s): Z72.0 - TOBACCO USE Status: Chronic (7) Methamphetamine abuse Code(s): F15.10 - OTHER STIMULANT ABUSE, UNCOMPLICATED Status: Chronic (8) Depression, major Code(s): F32.9 - MAJOR DEPRESSIVE DISORDER, SINGLE EPISODE, UNSPECIFIED Status : Chronic (9) Acute and chronic respiratory failure with hypoxia Code(s): J96.21 - ACUTE AND CHRONIC RESPIRATORY FAILURE WITH HYPOXIA Status: Acute - Plan Patient placed back on oral Lasix, appears fully diuresed, BP a bit low this AM so lasix held duo nebs, solu-medrol--> oral prednisone, finish today 5th day Cardiology consultation- Dr. Ziegler seeing the patient some tachycardia but it is sinus rhythm ECHO with EF 25-30%, improved from previous Depression from chronic pain/social situation, starting on Celexa which has worked well in the past New leukocytosis likely due to steroids as no symptoms of infection and clinically improved Possible d/c when ok with cardiology Back to home level of NC O2
[2019-04-12] MEDS: Carvedilol 3.125 MG TAB PO SCH ×2 (08:37→17:27)
[2019-04-12] MEDS: Aspirin Chewable 81 MG TAB PO SCH (08:38)
[2019-04-12] MEDS: Famotidine 20 MG TAB PO SCH ×2 (08:38→20:25)
[2019-04-12] MEDS: Enoxaparin Sodium 40 MG/0.4 ML SYRINGE SC SCH (08:38)
[2019-04-12] MEDS: Citalopram 20 MG TAB PO SCH (08:38)
[2019-04-12] MEDS: Furosemide 20 MG TAB PO SCH ×2 (08:39→14:35)
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
--- NOTE | 2019-04-12 11:13 | PQF ---
ERIC DSOUZA, KANDY RUDD MD [id number] CLINICAL DOCUMENTATION IMPROVEMENT CLARIFICATION FORM: ICD-10 Updated PLEASE DO AN ADDENDUM TO THE PROGRESS NOTE WITH ANY DOCUMENTATION UPDATES OR ADDITIONS AND CARRY THROUGH TO DC SUMMARY. THANK YOU. DATE: 04/12/19 ATTN: Dr. Nguyen Please exercise your independent, professional judgment in responding to the clarification form. Clinical indicators are provided on the bottom of this form for your review Please check appropriate box(s): [ X ] Acute On Chronic Respiratory Failure: [ X ] with Hypoxia [ ] Chronic Respiratory Failure only [ ] with Hypoxia [ ] Respiratory Insufficiency [ ] Hypoxia [ ] Other diagnosis [ ] Unable to determine In addition, please specify: Present on Admission (POA): [ X ] Yes [ ] No [ ] Unable to determine For continuity of documentation, please document condition throughout progress notes and discharge summary. Thank You. CLINICAL INDICATORS - SIGNS / SYMPTOMS / LABS / RESULTS AND LOCATION IN MR 04/08 ED: (Justine): "c/o SOB since couple of days ago." Decreased oxygen saturation (<90% room air or < 95% on oxygen). Cyanosis/Hypoxia -->04/08 RR 24, 93% O2 sat 3L O2 per VS 04/11/19 Patrick: "Breathing about back to baseline and usually on 2.5L O2 via NC at home." RISK FACTORS / RESULTS AND LOCATION IN MR History of home O2 use--> 04/11/19 Patrick: " usually on 2.5L O2 via NC at home." 04/11/19 Patrick: "COPD exacerbation / Acute on chronic systolic CHF" TREATMENTS / RESULTS AND LOCATION IN MR Oxygen--> 04/08 3L O2 to 04/09 2-2.5L NC 04/09-date per orders Monitoring of oxygenation status on Telemetry per 04/08 orders Respiratory treatments--Duo nebs(albuterol/ipratropium) 3ml 04/09 to date per orders Diuresis--> 04/09-04/10 Lasix 40mg IV BID to lasix 40mg po BID 04/11 to date per orders IV steroids--> Solu-Medrol 220 mg IV Q8h 04/09/19-04/11/19 per orders Acute Respiratory Failure: ABG pH < 7.35 or > 7.45; Decreased oxygen saturation (<90% room air or < 95% on oxygen); PCO2 > 50 mm Hg; PO2 < 60 mm Hg; Labored or rapid respirations ARDS: Dx Criteria [[place] ARDS]: Respiratory symptoms within one week of a known clinical insult (e.g. shock, infection, surgery, trauma) Bilateral opacities in CXR/Chest CT not due to CHF or fluid (This form is maintained as a part of the permanent medical record) 2014 [email or web address], [email or web address]. All Rights Reserved Argenis Hernandez RN, BSN, CCDS [email or web address] [phone] MTDD
[2019-04-12] MEDS: Melatonin 3 MG TAB PO PRN (20:25)
[2019-04-13] MEDS: HYDROcodone/Acetaminophen 5/325 mg Tablet PO PRN ×3 (02:12→14:32)
[2019-04-13 08:04] LABS: #Lymphocytes 1.4 thou/uL (1.20-3.40); #Monocytes 1.2 thou/uL (0.11-0.59); #Neutrophils 9.1 thou/uL (1.40-6.50); %Basophils 0.1 % (0.0-1.0); %Eosinophils 0.4 % (0.0-10.0); %Lymphocytes 12.2 % (21.0-51.0); %Monocytes 9.9 % (0.0-10.0); %Neutrophils 77.4 % (42.0-75.0); Hemoglobin 14.4 g/dL (14.0-18.0); Mean Corpuscular HGB CONC 30.2 g/dL (32.0-36.0); Mean Corpuscular Hemoglobin 26.6 pg (27.0-31.0); Mean Corpuscular Volume 88.3 fL (78.0-98.0); Mean Platelet Volume 9.2 fL (7.4-10.4); Platelet Count 167 thou/uL (130-400); RBC Distribution Width 14.1 % (11.5-14.5); White Blood Cell (WBC) Count 11.8 thou/uL (4.8-10.8)
[2019-04-13 08:15] LABS: Anion Gap 11 mmol/L (10-20); BUN (Urea Nitrogen) 32 mg/dL (8.4-25.7); Calc. Creatinine Clearance 98 mL/min (70-130); Calcium 9.3 mg/dL (7.8-10.44); Carbon Dioxide 37 mmol/L (22-29); Chloride 95 mmol/L (98-107); Estimated GFR-MDRD 74; Glucose 110 mg/dL (70-105); Potassium 4.3 mmol/L (3.5-5.1); Sodium 139 mmol/L (136-145)
[2019-04-13] MEDS: Carvedilol 3.125 MG TAB PO SCH ×2 (09:22→17:27)
[2019-04-13] MEDS: Aspirin Chewable 81 MG TAB PO SCH (09:22)
[2019-04-13] MEDS: Famotidine 20 MG TAB PO SCH (09:23)
[2019-04-13] MEDS: Furosemide 20 MG TAB PO SCH ×2 (09:23→14:32)
[2019-04-13] MEDS: Citalopram 20 MG TAB PO SCH (09:23)
[2019-04-13] MEDS: Enoxaparin Sodium 40 MG/0.4 ML SYRINGE SC SCH (09:23)
[2019-04-13] MEDS ORDERED: traMADol HCl 50 MG TAB PO PRN (10:49)
--- NOTE | 2019-04-13 10:52 | PDOC.HOSPP ---
- Subjective Encounter Date: 04/13/19 (f/u CHF) Encounter Time: 10:50 Subjective: Pt denies any cp/sob/n/v/abd pain. He reports some constipation. He also c/o increasing back pain - note chronic back pain and denies any meds at home. He is requesting an increase in pain meds. - Objective Vital Signs & Weight: Vital Signs (12 hours) Temp Pulse Resp BP BP Pulse Ox 04/13/19 07:44 97.6 F 100 16 117/67 96 04/13/19 07:17 93 14 99 04/13/19 04:15 97.4 F L 99 16 132/90 96 04/12/19 23:22 102 H 16 98 Weight Weight 182 lb 11.2 oz I&O: 04/12/19 04/13/19 04/14/19 06:59 06:59 06:59 Intake Total 1560 1810 Output Total 2045 900 Balance -485 910 Result Diagrams: 04/13/19 06:54 04/13/19 06:54 EKG Reviewed by me: Yes (tele - 15 beats pAT to 150's this morning, sinus 100's) Hospitalist ROS - Medication Medications: Active Medications Generic Name Dose Route Start Last Admin Trade Name Freq PRN Reason Stop Dose Admin Acetaminophen 650 mg 04/08/19 23:10 04/09/19 05:54 Tylenol PO 650 mg Q4H PRN Administration Headache/Fever/Mild Pain (1-3) Hydrocodone Bitart/Acetaminophen 2 tab 04/09/19 12:59 04/13/19 09:23 [place] 5/325 PO 2 tab Q4H PRN Administration Moderate to Severe Pain (6-10) Albuterol/Ipratropium 3 ml 04/09/19 01:00 04/13/19 07:17 Duoneb NEB 3 ml [id number] TIFFANY Administration Aspirin 81 mg 04/09/19 09:00 04/13/19 09:22 Aspirin Chewable PO 81 mg DAILY TIFFANY Administration Carvedilol 3.125 mg 04/10/19 17:00 04/13/19 09:22 Coreg PO 3.125 mg BID-WM TIFFANY Administration Citalopram Hydrobromide 20 mg 04/11/19 09:00 04/13/19 09:23 Celexa PO 20 mg DAILY TIFFANY Administration Enoxaparin Sodium 40 mg 04/09/19 09:00 04/13/19 09:23 Lovenox SC 40 mg 0900 TIFFANY Administration Famotidine 20 mg 04/09/19 09:00 04/13/19 09:23 Pepcid PO 20 mg BID TIFFANY Administration Furosemide 40 mg 04/11/19 09:00 04/13/19 09:23 Lasix PO 40 mg 0900,1400 TIFFANY Administration Melatonin 3 mg 04/10/19 00:43 04/12/19 20:25 Melatonin PO 3 mg HS PRN Administration Insomnia - Exam General Appearance: NAD Heart: RRR, no murmur Respiratory: CTAB, no wheezes, no rales, no ronchi Gastrointestinal: soft, non-tender, non-distended, normal bowel sounds Extremities: no cyanosis, no clubbing, no edema Psychiatric: normal affect Hosp A/P (1) Acute on chronic systolic CHF (congestive heart failure) Code(s): I50.23 - ACUTE ON CHRONIC SYSTOLIC (CONGESTIVE) HEART FAILURE Status : Acute (2) Acute and chronic respiratory failure with hypoxia Code(s): J96.21 - ACUTE AND CHRONIC RESPIRATORY FAILURE WITH HYPOXIA Status: Acute (3) Depression, major Code(s): F32.9 - MAJOR DEPRESSIVE DISORDER, SINGLE EPISODE, UNSPECIFIED Status : Chronic Qualifiers: Major depression recurrence: unspecified whether recurrent (4) Methamphetamine abuse Code(s): F15.10 - OTHER STIMULANT ABUSE, UNCOMPLICATED Status: Chronic (5) COPD with acute exacerbation Code(s): J44.1 - CHRONIC OBSTRUCTIVE PULMONARY DISEASE W (ACUTE) EXACERBATION Status: Acute (6) HTN (hypertension) Code(s): I10 - ESSENTIAL (PRIMARY) HYPERTENSION Status: Chronic Qualifiers: Hypertension type: essential hypertension Qualified Code(s): I10 - Essential (primary) hypertension (7) Tobacco abuse Code(s): Z72.0 - TOBACCO USE Status: Chronic - Plan Appreciate Cardiology consult - meds adjusted. Pt on carvedilol with brief pAT - await further recommendations, including when ready for discharge to home Pain meds - pt has norco ordered for prn use, will add tramadol as well for prn use dvt prophy - ambulatory gi prophy - not indicated code status DNAR Note - pt cleared by Cardiology for discharge to home - see discharge summary for complete details.
--- NOTE | 2019-04-13 15:36 | PDOC.CPN ---
- Subjective Date: 04/13/19 Time: 15:34 Interval history: He is doing well. Breathing at baseline. He has O2 at home. He was proud of the fact that he had been off all his medications except for an aspirin and lasix for the last 6 months. He states he had been clean for 7 months and he only recurred for this new year. - Review of Systems General: denies: fever/chills, weight/appetite/sleep changes, night sweats, fatigue Respiratory: reports: shortness of breath. denies: cough, congestion, exercise intolerance Cardiovascular: denies: chest pain, palpitation, edema, paroxysmal nocturnal dyspnea, orthopnea Gastrointestinal: denies: nausea, vomiting, diarrhea, constipation, abd pain, GI bleeding Musculoskeletal: denies: pain, tenderness, stiffness, swelling, arthritis/ arthralgias Neurological: denies: numbness, syncope, seizure, weakness - Objective Allergies/Adverse Reactions: Allergies Allergy/AdvReac Type Severity Reaction Status Date / Time No Known Drug Allergies Allergy Verified 04/08/19 21:51 Visit Medications: Current Medications Acetaminophen (Tylenol) 650 mg PO Q4H PRN PRN Reason: Headache/Fever/Mild Pain (1-3) Last Admin: 04/09/19 05:54 Dose: 650 mg Hydrocodone Bitart/Acetaminophen ([place] 5/325) 1 tab PO Q4H PRN PRN Reason: Mild-Moderate Pain (1-5) Hydrocodone Bitart/Acetaminophen ([place] 5/325) 2 tab PO Q4H PRN PRN Reason: Moderate to Severe Pain (6-10) Last Admin: 04/13/19 14:32 Dose: 2 tab Albuterol/Ipratropium (Duoneb) 3 ml NEB [id number] [facility] Last Admin: 04/13/19 13:08 Dose: 3 ml Aspirin (Aspirin Chewable) 81 mg PO DAILY [facility] Last Admin: 04/13/19 09:22 Dose: 81 mg Bisacodyl (Dulcolax) 10 mg MS DAILYPRN PRN PRN Reason: Constipation [facility]il[facility] ([facility]g) 3.[facility] Last Admin: 04/13/19 09:22 Dose: 3.125 mg Citalopram Hydrobromide (Celexa) 20 mg PO DAILY [facility] Last Admin: 04/13/19 09:23 Dose: 20 mg Docusate Sodium (Colace) 100 mg PO BID [facility] Enoxaparin Sodium (Lovenox) 40 mg SC 0900 [facility] Last Admin: 04/13/19 09:23 Dose: 40 mg Famotidine (Pepcid) 20 mg PO BID [facility] Last Admin: 04/13/19 09:23 Dose: 20 mg Furosemide (Lasix) 40 mg PO 0900,1400 [facility] Last Admin: 04/13/19 14:32 Dose: 40 mg Guaifenesin/Dextromethorphan (Robitussin Dm) 15 ml PO Q4H PRN PRN Reason: Cough Melatonin (Melatonin) 3 mg PO HS PRN PRN Reason: Insomnia Last Admin: 04/12/19 20:25 Dose: 3 mg Ondansetron HCl (Zofran) 4 mg IVP Q6H PRN PRN Reason: Nausea/Vomiting Polyethylene Glycol (Miralax) 17 gm PO DAILY [facility] Senna/Docusate Sodium (Senokot S) 2 tab PO BID PRN PRN Reason: Constipation Tramadol HCl (Ultram) 50 mg PO Q6H PRN PRN Reason: Moderate Pain (4-6) Last Admin: 04/13/19 12:17 Dose: 50 mg Vital Signs & Weight: Vital Signs Temp Pulse Resp BP BP Pulse Ox 04/13/19 13:08 105 H 16 99 04/13/19 11:20 97.4 F L 97 20 120/74 98 04/13/19 07:44 97.6 F 100 16 117/67 96 04/13/19 07:17 93 14 99 04/13/19 04:15 97.4 F L 99 16 132/90 96 Weight 182 lb 11.2 oz - Physical Exam General: alert & oriented x3 HEENT: mucus membranes moist Neck: supple neck Cardiac: regular rate and rhythm Lungs: normal breath sounds Neuro: grossly intact Abdomen: active bowel sounds Extremities: no edema Skin: clear Musculoskeletal: no pain - Labs Result Diagrams: 04/13/19 06:54 04/13/19 06:54 Troponin/CKMB CK-MB (CK-2) 5.1 ng/mL (0-6.6) 04/08/19 16:53 Troponin I 0.015 ng/mL (< 0.028) 04/08/19 22:56 - Telemetry Sinus rhythms and dysrhythmias: sinus rhythm - Assessment/Plan Assessment/Plan: 1. Acute on chronic systolic hearty failure. 2. S/P Mitral and tricuspid valve replacements. 3. Chest pain secondary to methamphetamine use. 4. Non ischemic CM EF at 25-30%. PLAN: - CV stable now. - Euvolemic. - Continue low dose BB - Cannot tolerate ACEI or ARB due to borderline low BP. - May discharge any time from cardiac perspective. - Will sign off. Please call with any questions.
[2019-04-13 16:24] VITALS: BP 132/80; TEMP 97.9
--- NOTE | 2019-04-13 19:26 | DIS ---
DATE OF ADMISSION: 04/08/2019 DATE OF DISCHARGE: 04/13/2019 CONSULTANTS: Cardiology including Dr. Islas. MEDICATIONS: Reconciled at discharge. New medications: 1. Carvedilol 3.125 mg p.o. b.i.d., prescription provided for 30 days. 2. Celexa 20 mg one p.o. daily, prescription provided for 30 days. 3. Lasix 20 mg tablets 2 tablets p.o. daily at 0900 and 1400 hours. 4. Furosemide 40 mg p.o. daily at 0900 and 1400 hours, prescription provided for 30 days. Medications to resume: 1. Albuterol nebulizer every 4 hours as needed for shortness of breath. 2. Ventolin inhaler 2 puffs three times a day as needed. 3. Aspirin 81 mg daily. FINAL DIAGNOSES: 1. Systolic congestive heart failure, resolved. 2. Chronic obstructive pulmonary disease with acute exacerbation. 3. Likely NSTEMI due to demand ischemia SECONDARY DIAGNOSES: 1. History of mitral valve and tricuspid valve replacement. 2. Paroxysmal atrial fibrillation. 3. Tobacco abuse. 4. Methamphetamine abuse. 5. Major depression. 6. Chronic pain. HISTORY OF PRESENT ILLNESS: Mr. Young is a 53-year-old male with the above medical problems, who presented to the emergency room with a complaint of shortness of breath over the prior 3 days. He stated that he had taken meth for 5 days prior to this. He complained of some chest pain that was retrosternal intermittently as well. HOSPITAL COURSE: The patient has a known ejection fraction of 20% to 25%, and a history of mitral and tricuspid ring annuloplasty for severe regurgitation in both. He was diuresed with IV Lasix and tolerated this well and transitioned over to oral Lasix. He has been followed by Cardiology and was started on a low-dose beta quin. He was also on IV steroids and transitioned to prednisone, completing a 5 day course. In addition, he received DuoNeb. The patient is overall feeling well. He reports that his breathing is back to normal. He is normally on home oxygen that he uses when he needs it. He is currently at 2 L and can continue this in the outpatient setting. The patient does meet criteria for discharge to home. He was noted to have 15 beats of PAT up to the 150s that has since resolved. There were no changes to his medications from Cardiology. PHYSICAL EXAMINATION: Please see the note on chart from today. FALCON FINDINGS AND TEST RESULTS: CBC; 11.8, 14.4, 47.7, 167 with 77% neutrophils. His white blood cell count on April 11 was 19.8. Renal panel; 139, 4.3, 95, 37, 32, 1.05, 110. Troponin 0.015, 0.052, 0.038. BNP 227. T bilirubin 0.9, AST 38, ALT 47, alkaline phosphatase 118, total protein 7.8, albumin 4.3. Urine drug screen positive for opioids, amphetamines, methamphetamines, and cannabinoids; negative for salicylates, acetaminophen, or alcohol. Echocardiogram on April 12 showed an EF of 25% to 30%, moderately enlarged right ventricle and mild tricuspid regurgitation. CT angiogram on 04/08, no evidence for PE, mild bronchial wall thickening in the lung bases may signify degree of bronchial inflammation. Chest x-ray on April 08, chronic findings. No lobar consolidation or alveolar edema. DIET: Heart healthy, fluid restrict to 1.8 liters per day DISCHARGE INSTRUCTIONS: FOLLOWUP: 1. With Dr. Islas in the clinic, call to schedule a followup for 2 to 3 weeks. 2. With the [facility]. Followup is scheduled for April 18 at 1:30 p.m. 3. With cardiac rehab, they will contact the patient to follow up in the clinic. ACTIVITY: As tolerated. CODE STATUS: Full. DISCHARGE DISPOSITION: Home. Reviewed with patient this hospitalization, the importance of followup, the return for care precautions. No questions or further needs at the end of evaluation. Total time coordinating discharge is 35 minutes. Job ID: [id number] MTDD
[2019-04-13] MEDS ORDERED: Docusate 100 MG CAP PO SCH (21:00)
--- NOTE | 2019-04-14 02:44 | PQF ---
SAP Tufting Machine Operator Single Needle Crystal Reports Winform Viewer ERIC DSOUZA FRANCISCO COCHRAN [id number] CLINICAL DOCUMENTATION CLARIFICATION FORM: POST DISCHARGE Addendum to original discharge summary date: 3 Apr 2019 Late entry note date: 4 Apr 2019:17 DATE: 04/14/19 ATTN: Francisco Jimenes Please exercise your independent, professional judgment in responding to the clarification form. Clinical indicators are provided on the bottom of this form for your review Can you please further clarify if non-ST segment elevation myocardial infarction type 2 is ruled in or ruled out? Non-ST segment elevation myocardial infarction type 2 [ ] Ruled in diagnosis [ ] Continue to treat [ ] Resolved [ ] Ruled out diagnosis [ XX ] Cannot rule out diagnosis [ ] Other diagnosis please specify [ ] Unable to determine In addition, please specify: Present on Admission (POA): [ XX ] Yes [ ] No [ ] Unable to determine For continuity of documentation, please document condition throughout progress notes and discharge summary. Thank You. CLINICAL INDICATORS - SIGNS / SYMPTOMS / LABS Consult Dr. Guthrie 04/10 pg.1- complaints of chest pain Consult Dr. Guthrie 04/10 pg.1- appears to be type [address]- segment myocardial infarction Consult Dr. Guthrie 04/10 pg.3- most likely a non-ST segment elevation myocardial infarction type 2, most likely due to demand ischemia Laboratory: Troponin 0.038h, 0.052H RISK FACTORS Nonischemic cardiomyopathy- H and P pg.1 COPD Exacerbation- H and P pg.1 CHF exacerbation- H and P pg.1 Tobacco abuse- DS pg.1 Paroxysmal Afib- DS pg.1 TREATMENTS Chest X ray 04/08 Chest /Thorax CTA 04/08 TTE- Echocardiogram Cardiology Consult- 04/10 IV Lasix- MAR IV Fluids- MAR (This form is maintained as a part of the permanent medical record) 2014 [employer] All Rights Reserved [email or web address] [not provided] ALEXD
[2019-04-14] MEDS ORDERED: Polyethylene Glycol 3350 17 GM Packet PO SCH (09:00)
== END 2019-04-13 18:51 | disposition home or self-care (01) | DRG 280 ==
LOC: ERS 16:27 → 2NO 21:32
PROVIDERS: ADMIT Internal Medicine; ATTEND Internal Medicine
DX: I50.23 Acute on chronic systolic (congestive) heart failure (principal); J96.21 Acute and chronic respiratory failure with hypoxia; I21.A1 Myocardial infarction type 2; J44.1 Chronic obstructive pulmonary disease with (acute) exacerbation; I42.8 Other cardiomyopathies; Z66 Do not resuscitate; I11.0 Hypertensive heart disease with heart failure; B19.20 Unspecified viral hepatitis C without hepatic coma; I08.1 Rheumatic disorders of both mitral and tricuspid valves; I48.0 Paroxysmal atrial fibrillation; F15.10 Other stimulant abuse, uncomplicated; F12.10 Cannabis abuse, uncomplicated; F17.210 Nicotine dependence, cigarettes, uncomplicated; M24.60 Ankylosis, unspecified joint; I45.10 Unspecified right bundle-branch block; F32.9 Major depressive disorder, single episode, unspecified; D72.829 Elevated white blood cell count, unspecified; T38.0X5A Adverse effect of glucocorticoids and synthetic analogues, initial encounter; G89.29 Other chronic pain; Z79.82 Long term (current) use of aspirin; Z95.2 Presence of prosthetic heart valve; Z99.81 Dependence on supplemental oxygen; Z79.899 Other long term (current) drug therapy
CPT/HCPCS: 36415; 71046; 71275; 80048; 80053; 80306; 80307; 82553; 83880; 84443; 84484; 85025; 93005; 93306; 93798; 94640; 94760; 96361; 96374; 96376; J1650; J1940; J2270; J2920; J7512; J7620; Q0163; Q9967

== ENCOUNTER 2019-04-15 | Emergency (ER) | payer MEDICARE ==
[2019-04-15 00:32] LABS: Hemoglobin 14.9 g/dL (14.0-18.0); Mean Corpuscular Hemoglobin 26.1 pg (27.0-31.0); Mean Platelet Volume 9.1 fL (7.4-10.4); Platelet Count 155 thou/uL (130-400); RBC Distribution Width 14.1 % (11.5-14.5); Red Blood Cell (RBC) Count 5.71 mill/uL (4.70-6.10); White Blood Cell (WBC) Count 9.8 thou/uL (4.8-10.8)
[2019-04-15 00:43] LABS: ALT (SGPT) 60 U/L (8-55); AST (SGOT) 35 U/L (5-34); Albumin 3.8 g/dL (3.5-5.0); Alkaline Phosphatase 106 U/L (40-110); BUN (Urea Nitrogen) 22 mg/dL (8.4-25.7); CK (CPK) 26 U/L (30-200); Calc. Creatinine Clearance 0 mL/min (70-130); Calcium 9.5 mg/dL (7.8-10.44); Estimated GFR-MDRD 74; Globulin 3.1 g/dL (2.4-3.5); Glucose 165 mg/dL (70-105); Protein, Total 6.9 g/dL (6.0-8.3)
[2019-04-15 00:49] LABS: #Eosinphils 0.2 thou/uL (0.0-0.7); #Lymphocytes 0.9 thou/uL (1.20-3.40); #Monocytes 0.8 thou/uL (0.11-0.59); #Neutrophils 7.8 thou/uL (1.40-6.50); %Basophils 0.4 % (0.0-1.0); %Eosinophils 2.5 % (0.0-10.0); %Lymphocytes 9.3 % (21.0-51.0); %Monocytes 8.4 % (0.0-10.0); %Neutrophils 79.4 % (42.0-75.0)
[2019-04-15 00:54] LABS: Anion Gap 17 mmol/L (10-20); Carbon Dioxide 35 mmol/L (22-29); Chloride 91 mmol/L (98-107); Potassium 4.5 mmol/L (3.5-5.1); Sodium 138 mmol/L (136-145)
[2019-04-15 01:05] LABS: CKMB 3.7 ng/mL (0-6.6)
[2019-04-15] MEDS ORDERED: Ketorolac Tromethamine 30 MG/ML VIAL ONE (02:06)
[2019-04-15] MEDS ORDERED: HYDROcodone/Acetaminophen 5/325 mg Tablet ONE (02:24)
--- NOTE | 2019-04-15 07:34 | RAD ---
XR Chest 1 View Portable HISTORY: Chest pain and shortness of breath COMPARISON: 04/08/2019 FINDINGS: The heart size is normal. The lungs are well expanded without focal areas of consolidation, pneumothorax or pleural effusions. Changes of median sternotomy are again seen. Chronic changes again noted. IMPRESSION: No radiographic evidence of acute cardiopulmonary process.
== END 2019-04-15 02:31 | disposition home or self-care (01) ==
LOC: ERS
DX: I42.9 Cardiomyopathy, unspecified (principal); G89.29 Other chronic pain; M54.9 Dorsalgia, unspecified; I50.9 Heart failure, unspecified; I48.91 Unspecified atrial fibrillation; F17.220 Nicotine dependence, chewing tobacco, uncomplicated; Z79.899 Other long term (current) drug therapy; Z79.82 Long term (current) use of aspirin
CPT/HCPCS: 71045; 80053; 82550; 82553; 83880; 84484; 85025; 93005; 94760; 96374; J1885

== ENCOUNTER 2019-04-17 00:37 | Emergency (ER) | payer MEDICARE ==
[2019-04-17] MEDS ORDERED: diphenhydrAMINE 50 MG/ML VIAL ONE (00:54)
[2019-04-17] MEDS ORDERED: Metoclopramide HCl 10 MG/2 ML VIAL ONE (00:54)
[2019-04-17] MEDS ORDERED: Ketorolac Tromethamine 30 MG/ML VIAL ONE (00:54)
[2019-04-17] MEDS ORDERED: methylPREDNISolone Sod Succ/PF 125 MG/2 ML VIAL ONE (01:44)
--- NOTE | 2019-04-17 07:31 | CT ---
PRELIMINARY REPORT/DIRECT RADIOLOGY/EMERGENCY AFTER HOURS PROCEDURE: History: SOB, worst headache of life. CT head without contrast. Comparison: None. Findings: There is no evidence of acute intracranial hemorrhage. The ventricular system is not dilate d. No masses, mass effect or focal fluid collections are noted. Bronson-white matter differentiation is wel l-maintained. Visualized portions of the orbits are normal in appearance. Minimal sinus mucosal thickening. Mucou s retention cyst in the left maxillary sinus. No air-fluid levels. The calvarium and overlying soft tissues are unremarkable. Impression: 1. No evidence of acute intracranial process. 2. Minimal sinus mucosal disease. No air-fluid levels. ELECTRONICALLY SIGNED BY: Ronaldo Maldonado MD Apr 17, 2019 1:51:01 AM DIGITAL MARKETING ANALYST FINAL REPORT HEAD CT WITHOUT CONTRAST: DATE: 04/17/2019 HISTORY: Headache FINDINGS: There is mild mucosal thickening involving the maxillary sinus on the left. No acute osseous abnormality. No intracranial hemorrhage, midline shift, or mass effect. IMPRESSION: No intracranial hemorrhage. Transcribed Date/Time: 04/17/2019 7:50 AM
== END 2019-04-17 02:00 | disposition home or self-care (01) ==
LOC: ERS 00:37
DX: R51 Headache (principal); I50.9 Heart failure, unspecified; I49.9 Cardiac arrhythmia, unspecified; I48.91 Unspecified atrial fibrillation; F17.210 Nicotine dependence, cigarettes, uncomplicated; F17.220 Nicotine dependence, chewing tobacco, uncomplicated; Z79.82 Long term (current) use of aspirin; Z79.899 Other long term (current) drug therapy
CPT/HCPCS: 70450; 96374; 96375; J1200; J1885; J2765; J2930

== ENCOUNTER 2019-05-19 18:17 | Inpatient (IN) | payer MEDICARE ==
[2019-05-19] MEDS ORDERED: Albuterol Sulfate 2.5 mg/3 ml Neb ONE (18:29)
[2019-05-19 18:40] LABS: #Basophils 0.1 thou/uL (0.0-0.2); #Eosinphils 0.1 thou/uL (0.0-0.7); #Lymphocytes 1.2 thou/uL (1.20-3.40); #Monocytes 0.8 thou/uL (0.11-0.59); #Neutrophils 5.7 thou/uL (1.40-6.50); %Basophils 0.8 % (0.0-1.0); %Eosinophils 1.8 % (0.0-10.0); %Lymphocytes 14.8 % (21.0-51.0); %Monocytes 9.9 % (0.0-10.0); %Neutrophils 72.6 % (42.0-75.0); Mean Corpuscular HGB CONC 30.8 g/dL (32.0-36.0); Mean Corpuscular Hemoglobin 27.3 pg (27.0-31.0); Mean Corpuscular Volume 88.7 fL (78.0-98.0); Mean Platelet Volume 9.1 fL (7.4-10.4); Platelet Count 158 thou/uL (130-400); White Blood Cell (WBC) Count 7.9 thou/uL (4.8-10.8)
[2019-05-19] MEDS ORDERED: methylPREDNISolone Sod Succ/PF 125 MG/2 ML VIAL ONE (18:52)
[2019-05-19] MEDS ORDERED: Nitroglycerin 2% Ointment 1 INCH/1 GM Packet ONE (18:52)
[2019-05-19] MEDS ORDERED: Furosemide 40 MG/4 ML VIAL ONE (18:52)
[2019-05-19 19:00] LABS: ALT (SGPT) 54 U/L (8-55); AST (SGOT) 33 U/L (5-34); Albumin 4.6 g/dL (3.5-5.0); Alkaline Phosphatase 142 U/L (40-110); BUN (Urea Nitrogen) 20 mg/dL (8.4-25.7); Bilirubin, Total 0.7 mg/dL (0.2-1.2); CK (CPK) 76 U/L (30-200); Calc. Creatinine Clearance 0 mL/min (70-130); Calcium 10.5 mg/dL (7.8-10.44); Estimated GFR-MDRD Greater than 90; Globulin 3.2 g/dL (2.4-3.5); Glucose 99 mg/dL (70-105); Protein, Total 7.8 g/dL (6.0-8.3)
--- NOTE | 2019-05-19 19:06 | RAD ---
XR Chest 1 View Portable HISTORY: Shortness of breath and chest pain COMPARISON: 04/15/2019 FINDINGS: The heart size is normal. Changes of median sternotomy are again seen. The lungs are well e xpanded without focal areas of consolidation, pneumothorax or pleural effusions. IMPRESSION: No radiographic evidence of acute cardiopulmonary process.
[2019-05-19 19:09] LABS: Anion Gap 15 mmol/L (10-20); Carbon Dioxide 37 mmol/L (22-29); Chloride 97 mmol/L (98-107); Potassium 4.9 mmol/L (3.5-5.1); Sodium 144 mmol/L (136-145)
[2019-05-19] MEDS ORDERED: Metoclopramide HCl 10 MG/2 ML VIAL ONE (19:28)
[2019-05-19] MEDS ORDERED: Ketorolac Tromethamine 30 MG/ML VIAL ONE (19:28)
[2019-05-19] MEDS ORDERED: Ondansetron PF 4 MG/2 ML Vial IVP PRN (21:10)
[2019-05-19] MEDS ORDERED: Ondansetron ODT 4 MG TAB SL PRN (21:10)
[2019-05-19] MEDS ORDERED: Acetaminophen 325 MG TAB PO PRN (21:10)
[2019-05-19 21:50] LABS: Troponin I Less than 0.010 ng/mL (< 0.028)
[2019-05-19] MEDS: Albuterol Sulfate 2.5 mg/3 ml Neb NEB SCH (22:27)
[2019-05-20 01:17] LABS: Troponin I Less than 0.010 ng/mL (< 0.028)
[2019-05-20] MEDS: Albuterol Sulfate 2.5 mg/3 ml Neb NEB SCH ×2 (02:23→07:27)
[2019-05-20] MEDS ORDERED: HYDROcodone/Acetaminophen 10/325 mg Tablet PO PRN ×2 (03:20)
[2019-05-20] MEDS ORDERED: Albuterol Sulfate 2.5 mg/3 ml Neb NEB PRN (08:35)
[2019-05-20] MEDS: HYDROcodone/Acetaminophen 10/325 mg Tablet PO PRN ×3 (09:01→20:11)
[2019-05-20 09:21] LABS: ALT (SGPT) 43 U/L (8-55); AST (SGOT) 25 U/L (5-34); Alkaline Phosphatase 100 U/L (40-110); Anion Gap 13 mmol/L (10-20); BUN (Urea Nitrogen) 23 mg/dL (8.4-25.7); Bilirubin, Total 0.7 mg/dL (0.2-1.2); Calc. Creatinine Clearance 0 mL/min (70-130); Calcium 9.7 mg/dL (7.8-10.44); Carbon Dioxide 35 mmol/L (22-29); Chloride 94 mmol/L (98-107); Estimated GFR-MDRD Greater than 90; Glucose 230 mg/dL (70-105); Magnesium 1.6 mg/dL (1.6-2.6); Potassium 4.6 mmol/L (3.5-5.1); Sodium 137 mmol/L (136-145)
[2019-05-20] MEDS: Aspirin 81 mg Enteric Coated Tablet PO SCH (10:13)
[2019-05-20] MEDS: Citalopram 20 MG TAB PO SCH (10:13)
[2019-05-20 13:00] LABS: Amphetamine Not Detected (NotDetected); Barbiturates Screen Not Detected (NotDetected); Benzodiazepine Screen Not Detected (NotDetected); Cocaine Metabolite Screen Not Detected (NotDetected); Medtox Reader # READER 1; Methadone Not Detected (NotDetected); Methamphetamine Not Detected (NotDetected); Opiate Screen Detected (NotDetected); Oxycodone Screen Not Detected (NotDetected); Phencyclidine (PCP) Not Detected (NotDetected); THC/Cannabinoid Screen Detected (NotDetected); Tricyclic Screen Not Detected (NotDetected)
[2019-05-20 13:01] LABS: Medtox Control Line Valid? VALID (VALID)
[2019-05-20] MEDS ORDERED: Doxycycline 100 MG CAP PO SCH (13:15)
[2019-05-20] MEDS ORDERED: Senokot S 8.6-50 MG TAB PO PRN (13:18)
[2019-05-20] MEDS ORDERED: Acetaminophen 325 MG TAB PO PRN (13:18)
[2019-05-20] MEDS ORDERED: Calcium Carbonate 500 MG ChewTAB PO PRN (13:18)
[2019-05-20] MEDS ORDERED: Furosemide 20 MG/2 ML VIAL SLOW IVP SCH (14:00)
[2019-05-20] MEDS: methylPREDNISolone Sod Succ 40 MG VIAL IVP SCH ×2 (14:39→22:36)
[2019-05-20] MEDS: Furosemide 40 MG TAB PO SCH (14:39)
--- NOTE | 2019-05-20 14:40 | HP ---
PRIMARY CARE: Rosalie Jeong MD CHIEF COMPLAINT: Shortness of breath. HISTORY OF PRESENT ILLNESS: The patient is a 53-year-old male with congestive heart failure, ejection fraction 20% to 25%, and history of mitral and tricuspid ring annuloplasty, presented to the emergency room with shortness of breath along with intermittent chest pain. He was discharged from this facility approximately 1 month ago with a diagnosis of COPD exacerbation. He is currently on 2.5 L oxygen. The patient presented to the emergency room with shortness of breath that has been worsening over the past 48 hours. He is unable to lie down flat. He also had intermittent chest discomfort that was sharp, left-sided without any radiation. He also had wheezing along with some chest tightness. The shortness of breath was worse with mild exertion. He denies any fever or chills. No recent immobilization or travel reported. In the emergency room, his initial vital signs showed temperature 98, respirations 22, pulse of 113 with a blood pressure of 140/94 with O2 saturation of 87% on 4 L nasal cannula. He was placed on nonrebreather in the ER. His EKG showed sinus tachycardia with incomplete right bundle-branch block. He received Toradol, Reglan, IV Solu-Medrol, 80 of Lasix, DuoNeb, albuterol nebulizer treatment along with nitroglycerin patch in the emergency room. PAST MEDICAL HISTORY: 1. Chronic systolic heart failure, ejection fraction 25% to 30% range secondary to nonischemic cardiomyopathy. 2. History of mitral and tricuspid valve replacement secondary to severe mitral and tricuspid regurgitation. 3. Tobacco dependence. 4. History of methamphetamine abuse. 5. Paroxysmal atrial fibrillation. 6. Anxiety. 7. Chronic pain syndrome. SOCIAL HISTORY: As discussed above. ALLERGIES: NO KNOWN DRUG ALLERGIES. CURRENT HOME MEDICATIONS: 1. [place] as needed. 2. Albuterol nebulizer as needed. 3. Albuterol inhaler as needed. 4. Aspirin 81 mg daily. 5. Carvedilol 3.125 mg b.i.d. 6. Celexa 20 mg daily. 7. Lasix 20 mg twice a day. SOCIAL HISTORY: The patient currently lives at home with his family. Denies current use of methamphetamine. He uses cannabis on and off. He smokes cigarettes on and off. FAMILY HISTORY: Positive for mother with lung cancer at age of 43. REVIEW OF SYSTEMS: All other review of systems reviewed and were found negative. PHYSICAL EXAMINATION: VITAL SIGNS: As discussed above. GENERAL: A 53-year-old male in mild respiratory distress, able to complete short phrases. HEENT: Head, atraumatic and normocephalic. Sclerae anicteric. Moist mucous membranes. No oral lesion. NECK: Supple. No JVD appreciated. No carotid bruit. LUNGS: Showed diffuse rhonchi with scattered wheezing. There was diminished air entry at bilateral bases. HEART: S1, S2 present. Regular rate and rhythm. Tachycardic. No rubs or gallops. ABDOMEN: Soft, nontender. Bowel sounds present. EXTREMITIES: 1+ edema in bilateral lower extremity. No calf tenderness. SKIN: Warm and dry. LYMPH NODES: No palpable lymph nodes in the neck. PERIPHERAL VASCULAR: Radial pulses palpable bilaterally. MUSCULOSKELETAL: No joint swelling tenderness. LABORATORY DATA: Urine drug screen was positive for cannabinoid. WBC was 7.9 with hemoglobin of 15, platelet count of 158. Chemistry showed sodium 144, potassium 4.9, chloride 97, bicarb 37, BUN 20, creatinine 0.82. Troponin negative. BNP was 242. It was 381 last admission. EKG by my review as discussed above. Chest x-ray by my review showed mild pulmonary vascular congestion. IMPRESSION: 1. Acute on chronic hypoxic respiratory failure. 2. Acute on chronic systolic heart failure exacerbation. 3. Acute chronic obstructive pulmonary disease exacerbation. 4. History of tobacco abuse. 5. History of cannabis abuse. 6. History of mitral and tricuspid ring annuloplasty for severe regurgitation. PLAN: The patient will be monitored on the telemetry unit. We will continue O2 supplementation. Nebulizer treatment every 4 hours. Gentle IV diuretics. IV steroids. We will consult Cardiology in a.m. Recheck labs on a daily basis. Resume selected home medications. We will also add empiric antibiotics. The patient understands the above plan of care. Job ID: [id number]
[2019-05-20] MEDS: Carvedilol 3.125 MG TAB PO SCH (18:17)
[2019-05-20] MEDS: guaiFENesin ER 600 MG TAB PO SCH (20:11)
[2019-05-20] MEDS: Doxycycline 100 MG CAP PO SCH (20:12)
[2019-05-20] MEDS: Famotidine 20 MG TAB PO SCH (20:12)
[2019-05-20] MEDS: Enoxaparin Sodium 30 MG/0.3 ML SYRINGE SC SCH (20:13)
[2019-05-21] MEDS: HYDROcodone/Acetaminophen 10/325 mg Tablet PO PRN ×5 (02:21→21:02)
[2019-05-21 04:24] LABS: #Lymphocytes 0.6 thou/uL (1.20-3.40); #Monocytes 0.7 thou/uL (0.11-0.59); #Neutrophils 13.7 thou/uL (1.40-6.50); %Eosinophils 0.1 % (0.0-10.0); %Lymphocytes 4.2 % (21.0-51.0); %Monocytes 4.7 % (0.0-10.0); Mean Corpuscular HGB CONC 30.4 g/dL (32.0-36.0); Mean Corpuscular Hemoglobin 26.4 pg (27.0-31.0); Mean Corpuscular Volume 86.8 fL (78.0-98.0); Mean Platelet Volume 9.4 fL (7.4-10.4); Platelet Count 161 thou/uL (130-400); RBC Distribution Width 15.1 % (11.5-14.5); Red Blood Cell (RBC) Count 4.94 mill/uL (4.70-6.10); White Blood Cell (WBC) Count 15.1 thou/uL (4.8-10.8)
[2019-05-21 04:41] LABS: ALT (SGPT) 36 U/L (8-55); AST (SGOT) 17 U/L (5-34); Alkaline Phosphatase 100 U/L (40-110); BUN (Urea Nitrogen) 24 mg/dL (8.4-25.7); Bilirubin, Total 0.5 mg/dL (0.2-1.2); Calc. Creatinine Clearance 0 mL/min (70-130); Calcium 9.5 mg/dL (7.8-10.44); Estimated GFR-MDRD Greater than 90; Globulin 2.8 g/dL (2.4-3.5); Glucose 134 mg/dL (70-105); Magnesium 1.9 mg/dL (1.6-2.6); Protein, Total 6.8 g/dL (6.0-8.3)
[2019-05-21 04:50] LABS: Anion Gap 14 mmol/L (10-20); Carbon Dioxide 33 mmol/L (22-29); Chloride 96 mmol/L (98-107); Potassium 4.5 mmol/L (3.5-5.1); Sodium 138 mmol/L (136-145)
[2019-05-21] MEDS ORDERED: Furosemide 40 MG/4 ML VIAL ONE (06:02)
[2019-05-21] MEDS: methylPREDNISolone Sod Succ 40 MG VIAL IVP SCH ×3 (06:29→21:02)
[2019-05-21] MEDS: Furosemide 40 MG TAB PO SCH ×2 (10:44→13:12)
[2019-05-21] MEDS: Citalopram 20 MG TAB PO SCH (10:44)
[2019-05-21] MEDS: Doxycycline 100 MG CAP PO SCH ×2 (10:44→21:01)
[2019-05-21] MEDS: Famotidine 20 MG TAB PO SCH ×2 (10:44→21:01)
[2019-05-21] MEDS: Carvedilol 3.125 MG TAB PO SCH ×2 (10:44→16:26)
[2019-05-21] MEDS: guaiFENesin ER 600 MG TAB PO SCH ×2 (10:44→21:02)
[2019-05-21] MEDS: Aspirin 81 mg Enteric Coated Tablet PO SCH (10:44)
--- NOTE | 2019-05-21 16:55 | CON ---
DATE OF CONSULTATION: 05/21/2019 REASON FOR CONSULTATION: Heart failure. HISTORY OF PRESENT ILLNESS: Mr. Young is a pleasant 53-year-old white gentleman, who comes to the hospital for worsening shortness of breath. He states for the last week, he has been noticing worsening shortness of breath, so he decided to come in. He has been taking his Lasix at 20 mg a day only. He noticed worsening lower extremity edema, so he decided to come in for further evaluation. He was here just a month ago with what appeared to be COPD exacerbation as well as mild CHF exacerbation. He has been admitted, diuresed, and already feeling a lot better. PAST MEDICAL HISTORY: 1. Chronic nonischemic cardiomyopathy, EF at 25% to 30%. 2. Mitral and tricuspid valve rings. 3. Tobacco abuse. 4. History of methamphetamine abuse. 5. History of marijuana use. 6. Paroxysmal atrial fibrillation. 7. Anxiety and depression. 8. Chronic pain syndrome. SOCIAL HISTORY: Positive for tobacco abuse, marijuana, and methamphetamine use in the past. Recent marijuana use, but no methamphetamines for some time now. No alcohol. OUTPATIENT MEDICATIONS: 1. [place] p.r.n. 2. Albuterol p.r.n. 3. Aspirin 81 a day. 4. Carvedilol 3.125 b.i.d. 5. Celexa 10 mg a day. 6. Lasix 20 mg twice a day, but he has only been using it once a day. ALLERGIES: NO KNOWN DRUG ALLERGIES. FAMILY HISTORY: Noncontributory. REVIEW OF SYSTEMS: A 12-point review of systems was done and was all negative unless stated in the history of present illness. PHYSICAL EXAMINATION: VITAL SIGNS: Temperature 98.3, pulse 98, respiratory rate 20, saturating 95% on room air, and blood pressure 111/72. GENERAL: Awake, alert, and oriented x3. No distress. HEENT: Normocephalic, atraumatic. NECK: Supple. LUNGS: Reduced breath sounds bilaterally. CARDIOVASCULAR: S1 and S2. No S3 or S4. No murmurs. ABDOMEN: Soft. Positive bowel sounds. EXTREMITIES: Trace edema. SKIN: Warm and dry. LABORATORY DATA: Laboratory work was reviewed. White count of 7.9 on admission, hemoglobin of 15, hematocrit of 48, and platelet count of 158. Chemistries were unremarkable except for a chloride of 96 and carbon dioxide of 33. Anion gap of 14. GFR greater than 90. Troponin was negative x2. BNP was 242. Urine drug screen was positive for opiates and cannabis. IMAGING STUDIES: Chest x-ray showed no evidence of acute cardiopulmonary process. ASSESSMENT: 1. Acute on chronic systolic heart failure. Very mild congestive heart failure exacerbation. Probably needs to continue to be on current dose of Lasix. 2. Ongoing cannabis use. No more methamphetamine use. PLAN: Continue outpatient regimen. Blood pressure is always borderline too low to add any medications. We will continue increased dose of Lasix 20 mg p.o. b.i.d. He is already feeling a lot better, most likely more related to the steroids. Thank you for letting us to participate in the care of your patient. We will follow. Job ID: [id number]
[2019-05-21] MEDS: Enoxaparin Sodium 30 MG/0.3 ML SYRINGE SC SCH (21:01)
--- NOTE | 2019-05-21 21:37 | PDOC.HOSPP ---
- Subjective Encounter Date: 05/21/19 Encounter Time: 13:00 Subjective: Patient seen and examined for resp failure. SOB/edema improving. No CP. No new complaints. No overnight events - Objective Vital Signs & Weight: Vital Signs (12 hours) Temp Pulse Resp BP Pulse Ox 05/21/19 19:17 95 16 97 05/21/19 15:38 98.3 F 98 20 111/72 95 05/21/19 14:56 90 16 05/21/19 11:06 88 16 05/21/19 11:04 97.5 F L 89 21 H 129/77 96 Weight Weight 176 lb 14.4 oz I&O: 05/20/19 05/21/19 05/22/19 06:59 06:59 06:59 Intake Total 1440 791 Output Total 1000 2475 Balance 440 -1684 Result Diagrams: 05/21/19 03:57 05/21/19 03:57 Radiology Reviewed by me: Yes (CXR - No infiltrate) EKG Reviewed by me: Yes (Tele SR) Hospitalist ROS - Review of Systems Constitutional: denies: fever, chills, sweats, weakness, malaise, other Gastrointestinal: denies: nausea, vomiting, abdominal pain, diarrhea, constipation, melena, hematochezia, other - Medication Medications: Active Medications Generic Name Dose Route Start Last Admin Trade Name Freq PRN Reason Stop Dose Admin Hydrocodone Bitart/Acetaminophen 1 tab 05/20/19 08:39 05/21/19 21:02 [place] 10/325 PO 1 tab Q4H PRN Administration Severe Pain (7-10) Albuterol/Ipratropium 3 ml 05/21/19 15:00 05/21/19 19:17 Duoneb NEB 3 ml [id number] TIFFANY Administration Aspirin 81 mg 05/20/19 09:00 05/21/19 10:44 Ecotrin PO 81 mg DAILY TIFFANY Administration Carvedilol 3.125 mg 05/20/19 17:00 05/21/19 16:26 Coreg PO 3.125 mg BID- TIFFANY Administration Citalopram Hydrobromide 20 mg 05/20/19 09:00 05/21/19 10:44 Celexa PO 20 mg DAILY TIFFANY Administration Doxycycline Hyclate 100 mg 05/20/19 21:00 05/21/19 21:01 Vibramycin PO 100 mg BID TIFFANY Administration Enoxaparin Sodium 30 mg 05/20/19 21:00 05/21/19 21:01 Lovenox SC 30 mg 2100 TIFFANY Administration Famotidine 20 mg 05/20/19 21:00 05/21/19 21:01 Pepcid PO 20 mg BID TIFFANY Administration Furosemide 40 mg 05/20/19 14:00 05/21/19 13:12 Lasix PO 40 mg 0900,1400 TIFFANY Administration Guaifenesin 600 mg 05/20/19 21:00 05/21/19 21:02 Mucinex PO 600 mg Q12HR TIFFANY Administration Methylprednisolone Sodium Succinate 20 mg 05/20/19 14:00 05/21/19 21:02 Solu-Medrol IVP 20 mg Q8HR TIFFANY Administration Senna/Docusate Sodium 2 tab 05/20/19 13:18 05/21/19 02:26 Senokot S PO 2 tab BID PRN Administration Constipation - Exam General - other findings: Mild resp distress Heart: RRR, no gallops, no rubs, normal peripheral pulses Respiratory: no rales, normal chest expansion, rhonchi, wheezes Gastrointestinal: soft, non-tender, non-distended, normal bowel sounds Extremities: no cyanosis, no clubbing Psychiatric: normal affect, A&O x 3 Hosp A/P - Plan DVT proph w/lovenox, DVT proph w/SCDs 1. Acute on chronic hypoxic respiratory failure. 2. Acute on chronic systolic heart failure exacerbation. 3. Acute chronic obstructive pulmonary disease exacerbation. 4. History of tobacco abuse. 5. History of cannabis abuse. 6. History of mitral and tricuspid ring annuloplasty for severe regurgitation. PLAN: Cont O2 supp Cont IV steroids Cont PO Atbx Change IV Lasix to PO AM labs Cont other meds as above
[2019-05-21] MEDS ORDERED: Polyethylene Glycol 3350 17 GM Packet PO PRN (21:38)
[2019-05-22 05:46] LABS: Anion Gap 13 mmol/L (10-20); BUN (Urea Nitrogen) 30 mg/dL (8.4-25.7); Calc. Creatinine Clearance 131 mL/min (70-130); Calcium 9.6 mg/dL (7.8-10.44); Carbon Dioxide 35 mmol/L (22-29); Chloride 96 mmol/L (98-107); Estimated GFR-MDRD Greater than 90; Glucose 121 mg/dL (70-105); Magnesium 1.9 mg/dL (1.6-2.6); Potassium 4.7 mmol/L (3.5-5.1); Sodium 139 mmol/L (136-145)
[2019-05-22] MEDS: methylPREDNISolone Sod Succ 40 MG VIAL IVP SCH ×3 (06:07→22:10)
[2019-05-22] MEDS: Furosemide 20 MG TAB PO SCH ×2 (08:19→14:09)
[2019-05-22] MEDS: Carvedilol 3.125 MG TAB PO SCH ×2 (08:19→16:21)
[2019-05-22] MEDS: Doxycycline 100 MG CAP PO SCH ×2 (08:20→20:08)
[2019-05-22] MEDS: Famotidine 20 MG TAB PO SCH ×2 (08:20→20:08)
[2019-05-22] MEDS: Senokot S 8.6-50 MG TAB PO SCH ×2 (08:21→20:09)
[2019-05-22] MEDS: guaiFENesin ER 600 MG TAB PO SCH ×2 (08:21→20:09)
[2019-05-22] MEDS: Citalopram 20 MG TAB PO SCH (08:21)
[2019-05-22] MEDS: Aspirin 81 mg Enteric Coated Tablet PO SCH (08:22)
[2019-05-22] MEDS: HYDROcodone/Acetaminophen 10/325 mg Tablet PO PRN ×3 (08:54→20:09)
--- NOTE | 2019-05-22 18:40 | PDOC.CPN ---
- Subjective Date: 05/22/19 Time: 18:38 Interval history: He is doing better. No chest pain, SOB slowly improving. - Review of Systems General: denies: fever/chills, weight/appetite/sleep changes, night sweats, fatigue Respiratory: reports: congestion, shortness of breath. denies: cough, exercise intolerance Cardiovascular: denies: chest pain, palpitation, edema, paroxysmal nocturnal dyspnea, orthopnea Gastrointestinal: denies: nausea, vomiting, diarrhea, constipation, abd pain, GI bleeding Musculoskeletal: denies: pain, tenderness, stiffness, swelling, arthritis/ arthralgias Neurological: denies: numbness, syncope, seizure, weakness - Objective Allergies/Adverse Reactions: Allergies Allergy/AdvReac Type Severity Reaction Status Date / Time No Known Drug Allergies Allergy Verified 05/19/19 20:57 Visit Medications: Current Medications Acetaminophen (Tylenol) 650 mg PO Q4H PRN PRN Reason: Headache/Fever/Mild Pain (1-3) Hydrocodone Bitart/Acetaminophen ([place] 10/325) 1 tab PO Q4H PRN PRN Reason: Severe Pain (7-10) Last Admin: 05/22/19 16:22 Dose: 1 tab Albuterol/Ipratropium (Duoneb) 3 ml NEB [id number] PRN PRN Reason: SOB &/or Wheezing Albuterol/Ipratropium (Duoneb) 3 ml NEB [id number] SCH Last Admin: 05/22/19 18:20 Dose: 3 ml Aspirin (Ecotrin) 81 mg PO DAILY COUNTS INCLUDE 234 BEDS AT THE [facility] Last Admin: 05/22/19 08:22 Dose: 81 mg Calcium Carbonate (Tums) 1,000 mg PO Q4H PRN PRN Reason: Heartburn or Indigestion Carvedilol (Coreg) 3.125 mg PO BID-[facility] Last Admin: 05/22/19 16:21 Dose: 3.125 mg Citalopram Hydrobromide (Celexa) 20 mg PO DAILY COUNTS INCLUDE 234 BEDS AT THE [facility] Last Admin: 05/22/19 08:21 Dose: 20 mg Doxycycline Hyclate (Vibramycin) 100 mg PO BID COUNTS INCLUDE 234 BEDS AT THE [facility] Last Admin: 05/22/19 08:20 Dose: 100 mg Enoxaparin Sodium (Lovenox) 30 mg SC 2100 COUNTS INCLUDE 234 BEDS AT THE [facility] Last Admin: 05/21/19 21:01 Dose: 30 mg Famotidine (Pepcid) 20 mg PO BID COUNTS INCLUDE 234 BEDS AT THE [facility] Last Admin: 05/22/19 08:20 Dose: 20 mg Furosemide (Lasix) 20 mg PO 0900,1400 COUNTS INCLUDE 234 BEDS AT THE [facility] Last Admin: 05/22/19 14:09 Dose: 20 mg Guaifenesin (Mucinex) 600 mg PO Q12HR COUNTS INCLUDE 234 BEDS AT THE [facility] Last Admin: 05/22/19 08:21 Dose: 600 mg Methylprednisolone Sodium Succinate (Solu-Medrol) 20 mg IVP Q8HR COUNTS INCLUDE 234 BEDS AT THE [facility] Last Admin: 05/22/19 14:09 Dose: 20 mg Polyethylene Glycol (Miralax) 17 gm PO DAILY PRN PRN Reason: Constipation Senna/Docusate Sodium (Senokot S) 2 tab PO BID PRN PRN Reason: Constipation Last Admin: 05/21/19 02:26 Dose: 2 tab Senna/Docusate Sodium (Senokot S) 2 tab PO BID COUNTS INCLUDE 234 BEDS AT THE [facility] Last Admin: 05/22/19 08:21 Dose: 2 tab Sodium Chloride (Flush - Normal Saline) 10 ml IVF Q12HR COUNTS INCLUDE 234 BEDS AT THE [facility] Last Admin: 05/22/19 08:22 Dose: 10 ml Sodium Chloride (Flush - Normal Saline) 10 ml IVF PRN PRN PRN Reason: Saline Flush Vital Signs & Weight: Vital Signs Temp Pulse Resp BP Pulse Ox 05/22/19 18:20 102 H 18 97 05/22/19 16:18 98.3 F 92 18 134/83 97 05/22/19 14:18 99 20 98 05/22/19 11:21 97.9 F 99 18 147/86 H 95 05/22/19 10:58 109 H 20 92 L 05/22/19 08:11 97.6 F 98 18 131/73 95 05/22/19 07:13 98 05/22/19 07:10 85 16 98 Weight 178 lb 3.2 oz - Physical Exam General: alert & oriented x3 HEENT: mucus membranes moist Neck: supple neck Cardiac: regular rate and rhythm Lungs: decreased breath sounds Neuro: grossly intact Abdomen: active bowel sounds Extremities: no edema Skin: clear Musculoskeletal: no pain - Labs Result Diagrams: 05/21/19 03:57 05/22/19 03:58 Troponin/CKMB Troponin I Less than 0.010 ng/mL (< 0.028) 05/20/19 00:45 - Telemetry Sinus rhythms and dysrhythmias: sinus rhythm - Assessment/Plan Assessment/Plan: 1. Non ischemic CM EF 20-25% 2. Paroxysmal afib 3. S/P Tricuspid and mitral valve ring annuloplasty. 4. S/P KATERINA ligation during time of open heart surgery, closure confirmed by KIRBY done in 2018 5. COPD exacerbation. PLAN: - Continue gentleman diuresis - Pulmonary toilet per primary team. - Candidate for an AICD as his LV function has been low for over 3 months now. He has not been too compliant with medications but we could not add much BB or ACEI/ARB due to borderline low BP in the pats. - Will consult EP for consideration of an AICD placement.
[2019-05-22] MEDS: Enoxaparin Sodium 30 MG/0.3 ML SYRINGE SC SCH (20:09)
[2019-05-22] MEDS: Melatonin 3 MG TAB PO PRN (22:10)
--- NOTE | 2019-05-22 22:53 | PDOC.HOSPP ---
- Subjective Encounter Date: 05/22/19 Encounter Time: 14:00 Subjective: Patient seen and examined for Resp failure. SOB improving. No CP. No other complaints. No overnight events - Objective Vital Signs & Weight: Vital Signs (12 hours) Temp Pulse Resp BP Pulse Ox 05/22/19 20:01 97.9 F 98 18 135/79 96 05/22/19 18:20 102 H 18 97 05/22/19 16:18 98.3 F 92 18 134/83 97 05/22/19 14:18 99 20 98 05/22/19 11:21 97.9 F 99 18 147/86 H 95 05/22/19 10:58 109 H 20 92 L Weight Weight 178 lb 3.2 oz I&O: 05/21/19 05/22/19 05/23/19 06:59 06:59 06:59 Intake Total 1440 1265 840 Output Total 1000 3125 1230 Balance 440 -1860 -390 Result Diagrams: 05/21/19 03:57 05/22/19 03:58 EKG Reviewed by me: Yes (Tele SR) Hospitalist ROS - Review of Systems Cardiovascular: denies: chest pain, palpitations, orthopnea, paroxysmal noc. dyspnea, edema, light headedness, other Gastrointestinal: denies: nausea, vomiting, abdominal pain, diarrhea, constipation, melena, hematochezia, other - Medication Medications: Active Medications Generic Name Dose Route Start Last Admin Trade Name Freq PRN Reason Stop Dose Admin Hydrocodone Bitart/Acetaminophen 1 tab 05/20/19 08:39 05/22/19 20:09 [place] 10/325 PO 1 tab Q4H PRN Administration Severe Pain (7-10) Albuterol/Ipratropium 3 ml 05/21/19 15:00 05/22/19 18:20 Duoneb NEB 3 ml [id number] TIFFANY Administration Aspirin 81 mg 05/20/19 09:00 05/22/19 08:22 Ecotrin PO 81 mg DAILY TIFFANY Administration Carvedilol 3.125 mg 05/20/19 17:00 05/22/19 16:21 Coreg PO 3.125 mg BID-WM TIFFANY Administration Citalopram Hydrobromide 20 mg 05/20/19 09:00 05/22/19 08:21 Celexa PO 20 mg DAILY TIFFANY Administration Doxycycline Hyclate 100 mg 05/20/19 21:00 05/22/19 20:08 Vibramycin PO 100 mg BID TIFFANY Administration Enoxaparin Sodium 30 mg 05/20/19 21:00 05/22/19 20:09 Lovenox SC 30 mg 2100 TIFFANY Administration Famotidine 20 mg 05/20/19 21:00 05/22/19 20:08 Pepcid PO 20 mg BID TIFFANY Administration Furosemide 20 mg 05/22/19 09:00 05/22/19 14:09 Lasix PO 20 mg 0900,1400 TIFFANY Administration Guaifenesin 600 mg 05/20/19 21:00 05/22/19 20:09 Mucinex PO 600 mg Q12HR TIFFANY Administration Melatonin 3 mg 05/22/19 21:51 05/22/19 22:10 Melatonin PO 3 mg HS PRN Administration Insomnia Methylprednisolone Sodium Succinate 20 mg 05/20/19 14:00 05/22/19 22:10 Solu-Medrol IVP 20 mg Q8HR TIFFANY Administration Senna/Docusate Sodium 2 tab 05/20/19 13:18 05/21/19 02:26 Senokot S PO 2 tab BID PRN Administration Constipation Senna/Docusate Sodium 2 tab 05/22/19 09:00 05/22/19 20:09 Senokot S PO 2 tab BID TIFFANY Administration Sodium Chloride 10 ml 05/22/19 09:00 05/22/19 20:09 Flush - Normal Saline IVF 10 ml Q12HR TIFFANY Administration - Exam General Appearance: NAD Heart: RRR, no gallops Respiratory: no rales, rhonchi, wheezes Gastrointestinal: non-tender, non-distended, normal bowel sounds Extremities: no cyanosis, no clubbing, no edema Hosp A/P - Plan DVT proph w/lovenox, DVT proph w/SCDs 1. Acute on chronic hypoxic respiratory failure. 2. Acute on chronic systolic heart failure exacerbation. 3. Acute chronic obstructive pulmonary disease exacerbation. 4. History of tobacco abuse. 5. History of cannabis abuse. 6. History of mitral and tricuspid ring annuloplasty for severe regurgitation. PLAN: Cont O2 supp with IV steroids Cont PO Doxy Cont low dose Lasix I d/w Cardiology Consult Pulmonary BMP in AM
[2019-05-23 04:29] LABS: Anion Gap 10 mmol/L (10-20); BUN (Urea Nitrogen) 33 mg/dL (8.4-25.7); Calc. Creatinine Clearance 131 mL/min (70-130); Calcium 9.3 mg/dL (7.8-10.44); Carbon Dioxide 35 mmol/L (22-29); Chloride 99 mmol/L (98-107); Estimated GFR-MDRD Greater than 90; Glucose 114 mg/dL (70-105); Magnesium 2.1 mg/dL (1.6-2.6); Potassium 4.9 mmol/L (3.5-5.1); Sodium 139 mmol/L (136-145)
[2019-05-23] MEDS: methylPREDNISolone Sod Succ 40 MG VIAL IVP SCH ×2 (05:34→14:11)
[2019-05-23] MEDS: HYDROcodone/Acetaminophen 10/325 mg Tablet PO PRN ×4 (05:34→20:21)
[2019-05-23] MEDS: guaiFENesin ER 600 MG TAB PO SCH ×2 (08:57→20:20)
[2019-05-23] MEDS: Doxycycline 100 MG CAP PO SCH ×2 (08:57→20:20)
[2019-05-23] MEDS: Famotidine 20 MG TAB PO SCH ×2 (08:58→20:20)
[2019-05-23] MEDS: Carvedilol 3.125 MG TAB PO SCH ×2 (08:58→18:25)
[2019-05-23] MEDS: Citalopram 20 MG TAB PO SCH (08:59)
[2019-05-23] MEDS: Aspirin 81 mg Enteric Coated Tablet PO SCH (08:59)
[2019-05-23] MEDS: ALPRAZolam 0.25 MG TAB PO PRN ×2 (08:59→20:21)
[2019-05-23] MEDS: Senokot S 8.6-50 MG TAB PO SCH ×2 (08:59→20:20)
[2019-05-23] MEDS: Furosemide 20 MG TAB PO SCH (09:41)
--- NOTE | 2019-05-23 19:14 | PDOC.CPN ---
- Subjective Date: 05/23/19 Time: 19:12 Interval history: He is doing well. No new issues. - Review of Systems General: denies: fever/chills, weight/appetite/sleep changes, night sweats, fatigue Respiratory: denies: cough, congestion, shortness of breath, exercise intolerance Cardiovascular: denies: chest pain, palpitation, edema, paroxysmal nocturnal dyspnea, orthopnea Gastrointestinal: denies: nausea, vomiting, diarrhea, constipation, abd pain, GI bleeding Musculoskeletal: denies: pain, tenderness, stiffness, swelling, arthritis/ arthralgias Neurological: denies: numbness, syncope, seizure, weakness - Objective Allergies/Adverse Reactions: Allergies Allergy/AdvReac Type Severity Reaction Status Date / Time No Known Drug Allergies Allergy Verified 05/19/19 20:57 Visit Medications: Current Medications Acetaminophen (Tylenol) 650 mg PO Q4H PRN PRN Reason: Headache/Fever/Mild Pain (1-3) Hydrocodone Bitart/Acetaminophen ([place] 10/325) 2 tab PO Q6H PRN PRN Reason: Severe Pain (7-10) Last Admin: 05/23/19 11:12 Dose: 2 tab Hydrocodone Bitart/Acetaminophen ([place] 10/325) 1 tab PO Q4H PRN PRN Reason: Moderate Pain (4-6) Last Admin: 05/23/19 15:41 Dose: 1 tab Albuterol/Ipratropium (Duoneb) 3 ml NEB [id number] PRN PRN Reason: SOB &/or Wheezing Albuterol/Ipratropium (Duoneb) 3 ml NEB [id number] SCH Last Admin: 05/23/19 18:30 Dose: Not Given Alprazolam (Xanax) 0.25 mg PO QIDPRN PRN PRN Reason: Anxiety Last Admin: 05/23/19 08:59 Dose: 0.25 mg Aspirin (Ecotrin) 81 mg PO DAILY [facility] Last Admin: 05/23/19 08:59 Dose: 81 mg Calcium Carbonate (Tums) 1,000 mg PO Q4H PRN PRN Reason: Heartburn or Indigestion Carvedilol (Coreg) 3.125 mg PO BID-[facility] Last Admin: 05/23/19 18:25 Dose: 3.125 mg Citalopram Hydrobromide (Celexa) 20 mg PO DAILY [facility] Last Admin: 05/23/19 08:59 Dose: 20 mg Doxycycline Hyclate (Vibramycin) 100 mg PO BID [facility] Last Admin: 05/23/19 08:57 Dose: 100 mg Famotidine (Pepcid) 20 mg PO BID [facility] Last Admin: 05/23/19 08:58 Dose: 20 mg Furosemide (Lasix) 20 mg PO DAILY [facility] Last Admin: 05/23/19 09:41 Dose: Not Given Guaifenesin (Mucinex) 600 mg PO Q12HR [facility] Last Admin: 05/23/19 08:57 Dose: 600 mg Melatonin (Melatonin) 3 mg PO HS PRN PRN Reason: Insomnia Last Admin: 05/22/19 22:10 Dose: 3 mg Polyethylene Glycol (Miralax) 17 gm PO DAILY PRN PRN Reason: Constipation Prednisone (Prednisone) 40 mg PO QA-[facility] Stop: 05/25/19 08:01 Senna/Docusate Sodium (Senokot S) 2 tab PO BID PRN PRN Reason: Constipation Last Admin: 05/21/19 02:26 Dose: 2 tab Senna/Docusate Sodium (Senokot S) 2 tab PO BID [facility] Last Admin: 05/23/19 08:59 Dose: 2 tab Sodium Chloride (Flush - Normal Saline) 10 ml IVF Q12HR [facility] Last Admin: 05/23/19 09:00 Dose: 10 ml Sodium Chloride (Flush - Normal Saline) 10 ml IVF PRN PRN PRN Reason: Saline Flush Vital Signs & Weight: Vital Signs Temp Pulse Resp BP Pulse Ox 05/23/19 15:23 98.1 F 107 H 20 134/84 94 L 05/23/19 14:36 94 16 95 05/23/19 11:05 98.0 F 97 20 119/78 96 05/23/19 10:51 88 16 96 05/23/19 09:05 126/64 05/23/19 07:19 97.4 F L 84 18 104/63 99 Weight 181 lb - Physical Exam General: alert & oriented x3 HEENT: mucus membranes moist Neck: supple neck Cardiac: regular rate and rhythm Lungs: decreased breath sounds Neuro: grossly intact Abdomen: active bowel sounds Extremities: no edema Skin: clear Musculoskeletal: no pain - Labs Result Diagrams: 05/21/19 03:57 05/23/19 03:52 Troponin/CKMB Troponin I Less than 0.010 ng/mL (< 0.028) 05/20/19 00:45 - Telemetry Sinus rhythms and dysrhythmias: sinus rhythm - Assessment/Plan Assessment/Plan: 1. Non ischemic CM EF 20-25% 2. Paroxysmal afib 3. S/P Tricuspid and mitral valve ring annuloplasty. 4. S/P KATERINA ligation during time of open heart surgery, closure confirmed by KIRBY done in 2017 5. COPD exacerbation. PLAN: - AICD Tuesday by Dr. Priest. - Continue current Cv meds otherwise. Agree with daily PO dose of lasix at 20 mg.
[2019-05-23] MEDS: Melatonin 3 MG TAB PO PRN (20:22)
--- NOTE | 2019-05-23 21:15 | PDOC.HOSPP ---
- Subjective Encounter Date: 05/23/19 Encounter Time: 09:45 Subjective: Patient seen and examined for Resp failure. SOB improving. No CP. Mild dry cough. No new complaints. No overnight events - Objective Vital Signs & Weight: Vital Signs (12 hours) Temp Pulse Resp BP BP Pulse Ox 05/23/19 20:10 98.1 F 99 16 134/80 93 L 05/23/19 15:23 98.1 F 107 H 20 134/84 94 L 05/23/19 14:36 94 16 95 05/23/19 11:05 98.0 F 97 20 119/78 96 05/23/19 10:51 88 16 96 Weight Weight 181 lb I&O: 05/22/19 05/23/19 05/24/19 06:59 06:59 06:59 Intake Total 1265 1314 1200 Output Total 3125 1830 350 Balance -6330 -972 850 Result Diagrams: 05/21/19 03:57 05/23/19 03:52 EKG Reviewed by me: Yes (Tele SR) Hospitalist ROS - Review of Systems Respiratory: denies: cough, dry, shortness of breath, hemoptysis, SOB with excertion, pleuritic pain, sputum, wheezing, other Cardiovascular: denies: chest pain, palpitations, orthopnea, paroxysmal noc. dyspnea, edema, light headedness, other - Medication Medications: Active Medications Generic Name Dose Route Start Last Admin Trade Name Freq PRN Reason Stop Dose Admin Hydrocodone Bitart/Acetaminophen 2 tab 05/23/19 10:10 05/23/19 20:21 [place] 10/325 PO 2 tab Q6H PRN Administration Severe Pain (7-10) Hydrocodone Bitart/Acetaminophen 1 tab 05/23/19 10:13 05/23/19 15:41 [place] 10/325 PO 1 tab Q4H PRN Administration Moderate Pain (4-6) Albuterol/Ipratropium 3 ml 05/21/19 15:00 05/23/19 18:30 Duoneb NEB Not Given [id number] TIFFANY Alprazolam 0.25 mg 05/23/19 08:10 05/23/19 20:21 Xanax PO 0.25 mg QIDPRN PRN Administration Anxiety Aspirin 81 mg 05/20/19 09:00 05/23/19 08:59 Ecotrin PO 81 mg DAILY TIFFANY Administration Carvedilol 3.125 mg 05/20/19 17:00 05/23/19 18:25 Coreg PO 3.125 mg BID-WM TIFFANY Administration Citalopram Hydrobromide 20 mg 05/20/19 09:00 05/23/19 08:59 Celexa PO 20 mg DAILY TIFFANY Administration Doxycycline Hyclate 100 mg 05/20/19 21:00 05/23/19 20:20 Vibramycin PO 100 mg BID TIFFANY Administration Famotidine 20 mg 05/20/19 21:00 05/23/19 20:20 Pepcid PO 20 mg BID TIFFANY Administration Furosemide 20 mg 05/23/19 09:00 05/23/19 09:41 Lasix PO Not Given DAILY TIFFANY Guaifenesin 600 mg 05/20/19 21:00 05/23/19 20:20 Mucinex PO 600 mg Q12HR TIFFANY Administration Melatonin 3 mg 05/22/19 21:51 05/23/19 20:22 Melatonin PO 3 mg HS PRN Administration Insomnia Senna/Docusate Sodium 2 tab 05/20/19 13:18 05/21/19 02:26 Senokot S PO 2 tab BID PRN Administration Constipation Senna/Docusate Sodium 2 tab 05/22/19 09:00 05/23/19 20:20 Senokot S PO 2 tab BID TIFFANY Administration Sodium Chloride 10 ml 05/22/19 09:00 05/23/19 20:21 Flush - Normal Saline IVF 10 ml Q12HR TIFFANY Administration - Exam General Appearance: NAD Heart: RRR, no gallops Respiratory: no wheezes, no rales, rhonchi Gastrointestinal: non-tender, non-distended, normal bowel sounds Extremities: no cyanosis Hosp A/P - Plan DVT proph w/SCDs 1. Acute on chronic hypoxic respiratory failure. 2. Acute on chronic systolic heart failure exacerbation. 3. Acute chronic obstructive pulmonary disease exacerbation. 4. History of tobacco abuse. 5. History of cannabis abuse. 6. History of mitral and tricuspid ring annuloplasty for severe regurgitation. PLAN: Cont O2 supp Cont IV solumedrol Cont PO Doxy Reduce Lasix to 20 mg daily Await pulmonary/EP input Cont Cardiac rehab
[2019-05-24] MEDS: HYDROcodone/Acetaminophen 10/325 mg Tablet PO PRN ×5 (04:37→23:46)
--- NOTE | 2019-05-24 08:46 | CON ---
DATE OF CONSULTATION: 05/23/2019 SERVICE: Pulmonary Medicine. REASON FOR CONSULTATION: Respiratory failure. HISTORY OF PRESENT ILLNESS: The patient is a 53-year-old white male with past medical history significant for likely COPD. He also has essentially a fused spine from advanced ankylosing spondylitis preventing him taking deep breaths. He was in his usual state of health until about a month ago when he had a heart issue. He presented to the emergency department, and multiple interventions were performed. Ultimately, on discharge from the hospital, he was slightly volume up, but since then, he has never been able to breathe comfortably. He has no complaints of chills, nausea, vomiting, or fevers. He is coughing up a little bit of white to pale yellow phlegm. Ever since being in the hospital, he has been diuresed aggressively, and he has basically had significant improvement in breathing. At one point, he said he would never use CPAP or BiPAP, but after being placed on it for short period of time, he had a significant improvement in symptoms, he is interested in trying to get set up with something into the outpatient setting. Otherwise, he is in his usual state and has no specific complaints. PAST MEDICAL HISTORY: 1. Chronic systolic heart failure (25%). 2. Nonischemic cardiomyopathy. 3. History of mitral and tricuspid valve replacement secondary to severe regurgitation. 4. Tobacco abuse. 5. History of methamphetamine abuse. 6. Atrial fibrillation, paroxysmal. 7. Anxiety disorder. 8. Ankylosing spondylitis with fused spine. 9. Chronic hypercapnic respiratory failure. PAST SURGICAL HISTORY: 1. Spine surgeries, multiple. 2. Replacement of tricuspid and mitral valves. SOCIAL HISTORY: He uses tobacco and has greater than a [id number] history of smoking. He denies any significant alcohol use. He has a history of drug abuse including methamphetamines and marijuana. He does not use any methamphetamine currently. He has no exposure to chemicals, dust, asbestos, or tuberculosis. FAMILY HISTORY: Noncontributory. ALLERGIES: NO KNOWN DRUG ALLERGIES. MEDICATIONS: List of his inpatient medications was reviewed. No specific updates were made at this time. REVIEW OF SYSTEMS: General; head, ears, eyes, nose, throat; cardiovascular; respiratory; GI; ; musculoskeletal; neurologic; and skin are negative except as mentioned in the HPI. PHYSICAL EXAMINATION: VITAL SIGNS: Afebrile, pulse 97, blood pressure 119/78, respirations 20, saturation 96% on 1 L nasal cannula. GENERAL: The patient is awake and alert, in no apparent distress. LUNGS: Wonderful air entry. No prolonged expiratory phase or wheezing is appreciated. There are minimal dependent crackles present. HEART: Normal rate, regular. ABDOMEN: Soft, nontender, and nondistended. Bowel sounds are positive. MUSCULOSKELETAL: No cyanosis or clubbing. No pitting in the bilateral lower extremities. NEUROLOGIC: Grossly nonfocal. LABORATORY DATA: Sodium 139. Basic metabolic profile is otherwise unremarkable except for a bicarb of 35, likely close to baseline. Liver function studies are unremarkable. BNP 242. Troponin 0.01. Urine drug screen is positive for opiates and cannabinoids. WBC 15.1 and gently uptrending, hemoglobin 13.0, platelets 161,000. IMAGING STUDIES: Chest x-ray demonstrates normal cardiac silhouette. There is a mechanical valve device in place. Sternotomy wires are noted. No obvious effusions or consolidating changes are present, though there is some degree of cephalization into the left apex. ASSESSMENT: 1. Chronic hypoxic and hypercapnic respiratory failure, likely close to baseline. 2. [id number] systolic heart failure, returned to baseline. 3. Possible chronic obstructive pulmonary disease. 4. Ankylosing spondylitis with nearly fused spine. DISCUSSION AND PLAN: Whether the patient has COPD needs to be clarified into the outpatient setting. It is clear to me that he has chronic hypercapnic respiratory failure. I will repeat an ABG to get a baseline value for him as he is close to baseline presently. If he proves to have hypercapnia, I will order a volume controlled ventilation for him for nighttime and as needed daytime use as it is very likely that this is secondary to a restrictive process from his restrictive lung disease. I am doubtful that obstructive sleep apnea would play any role in this. A traditional home BiPAP would be insufficient given the severity of his underlying process. Pulmonary will continue to follow, but Dr. Rojo has an established relationship with Mr. Young and will continue managing him moving forward. 70 minutes have been devoted to this patient in various activities. I personally reviewed all imaging studies and laboratory data noted within this document. For fifty percent of this time, I was interacting with the patient at the bedside or coordinating care with the care team. For the remainder of the time I was immediately available to the patient in the hospital unit. Job ID: [id number] PHILLIP
[2019-05-24] MEDS: Famotidine 20 MG TAB PO SCH ×2 (09:22→20:14)
[2019-05-24] MEDS: Aspirin 81 mg Enteric Coated Tablet PO SCH (09:22)
[2019-05-24] MEDS: Furosemide 20 MG TAB PO SCH (09:22)
[2019-05-24] MEDS: Carvedilol 3.125 MG TAB PO SCH ×2 (09:22→16:36)
[2019-05-24] MEDS: predniSONE 20 MG TAB PO SCH (09:22)
[2019-05-24] MEDS: Citalopram 20 MG TAB PO SCH (09:22)
[2019-05-24] MEDS: Doxycycline 100 MG CAP PO SCH ×2 (09:22→20:14)
[2019-05-24] MEDS: guaiFENesin ER 600 MG TAB PO SCH ×2 (09:23→20:14)
[2019-05-24] MEDS: Senokot S 8.6-50 MG TAB PO SCH ×2 (09:23→20:14)
--- NOTE | 2019-05-24 11:27 | PRG ---
DATE OF SERVICE: 05/24/2019 SUBJECTIVE: This morning, he is doing well. Less shortness of breath, less cough. He is scheduled for an AICD this morning. OBJECTIVE: VITAL SIGNS: Temperature 98, pulse 95, respiratory rate 20, sats 99% on blood pressure 120/82. CHEST: Decreased breath sounds, no wheezing. CARDIAC: Normal S1, S2. No gallops. ABDOMEN: No masses. IMPRESSION: 1. Congestive cardiomyopathy. 2. Chronic obstructive pulmonary disease, former smoker. PLAN: Pulmonary morfin continue present treatment, neb treatments. We will follow post AICD. Low-dose steroids. We will follow. Job ID: [id number]
[2019-05-24] MEDS: ALPRAZolam 0.25 MG TAB PO PRN ×2 (16:36→23:46)
--- NOTE | 2019-05-24 22:13 | PDOC.HOSPP ---
- Subjective Encounter Date: 05/24/19 Encounter Time: 09:00 Subjective: Patient seen and examined for resp failure. Feeling better. No CP. No new complaints. No overnight events - Objective Vital Signs & Weight: Vital Signs (12 hours) Temp Pulse Resp BP Pulse Ox 05/24/19 15:29 98.1 F 95 16 109/65 96 05/24/19 14:11 91 18 99 05/24/19 11:13 97.9 F 95 20 125/78 94 L 05/24/19 10:58 88 20 95 Weight Weight 186 lb 9.6 oz I&O: 05/23/19 05/24/19 05/25/19 06:59 06:59 06:59 Intake Total 1314 1440 1440 Output Total 6336 362 2728 Balance -516 750 -235 Result Diagrams: 05/21/19 03:57 05/23/19 03:52 EKG Reviewed by me: Yes (Tele SR) Hospitalist ROS - Review of Systems Respiratory: denies: cough, dry, shortness of breath, hemoptysis, SOB with excertion, pleuritic pain, sputum, wheezing, other Cardiovascular: denies: chest pain, palpitations, orthopnea, paroxysmal noc. dyspnea, edema, light headedness, other - Medication Medications: Active Medications Generic Name Dose Route Start Last Admin Trade Name Freq PRN Reason Stop Dose Admin Hydrocodone Bitart/Acetaminophen 2 tab 05/23/19 10:10 05/24/19 20:15 [place] 10/325 PO 2 tab Q6H PRN Administration Severe Pain (7-10) Hydrocodone Bitart/Acetaminophen 1 tab 05/23/19 10:13 05/24/19 16:36 [place] 10/325 PO 1 tab Q4H PRN Administration Moderate Pain (4-6) Albuterol/Ipratropium 3 ml 05/21/19 15:00 05/24/19 19:39 Duoneb NEB Not Given [id number] TIFFANY Alprazolam 0.25 mg 05/23/19 08:10 05/24/19 16:36 Xanax PO 0.25 mg QIDPRN PRN Administration Anxiety Aspirin 81 mg 05/20/19 09:00 05/24/19 09:22 Ecotrin PO 81 mg DAILY TIFFANY Administration Carvedilol 3.125 mg 05/20/19 17:00 05/24/19 16:36 Coreg PO 3.125 mg BID-WM TIFFANY Administration Citalopram Hydrobromide 20 mg 05/20/19 09:00 05/24/19 09:22 Celexa PO 20 mg DAILY TIFFANY Administration Doxycycline Hyclate 100 mg 05/20/19 21:00 05/24/19 20:14 Vibramycin PO 100 mg BID TIFFANY Administration Famotidine 20 mg 05/20/19 21:00 05/24/19 20:14 Pepcid PO 20 mg BID TIFFANY Administration Furosemide 20 mg 05/23/19 09:00 05/24/19 09:22 Lasix PO 20 mg DAILY TIFFANY Administration Guaifenesin 600 mg 05/20/19 21:00 05/24/19 20:14 Mucinex PO 600 mg Q12HR TIFFANY Administration Melatonin 3 mg 05/22/19 21:51 05/23/19 20:22 Melatonin PO 3 mg HS PRN Administration Insomnia Prednisone 40 mg 05/24/19 08:00 05/24/19 09:22 Prednisone PO 05/25/19 08:01 40 mg QAM-WM TIFFANY Administration Senna/Docusate Sodium 2 tab 05/20/19 13:18 05/21/19 02:26 Senokot S PO 2 tab BID PRN Administration Constipation Senna/Docusate Sodium 2 tab 05/22/19 09:00 05/24/19 20:14 Senokot S PO 2 tab BID TIFFANY Administration Sodium Chloride 10 ml 05/22/19 09:00 05/24/19 20:14 Flush - Normal Saline IVF 10 ml Q12HR TIFFANY Administration - Exam General Appearance: NAD Heart: RRR, no gallops Respiratory: no wheezes, no ronchi Gastrointestinal: non-tender, non-distended, normal bowel sounds Extremities: no cyanosis Hosp A/P - Plan DVT proph w/SCDs 1. Acute on chronic hypoxic respiratory failure. 2. Acute on chronic systolic heart failure exacerbation. Not on ACEI/ARB/ Aldactone due to relative hypotension. 3. Acute chronic obstructive pulmonary disease exacerbation. 4. History of tobacco abuse. 5. History of cannabis abuse. 6. History of mitral and tricuspid ring annuloplasty for severe regurgitation. PLAN: Cont Lasix 20 mg daily Cont Coreg Cont Prednisone for 1 more day AICD in AM
[2019-05-24] MEDS: Melatonin 3 MG TAB PO PRN (23:46)
[2019-05-25] MEDS ORDERED: CEFAZOLIN 2 GM in Premix Bag 1 BAG IVPB SCH (04:15)
[2019-05-25] MEDS: Carvedilol 3.125 MG TAB PO SCH ×2 (05:30→18:09)
[2019-05-25] MEDS: HYDROcodone/Acetaminophen 10/325 mg Tablet PO PRN ×2 (06:19→15:49)
[2019-05-25] MEDS: ALPRAZolam 0.25 MG TAB PO PRN ×2 (07:33→20:30)
--- NOTE | 2019-05-25 08:13 | PRG ---
DATE OF SERVICE: 05/24/2019 SUBJECTIVE: Mr. Young is doing better. improving. He denies chest pain. No dizziness or loss of consciousness. OBJECTIVE DATA: VITAL SIGNS: Blood pressure is 128/82, heart rate 95, respiratory rate is 20, and temperature is 98.4 degrees Fahrenheit. GENERAL: This is an alert and oriented man, in no apparent distress. NECK: Supple. Jugular veins not distended. CHEST: Coarse without crackles. HEART: Sounds are regular to rate and rhythm. No murmur or gallop. ABDOMEN: Benign. Bowel sounds positive. EXTREMITIES: Lower extremities without edema, clubbing, or cyanosis. DATABASE: Telemetry strips reviewed, revealing sinus rhythm, sinus tachycardia. LABORATORY DATA: White cell count 15.1 on . No recent labs. ASSESSMENT AND PLAN: Mr. Young is a 53-year-old man with history of chronic systolic congestive heart failure, nonischemic cardiomyopathy, and valvular heart disease with prior mitral and tricuspid valve annuloplasty rings in place. He also had a maze procedure and left atrial appendage ligation at the time of his heart surgery with closure confirmed by KIRBY in 2019. He has presumably reduced LVEF and has nonsustained ventricular tachycardia with a risk of future ventricular arrhythmias and therefore ICD implantation reasonable. Hence history of atrial arrhythmia, an atrial lead might be consideration. Risks and benefits detailed. The patient understands and willing to proceed. We will schedule him for a procedure tomorrow. N.p.o. after midnight. Job ID: [id number]
[2019-05-25] MEDS: predniSONE 20 MG TAB PO SCH (08:20)
[2019-05-25] MEDS: Citalopram 20 MG TAB PO SCH (08:20)
[2019-05-25] MEDS: Aspirin 81 mg Enteric Coated Tablet PO SCH (08:20)
[2019-05-25] MEDS: Doxycycline 100 MG CAP PO SCH ×2 (08:20→20:30)
[2019-05-25] MEDS: guaiFENesin ER 600 MG TAB PO SCH ×2 (08:21→20:30)
[2019-05-25] MEDS: Furosemide 20 MG TAB PO SCH (08:21)
[2019-05-25] MEDS: Famotidine 20 MG TAB PO SCH ×2 (08:21→20:30)
[2019-05-25] MEDS: Senokot S 8.6-50 MG TAB PO SCH ×2 (08:21→20:34)
[2019-05-25] MEDS ORDERED: Fentanyl 100 MCG/2 ML VIAL ONE ×2 (10:08)
[2019-05-25] MEDS ORDERED: Midazolam HCl 5 mg/5 ml Vial ONE (10:09)
[2019-05-25] MEDS ORDERED: PROPOFOL 200 MG/20 ML VIAL ONE (10:11)
[2019-05-25] MEDS ORDERED: Propofol 1,000 MG/100 ML VIAL IV ONE (10:17)
[2019-05-25] MEDS ORDERED: Iopamidol 370 76% 50 ML VIAL FS ONE (11:54)
--- NOTE | 2019-05-25 12:26 | RAD ---
Chest AP view INDICATION: Post cardiac device placement COMPARISON: May 19, 2019 FINDINGS: Lungs: The lungs are clear Cardiac silhouette: Mild cardiomegaly is stable. The closure device involving the left atrial append age is stable. Sternotomy changes are stable appearing. There is been interval placement of a dual lead AICD with a generator pack overlying the left chest wall. Pulmonary vasculature: Normal Pleural spaces: No pleural effusion or pneumothorax is demonstrated. Upper abdomen: No abnormality seen. Osseous structures: No acute osseous abnormality. Additional findings: None. IMPRESSION: Interval placement of a dual lead AICD without evidence of complication. Stable mild cardiomegaly.
--- NOTE | 2019-05-25 16:58 | PDOC.HOSPP ---
- Subjective Encounter Date: 05/25/19 Encounter Time: 08:00 Subjective: Patient seen and examined for Resp failure. No CP/SOB. No new complaints. No overnight events - Objective Vital Signs & Weight: Vital Signs (12 hours) Temp Pulse Resp BP BP Pulse Ox 05/25/19 15:09 97.5 F L 87 16 118/68 95 05/25/19 14:26 87 16 05/25/19 13:22 97.5 F L 90 16 129/77 93 L 05/25/19 07:35 97.7 F 89 16 120/75 95 Weight Weight 185 lb 5 oz I&O: 05/24/19 05/25/19 05/26/19 06:59 06:59 06:59 Intake Total 1440 1920 Output Total 690 3950 Balance 750 -2030 Result Diagrams: 05/21/19 03:57 05/23/19 03:52 EKG Reviewed by me: Yes (Tele SR) Hospitalist ROS - Review of Systems Respiratory: denies: cough, dry, shortness of breath, hemoptysis, SOB with excertion, pleuritic pain, sputum, wheezing, other Cardiovascular: denies: chest pain, palpitations, orthopnea, paroxysmal noc. dyspnea, edema, light headedness, other - Medication Medications: Active Medications Generic Name Dose Route Start Last Admin Trade Name Freq PRN Reason Stop Dose Admin Hydrocodone Bitart/Acetaminophen 2 tab 05/23/19 10:10 05/25/19 15:49 [place] 10/325 PO 2 tab Q6H PRN Administration Severe Pain (7-10) Hydrocodone Bitart/Acetaminophen 1 tab 05/23/19 10:13 05/24/19 23:46 [place] 10/325 PO 1 tab Q4H PRN Administration Moderate Pain (4-6) Albuterol/Ipratropium 3 ml 05/21/19 15:00 05/25/19 14:26 Duoneb NEB 3 ml [id number] TIFFANY Administration Alprazolam 0.25 mg 05/23/19 08:10 05/25/19 07:33 Xanax PO 0.25 mg QIDPRN PRN Administration Anxiety Aspirin 81 mg 05/20/19 09:00 05/25/19 08:20 Ecotrin PO 81 mg DAILY TIFFANY Administration Carvedilol 3.125 mg 05/20/19 17:00 05/25/19 05:30 Coreg PO 3.125 mg BID-WM TIFFANY Administration Citalopram Hydrobromide 20 mg 05/20/19 09:00 05/25/19 08:20 Celexa PO 20 mg DAILY TIFFANY Administration Doxycycline Hyclate 100 mg 05/20/19 21:00 05/25/19 08:20 Vibramycin PO 100 mg BID TIFFANY Administration Famotidine 20 mg 05/20/19 21:00 05/25/19 08:21 Pepcid PO 20 mg BID TIFFANY Administration Furosemide 20 mg 05/23/19 09:00 05/25/19 08:21 Lasix PO 20 mg DAILY TIFFANY Administration Guaifenesin 600 mg 05/20/19 21:00 05/25/19 08:21 Mucinex PO 600 mg Q12HR TIFFANY Administration Melatonin 3 mg 05/22/19 21:51 05/24/19 23:46 Melatonin PO 3 mg HS PRN Administration Insomnia Senna/Docusate Sodium 2 tab 05/20/19 13:18 05/21/19 02:26 Senokot S PO 2 tab BID PRN Administration Constipation Senna/Docusate Sodium 2 tab 05/22/19 09:00 05/25/19 08:21 Senokot S PO 2 tab BID TIFFANY Administration Sodium Chloride 10 ml 05/22/19 09:00 05/25/19 08:21 Flush - Normal Saline IVF 10 ml Q12HR TIFFANY Administration - Exam General Appearance: NAD Neck: supple, no JVD Heart: no gallops, no rubs Respiratory: no wheezes, no rales Gastrointestinal: non-tender, non-distended Extremities: no cyanosis Hosp A/P - Plan DVT proph w/SCDs 1. Acute on chronic hypoxic respiratory failure. 2. Acute on chronic systolic heart failure exacerbation. Not on ACEI/ARB/ Aldactone due to relative hypotension. 3. Acute chronic obstructive pulmonary disease exacerbation. 4. History of tobacco abuse. 5. History of cannabis abuse. 6. History of mitral and tricuspid ring annuloplasty for severe regurgitation. PLAN: Cont Coreg with Lasix 20 mg daily Cont Coreg Complete Prednisone AICD today DC in AM if ok with Consultants
[2019-05-25] MEDS: CEFAZOLIN 2 GM in Premix Bag 1 BAG IVPB SCH (18:10)
[2019-05-25] MEDS ORDERED: HYDROcodone/Acetaminophen 10/325 mg Tablet PO SCH (19:00)
--- NOTE | 2019-05-25 20:47 | PDOC.CPN ---
- Subjective Date: 05/25/19 Time: 20:46 Interval history: Had AICD placed earlier today. Doing well. Sore left upper chest. - Review of Systems General: denies: fever/chills, weight/appetite/sleep changes, night sweats, fatigue Respiratory: denies: cough, congestion, shortness of breath, exercise intolerance Cardiovascular: denies: chest pain, palpitation, edema, paroxysmal nocturnal dyspnea, orthopnea Gastrointestinal: denies: nausea, vomiting, diarrhea, constipation, abd pain, GI bleeding Musculoskeletal: denies: pain, tenderness, stiffness, swelling, arthritis/ arthralgias Neurological: denies: numbness, syncope, seizure, weakness - Objective Allergies/Adverse Reactions: Allergies Allergy/AdvReac Type Severity Reaction Status Date / Time No Known Drug Allergies Allergy Verified 05/19/19 20:57 Visit Medications: Current Medications Acetaminophen (Tylenol) 650 mg PO Q4H PRN PRN Reason: Headache/Fever/Mild Pain (1-3) Hydrocodone Bitart/Acetaminophen ([place] 10/325) 2 tab PO Q6H PRN PRN Reason: Severe Pain (7-10) Last Admin: 05/25/19 15:49 Dose: 2 tab Hydrocodone Bitart/Acetaminophen ([place] 10/325) 1 tab PO Q4H PRN PRN Reason: Moderate Pain (4-6) Last Admin: 05/24/19 23:46 Dose: 1 tab Hydrocodone Bitart/Acetaminophen ([place] 10/325) 1 tab PO NOW [facility] Stop: 05/25/19 21:00 Last Admin: 05/25/19 18:55 Dose: 1 tab Albuterol/Ipratropium (Duoneb) 3 ml NEB [id number] PRN PRN Reason: SOB &/or Wheezing Albuterol/Ipratropium (Duoneb) 3 ml NEB [id number] SCH Last Admin: 05/25/19 19:08 Dose: 3 ml Alprazolam (Xanax) 0.25 mg PO QIDPRN PRN PRN Reason: Anxiety Last Admin: 05/25/19 20:30 Dose: 0.25 mg Aspirin (Ecotrin) 81 mg PO DAILY [facility] Last Admin: 05/25/19 08:20 Dose: 81 mg Calcium Carbonate (Tums) 1,000 mg PO Q4H PRN PRN Reason: Heartburn or Indigestion Carvedilol (Coreg) 3.125 mg PO BID-[facility] Last Admin: 05/25/19 18:09 Dose: 3.125 mg Cephalexin (Keflex) 500 mg PO Q6HR [facility] Stop: 06/02/19 00:00 Citalopram Hydrobromide (Celexa) 20 mg PO DAILY [facility] Last Admin: 05/25/19 08:20 Dose: 20 mg Doxycycline Hyclate (Vibramycin) 100 mg PO BID [facility] Last Admin: 05/25/19 20:30 Dose: 100 mg Famotidine (Pepcid) 20 mg PO BID [facility] Last Admin: 05/25/19 20:30 Dose: 20 mg Furosemide (Lasix) 20 mg PO DAILY [facility] Last Admin: 05/25/19 08:21 Dose: 20 mg Guaifenesin (Mucinex) 600 mg PO Q12HR [facility] Last Admin: 05/25/19 20:30 Dose: 600 mg Cefazolin Sodium/Dextrose 2 gm (/ Device) 50 mls @ 100 mls/hr IVPB ONCALL-OR [facility] Stop: 05/26/19 04:16 Cefazolin Sodium/Dextrose 2 gm (/ Device) 50 mls @ 100 mls/hr IVPB 0200,1000, 1800 [facility] Stop: 05/26/19 02:29 Last Admin: 05/25/19 18:10 Dose: 50 mls Melatonin (Melatonin) 3 mg PO HS PRN PRN Reason: Insomnia Last Admin: 05/24/19 23:46 Dose: 3 mg Polyethylene Glycol (Miralax) 17 gm PO DAILY PRN PRN Reason: Constipation Senna/Docusate Sodium (Senokot S) 2 tab PO BID PRN PRN Reason: Constipation Last Admin: 05/21/19 02:26 Dose: 2 tab Senna/Docusate Sodium (Senokot S) 2 tab PO BID [facility] Last Admin: 05/25/19 20:34 Dose: 2 tab Sodium Chloride (Flush - Normal Saline) 10 ml IVF Q12HR [facility] Last Admin: 05/25/19 20:33 Dose: 10 ml Sodium Chloride (Flush - Normal Saline) 10 ml IVF PRN PRN PRN Reason: Saline Flush Vital Signs & Weight: Vital Signs Temp Pulse Resp BP BP Pulse Ox 05/25/19 19:08 98 16 96 05/25/19 15:09 97.5 F L 87 16 118/68 95 05/25/19 14:26 87 16 05/25/19 13:22 97.5 F L 90 16 129/77 93 L Weight 185 lb 5 oz - Physical Exam General: alert & oriented x3 HEENT: mucus membranes moist Neck: supple neck Cardiac: regular rate and rhythm Lungs: clear to auscultation Neuro: grossly intact Abdomen: active bowel sounds Extremities: no edema Skin: clear Musculoskeletal: no pain - Labs Result Diagrams: 05/21/19 03:57 05/23/19 03:52 Troponin/CKMB Troponin I Less than 0.010 ng/mL (< 0.028) 05/20/19 00:45 - Telemetry Sinus rhythms and dysrhythmias: sinus tachycardia - Assessment/Plan Assessment/Plan: 1. Non ischemic CM EF 20-25% 2. Paroxysmal afib 3. S/P Tricuspid and mitral valve ring annuloplasty. 4. S/P KATERINA ligation during time of open heart surgery, closure confirmed by KIRBY done in 2018 5. COPD exacerbation. PLAN: - AICD in place. - Home tomorrow if he remains stable.
[2019-05-25] MEDS ORDERED: HYDROcodone/Acetaminophen 10/325 mg Tablet PO PRN (21:49)
[2019-05-25] MEDS: Ketorolac Tromethamine 30 MG/ML VIAL IVP PRN (22:38)
[2019-05-26] MEDS: HYDROcodone/Acetaminophen 10/325 mg Tablet PO PRN ×4 (01:10→19:57)
[2019-05-26] MEDS: CEFAZOLIN 2 GM in Premix Bag 1 BAG IVPB SCH (01:11)
[2019-05-26] MEDS: Ketorolac Tromethamine 30 MG/ML VIAL IVP PRN ×3 (05:23→17:38)
[2019-05-26] MEDS: Cephalexin 250 MG CAP PO SCH ×4 (05:25→23:35)
[2019-05-26] MEDS: Aspirin 81 mg Enteric Coated Tablet PO SCH (08:28)
[2019-05-26] MEDS: Carvedilol 3.125 MG TAB PO SCH ×2 (08:28→17:38)
[2019-05-26] MEDS: Citalopram 20 MG TAB PO SCH (08:28)
[2019-05-26] MEDS: guaiFENesin ER 600 MG TAB PO SCH ×2 (08:29→19:57)
[2019-05-26] MEDS: Doxycycline 100 MG CAP PO SCH (08:29)
[2019-05-26] MEDS: Furosemide 20 MG TAB PO SCH (08:29)
[2019-05-26] MEDS: Famotidine 20 MG TAB PO SCH ×2 (08:29→19:57)
[2019-05-26] MEDS: Senokot S 8.6-50 MG TAB PO SCH ×2 (08:29→19:57)
[2019-05-26] MEDS: ALPRAZolam 0.25 MG TAB PO PRN ×2 (11:26→23:35)
--- NOTE | 2019-05-26 13:02 | PDOC.HOSPP ---
- Subjective Encounter Date: 05/26/19 Encounter Time: 09:30 Subjective: c/o back pain and wants 2 norco q4h no chest pain, is watching tv. - Objective Vital Signs & Weight: Vital Signs (12 hours) Temp Pulse Resp BP Pulse Ox 05/26/19 11:57 92 18 05/26/19 11:42 97.8 F 92 18 118/70 96 05/26/19 07:57 105 H 20 91 L 05/26/19 07:26 97.4 F L 100 16 113/63 94 L 05/26/19 04:00 97.5 F L 98 23 H 125/76 98 Weight Weight 193 lb 8 oz I&O: 05/25/19 05/26/19 05/27/19 06:59 06:59 06:59 Intake Total 1920 1560 Output Total 3950 1175 Balance -2030 385 Result Diagrams: 05/21/19 03:57 05/23/19 03:52 Hospitalist ROS - Medication Medications: Active Medications Generic Name Dose Route Start Last Admin Trade Name Freq PRN Reason Stop Dose Admin Hydrocodone Bitart/Acetaminophen 2 tab 05/23/19 10:10 05/26/19 07:36 [place] 10/325 PO 2 tab Q6H PRN Administration Severe Pain (7-10) Albuterol/Ipratropium 3 ml 05/21/19 15:00 05/26/19 11:57 Duoneb NEB 3 ml [id number] TIFFANY Administration Alprazolam 0.25 mg 05/23/19 08:10 05/26/19 11:26 Xanax PO 0.25 mg QIDPRN PRN Administration Anxiety Aspirin 81 mg 05/20/19 09:00 05/26/19 08:28 Ecotrin PO 81 mg DAILY TIFFANY Administration Carvedilol 3.125 mg 05/20/19 17:00 05/26/19 08:28 Coreg PO 3.125 mg BID-WM TIFFANY Administration Cephalexin 500 mg 05/26/19 06:00 05/26/19 11:25 Keflex PO 06/02/19 00:00 500 mg Q6HR TIFFANY Administration Citalopram Hydrobromide 20 mg 05/20/19 09:00 05/26/19 08:28 Celexa PO 20 mg DAILY TIFFANY Administration Doxycycline Hyclate 100 mg 05/20/19 21:00 05/26/19 08:29 Vibramycin PO 100 mg BID TIFFANY Administration Famotidine 20 mg 05/20/19 21:00 05/26/19 08:29 Pepcid PO 20 mg BID TIFFANY Administration Furosemide 20 mg 05/23/19 09:00 05/26/19 08:29 Lasix PO 20 mg DAILY TIFFANY Administration Guaifenesin 600 mg 05/20/19 21:00 05/26/19 08:29 Mucinex PO 600 mg Q12HR TIFFANY Administration Ketorolac Tromethamine 30 mg 05/25/19 21:48 05/26/19 11:25 Toradol IVP 30 mg Q6H PRN Administration Pain Melatonin 3 mg 05/22/19 21:51 05/24/19 23:46 Melatonin PO 3 mg HS PRN Administration Insomnia Senna/Docusate Sodium 2 tab 05/20/19 13:18 05/21/19 02:26 Senokot S PO 2 tab BID PRN Administration Constipation Senna/Docusate Sodium 2 tab 05/22/19 09:00 05/26/19 08:29 Senokot S PO 2 tab BID TIFFANY Administration Sodium Chloride 10 ml 05/22/19 09:00 05/26/19 08:30 Flush - Normal Saline IVF 10 ml Q12HR TIFFANY Administration - Exam General Appearance: awake alert Eye: PERRL, anicteric sclera ENT: no oropharyngeal lesions, moist mucosa Neck: supple, no JVD Heart: RRR, no murmur Respiratory: no wheezes, no rales Gastrointestinal: soft, non-tender, non-distended, normal bowel sounds Extremities: no cyanosis, no edema Neurological: cranial nerve grossly intact, no focal deficits Psychiatric: normal affect, A&O x 3 Hosp A/P (1) S/P implantation of automatic cardioverter/defibrillator (AICD) Code(s): Z95.810 - PRESENCE OF AUTOMATIC (IMPLANTABLE) CARDIAC DEFIBRILLATOR Status: Acute (2) Chronic pain syndrome Code(s): G89.4 - CHRONIC PAIN SYNDROME Status: Chronic (3) Anxiety disorder Code(s): F41.9 - ANXIETY DISORDER, UNSPECIFIED Status: Chronic Qualifiers: Anxiety disorder type: generalized anxiety disorder Qualified Code(s): F41.1 - Generalized anxiety disorder (4) COPD (chronic obstructive pulmonary disease) Status: Chronic Qualifiers: COPD type: chronic bronchitis (5) Depression, major Code(s): F32.9 - MAJOR DEPRESSIVE DISORDER, SINGLE EPISODE, UNSPECIFIED Status : Chronic Qualifiers: Major depression recurrence: unspecified whether recurrent (6) HTN (hypertension) Code(s): I10 - ESSENTIAL (PRIMARY) HYPERTENSION Status: Chronic Qualifiers: Hypertension type: essential hypertension Qualified Code(s): I10 - Essential (primary) hypertension (7) Non-ischemic cardiomyopathy Code(s): I42.8 - OTHER CARDIOMYOPATHIES Status: Chronic (8) Paroxysmal atrial fibrillation Code(s): I48.0 - PAROXYSMAL ATRIAL FIBRILLATION Status: Chronic (9) Tobacco abuse Code(s): Z72.0 - TOBACCO USE Status: Chronic (10) Acute respiratory failure with hypoxia Code(s): J96.01 - ACUTE RESPIRATORY FAILURE WITH HYPOXIA Status: Acute (11) ALEX (acute kidney injury) Code(s): N17.9 - ACUTE KIDNEY FAILURE, UNSPECIFIED Status: Acute - Plan taper and dc nasal oxygen he needs to ambulate in hallway as tolerated continue lasix, nebs, asp, coreg, citalopram, keflex and doxy (not sure if he needs both?) hemostable dc plan in am will give one additional dose of lasix today, cmp now to check for renal function and electrolytes.
[2019-05-26] MEDS ORDERED: Furosemide 40 MG/4 ML VIAL SLOW IVP SCH (13:15)
[2019-05-26 13:42] LABS: ALT (SGPT) 45 U/L (8-55); AST (SGOT) 23 U/L (5-34); Albumin 3.6 g/dL (3.5-5.0); Alkaline Phosphatase 103 U/L (40-110); Anion Gap 12 mmol/L (10-20); BUN (Urea Nitrogen) 34 mg/dL (8.4-25.7); Bilirubin, Total 0.5 mg/dL (0.2-1.2); Calc. Creatinine Clearance 132 mL/min (70-130); Calcium 9.6 mg/dL (7.8-10.44); Carbon Dioxide 34 mmol/L (22-29); Chloride 99 mmol/L (98-107); Estimated GFR-MDRD Greater than 90; Globulin 2.3 g/dL (2.4-3.5); Glucose 87 mg/dL (70-105); Potassium 4.8 mmol/L (3.5-5.1); Protein, Total 5.9 g/dL (6.0-8.3); Sodium 140 mmol/L (136-145)
--- NOTE | 2019-05-26 16:53 | PRG ---
DATE OF SERVICE: 05/26/2019 SUBJECTIVE: Carlos Young has no complaints. He had his defibrillator placed. OBJECTIVE: VITAL SIGNS: He is afebrile, heart rate 106, respiratory rate 18 to low 20s, oximetry is 94 on room air, blood pressure 119/72. LUNGS: Clear. HEART: Regular rhythm. ABDOMEN: Soft. EXTREMITIES: Without edema or asymmetry. He has multiple tattoos on all of his extremities. He is in no distress and is quite pleasant and cooperative. IMPRESSION: 1. Chronic obstructive pulmonary disease, clinically stable. 2. Cardiomyopathy, clinically stable. 3. Status post defibrillator placement, clinically stable. PLAN: Increase his activity. Primary issues are per Cardiology at this point. He is on prophylactic antibiotics for his defibrillator. Getting his nebulizer treatments. He is not on any steroids, but appears to be stable. Job ID: [id number]
--- NOTE | 2019-05-26 17:30 | PDOC.CPN ---
- Subjective Date: 05/26/19 Time: 12:25 - Review of Systems General: denies: fever/chills, weight/appetite/sleep changes, night sweats, fatigue Respiratory: reports: shortness of breath. denies: cough, congestion, exercise intolerance Cardiovascular: reports: edema. denies: chest pain, palpitation, paroxysmal nocturnal dyspnea, orthopnea Gastrointestinal: denies: nausea, vomiting, diarrhea, constipation, abd pain, GI bleeding Musculoskeletal: denies: pain, tenderness, stiffness, swelling, arthritis/ arthralgias Neurological: denies: numbness, syncope, seizure, weakness - Objective Allergies/Adverse Reactions: Allergies Allergy/AdvReac Type Severity Reaction Status Date / Time No Known Drug Allergies Allergy Verified 05/19/19 20:57 Visit Medications: Current Medications Acetaminophen (Tylenol) 650 mg PO Q4H PRN PRN Reason: Headache/Fever/Mild Pain (1-3) Hydrocodone Bitart/Acetaminophen ([place] 10/325) 2 tab PO Q6H PRN PRN Reason: Severe Pain (7-10) Last Admin: 05/26/19 13:38 Dose: 2 tab Albuterol/Ipratropium (Duoneb) 3 ml NEB [id number] PRN PRN Reason: SOB &/or Wheezing Albuterol/Ipratropium (Duoneb) 3 ml NEB [id number] SCH Last Admin: 05/26/19 16:08 Dose: 3 ml Alprazolam (Xanax) 0.25 mg PO QIDPRN PRN PRN Reason: Anxiety Last Admin: 05/26/19 11:26 Dose: 0.25 mg Aspirin (Ecotrin) 81 mg PO DAILY [facility] Last Admin: 05/26/19 08:28 Dose: 81 mg Calcium Carbonate (Tums) 1,000 mg PO Q4H PRN PRN Reason: Heartburn or Indigestion Carvedilol (Coreg) 3.125 mg PO BID-[facility] Last Admin: 05/26/19 08:28 Dose: 3.125 mg Cephalexin (Keflex) 500 mg PO Q6HR [facility] Stop: 06/02/19 00:00 Last Admin: 05/26/19 11:25 Dose: 500 mg Citalopram Hydrobromide (Celexa) 20 mg PO DAILY [facility] Last Admin: 05/26/19 08:28 Dose: 20 mg Famotidine (Pepcid) 20 mg PO BID [facility] Last Admin: 05/26/19 08:29 Dose: 20 mg Furosemide (Lasix) 20 mg PO DAILY [facility] Last Admin: 05/26/19 08:29 Dose: 20 mg Guaifenesin (Mucinex) 600 mg PO Q12HR [facility] Last Admin: 05/26/19 08:29 Dose: 600 mg Ketorolac Tromethamine (Toradol) 30 mg IVP Q6H PRN PRN Reason: Pain Last Admin: 05/26/19 11:25 Dose: 30 mg Lidocaine (Lidoderm 5% Patch) 2 patch TD DAILY [facility] Melatonin (Melatonin) 3 mg PO HS PRN PRN Reason: Insomnia Last Admin: 05/24/19 23:46 Dose: 3 mg Miscellaneous Medication (Lidocaine Patch Removal) 1 each TOP 2100 [facility] Polyethylene Glycol (Miralax) 17 gm PO DAILY PRN PRN Reason: Constipation Senna/Docusate Sodium (Senokot S) 2 tab PO BID PRN PRN Reason: Constipation Last Admin: 05/21/19 02:26 Dose: 2 tab Senna/Docusate Sodium (Senokot S) 2 tab PO BID [facility] Last Admin: 05/26/19 08:29 Dose: 2 tab Sodium Chloride (Flush - Normal Saline) 10 ml IVF Q12HR [facility] Last Admin: 05/26/19 08:30 Dose: 10 ml Sodium Chloride (Flush - Normal Saline) 10 ml IVF PRN PRN PRN Reason: Saline Flush Vital Signs & Weight: Vital Signs Temp Pulse Resp BP Pulse Ox 05/26/19 16:08 106 H 18 05/26/19 15:19 97.5 F L 106 H 25 H 119/72 94 L 05/26/19 11:57 92 18 05/26/19 11:42 97.8 F 92 18 118/70 96 05/26/19 07:57 105 H 20 91 L 05/26/19 07:26 97.4 F L 100 16 113/63 94 L Weight 193 lb 8 oz - Physical Exam General: alert & oriented x3 HEENT: mucus membranes moist, normocephaly Neck: supple neck Cardiac: regular rate and rhythm Lungs: decreased breath sounds Neuro: grossly intact Abdomen: active bowel sounds Extremities: 1+ LE edema Skin: clear Musculoskeletal: no pain - Labs Result Diagrams: 05/21/19 03:57 05/26/19 13:15 Troponin/CKMB Troponin I Less than 0.010 ng/mL (< 0.028) 05/20/19 00:45 - Telemetry Sinus rhythms and dysrhythmias: sinus rhythm - Assessment/Plan Assessment/Plan: 1. Non ischemic CM EF 20-25% 2. Paroxysmal afib 3. S/P Tricuspid and mitral valve ring annuloplasty. 4. S/P KATERINA ligation during time of open heart surgery, closure confirmed by KIRBY done in 2018 5. COPD exacerbation. PLAN: - AICD in place. - He is volume up today. IV lasix started.
[2019-05-27] MEDS: HYDROcodone/Acetaminophen 10/325 mg Tablet PO PRN ×3 (02:10→20:20)
[2019-05-27 04:23] LABS: Anion Gap 11 mmol/L (10-20); BUN (Urea Nitrogen) 35 mg/dL (8.4-25.7); Calc. Creatinine Clearance 117 mL/min (70-130); Calcium 9.3 mg/dL (7.8-10.44); Carbon Dioxide 36 mmol/L (22-29); Chloride 97 mmol/L (98-107); Estimated GFR-MDRD 86; Glucose 84 mg/dL (70-105); Sodium 139 mmol/L (136-145)
[2019-05-27] MEDS: Cephalexin 250 MG CAP PO SCH ×3 (05:41→17:50)
[2019-05-27] MEDS: ALPRAZolam 0.25 MG TAB PO PRN (05:45)
[2019-05-27] MEDS ORDERED: Furosemide 40 MG/4 ML VIAL SLOW IVP SCH (09:00)
[2019-05-27] MEDS: Lidocaine 5% Patch TD SCH (09:42)
[2019-05-27] MEDS: Aspirin 81 mg Enteric Coated Tablet PO SCH (09:43)
[2019-05-27] MEDS: Famotidine 20 MG TAB PO SCH ×2 (09:44→20:19)
[2019-05-27] MEDS: Carvedilol 3.125 MG TAB PO SCH ×2 (09:45→17:51)
[2019-05-27] MEDS: Senokot S 8.6-50 MG TAB PO SCH ×2 (09:45→20:19)
[2019-05-27] MEDS: Citalopram 20 MG TAB PO SCH (09:45)
[2019-05-27] MEDS: guaiFENesin ER 600 MG TAB PO SCH ×2 (09:45→20:19)
--- NOTE | 2019-05-27 11:53 | PDOC.HOSPP ---
- Subjective Encounter Date: 05/27/19 Encounter Time: 09:25 Subjective: no sob or chest pain. Has increasing edema in legs and abd wall now. Had bm this am and is passing flatus. has lower back pain and wants more pain meds for it, is currently on norco 2 tabs q6h, lidocaine tts patch x2. Is ambulating in room and hallway per patient. - Objective Vital Signs & Weight: Vital Signs (12 hours) Temp Pulse Resp BP BP Pulse Ox 05/27/19 11:44 98.4 F 77 20 125/76 97 05/27/19 11:31 101 H 16 05/27/19 07:45 107 H 17 05/27/19 07:34 97.8 F 110 H 16 119/71 96 05/27/19 04:00 98.4 F 112 H 20 128/67 93 L Weight Weight 192 lb 11.2 oz I&O: 05/26/19 05/27/19 05/28/19 06:59 06:59 06:59 Intake Total 1560 1560 Output Total 1175 2300 Balance 385 -740 Result Diagrams: 05/21/19 03:57 05/27/19 03:49 Hospitalist ROS - Medication Medications: Active Medications Generic Name Dose Route Start Last Admin Trade Name Freq PRN Reason Stop Dose Admin Hydrocodone Bitart/Acetaminophen 2 tab 05/23/19 10:10 05/27/19 09:46 [place] 10/325 PO 2 tab Q6H PRN Administration Severe Pain (7-10) Albuterol/Ipratropium 3 ml 05/21/19 15:00 05/27/19 11:31 Duoneb NEB 3 ml [id number] TIFFANY Administration Alprazolam 0.25 mg 05/23/19 08:10 05/27/19 05:45 Xanax PO 0.25 mg QIDPRN PRN Administration Anxiety Aspirin 81 mg 05/20/19 09:00 05/27/19 09:43 Ecotrin PO 81 mg DAILY TIFFANY Administration Carvedilol 3.125 mg 05/20/19 17:00 05/27/19 09:45 Coreg PO 3.125 mg BID-WM TIFFANY Administration Cephalexin 500 mg 05/26/19 06:00 05/27/19 05:41 Keflex PO 06/02/19 00:00 500 mg Q6HR TIFFANY Administration Citalopram Hydrobromide 20 mg 05/20/19 09:00 05/27/19 09:45 Celexa PO 20 mg DAILY TIFFANY Administration Famotidine 20 mg 05/20/19 21:00 05/27/19 09:44 Pepcid PO 20 mg BID TIFFANY Administration Guaifenesin 600 mg 05/20/19 21:00 05/27/19 09:45 Mucinex PO 600 mg Q12HR TIFFANY Administration Lidocaine 2 patch 05/27/19 09:00 05/27/19 09:42 Lidoderm 5% Patch TD 2 patch DAILY TIFFANY Administration Melatonin 3 mg 05/22/19 21:51 05/24/19 23:46 Melatonin PO 3 mg HS PRN Administration Insomnia Senna/Docusate Sodium 2 tab 05/20/19 13:18 05/21/19 02:26 Senokot S PO 2 tab BID PRN Administration Constipation Senna/Docusate Sodium 2 tab 05/22/19 09:00 05/27/19 09:45 Senokot S PO 2 tab BID TIFFANY Administration Sodium Chloride 10 ml 05/22/19 09:00 05/27/19 10:03 Flush - Normal Saline IVF 10 ml Q12HR TIFFANY Administration - Exam General Appearance: awake alert Eye: PERRL, anicteric sclera ENT: no oropharyngeal lesions, moist mucosa Neck: supple, no JVD Heart: no murmur, no gallops Respiratory: no wheezes, no rales Gastrointestinal: soft, non-tender, normal bowel sounds, no guarding, no rigidity Extremities: no cyanosis, 2+ LE edema Neurological: cranial nerve grossly intact, no focal deficits Psychiatric: normal affect, A&O x 3 Hosp A/P (1) S/P implantation of automatic cardioverter/defibrillator (AICD) Code(s): Z95.810 - PRESENCE OF AUTOMATIC (IMPLANTABLE) CARDIAC DEFIBRILLATOR Status: Acute (2) Chronic pain syndrome Code(s): G89.4 - CHRONIC PAIN SYNDROME Status: Chronic (3) Anxiety disorder Code(s): F41.9 - ANXIETY DISORDER, UNSPECIFIED Status: Chronic Qualifiers: Anxiety disorder type: generalized anxiety disorder Qualified Code(s): F41.1 - Generalized anxiety disorder (4) COPD (chronic obstructive pulmonary disease) Status: Chronic Qualifiers: COPD type: chronic bronchitis (5) Depression, major Code(s): F32.9 - MAJOR DEPRESSIVE DISORDER, SINGLE EPISODE, UNSPECIFIED Status : Chronic Qualifiers: Major depression recurrence: unspecified whether recurrent (6) HTN (hypertension) Code(s): I10 - ESSENTIAL (PRIMARY) HYPERTENSION Status: Chronic Qualifiers: Hypertension type: essential hypertension Qualified Code(s): I10 - Essential (primary) hypertension (7) Non-ischemic cardiomyopathy Code(s): I42.8 - OTHER CARDIOMYOPATHIES Status: Chronic (8) Paroxysmal atrial fibrillation Code(s): I48.0 - PAROXYSMAL ATRIAL FIBRILLATION Status: Chronic (9) Tobacco abuse Code(s): Z72.0 - TOBACCO USE Status: Chronic (10) Acute respiratory failure with hypoxia Code(s): J96.01 - ACUTE RESPIRATORY FAILURE WITH HYPOXIA Status: Acute (11) ALEX (acute kidney injury) Code(s): N17.9 - ACUTE KIDNEY FAILURE, UNSPECIFIED Status: Acute (12) Acute on chronic systolic CHF (congestive heart failure) Code(s): I50.23 - ACUTE ON CHRONIC SYSTOLIC (CONGESTIVE) HEART FAILURE Status : Acute - Plan increase iv lasix to 6am and 2pm, watch for renal function. Has increasing edema in leg/thighs and abd wall now. add morphine to his list of pain meds, hold if resp rate is <14/min or lethargic. continue nebs, asp, coreg, citalopram, keflex. hemostable will need 1-2 days more to diurese and switch him to oral bid lasix (home dose)
[2019-05-27] MEDS: Morphine 2 MG/ML SYRINGE SLOW IVP PRN ×2 (12:46→19:39)
[2019-05-27] MEDS: Furosemide 40 MG/4 ML VIAL SLOW IVP SCH (13:21)
--- NOTE | 2019-05-27 16:23 | PRG ---
DATE OF SERVICE: 05/27/2019 SUBJECTIVE: Mr. Young did well overnight. He has no complaints. He denied shortness of breath. OBJECTIVE: VITAL SIGNS: He is afebrile. Heart rate 73, respiratory rate 17, oximetry is 93% on 2 L, and blood pressure 138/59. LUNGS: Clear. HEART: Regular rhythm. ABDOMEN: Soft. IMPRESSION AND PLAN: Chronic obstructive pulmonary disease, clinically stable. We will continue to follow. Job ID: [id number]
--- NOTE | 2019-05-27 17:26 | PDOC.CPN ---
- Subjective Date: 05/27/19 Time: 17:25 Interval history: He is doing better. Has diuresed better and volume is coming out. - Review of Systems General: denies: fever/chills, weight/appetite/sleep changes, night sweats, fatigue Respiratory: reports: shortness of breath, exercise intolerance. denies: cough , congestion Cardiovascular: reports: edema. denies: chest pain, palpitation, paroxysmal nocturnal dyspnea, orthopnea Gastrointestinal: denies: nausea, vomiting, diarrhea, constipation, abd pain, GI bleeding Musculoskeletal: denies: pain, tenderness, stiffness, swelling, arthritis/ arthralgias Neurological: denies: numbness, syncope, seizure, weakness - Objective Allergies/Adverse Reactions: Allergies Allergy/AdvReac Type Severity Reaction Status Date / Time No Known Drug Allergies Allergy Verified 05/19/19 20:57 Visit Medications: Current Medications Acetaminophen (Tylenol) 650 mg PO Q4H PRN PRN Reason: Headache/Fever/Mild Pain (1-3) Hydrocodone Bitart/Acetaminophen ([place] 10/325) 2 tab PO Q6H PRN PRN Reason: Severe Pain (7-10) Last Admin: 05/27/19 09:46 Dose: 2 tab Albuterol/Ipratropium (Duoneb) 3 ml NEB [id number] PRN PRN Reason: SOB &/or Wheezing Albuterol/Ipratropium (Duoneb) 3 ml NEB [id number] SCH Last Admin: 05/27/19 15:09 Dose: 3 ml Alprazolam (Xanax) 0.25 mg PO QIDPRN PRN PRN Reason: Anxiety Last Admin: 05/27/19 05:45 Dose: 0.25 mg Aspirin (Ecotrin) 81 mg PO DAILY [facility] Last Admin: 05/27/19 09:43 Dose: 81 mg Calcium Carbonate (Tums) 1,000 mg PO Q4H PRN PRN Reason: Heartburn or Indigestion Carvedilol (Coreg) 3.125 mg PO BID-[facility] Last Admin: 05/27/19 09:45 Dose: 3.125 mg Cephalexin (Keflex) 500 mg PO Q6HR [facility] Stop: 06/02/19 00:00 Last Admin: 05/27/19 12:46 Dose: 500 mg Citalopram Hydrobromide (Celexa) 20 mg PO DAILY [facility] Last Admin: 05/27/19 09:45 Dose: 20 mg Famotidine (Pepcid) 20 mg PO BID [facility] Last Admin: 05/27/19 09:44 Dose: 20 mg Furosemide (Lasix) 40 mg SLOW IVP 0600,1400 [facility] Last Admin: 05/27/19 13:21 Dose: 40 mg Guaifenesin (Mucinex) 600 mg PO Q12HR [facility] Last Admin: 05/27/19 09:45 Dose: 600 mg Lidocaine (Lidoderm 5% Patch) 2 patch TD DAILY [facility] Last Admin: 05/27/19 09:42 Dose: 2 patch Melatonin (Melatonin) 3 mg PO HS PRN PRN Reason: Insomnia Last Admin: 05/24/19 23:46 Dose: 3 mg Miscellaneous Medication (Lidocaine Patch Removal) 1 each TOP 2100 [facility] Morphine Sulfate (Morphine) 2 mg SLOW IVP Q4H PRN PRN Reason: Pain Last Admin: 05/27/19 12:46 Dose: 2 mg Polyethylene Glycol (Miralax) 17 gm PO DAILY PRN PRN Reason: Constipation Senna/Docusate Sodium (Senokot S) 2 tab PO BID PRN PRN Reason: Constipation Last Admin: 05/21/19 02:26 Dose: 2 tab Senna/Docusate Sodium (Senokot S) 2 tab PO BID [facility] Last Admin: 05/27/19 09:45 Dose: 2 tab Sodium Chloride (Flush - Normal Saline) 10 ml IVF Q12HR [facility] Last Admin: 05/27/19 10:03 Dose: 10 ml Sodium Chloride (Flush - Normal Saline) 10 ml IVF PRN PRN PRN Reason: Saline Flush Vital Signs & Weight: Vital Signs Temp Pulse Resp BP BP Pulse Ox 05/27/19 16:23 97.3 F L 95 16 119/76 94 L 05/27/19 15:09 77 16 05/27/19 11:44 98.4 F 77 20 125/76 97 05/27/19 11:31 101 H 16 05/27/19 07:45 107 H 17 05/27/19 07:34 97.8 F 110 H 16 119/71 96 Weight 192 lb 11.2 oz - Physical Exam General: alert & oriented x3 HEENT: mucus membranes moist Neck: supple neck Cardiac: regular rate and rhythm Lungs: decreased breath sounds Neuro: no lateralizing findings Abdomen: active bowel sounds Extremities: 1+ LE edema Skin: clear Musculoskeletal: no pain - Labs Result Diagrams: 05/21/19 03:57 05/27/19 03:49 Troponin/CKMB Troponin I Less than 0.010 ng/mL (< 0.028) 05/20/19 00:45 - Telemetry Sinus rhythms and dysrhythmias: sinus rhythm - Assessment/Plan Assessment/Plan: 1. Non ischemic CM EF 20-25% 2. Paroxysmal afib 3. S/P Tricuspid and mitral valve ring annuloplasty. 4. S/P KATERINA ligation during time of open heart surgery, closure confirmed by KIRBY done in 2018 5. COPD exacerbation. PLAN: - AICD in place. - Continue IV lasix.
[2019-05-27] MEDS: Lidocaine Patch Removal 1 EACH TOP SCH (20:19)
[2019-05-27] MEDS: Melatonin 3 MG TAB PO PRN (20:21)
[2019-05-28] MEDS: Morphine 2 MG/ML SYRINGE SLOW IVP PRN ×4 (00:50→20:50)
[2019-05-28] MEDS: Cephalexin 250 MG CAP PO SCH ×5 (00:50→23:30)
[2019-05-28] MEDS: Furosemide 40 MG/4 ML VIAL SLOW IVP SCH ×2 (05:53→13:18)
[2019-05-28] MEDS: Famotidine 20 MG TAB PO SCH ×2 (09:04→20:50)
[2019-05-28] MEDS: Citalopram 20 MG TAB PO SCH (09:04)
[2019-05-28] MEDS: Aspirin 81 mg Enteric Coated Tablet PO SCH (09:04)
[2019-05-28] MEDS: Carvedilol 3.125 MG TAB PO SCH ×2 (09:04→16:36)
[2019-05-28] MEDS: Senokot S 8.6-50 MG TAB PO SCH ×2 (09:05→20:51)
[2019-05-28] MEDS: guaiFENesin ER 600 MG TAB PO SCH ×2 (09:05→20:50)
[2019-05-28] MEDS: Lidocaine 5% Patch TD SCH (09:05)
[2019-05-28] MEDS: HYDROcodone/Acetaminophen 10/325 mg Tablet PO PRN ×3 (09:06→23:31)
--- NOTE | 2019-05-28 12:04 | PDOC.HOSPP ---
- Subjective Encounter Date: 05/28/19 Encounter Time: 08:45 Subjective: is still waking up, no sob back pain is better no chest pain or palp - Objective Vital Signs & Weight: Vital Signs (12 hours) Temp Pulse Resp BP BP Pulse Ox 05/28/19 11:25 89 20 05/28/19 07:58 97.6 F 96 16 121/78 96 05/28/19 07:53 95 13 05/28/19 03:54 101 H 20 95 05/28/19 03:37 97.3 F L 105 H 20 114/74 91 L Weight Weight 190 lb 1.6 oz I&O: 05/27/19 05/28/19 05/29/19 06:59 06:59 06:59 Intake Total 1560 840 Output Total 2300 3050 Balance -490 -9005 Result Diagrams: 05/21/19 03:57 05/27/19 03:49 Hospitalist ROS - Medication Medications: Active Medications Generic Name Dose Route Start Last Admin Trade Name Freq PRN Reason Stop Dose Admin Hydrocodone Bitart/Acetaminophen 2 tab 05/23/19 10:10 05/28/19 09:06 [place] 10/325 PO 2 tab Q6H PRN Administration Severe Pain (7-10) Albuterol/Ipratropium 3 ml 05/20/19 21:31 05/28/19 03:54 Duoneb NEB 3 ml [id number] PRN Administration SOB &/or Wheezing Albuterol/Ipratropium 3 ml 05/21/19 15:00 05/28/19 11:25 Duoneb NEB 3 ml [id number] TIFFANY Administration Alprazolam 0.25 mg 05/23/19 08:10 05/27/19 05:45 Xanax PO 0.25 mg QIDPRN PRN Administration Anxiety Aspirin 81 mg 05/20/19 09:00 05/28/19 09:04 Ecotrin PO 81 mg DAILY TIFFANY Administration Carvedilol 3.125 mg 05/20/19 17:00 05/28/19 09:04 Coreg PO 3.125 mg BID-[facility]FFANY Administration Cephalexin 500 mg 05/26/19 06:00 05/28/19 05:53 Keflex PO 06/02/19 00:00 500 mg Q6HR TIFFANY Administration Citalopram Hydrobromide 20 mg 05/20/19 09:00 05/28/19 09:04 Celexa PO 20 mg DAILY [facility] Administration Famotidine 20 mg 05/20/19 21:00 05/28/19 09:04 Pepcid PO 20 mg BID [facility] Administration Furosemide 40 mg 05/27/19 14:00 05/28/19 05:53 Lasix SLOW IVP 40 mg 0600,1400 [facility] Administration Guaifenesin 600 mg 05/20/19 21:00 05/28/19 09:05 Mucinex PO 600 mg Q12HR [facility] Administration Lidocaine 2 patch 05/27/19 09:00 05/28/19 09:05 Lidoderm 5% Patch TD 2 patch DAILY [facility] Administration Melatonin 3 mg 05/22/19 21:51 05/27/19 20:21 Melatonin PO 3 mg HS PRN Administration Insomnia Miscellaneous Medication 1 each 05/27/19 21:00 05/27/19 20:19 Lidocaine Patch Removal TOP 1 each 2100 [facility] Administration Morphine Sulfate 2 mg 05/27/19 11:49 05/28/19 05:59 Morphine SLOW IVP 2 mg Q4H PRN Administration Pain Senna/Docusate Sodium 2 tab 05/20/19 13:18 05/21/19 02:26 Senokot S PO 2 tab BID PRN Administration Constipation Senna/Docusate Sodium 2 tab 05/22/19 09:00 05/28/19 09:05 Senokot S PO 2 tab BID [facility] Administration Sodium Chloride 10 ml 05/22/19 09:00 05/28/19 09:05 Flush - Normal Saline IVF 10 ml Q12HR TIFFANY Administration - Exam General Appearance: awake alert Eye: PERRL, anicteric sclera ENT: no oropharyngeal lesions, moist mucosa Neck: supple, no JVD Heart: RRR, no murmur Respiratory: no wheezes, no rales Gastrointestinal: soft, non-tender, non-distended, normal bowel sounds Extremities: no cyanosis, 1+ LE edema Neurological: cranial nerve grossly intact, no focal deficits Psychiatric: normal affect, A&O x 3 Hosp A/P (1) S/P implantation of automatic cardioverter/defibrillator (AICD) Code(s): Z95.810 - PRESENCE OF AUTOMATIC (IMPLANTABLE) CARDIAC DEFIBRILLATOR Status: Acute (2) Chronic pain syndrome Code(s): G89.4 - CHRONIC PAIN SYNDROME Status: Chronic (3) Anxiety disorder Code(s): F41.9 - ANXIETY DISORDER, UNSPECIFIED Status: Chronic Qualifiers: Anxiety disorder type: generalized anxiety disorder Qualified Code(s): F41.1 - Generalized anxiety disorder (4) COPD (chronic obstructive pulmonary disease) Status: Chronic Qualifiers: COPD type: chronic bronchitis (5) Depression, major Code(s): F32.9 - MAJOR DEPRESSIVE DISORDER, SINGLE EPISODE, UNSPECIFIED Status : Chronic Qualifiers: Major depression recurrence: unspecified whether recurrent (6) HTN (hypertension) Code(s): I10 - ESSENTIAL (PRIMARY) HYPERTENSION Status: Chronic Qualifiers: Hypertension type: essential hypertension Qualified Code(s): I10 - Essential (primary) hypertension (7) Non-ischemic cardiomyopathy Code(s): I42.8 - OTHER CARDIOMYOPATHIES Status: Chronic (8) Paroxysmal atrial fibrillation Code(s): I48.0 - PAROXYSMAL ATRIAL FIBRILLATION Status: Chronic (9) Tobacco abuse Code(s): Z72.0 - TOBACCO USE Status: Chronic (10) Acute respiratory failure with hypoxia Code(s): J96.01 - ACUTE RESPIRATORY FAILURE WITH HYPOXIA Status: Acute (11) ALEX (acute kidney injury) Code(s): N17.9 - ACUTE KIDNEY FAILURE, UNSPECIFIED Status: Acute (12) Acute on chronic systolic CHF (congestive heart failure) Code(s): I50.23 - ACUTE ON CHRONIC SYSTOLIC (CONGESTIVE) HEART FAILURE Status : Acute - Plan iv lasix to 6am and 2pm, watch for renal function. His edema in leg/thighs and abd wall now are receding now, likely oral lasix from am. morphine for back pain along with norco and lidocaine tts. continue nebs, asp, coreg, citalopram, keflex. hemostable Likely dc plan in am if ok with cardio and ep
--- NOTE | 2019-05-28 12:40 | PRG ---
DATE OF SERVICE: 05/28/2019 SUBJECTIVE: This morning, he is better, less short of breath. OBJECTIVE: VITAL SIGNS: Temperature 97. Pulse 96, status post AICD. Saturations are 96% on 1 L. Blood pressure 121/78 CHEST: Decreased breath sounds. No wheezing. CARDIAC: Normal S1 and S2. No gallops. ABDOMEN: No masses. IMPRESSION: 1. Chronic obstructive pulmonary disease, stable. 2. Cardiomyopathy, stable. 3. Depression. PLAN: Disposition, home at any time as per Cardiology. He already has low-flow O2 and nebulizer machine at home. Job ID: [id number]
--- NOTE | 2019-05-28 13:21 | CON ---
DATE OF CONSULTATION: 05/23/2019 REASON FOR CONSULTATION: Consideration for an ICD. HISTORY OF PRESENT ILLNESS: Carlos Young is a 53-year-old male patient who was recently admitted to the hospital for acute on chronic congestive heart failure, superimposed on acute on chronic respiratory failure. We have been asked to see the patient for consideration of an ICD. Dr. Islas mentions the patient has all of his care in the hospital. A year ago, his left ventricular ejection fraction was diminished at 20% to 25% and a month ago, it was the same. The patient has been somewhat noncompliant with medical care in the past. He reports that he is currently not smoking tobacco, but sometimes he chews tobacco. He utilizes cannabis off and on, but he is not using methamphetamines. The patient denies any chest discomfort, palpitations, presyncope, or syncope. PAST MEDICAL HISTORY: 1. Chronic right bundle-branch block. 2. Acute on chronic COPD. 3. Acute on chronic congestive heart failure. 4. Dilated cardiomyopathy with decreased left ventricular ejection fraction at 20% to 25% (nonischemic). 5. History of illicit drug use. 6. Status post mitral and tricuspid valve surgery with a ring annuloplasty. 7. Anxiety. 8. Ankylosing spondylosis. 9. History of atrial fibrillation, status post probable modified maze procedure at the time of his valve surgery. He also had clipping of his left atrial appendage. Dr. Islas reports that the transesophageal echocardiogram demonstrated the left atrial appendage was completely excluded. 10. Chronic pain syndrome. 11. Hepatitis C. CURRENT MEDICATIONS: 1. DuoNeb. 2. Xanax. 3. Aspirin. 4. Coreg. 5. Celexa. 6. Vibramycin. 7. Pepcid. 8. Lasix. 9. Mucinex. 10. [place]. 11. Prednisone pack. At home, he reportedly takes Coreg 3.125 mg b.i.d. FAMILY HISTORY: The patient does not know of any first-degree relatives with the arrhythmia or heart disease. 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 As previously mentioned, he reports to be chewing tobacco and using cannabis off and on. He denies any current use of smoking cigarettes or methamphetamines. ALLERGIES: NO KNOWN DRUG ALLERGIES. REVIEW OF SYSTEMS: A 12-point review of systems was negative except was mentioned in the history of present illness. PHYSICAL EXAMINATION: GENERAL: The patient is well appearing, in no apparent distress. VITAL SIGNS: Blood pressure 126/64, pulse 88, and respirations 16. HEENT: Head, normocephalic. Pupils equal, round, reactive to light and accommodation. NECK: Supple without jugular venous distention. RESPIRATORY: Breath sounds clear to auscultation bilaterally. Respirations are nonlabored. Good bilateral excursion. CARDIOVASCULAR: Regular rate and rhythm. S1 and S2. No murmurs, rubs, or gallops. PMI laterally displaced. No thrills, lifts, or heaves. ABDOMEN: Soft/nontender. Bowel sounds normoactive. Hepatic jugular reflex negative. EXTREMITIES: No lower extremity edema. DIAGNOSTIC DATA: I looked at several monitor tracings and some are suspicious of atypical atrial flutter. His EKG when he presented to the ER was poor quality. IMPRESSION: 1. Nonischemic dilated cardiomyopathy with chronically decreased left ventricular ejection fraction at 20% 25%. 2. Chronic congestive heart failure with recent acute exacerbation ([place] Heart Association class 4). 3. History of illicit drug use. 4. Valvular heart disease, status post ring annuloplasty of the mitral and the tricuspid valve. 5. History of atrial fibrillation, status post probable modified maze procedure. 6. Left atrial appendage exclusion utilizing the AtriClip. 7. Chronic pain syndrome. 8. Hepatitis C. 9. Possible atypical atrial flutter on monitor tracing. PLAN: We will go ahead and obtain another 12-lead EKG with a rhythm tracing and have it placed on the chart. The patient meets criteria for an ICD based on primary prevention. He says that he will be compliant with coming to clinic and having his device checked. It might be reasonable to consider a subcutaneous ICD and it will definitely be single-chamber. The patient understands the goals and risks including , PA, CVA, cardiac arrest, cardiac perforation, possible need for repeat or serial procedures. This is Jessica Alonzo NP, dictating for Stephon Priest MD. Job ID: [id number]
--- NOTE | 2019-05-28 14:05 | PDOC.CPN ---
- Subjective Date: 05/28/19 Time: 14:02 Interval history: He has diuresed swell and edema better. - Review of Systems General: denies: fever/chills, weight/appetite/sleep changes, night sweats, fatigue Respiratory: reports: shortness of breath. denies: cough, congestion, exercise intolerance Cardiovascular: reports: edema Gastrointestinal: denies: nausea, vomiting, diarrhea, constipation, abd pain, GI bleeding Musculoskeletal: denies: pain, tenderness, stiffness, swelling, arthritis/ arthralgias Neurological: denies: numbness, syncope, seizure, weakness - Objective Allergies/Adverse Reactions: Allergies Allergy/AdvReac Type Severity Reaction Status Date / Time No Known Drug Allergies Allergy Verified 05/19/19 20:57 Visit Medications: Current Medications Acetaminophen (Tylenol) 650 mg PO Q4H PRN PRN Reason: Headache/Fever/Mild Pain (1-3) Hydrocodone Bitart/Acetaminophen ([place] 10/325) 2 tab PO Q6H PRN PRN Reason: Severe Pain (7-10) Last Admin: 05/28/19 09:06 Dose: 2 tab Albuterol/Ipratropium (Duoneb) 3 ml NEB [id number] PRN PRN Reason: SOB &/or Wheezing Last Admin: 05/28/19 03:54 Dose: 3 ml Albuterol/Ipratropium (Duoneb) 3 ml NEB [id number] SCH Last Admin: 05/28/19 11:25 Dose: 3 ml Alprazolam (Xanax) 0.25 mg PO QIDPRN PRN PRN Reason: Anxiety Last Admin: 05/27/19 05:45 Dose: 0.25 mg Aspirin (Ecotrin) 81 mg PO DAILY [facility] Last Admin: 05/28/19 09:04 Dose: 81 mg Calcium Carbonate (Tums) 1,000 mg PO Q4H PRN PRN Reason: Heartburn or Indigestion Carvedilol (Coreg) 3.125 mg PO BID-[facility] Last Admin: 05/28/19 09:04 Dose: 3.125 mg Cephalexin (Keflex) 500 mg PO Q6HR [facility] Stop: 06/02/19 00:00 Last Admin: 05/28/19 12:19 Dose: 500 mg Citalopram Hydrobromide (Celexa) 20 mg PO DAILY [facility] Last Admin: 05/28/19 09:04 Dose: 20 mg Famotidine (Pepcid) 20 mg PO BID [facility] Last Admin: 05/28/19 09:04 Dose: 20 mg Furosemide (Lasix) 40 mg SLOW IVP 0600,1400 [facility] Last Admin: 05/28/19 13:18 Dose: 40 mg Guaifenesin (Mucinex) 600 mg PO Q12HR [facility] Last Admin: 05/28/19 09:05 Dose: 600 mg Lidocaine (Lidoderm 5% Patch) 2 patch TD DAILY [facility] Last Admin: 05/28/19 09:05 Dose: 2 patch Melatonin (Melatonin) 3 mg PO HS PRN PRN Reason: Insomnia Last Admin: 05/27/19 20:21 Dose: 3 mg Miscellaneous Medication (Lidocaine Patch Removal) 1 each TOP 2100 [facility] Last Admin: 05/27/19 20:19 Dose: 1 each Morphine Sulfate (Morphine) 2 mg SLOW IVP Q4H PRN PRN Reason: Pain Last Admin: 05/28/19 13:18 Dose: 2 mg Polyethylene Glycol (Miralax) 17 gm PO DAILY PRN PRN Reason: Constipation Senna/Docusate Sodium (Senokot S) 2 tab PO BID PRN PRN Reason: Constipation Last Admin: 05/21/19 02:26 Dose: 2 tab Senna/Docusate Sodium (Senokot S) 2 tab PO BID [facility] Last Admin: 05/28/19 09:05 Dose: 2 tab Sodium Chloride (Flush - Normal Saline) 10 ml IVF Q12HR [facility] Last Admin: 05/28/19 09:05 Dose: 10 ml Sodium Chloride (Flush - Normal Saline) 10 ml IVF PRN PRN PRN Reason: Saline Flush Vital Signs & Weight: Vital Signs Temp Pulse Resp BP BP Pulse Ox 05/28/19 11:25 89 20 05/28/19 11:18 97.4 F L 88 14 102/62 99 05/28/19 07:58 97.6 F 96 16 121/78 96 05/28/19 07:53 95 13 05/28/19 03:54 101 H 20 95 05/28/19 03:37 97.3 F L 105 H 20 114/74 91 L Weight 190 lb 1.6 oz - Physical Exam General: alert & oriented x3 HEENT: mucus membranes moist Neck: supple neck Cardiac: regular rate and rhythm Lungs: decreased breath sounds Neuro: grossly intact Abdomen: active bowel sounds Extremities: 2+ LE edema Skin: clear Musculoskeletal: no pain - Labs Result Diagrams: 05/21/19 03:57 05/27/19 03:49 Troponin/CKMB Troponin I Less than 0.010 ng/mL (< 0.028) 05/20/19 00:45 - Telemetry Sinus rhythms and dysrhythmias: sinus rhythm - Assessment/Plan Assessment/Plan: 1. Non ischemic CM EF 20-25% 2. Paroxysmal afib 3. S/P Tricuspid and mitral valve ring annuloplasty. 4. S/P KATERINA ligation during time of open heart surgery, closure confirmed by KIRBY done in 2018 5. COPD exacerbation. 6. S/P AICD placed. PLAN: - Continue IV lasix. - Home in next 2 days once better diuresed.
[2019-05-28] MEDS: ALPRAZolam 0.25 MG TAB PO PRN (16:36)
--- NOTE | 2019-05-28 18:48 | PRG ---
DATE OF SERVICE: 05/28/2019 SUBJECTIVE: Mr. Young has progressed into another episode of fluid overload over the weekend. He is being diuresed. Currently doing well. No signs of infection. His ICD site is without reaction. OBJECTIVE: VITAL SIGNS: Blood pressure is 112/69, heart rate 94, respiratory rate 18, temperature 97.5 degrees Fahrenheit. GENERAL: Alert and oriented man, in no apparent distress. NECK: Supple. Jugular veins not distended. CHEST: Coarse without crackles. HEART: Sounds are regular to rate and rhythm. No murmur or gallop. ABDOMEN: Benign bowel sounds positive. EXTREMITIES: Lower extremities without edema, clubbing, or cyanosis. Pulses are adequate. NEUROLOGIC: The patient is nonfocal. MUSCULOSKELETAL: No joint deformity. SKIN: Without rash. The left precordial ICD insertion site is without reaction. DATABASE: Telemetry strips reveal sinus rhythm, intermittent pacing. Chest x-ray from 05/25/2019 reveals no evidence of complications, adequate dual-chamber pacer implant. The ICD interrogation from 05/25/2019 reveals a functioning dual-chamber ICD with lead impedances of 418 and 456 ohms in the RA and RV respectively. Sensing 1.6 mV and 7.5 mV respectively. Capture thresholds also adequate 0.75 V at 0.4 msec and 0.5 at 0.4 msec. ASSESSMENT AND PLAN: Mr. Young is a very pleasant 53-year-old man with history of chronic congestive heart failure and nonischemic cardiomyopathy, who underwent a dual-chamber ICD placement on 05/25/2019. No complication noted at this point, still being optimized from a fluid status standpoint. At this point, stable. ICD seems to be functioning adequately. He needs to continue his antibiotics in an outpatient for a week post implant, and I will see him back in the office for wound check in 2 weeks. I will sign off. Please call if I can be of any further help. Job ID: [id number]
[2019-05-28] MEDS: Melatonin 3 MG TAB PO PRN (20:51)
[2019-05-28] MEDS: Lidocaine Patch Removal 1 EACH TOP SCH (20:51)
[2019-05-29] MEDS: Morphine 2 MG/ML SYRINGE SLOW IVP PRN ×3 (01:01→21:31)
[2019-05-29] MEDS: ALPRAZolam 0.25 MG TAB PO PRN ×2 (01:01→15:09)
[2019-05-29] MEDS: Furosemide 40 MG/4 ML VIAL SLOW IVP SCH ×2 (05:26→15:07)
[2019-05-29] MEDS: Cephalexin 250 MG CAP PO SCH ×3 (05:26→17:02)
[2019-05-29] MEDS: HYDROcodone/Acetaminophen 10/325 mg Tablet PO PRN ×2 (05:26→15:10)
[2019-05-29] MEDS: Aspirin 81 mg Enteric Coated Tablet PO SCH (09:10)
[2019-05-29] MEDS: Citalopram 20 MG TAB PO SCH (09:10)
[2019-05-29] MEDS: Carvedilol 3.125 MG TAB PO SCH ×2 (09:10→17:02)
[2019-05-29] MEDS: Famotidine 20 MG TAB PO SCH ×2 (09:10→21:31)
[2019-05-29] MEDS: guaiFENesin ER 600 MG TAB PO SCH ×2 (09:11→21:31)
[2019-05-29] MEDS: Senokot S 8.6-50 MG TAB PO SCH ×2 (09:11→21:31)
[2019-05-29] MEDS: Lidocaine 5% Patch TD SCH (09:11)
--- NOTE | 2019-05-29 11:40 | PRG ---
DATE OF SERVICE: 05/29/2019 SUBJECTIVE: This morning, he is better, less short of breath, status post AICD. OBJECTIVE: VITAL SIGNS: Temperature 98, pulse 101, respiratory rate 20, saturations 90% on 2 L, blood pressure 106/66. CHEST: No wheezing or crackles. CARDIAC: Normal S1 and S2. No gallops. ABDOMEN: No masses. ASSESSMENT AND PLAN: Cardiomyopathy, status post automatic implantable cardioverter-defibrillator. Underlying chronic obstructive pulmonary disease, stable. Pulmonary morfin, disposition as per Cardiology, home anytime, follow up with the primary care physician. Job ID: [id number]
--- NOTE | 2019-05-29 12:05 | PDOC.HOSPP ---
- Subjective Encounter Date: 05/29/19 Encounter Time: 10:15 Subjective: no sob or palp is ambulating in room - Objective Vital Signs & Weight: Vital Signs (12 hours) Temp Pulse Resp BP BP Pulse Ox 05/29/19 10:50 97.8 F 94 14 113/71 95 05/29/19 07:34 93 L 05/29/19 07:33 97.8 F 99 14 126/71 94 L 05/29/19 04:36 98.1 F 91 18 106/66 95 Weight Weight 189 lb 7 oz I&O: 05/28/19 05/29/19 05/30/19 06:59 06:59 06:59 Intake Total 840 1475 Output Total 3050 9040 Balance -7646 -7355 Result Diagrams: 05/21/19 03:57 05/27/19 03:49 Hospitalist ROS - Medication Medications: Active Medications Generic Name Dose Route Start Last Admin Trade Name Freq PRN Reason Stop Dose Admin Hydrocodone Bitart/Acetaminophen 2 tab 05/23/19 10:10 05/29/19 05:26 [place] 10/325 PO 2 tab Q6H PRN Administration Severe Pain (7-10) Albuterol/Ipratropium 3 ml 05/20/19 21:31 05/28/19 03:54 Duoneb NEB 3 ml [id number] PRN Administration SOB &/or Wheezing Albuterol/Ipratropium 3 ml 05/21/19 15:00 05/29/19 10:57 Duoneb NEB Not Given [id number] TIFFANY Alprazolam 0.25 mg 05/23/19 08:10 05/29/19 01:01 Xanax PO 0.25 mg QIDPRN PRN Administration Anxiety Aspirin 81 mg 05/20/19 09:00 05/29/19 09:10 Ecotrin PO 81 mg DAILY TIFFANY Administration Carvedilol 3.125 mg 05/20/19 17:00 05/29/19 09:10 Coreg PO 3.125 mg BID-WM TIFFANY Administration Cephalexin 500 mg 05/26/19 06:00 05/29/19 11:50 Keflex PO 06/02/19 00:00 500 mg Q6HR TIFFANY Administration Citalopram Hydrobromide 20 mg 05/20/19 09:00 05/29/19 09:10 Celexa PO 20 mg DAILY TIFFANY Administration Famotidine 20 mg 05/20/19 21:00 05/29/19 09:10 Pepcid PO 20 mg BID TIFFANY Administration Furosemide 40 mg 05/27/19 14:00 05/29/19 05:26 Lasix SLOW IVP 40 mg 0600,1400 TIFFANY Administration Guaifenesin 600 mg 05/20/19 21:00 05/29/19 09:11 Mucinex PO 600 mg Q12HR TIFFANY Administration Lidocaine 2 patch 05/27/19 09:00 05/29/19 09:11 Lidoderm 5% Patch TD Not Given DAILY TIFFANY Melatonin 3 mg 05/22/19 21:51 05/28/19 20:51 Melatonin PO 3 mg HS PRN Administration Insomnia Miscellaneous Medication 1 each 05/27/19 21:00 05/28/19 20:51 Lidocaine Patch Removal TOP 1 each 2100 TIFFANY Administration Morphine Sulfate 2 mg 05/27/19 11:49 05/29/19 11:49 Morphine SLOW IVP 2 mg Q4H PRN Administration Pain Senna/Docusate Sodium 2 tab 05/20/19 13:18 05/21/19 02:26 Senokot S PO 2 tab BID PRN Administration Constipation Senna/Docusate Sodium 2 tab 05/22/19 09:00 05/29/19 09:11 Senokot S PO 2 tab BID TIFFANY Administration Sodium Chloride 10 ml 05/22/19 09:00 05/29/19 09:18 Flush - Normal Saline IVF 10 ml Q12HR TIFFANY Administration - Exam General Appearance: awake alert Eye: PERRL, anicteric sclera ENT: no oropharyngeal lesions, moist mucosa Neck: supple, no JVD Heart: RRR, no murmur Respiratory: no wheezes, no rales Gastrointestinal: soft, non-tender, non-distended, normal bowel sounds Extremities: no cyanosis, 1+ LE edema Neurological: cranial nerve grossly intact, no focal deficits Psychiatric: normal affect, A&O x 3 Hosp A/P (1) S/P implantation of automatic cardioverter/defibrillator (AICD) Code(s): Z95.810 - PRESENCE OF AUTOMATIC (IMPLANTABLE) CARDIAC DEFIBRILLATOR Status: Acute (2) Chronic pain syndrome Code(s): G89.4 - CHRONIC PAIN SYNDROME Status: Chronic (3) Anxiety disorder Code(s): F41.9 - ANXIETY DISORDER, UNSPECIFIED Status: Chronic Qualifiers: Anxiety disorder type: generalized anxiety disorder Qualified Code(s): F41.1 - Generalized anxiety disorder (4) COPD (chronic obstructive pulmonary disease) Status: Chronic Qualifiers: COPD type: chronic bronchitis (5) Depression, major Code(s): F32.9 - MAJOR DEPRESSIVE DISORDER, SINGLE EPISODE, UNSPECIFIED Status : Chronic Qualifiers: Major depression recurrence: unspecified whether recurrent (6) HTN (hypertension) Code(s): I10 - ESSENTIAL (PRIMARY) HYPERTENSION Status: Chronic Qualifiers: Hypertension type: essential hypertension Qualified Code(s): I10 - Essential (primary) hypertension (7) Non-ischemic cardiomyopathy Code(s): I42.8 - OTHER CARDIOMYOPATHIES Status: Chronic (8) Paroxysmal atrial fibrillation Code(s): I48.0 - PAROXYSMAL ATRIAL FIBRILLATION Status: Chronic (9) Tobacco abuse Code(s): Z72.0 - TOBACCO USE Status: Chronic (10) Acute respiratory failure with hypoxia Code(s): J96.01 - ACUTE RESPIRATORY FAILURE WITH HYPOXIA Status: Acute (11) ALEX (acute kidney injury) Code(s): N17.9 - ACUTE KIDNEY FAILURE, UNSPECIFIED Status: Acute (12) Acute on chronic systolic CHF (congestive heart failure) Code(s): I50.23 - ACUTE ON CHRONIC SYSTOLIC (CONGESTIVE) HEART FAILURE Status : Acute - Plan iv lasix to 6am and 2pm, add zaroxolyn, watch for renal function. His edema in leg/thighs and abd wall are receding now. morphine for back pain along with norco and lidocaine tts. continue nebs, asp, coreg, citalopram, keflex. hemostable DC plan per cardiology advice.
[2019-05-29] MEDS ORDERED: Metolazone 5 MG TAB PO SCH (12:15)
[2019-05-29 12:49] LABS: Anion Gap 11 mmol/L (10-20); BUN (Urea Nitrogen) 29 mg/dL (8.4-25.7); Calc. Creatinine Clearance 131 mL/min (70-130); Calcium 9.5 mg/dL (7.8-10.44); Carbon Dioxide 36 mmol/L (22-29); Chloride 92 mmol/L (98-107); Estimated GFR-MDRD Greater than 90; Glucose 112 mg/dL (70-105); Potassium 4.4 mmol/L (3.5-5.1); Sodium 135 mmol/L (136-145)
--- NOTE | 2019-05-29 15:26 | PDOC.CPN ---
- Subjective Date: 05/29/19 Time: 15:25 Interval history: He continues to diurese well. - Review of Systems General: denies: fever/chills, weight/appetite/sleep changes, night sweats, fatigue Respiratory: denies: cough, congestion, shortness of breath, exercise intolerance Cardiovascular: reports: edema. denies: chest pain, palpitation, paroxysmal nocturnal dyspnea, orthopnea Gastrointestinal: denies: nausea, vomiting, diarrhea, constipation, abd pain, GI bleeding Musculoskeletal: reports: pain. denies: tenderness, stiffness, swelling, arthritis/arthralgias Neurological: denies: numbness, syncope, seizure, weakness - Objective Allergies/Adverse Reactions: Allergies Allergy/AdvReac Type Severity Reaction Status Date / Time No Known Drug Allergies Allergy Verified 05/19/19 20:57 Visit Medications: Current Medications Acetaminophen (Tylenol) 650 mg PO Q4H PRN PRN Reason: Headache/Fever/Mild Pain (1-3) Hydrocodone Bitart/Acetaminophen ([place] 10/325) 2 tab PO Q6H PRN PRN Reason: Severe Pain (7-10) Last Admin: 05/29/19 15:10 Dose: 2 tab Albuterol/Ipratropium (Duoneb) 3 ml NEB [id number] PRN PRN Reason: SOB &/or Wheezing Last Admin: 05/28/19 03:54 Dose: 3 ml Albuterol/Ipratropium (Duoneb) 3 ml NEB [id number] SCH Last Admin: 05/29/19 14:24 Dose: 3 ml Alprazolam (Xanax) 0.25 mg PO QIDPRN PRN PRN Reason: Anxiety Last Admin: 05/29/19 15:09 Dose: 0.25 mg Aspirin (Ecotrin) 81 mg PO DAILY [facility] Last Admin: 05/29/19 09:10 Dose: 81 mg Calcium Carbonate (Tums) 1,000 mg PO Q4H PRN PRN Reason: Heartburn or Indigestion Carvedilol (Coreg) 3.125 mg PO BID-[facility] Last Admin: 05/29/19 09:10 Dose: 3.125 mg Cephalexin (Keflex) 500 mg PO Q6HR [facility] Stop: 06/02/19 00:00 Last Admin: 05/29/19 11:50 Dose: 500 mg Citalopram Hydrobromide (Celexa) 20 mg PO DAILY [facility] Last Admin: 05/29/19 09:10 Dose: 20 mg Famotidine (Pepcid) 20 mg PO BID [facility] Last Admin: 05/29/19 09:10 Dose: 20 mg Furosemide (Lasix) 40 mg SLOW IVP 0600,1400 [facility] Last Admin: 05/29/19 15:07 Dose: 40 mg Guaifenesin (Mucinex) 600 mg PO Q12HR [facility] Last Admin: 05/29/19 09:11 Dose: 600 mg Lidocaine (Lidoderm 5% Patch) 2 patch TD DAILY [facility] Last Admin: 05/29/19 09:11 Dose: Not Given Melatonin (Melatonin) 3 mg PO HS PRN PRN Reason: Insomnia Last Admin: 05/28/19 20:51 Dose: 3 mg Metolazone (Zaroxolyn) 5 mg PO 0830 [facility] Miscellaneous Medication (Lidocaine Patch Removal) 1 each TOP 2100 [facility] Last Admin: 05/28/19 20:51 Dose: 1 each Morphine Sulfate (Morphine) 2 mg SLOW IVP Q4H PRN PRN Reason: Pain Last Admin: 05/29/19 11:49 Dose: 2 mg Polyethylene Glycol (Miralax) 17 gm PO DAILY PRN PRN Reason: Constipation Senna/Docusate Sodium (Senokot S) 2 tab PO BID PRN PRN Reason: Constipation Last Admin: 05/21/19 02:26 Dose: 2 tab Senna/Docusate Sodium (Senokot S) 2 tab PO BID [facility] Last Admin: 05/29/19 09:11 Dose: 2 tab Sodium Chloride (Flush - Normal Saline) 10 ml IVF Q12HR [facility] Last Admin: 05/29/19 09:18 Dose: 10 ml Sodium Chloride (Flush - Normal Saline) 10 ml IVF PRN PRN PRN Reason: Saline Flush Vital Signs & Weight: Vital Signs Temp Pulse Resp BP BP Pulse Ox 05/29/19 15:16 97.5 F L 93 19 110/69 98 05/29/19 14:24 90 16 05/29/19 10:50 97.8 F 94 14 113/71 95 05/29/19 07:34 93 L 05/29/19 07:33 97.8 F 99 14 126/71 94 L 05/29/19 04:36 98.1 F 91 18 106/66 95 Weight 189 lb 7 oz - Physical Exam General: alert & oriented x3 HEENT: mucus membranes moist Neck: supple neck Cardiac: regular rate and rhythm Lungs: decreased breath sounds Neuro: grossly intact Abdomen: active bowel sounds Extremities: 1+ LE edema Skin: clear Musculoskeletal: no pain - Labs Result Diagrams: 05/21/19 03:57 05/29/19 12:10 Troponin/CKMB Troponin I Less than 0.010 ng/mL (< 0.028) 05/20/19 00:45 - Telemetry Sinus rhythms and dysrhythmias: sinus rhythm - Assessment/Plan Assessment/Plan: 1. Non ischemic CM EF 20-25% 2. Paroxysmal afib 3. S/P Tricuspid and mitral valve ring annuloplasty. 4. S/P KATERINA ligation during time of open heart surgery, closure confirmed by KIRBY done in 2018 5. COPD exacerbation. 6. S/P AICD placed. 7. Acvute on chronic systolic heart failure. PLAN: - Continue IV lasix. - Home once better diuresed.
[2019-05-29] MEDS: Lidocaine Patch Removal 1 EACH TOP SCH (21:31)
[2019-05-30] MEDS: Cephalexin 250 MG CAP PO SCH ×3 (00:45→11:29)
[2019-05-30] MEDS: HYDROcodone/Acetaminophen 10/325 mg Tablet PO PRN ×2 (00:45→09:08)
[2019-05-30 05:27] LABS: BUN (Urea Nitrogen) 27 mg/dL (8.4-25.7); Calc. Creatinine Clearance 122 mL/min (70-130); Calcium 10.1 mg/dL (7.8-10.44); Estimated GFR-MDRD Greater than 90; Glucose 82 mg/dL (70-105)
[2019-05-30] MEDS: Furosemide 40 MG/4 ML VIAL SLOW IVP SCH ×2 (05:27→14:04)
[2019-05-30] MEDS: ALPRAZolam 0.25 MG TAB PO PRN (05:35)
[2019-05-30 05:36] LABS: Anion Gap 15 mmol/L (10-20); Carbon Dioxide 36 mmol/L (22-29); Chloride 90 mmol/L (98-107); Potassium 5.2 mmol/L (3.5-5.1); Sodium 136 mmol/L (136-145)
[2019-05-30] MEDS: Morphine 2 MG/ML SYRINGE SLOW IVP PRN ×2 (05:36→11:35)
[2019-05-30] MEDS ORDERED: Metolazone 5 MG TAB PO SCH (08:30)
[2019-05-30] MEDS: Carvedilol 3.125 MG TAB PO SCH ×2 (09:06→16:33)
[2019-05-30] MEDS: Lidocaine 5% Patch TD SCH (09:07)
[2019-05-30] MEDS: Citalopram 20 MG TAB PO SCH (09:07)
[2019-05-30] MEDS: Aspirin 81 mg Enteric Coated Tablet PO SCH (09:07)
[2019-05-30] MEDS: Famotidine 20 MG TAB PO SCH (09:07)
[2019-05-30] MEDS: guaiFENesin ER 600 MG TAB PO SCH (09:07)
[2019-05-30] MEDS: Senokot S 8.6-50 MG TAB PO SCH (09:08)
--- NOTE | 2019-05-30 09:47 | PRG ---
DATE OF SERVICE: 05/30/2019 SUBJECTIVE: This morning, he is doing better. Legs are less swollen. OBJECTIVE: VITAL SIGNS: Saturations are 92% on L, respiratory rate 19, temperature 97, pulse 110, and blood pressure 176/70. CHEST: No wheezing or crackles. CARDIAC: Normal S1 and S2. No gallops. ABD soft EXT trace oedema ASSESSMENT: Cardiomyopathy status post automatic implantable cardioverter-defibrillator and severe chronic obstructive pulmonary disease. PLAN: Disposition as per Cardiology. Pulmonary morfin, he is at his baseline. Follow up in the office any time. Job ID: [id number] MTDD
[2019-05-30 16:31] VITALS: TEMP 97.6
[2019-05-30 16:37] VITALS: BP 108/77
--- NOTE | 2019-05-31 07:21 | DIS ---
DATE OF ADMISSION: 05/19/2019 DATE OF DISCHARGE: 05/30/2019 DISCHARGE DISPOSITION: Home. PRIMARY DISCHARGE DIAGNOSES: [id number] congestive heart failure exacerbation with systolic dysfunction, status post automatic implantable cardioverter-defibrillator; chronic obstructive pulmonary disease; chronic pain syndrome; anxiety disorder; hypertension; depression; nonischemic cardiomyopathy ; acute respiratory failure with hypoxia on admission, resolved; tobacco abuse; paroxysmal atrial fibrillation, in sinus rhythm; acute kidney injury due to diuresis. PROCEDURES DONE DURING HOSPITALIZATION: Chest x-ray showed no acute cardiopulmonary process on admission. Had placement of AICD on 05/25/2019, by Dr. Priest. Hemoglobin and hematocrit 13 and 42, platelet count is 161. Discharge BUN and creatinine are 27 and 0.8. Albumin 3.6. BNP 242. Urine tox screen was positive for cannabinoids and opiates. DISCHARGE MEDICATIONS: Aspirin 81 mg p.o. daily, Coreg 3.125 mg twice daily, Lasix 40 mg p.o. at 9 a.m. and 2 p.m., Celexa 20 mg p.o. daily, Keflex 500 mg 4 times daily for another 5 days, albuterol inhaler 3 times daily p.r.n., albuterol nebulizer q.4 hourly p.r.n., [place] p.r.n. for pain. ALLERGIES: NO KNOWN DRUG ALLERGIES. INPATIENT CONSULTS: 1. Dr. Islas for Cardiology. 2. Dr. Rojo for Pulmonology. 3. Dr. Stephon Priest for Electrophysiology. DISCHARGE PLAN: The patient to follow up with Dr. Rojo in 2 to 3 weeks, Dr. Islas in 2 to 3 weeks, Dr. Rosalie Jeong, his primary care physician on 06/05/2019 at 3:00 p.m., Dr. Stephon Priest in 2 weeks. BRIEF COURSE DURING HOSPITALIZATION: The patient initially got admitted on the 20 of May with complaints of shortness of breath. He has known history of ejection fraction of around 20% to 25%. The patient also has history of mitral and tricuspid ring annuloplasty. He has history of nonsustained ventricular tachycardia. He has known history of ongoing tobacco abuse with COPD and chronic pain syndrome as well. In view of multiple medical issues, the patient was admitted to telemetry. He has had gentle diuresis done. He was also on nebulizations. He has had consultation with Dr. Islas for Cardiology, Dr. Rojo for Pulmonology, and Dr. Stephon Priest for Electrophysiology. He has had placement of AICD on the . His medications were optimized. Post-AICD, the patient had flare-up of CHF and had to be placed on IV Lasix along with Zaroxolyn with resolution of his lower extremity edema. The patient still has mild edema along with abdominal wall edema as well. He will be on oral Lasix on discharge. The patient's systolic blood pressures run around 100 to 110 and no ACEs or ARBs were given in view of his CHF. He requires Lasix along with mild dose of Coreg. Prior to discharge, he is ambulating and eating well. Please note, I have seen and examined the patient on the day of discharge. He was counseled with regard to medication and dietary compliance and followups as well. No anticoagulation was given in view of patient being in sinus rhythm. Job ID: [id number] [facility]
== END 2019-05-30 17:16 | disposition home or self-care (01) | DRG 226 ==
LOC: ERS 18:17 → 2NO 20:47
PROVIDERS: ADMIT Internal Medicine; ATTEND Internal Medicine
PROC: 0JH608Z Insertion of Defibrillator Generator into Chest Subcutaneous Tissue and Fascia, Open Approach (ICD-10-PCS; principal; 2019-05-25)
PROC: 02HL3KZ Insertion of Defibrillator Lead into Left Ventricle, Percutaneous Approach (ICD-10-PCS; 2019-05-25)
PROC: 02HK3KZ Insertion of Defibrillator Lead into Right Ventricle, Percutaneous Approach (ICD-10-PCS; 2019-05-25)
DX: I50.23 Acute on chronic systolic (congestive) heart failure (principal); J96.21 Acute and chronic respiratory failure with hypoxia; J44.1 Chronic obstructive pulmonary disease with (acute) exacerbation; I42.0 Dilated cardiomyopathy; I48.4 Atypical atrial flutter; N17.9 Acute kidney failure, unspecified; B18.2 Chronic viral hepatitis C; F17.210 Nicotine dependence, cigarettes, uncomplicated; F15.10 Other stimulant abuse, uncomplicated; I48.0 Paroxysmal atrial fibrillation; G89.4 Chronic pain syndrome; F12.10 Cannabis abuse, uncomplicated; M45.9 Ankylosing spondylitis of unspecified sites in spine; I45.10 Unspecified right bundle-branch block; F32.9 Major depressive disorder, single episode, unspecified; I10 Essential (primary) hypertension; F41.1 Generalized anxiety disorder; Z95.2 Presence of prosthetic heart valve; Z79.899 Other long term (current) drug therapy; Z79.51 Long term (current) use of inhaled steroids; Z79.82 Long term (current) use of aspirin
CPT/HCPCS: 33249; 36005; 36415; 71045; 75820; 80048; 80053; 80306; 82550; 83735; 83880; 84484; 85025; 93005; 93010; 94640; 94760; 96365; 96375; C1721; C1777; C1898; J0690; J1650; J1885; J1940; J2250; J2270; J2704; J2765; J2920; J2930; J3010; J3490; J7512; J7611; J7620; Q9967

== ENCOUNTER 2019-09-20 04:11 | Inpatient (IN) | payer MEDICARE ==
[2019-09-20] MEDS ORDERED: Albuterol Sulfate 2.5 mg/0.5 ml Neb ONE ×2 (04:28→05:01)
[2019-09-20] MEDS ORDERED: methylPREDNISolone Sod Succ/PF 125 MG/2 ML VIAL ONE (04:29)
[2019-09-20] MEDS ORDERED: Magnesium 2 GM/50 ML BAG (IN WATER) ONE (04:29)
[2019-09-20 05:20] LABS: Mean Corpuscular HGB CONC 29.4 g/dL (32.0-36.0); Mean Corpuscular Volume 91.6 fL (78.0-98.0); Mean Platelet Volume 8.6 fL (7.4-10.4); Platelet Count 227 thou/uL (130-400); RBC Distribution Width 13.3 % (11.5-14.5); Red Blood Cell (RBC) Count 4.83 mill/uL (4.70-6.10); White Blood Cell (WBC) Count 11.9 thou/uL (4.8-10.8)
[2019-09-20 06:01] LABS: #Basophils 0.1 thou/uL (0.0-0.2); #Eosinphils 0.1 thou/uL (0.0-0.7); #Lymphocytes 0.7 thou/uL (1.20-3.40); %Basophils 0.6 % (0.0-1.0); %Lymphocytes 6.3 % (21.0-51.0); %Monocytes 8.3 % (0.0-10.0); %Neutrophils 83.9 % (42.0-75.0); RBC Morphology Normal
[2019-09-20 06:06] LABS: ALT (SGPT) 19 U/L (8-55); AST (SGOT) 21 U/L (5-34); Albumin 3.9 g/dL (3.5-5.0); Alkaline Phosphatase 113 U/L (40-110); Anion Gap 19 mmol/L (10-20); BUN (Urea Nitrogen) 19 mg/dL (8.4-25.7); Bilirubin, Total 0.6 mg/dL (0.2-1.2); Calc. Creatinine Clearance 0 mL/min (70-130); Calcium 10.5 mg/dL (7.8-10.44); Carbon Dioxide 34 mmol/L (22-29); Chloride 95 mmol/L (98-107); Estimated GFR-MDRD Greater than 90; Globulin 4.2 g/dL (2.4-3.5); Glucose 95 mg/dL (70-105); Potassium 5.4 mmol/L (3.5-5.1); Protein, Total 8.1 g/dL (6.0-8.3); Sodium 143 mmol/L (136-145)
[2019-09-20 07:19] LABS: Actual Bicarbonate (HCO3a) 36.5 mEq/L (22-28); Analyzer IN Cardio ER; Base Excess (BEa) 5.1 mEq/L (-2.0 to +3.0); Calcium, Ionized (arterial) 1.24 mmol/L (1.12-1.30); Carboxyhemoglobin (COHb) 1.4 gm% (0.0-3.0); Hemoglobin (Hb) 13.3 g/dL (14.0-18.0); O2 Tension (PaO2), arterial 63.2 mmHg (80.0-100.0); Potassium - ABG Lab 4.64 mmol/L (3.70-5.30)
--- NOTE | 2019-09-20 07:34 | RAD ---
Exam: Chest one view HISTORY:Shortness of breath. Dyspnea. Comparison: 05/25/2019 FINDINGS: Cardiac silhouette:Cardiomegaly. Stable left-sided defibrillator, sternotomy wires Aorta: Unremarkable Pulmonary vessels: Normal Costophrenic angles: Clear LUNGS: Chronic changes. Hyperinflation. No masses or consolidation. Pneumothorax: None Osseous abnormalities: None IMPRESSION: Cardiomegaly, without evidence of congestive heart failure.
[2019-09-20 08:07] LABS: CO2 Tension 96.4 mmHg (35.0-45.0); Puncture Site RR
[2019-09-20 08:45] LABS: Troponin I 0.036 ng/mL (< 0.028)
[2019-09-20] MEDS: Sodium Chloride 0.9% 1,000 ML IV SCH ×2 (09:08→11:19)
[2019-09-20] MEDS ORDERED: Bacteriostatic Water 30 ML VIAL FS PRN (10:07)
--- NOTE | 2019-09-20 10:10 | PDOC.HHP ---
Hospitalist HPI - History of Present Illness unresponsive History of Present Illness: This is a 53 year old male with history of COPD, systolic heart failure, mitral and tricuspid valve replacement, meth abuse, afib who presented to the ER with shortness of breath. The patient states that his shortness of breath just started yesterday all of a sudden. He states it is on exertion, denies orthopnea or leg swelling. He denies excessive fluid intake. He reports taking lasix daily. He does not use any inhalers at home. He states that he smoked some methamphetamine yesterday but usually uses it only once a week. He denies travel history, fevers, runny nose, sore throat, chest pain. ED Course: When the patient presented to the ER the patient's oxygen saturation dropped down to the 80's. Chest Xray shows cardiomegaly without CHF. The patient received IV mag sulfate, albuterol, IV steroids and 1L of fluid down in the ER. The patient had an ABG with PH showing 7.2, and pCO2 92. The patient was placed on BIPAP. He was admitted to the ICU. Initially patient was more unresponsive after an hour after being on BIPAP, however after nurses attempted placing a morel and doing a repeat ABG, patient then woke up. Hospitalist ROS - Review of Systems Constitutional: denies: fever, chills ENT: denies: ear pain Respiratory: reports: cough, shortness of breath. denies: dry Cardiovascular: denies: chest pain, palpitations, orthopnea Gastrointestinal: denies: nausea, vomiting, abdominal pain Genitourinary: denies: dysuria, frequency Musculoskeletal: denies: neck pain, shoulder pain - Medication Medications: Active Medications Generic Name Dose Route Start Last Admin Trade Name Freq PRN Reason Stop Dose Admin Sodium Chloride 1,000 mls @ 100 mls/hr 09/20/19 06:00 09/20/19 09:08 Normal Saline 0.9% IV 09/20/19 18:00 Not Given .Q10H [facility] Hospitalist History - Past Medical History Other Medical History: Chronic systolic heart failure with EF 25-30% Mitral and tricuspid valve replacement Tobacco dependence Meth use Paroxysmal atrial fibrillation Anxiety Chronic pain syndrome - Past Surgical History Other Surgical History: Ablation - Family History Other Family History: mother had lung cancer - Social History Smoking Status: Current every day smoker (smokes few cigarettes occasionally) Drugs: reports: methamphetamine (once a week) - Exam General Appearance: NAD, awake alert General - other findings: on BIPAP , anxious Eye: PERRL, anicteric sclera ENT: normocephalic atraumatic, no oropharyngeal lesions Neck: no JVD Heart: RRR, no murmur, no gallops, no rubs Respiratory: CTAB, no wheezes, no rales Gastrointestinal: soft, non-tender, non-distended, normal bowel sounds Extremities: no cyanosis, no clubbing, no edema Skin: normal turgor, no lesions, no rashes Neurological: cranial nerve grossly intact, normal sensation to touch, no focal deficits, no new deficit Hospitalist Results - Labs Result Diagrams: 09/20/19 05:10 09/20/19 10:44 Lab results: WBC 11.9 thou/uL (4.8-10.8) H 09/20/19 05:10 Hgb 13.0 g/dL (14.0-18.0) L 09/20/19 05:10 Hct 44.2 % (42.0-52.0) 09/20/19 05:10 MCV 91.6 fL (78.0-98.0) 09/20/19 05:10 Plt Count 227 thou/uL (130-400) 09/20/19 05:10 Neutrophils % 83.9 % (42.0-75.0) H 09/20/19 05:10 ABG pH 7.20 (7.35-7.45) L* 09/20/19 07:11 ABG pCO2 96.4 mmHg (35.0-45.0) H* 09/20/19 07:11 ABG pO2 63.2 mmHg (80.0-100.0) L 09/20/19 07:11 Sodium 143 mmol/L (136-145) 09/20/19 05:10 Potassium 5.4 mmol/L (3.5-5.1) H 09/20/19 05:10 Chloride 95 mmol/L (98-107) L 09/20/19 05:10 Carbon Dioxide 34 mmol/L (22-29) H 09/20/19 05:10 BUN 19 mg/dL (8.4-25.7) 09/20/19 05:10 Creatinine 0.76 mg/dL (0.7-1.3) 09/20/19 05:10 Glucose 95 mg/dL (70-105) 09/20/19 05:10 Calcium 10.5 mg/dL (7.8-10.44) H 09/20/19 05:10 Total Bilirubin 0.6 mg/dL (0.2-1.2) 09/20/19 05:10 AST 21 U/L (5-34) 09/20/19 05:10 ALT 19 U/L (8-55) 09/20/19 05:10 Alkaline Phosphatase 113 U/L (40-110) H 09/20/19 05:10 Troponin I 0.036 ng/mL (< 0.028) H 09/20/19 08:13 B-Natriuretic Peptide 365.6 pg/mL (0-100) H 09/20/19 05:10 Serum Total Protein 8.1 g/dL (6.0-8.3) 09/20/19 05:10 Albumin 3.9 g/dL (3.5-5.0) 09/20/19 05:10 Hospitalist H&P A/P - Plan Plan: This is a 53 year old male with PMH of tobacco use, COPD, mitral and tricuspid annuloplasty with presented with acute onset shortness of breath, found to be in hypercapneic respiratory failure Acute hypoxic/hypercapneic respiratory failure - started on BIPAP. REpeat ABG shows improvement with pH to 7.3. PCO2 down to 86. - patient wanting to take off BIPAP, will give break on nasal cannula for sometime, but maintain sat >88%. Consider another repeat ABG in aohour - continue IV steroids, breathing treatments, doxycycline for bronchitis #Meth use #Cannabis use - counseled on cessation - UDS positive for cannabis Metabolic alkalosis - s/p IV fluids. Will recheck BMP tomorrow Leukocytosis - WBC mildly elevated at 11.6. Added doxycycline for bronchitis Chronic systolic heart failure - last ECHO Showed EF 25-30%. Elevated troponin - likely type II NSTEMI. It has downtrended. No chest pain, EKG unremarkable DVT prophylaxis: lovenox Code status: full code
[2019-09-20 10:20] LABS: Base Excess (BEa) 11.2 mEq/L (-2.0 to +3.0); Calcium, Ionized (arterial) 1.23 mmol/L (1.12-1.30); Carboxyhemoglobin (COHb) 1.6 gm% (0.0-3.0); Hemoglobin (Hb) 12.4 g/dL (14.0-18.0); O2 Tension (PaO2), arterial 72.5 mmHg (80.0-100.0); Potassium - ABG Lab 4.73 mmol/L (3.70-5.30)
[2019-09-20 10:28] LABS: Puncture Site L.R.
[2019-09-20 10:54] LABS: Bacteria/HPF Rare-Few HPF (None Seen); Bilirubin Negative (Negative); Blood, Urine Negative (Negative); Clarity Clear (Clear); Glucose, Urine (Dipstick) Normal (Negative); Leukocyte Negative Leu/uL (Negative); Mucous/LPF 1+ LPF (<2+); Nitrite Negative (Negative); Protein, Urine (Dipstick) 30 mg/dL (Neg-Trace); RBC/HPF 0-3 HPF (0-3); Squamous Epithelial None Seen HPF (0-3); Urobilinogen Normal mg/dL (Less than 2); WBC/HPF 0-3 HPF (0-3)
[2019-09-20 10:55] LABS: Urine Culture Reflex No No
[2019-09-20 11:05] LABS: Medtox Reader # READER 1; THC/Cannabinoid Screen Detected (NotDetected)
[2019-09-20 11:06] LABS: Amphetamine Not Detected (NotDetected); Barbiturates Screen Not Detected (NotDetected); Benzodiazepine Screen Not Detected (NotDetected); Cocaine Metabolite Screen Not Detected (NotDetected); Medtox Control Line Valid? VALID (VALID); Methadone Not Detected (NotDetected); Methamphetamine Not Detected (NotDetected); Opiate Screen Not Detected (NotDetected); Oxycodone Screen Not Detected (NotDetected); Phencyclidine (PCP) Not Detected (NotDetected); Tricyclic Screen Not Detected (NotDetected)
[2019-09-20] MEDS: methylPREDNISolone Sod Succ 40 MG VIAL IVP SCH ×3 (11:18→23:28)
[2019-09-20 11:32] LABS: Lactic Acid 1.3 mmol/L (0.5-2.2)
[2019-09-20 11:33] LABS: Troponin I 0.025 ng/mL (< 0.028)
[2019-09-20 11:35] LABS: BUN (Urea Nitrogen) 18 mg/dL (8.4-25.7); Calc. Creatinine Clearance 96 mL/min (70-130); Calcium 9.9 mg/dL (7.8-10.44); Estimated GFR-MDRD Greater than 90; Glucose 116 mg/dL (70-105); Glucose POC Confirmation 116 mg/dl (70-105)
[2019-09-20 11:45] LABS: Anion Gap 15 mmol/L (10-20); Carbon Dioxide 39 mmol/L (22-29); Chloride 92 mmol/L (98-107); Potassium 4.7 mmol/L (3.5-5.1); Sodium 141 mmol/L (136-145)
[2019-09-20] MEDS ORDERED: Mometasone 200 MCG/Formoterol 5 MCG 120 PUFF INHALER INH SCH (11:45)
--- NOTE | 2019-09-20 16:00 | CON ---
DATE OF CONSULTATION: HISTORY OF PRESENT ILLNESS: A 53-year-old gentleman with multiple medical problems, presented last night with shortness of breath, coughing, but no fever or chills. His saturations were in the 80s. He is now in the MICU on a BiPAP. PAST MEDICAL HISTORY: COPD, long-standing tobacco abuse, ankylosing spondylitis, coronary artery disease, cardiomyopathy, hepatitis C, atrial fibrillation, cardiac arrhythmias. PREVIOUS SURGERIES: Spinal surgery, lumbar surgery, heart valve replacement surgery. He has a longstanding history of previous drug abuse, meth.. HOME MEDICATIONS: Apparently includes 1. Hydrocodone. 2. Lasix 40. 3. Celexa 20. 4. Coreg 3.125. 5. Aspirin. 6. HFA. ALLERGIES: NONE. REVIEW OF SYSTEMS: Negative. PHYSICAL EXAMINATION: GENERAL: He is awake, responsive. He is still having some pain. VITAL SIGNS: Saturations are 92% on a BiPAP, temperature 98, pulse 60, blood pressure . CHEST: Decreased breath sounds, no wheezing. CARDIAC: Normal S1, S2. No gallops. ABDOMEN: No masses. LABORATORY DATA: His PO2 is 72, pCO2 is with a bicarb of 40, suggesting chronic respiratory acidosis with partially compensated metabolic alkalosis. No recent drug screen was done this time. His serology was not obtained for coronavirus at this time. ASSESSMENT: End-stage chronic obstructive pulmonary disease, cardiomyopathy, drug abuse. PLAN: Steroids, schedule neb treatment, antibiotics were initiated. Continue BiPAP. If his condition gets worse, becomes more encephalopathic, he may have to be intubated. This is a consultation note, 70 minutes, 50% direct patient care. Job ID: [id number]
[2019-09-20] MEDS ORDERED: Non-Formulary Item 1 EACH (Albuterol Sulfate [Ventolin Hfa] 2 PUFF) INH PRN (16:14)
[2019-09-20] MEDS ORDERED: Non-Formulary Item 1 EACH (Albuterol Sulfate [Albuterol Sulfate Neb] 0.63 MG) NEB PRN (16:14)
[2019-09-20] MEDS: Carvedilol 3.125 MG TAB PO SCH (17:28)
[2019-09-20] MEDS: Mometasone 200 MCG/Formoterol 5 MCG 120 PUFF INHALER INH SCH (18:59)
[2019-09-21 03:43] LABS: BUN (Urea Nitrogen) 14 mg/dL (8.4-25.7); Calc. Creatinine Clearance 106 mL/min (70-130); Calcium 9.9 mg/dL (7.8-10.44); Estimated GFR-MDRD Greater than 90; Glucose 110 mg/dL (70-105)
[2019-09-21 03:52] LABS: Anion Gap 13 mmol/L (10-20); Carbon Dioxide 35 mmol/L (22-29); Chloride 95 mmol/L (98-107); Potassium 4.8 mmol/L (3.5-5.1); Sodium 138 mmol/L (136-145)
[2019-09-21 04:00] LABS: Band 7 % (5-11); Hemoglobin 11.8 g/dL (14.0-18.0); Hypochromia SLIGHT = 6-15 cells (100X) (0-5/hpf); Lymphocytes 1 % (21-51); MDiff Complete? YES; Mean Corpuscular HGB CONC 29.8 g/dL (32.0-36.0); Mean Corpuscular Hemoglobin 26.3 pg (27.0-31.0); Mean Corpuscular Volume 88.2 fL (78.0-98.0); Mean Platelet Volume 8.9 fL (7.4-10.4); Monocytes 3 % (0-10); Neutrophil 89 % (42-75); Platelet Count 213 thou/uL (130-400); Platelet Morphology Comment Appears Adequate; RBC Distribution Width 13.3 % (11.5-14.5); White Blood Cell (WBC) Count 11.3 thou/uL (4.8-10.8)
[2019-09-21] MEDS: methylPREDNISolone Sod Succ 40 MG VIAL IVP SCH ×4 (05:15→23:40)
[2019-09-21 05:52] VITALS: BMI 26.7
[2019-09-21] MEDS: Mometasone 200 MCG/Formoterol 5 MCG 120 PUFF INHALER INH SCH ×2 (07:57→19:54)
[2019-09-21] MEDS: Carvedilol 3.125 MG TAB PO SCH ×2 (08:29→17:30)
[2019-09-21] MEDS: Enoxaparin Sodium 40 MG/0.4 ML SYRINGE SC SCH (08:29)
[2019-09-21] MEDS: Citalopram 20 MG TAB PO SCH (08:29)
[2019-09-21] MEDS: Aspirin 81 mg Enteric Coated Tablet PO SCH (08:29)
--- NOTE | 2019-09-21 09:34 | PRG ---
DATE OF SERVICE: 09/21/2019 SUBJECTIVE: Carlos Young, this morning, is better. He is off the BiPAP. OBJECTIVE: VITAL SIGNS: His sats are 90% to 92%, pulse 120, respirations 27, blood pressure 118/86. CHEST: Decreased breath sounds. No wheezing. CARDIAC: Normal S1, S2. No gallops. ABDOMEN: No masses. LABORATORY DATA: Unremarkable. IMPRESSION: Chronic obstructive pulmonary disease exacerbation, bronchitis, ongoing substance abuse. PLAN: PO antibiotics, switch him to p.o. prednisone tomorrow, neb treatments, supportive care. We will follow. Job ID: [id number]
[2019-09-21] MEDS: Lorazepam 1 MG TAB PO PRN ×2 (11:42→17:30)
[2019-09-21] MEDS: Doxycycline 100 MG CAP PO SCH ×2 (11:42→21:15)
--- NOTE | 2019-09-21 16:12 | PDOC.HOSPP ---
- Subjective Encounter Date: 09/21/19 Encounter Time: 10:00 Subjective: Patient states his breathing is better. He has been off BIPAP since this morning. Patient admitted to using methamphetamine on daily basis. He did have panic attack this morning that responded to ativan Patient states he is very interested in going to a rehab from here. He has never been to a drug rehab before. He states he is from his but still officially - Objective Vital Signs & Weight: Vital Signs (12 hours) Temp Pulse Resp Pulse Ox 09/21/19 15:55 118 H 22 H 94 L 09/21/19 15:24 96.8 F L 09/21/19 11:06 98.4 F 09/21/19 10:58 117 H 23 H 95 09/21/19 07:55 124 H 27 H 90 L 09/21/19 07:15 93 L 09/21/19 07:04 98.8 F Weight Weight 181 lb Most Recent Monitor Data Heart Rate from ECG 120 NIBP 134/96 NIBP BP-Mean 108 Respiration from ECG 26 SpO2 90 I&O: 09/20/19 09/21/19 09/22/19 06:59 06:59 06:59 Intake Total 1240 450 Output Total 1500 0 Balance -260 450 Result Diagrams: 09/21/19 02:55 09/21/19 02:55 Additional Labs: Accuchecks 09/21/19 09/20/19 09/20/19 05:51 23:52 16:57 POC Glucose 125 H 132 H 181 H Hospitalist ROS - Review of Systems Constitutional: denies: fever, chills - Medication Medications: Active Medications Generic Name Dose Route Start Last Admin Trade Name Freq PRN Reason Stop Dose Admin Albuterol/Ipratropium 3 ml 09/20/19 14:30 09/21/19 15:55 Duoneb NEB 3 ml [id number] TIFFANY Administration Aspirin 81 mg 09/21/19 09:00 09/21/19 08:29 Ecotrin PO 81 mg DAILY TIFFANY Administration Carvedilol 3.125 mg 09/20/19 17:00 09/21/19 08:29 Coreg PO 3.125 mg BID-WM TIFFANY Administration Citalopram Hydrobromide 20 mg 09/21/19 09:00 09/21/19 08:29 Celexa PO 20 mg DAILY TIFFANY Administration Doxycycline Hyclate 100 mg 09/21/19 09:00 09/21/19 11:42 Vibramycin PO 09/28/19 09:01 100 mg BID TIFFANY Administration Enoxaparin Sodium 40 mg 09/21/19 09:00 09/21/19 08:29 Lovenox SC 40 mg 0900 TIFFANY Administration Lorazepam 1 mg 09/21/19 10:06 09/21/19 11:42 Ativan PO 1 mg Q4H PRN Administration Anxiety/Agitation Methylprednisolone Sodium Succinate 40 mg 09/20/19 12:00 09/21/19 11:41 Solu-Medrol IVP 40 mg Q6HR TIFFANY Administration Mometasone Furoate/Formoterol Fumar 2 puff 09/20/19 18:30 09/21/19 07:57 Dulera 200 Mcg/5 Mcg Inhaler INH 2 puff BID-RT TIFFANY Administration - Exam General Appearance: NAD, awake alert Eye: PERRL, anicteric sclera ENT: normocephalic atraumatic, no oropharyngeal lesions Neck: no JVD Heart: RRR, no murmur, no gallops, no rubs Respiratory: CTAB, no wheezes, no rales, no ronchi Respiratory - other findings: diminished breath sounds with scattered wheeze Gastrointestinal: soft, non-tender, non-distended, normal bowel sounds Extremities: no cyanosis, no clubbing, no edema Skin: normal turgor, no lesions, no rashes Hosp A/P - Plan This is a 53 year old female who presented with acute onset shortness of breath , found to be in hypercapnic respiratory failure requiring BIPAP Acute hypoxic/hypercapneic respiratory failure - started on BIPAP. REpeat ABG shows improvement with pH to 7.3. PCO2 down to 86. He is on nasal cannula at this time - continue IV steroids - switched to oral doxycycline #Meth use #Cannabis use - counseled on cessation - UDS positive for cannabis -case management consult for inpatient rehab Metabolic alkalosis - improving, holding lasix Leukocytosis - WBC mildly elevated at 11.3. Added doxycycline for bronchitis Chronic systolic heart failure - last ECHO Showed EF 25-30%. Elevated troponin - likely type II NSTEMI. It has downtrended. No chest pain, EKG unremarkable Code status: full code
[2019-09-22 04:15] LABS: Anion Gap 14 mmol/L (10-20); BUN (Urea Nitrogen) 16 mg/dL (8.4-25.7); Calc. Creatinine Clearance 135 mL/min (70-130); Calcium 10.3 mg/dL (7.8-10.44); Carbon Dioxide 34 mmol/L (22-29); Chloride 96 mmol/L (98-107); Estimated GFR-MDRD Greater than 90; Glucose 104 mg/dL (70-105); Potassium 5.3 mmol/L (3.5-5.1); Sodium 139 mmol/L (136-145)
[2019-09-22] MEDS: methylPREDNISolone Sod Succ 40 MG VIAL IVP SCH (07:36)
[2019-09-22] MEDS: Enoxaparin Sodium 40 MG/0.4 ML SYRINGE SC SCH (07:36)
[2019-09-22] MEDS: Aspirin 81 mg Enteric Coated Tablet PO SCH (07:37)
[2019-09-22] MEDS: Doxycycline 100 MG CAP PO SCH ×2 (07:37→21:22)
[2019-09-22] MEDS: Citalopram 20 MG TAB PO SCH (07:37)
[2019-09-22] MEDS: Lorazepam 1 MG TAB PO PRN ×2 (07:37→21:29)
[2019-09-22] MEDS: Carvedilol 3.125 MG TAB PO SCH ×2 (07:37→17:58)
[2019-09-22] MEDS: Mometasone 200 MCG/Formoterol 5 MCG 120 PUFF INHALER INH SCH ×2 (07:58→18:37)
[2019-09-22 09:52] LABS: Hemoglobin 12.7 g/dL (14.0-18.0); Mean Corpuscular HGB CONC 29.2 g/dL (32.0-36.0); Mean Corpuscular Hemoglobin 26.1 pg (27.0-31.0); Mean Corpuscular Volume 89.2 fL (78.0-98.0); Mean Platelet Volume 8.6 fL (7.4-10.4); Platelet Count 233 thou/uL (130-400); RBC Distribution Width 13.8 % (11.5-14.5); Red Blood Cell (RBC) Count 4.86 mill/uL (4.70-6.10); White Blood Cell (WBC) Count 18.4 thou/uL (4.8-10.8)
[2019-09-22 10:28] LABS: Hypochromia SLIGHT = 6-15 cells (100X) (0-5/hpf); Large Platelets SLIGHT; Lymphocytes 3 % (21-51); MDiff Complete? YES; Monocytes 4 % (0-10); Neutrophil 93 % (42-75); Platelet Morphology Comment Appears Adequate
--- NOTE | 2019-09-22 12:29 | PRG ---
DATE OF SERVICE: 09/22/2019 SUBJECTIVE: Mr. Young told nurses yesterday that he uses meth every day. Interestingly, his methamphetamine drug screen on 09/19 was negative. He did have a drug screen positive for cannabinoids. His son is unaware as to whether or not his father uses drugs. His son is in the room. His son lives in [place] with his mom. OBJECTIVE: LUNGS: Distant and clear. HEART: Regular rhythm. ABDOMEN: Soft and nontender. EXTREMITIES: Without edema. VITAL SIGNS: Stable. IMPRESSION: 1. Chronic obstructive pulmonary disease exacerbation with severe underlying chronic obstructive pulmonary disease. 2. Admitted substance abuse with a drug screen positive for marijuana. PLAN: We will continue supportive care. Job ID: [id number]
--- NOTE | 2019-09-22 16:06 | PDOC.HOSPP ---
- Subjective Encounter Date: 09/22/19 Encounter Time: 11:20 Subjective: looks quite somnolent, tachycardia; sats 99% w.. 4 li O2, BP ok. - Objective Vital Signs & Weight: Vital Signs (12 hours) Temp Pulse Resp BP Pulse Ox 09/22/19 15:50 97.8 F 108 H 22 H 134/88 100 09/22/19 14:57 105 H 20 99 09/22/19 11:46 97.6 F 116 H 22 H 99 09/22/19 10:30 105 H 20 96 09/22/19 08:04 97.6 F 117 H 22 H 129/86 95 09/22/19 07:56 119 H 25 H 93 L 09/22/19 07:45 97 Weight Weight 186 lb Most Recent Monitor Data Heart Rate from ECG 107 NIBP 134/88 NIBP BP-Mean 103 Respiration from ECG 12 SpO2 100 I&O: 09/21/19 09/22/19 09/23/19 06:59 06:59 06:59 Intake Total 1240 1060 350 Output Total 1500 1250 475 Balance -260 -190 -125 Result Diagrams: 09/22/19 09:30 09/22/19 03:18 Hospitalist ROS - Medication Medications: Active Medications Generic Name Dose Route Start Last Admin Trade Name Freq PRN Reason Stop Dose Admin Albuterol/Ipratropium 3 ml 09/20/19 14:30 09/22/19 14:57 Duoneb NEB 3 ml [id number] TIFFANY Administration Aspirin 81 mg 09/21/19 09:00 09/22/19 07:37 Ecotrin PO 81 mg DAILY TIFFANY Administration Carvedilol 3.125 mg 09/20/19 17:00 09/22/19 07:37 Coreg PO 3.125 mg BID-WM TIFFANY Administration Citalopram Hydrobromide 20 mg 09/21/19 09:00 09/22/19 07:37 Celexa PO 20 mg DAILY TIFFANY Administration Doxycycline Hyclate 100 mg 09/21/19 09:00 09/22/19 07:37 Vibramycin PO 09/28/19 09:01 100 mg BID TIFFANY Administration Enoxaparin Sodium 40 mg 09/21/19 09:00 09/22/19 07:36 Lovenox SC 40 mg 0900 TIFFANY Administration Lorazepam 1 mg 09/21/19 10:06 09/22/19 07:37 Ativan PO 1 mg Q4H PRN Administration Anxiety/Agitation Mometasone Furoate/Formoterol Fumar 2 puff 09/20/19 18:30 09/22/19 07:58 Dulera 200 Mcg/5 Mcg Inhaler INH 2 puff BID-RT TIFFANY Administration - Exam General Appearance: ill appearing Eye: PERRL ENT: normocephalic atraumatic Neck: supple Heart: RRR, normal peripheral pulses Respiratory: CTAB, normal chest expansion Gastrointestinal: soft, non-distended, normal bowel sounds Neurological: no focal deficits Psychiatric: A&O x 3 Hosp A/P - Plan Note edited to reflect today's care of plan. 53 year old female who presented with acute onset shortness of breath, found to be in hypercapnic respiratory failure requiring BIPAP Acute hypoxic/hypercapneic respiratory failure COPD exacerbation Bronchitis - started on BIPAP. REpeat ABG shows improvement with pH to 7.3. PCO2 down to 86. He is on nasal cannula at this time - continue IV steroids - switched to oral doxycycline #Meth use #Cannabis use - counseled on cessation - UDS positive for cannabis -case management consult for inpatient rehab Metabolic alkalosis - improving, holding lasix Leukocytosis - WBC mildly elevated at 11.3. Added doxycycline for bronchitis Chronic systolic heart failure Non-ischemic CM paroxysmal afib S/p Tri and MV ring annuloplasty s/p AICD placement. - last ECHO Showed EF 25-30%. -cw coreg, lasix Elevated troponin - likely type II NSTEMI. It has downtrended. No chest pain, EKG unremarkable Code status: full code
[2019-09-23 03:46] LABS: Band 2 % (5-11); Hemoglobin 13.4 g/dL (14.0-18.0); Lymphocytes 9 % (21-51); MDiff Complete? YES; Mean Platelet Volume 8.7 fL (7.4-10.4); Monocytes 3 % (0-10); Neutrophil 85 % (42-75); Platelet Count 235 thou/uL (130-400); Platelet Morphology Comment Appears Adequate; RBC Distribution Width 13.6 % (11.5-14.5); RBC Morphology Normal; Reactive Lymphocytes 1 % (0-10); Red Blood Cell (RBC) Count 4.95 mill/uL (4.70-6.10)
[2019-09-23 03:47] LABS: BUN (Urea Nitrogen) 25 mg/dL (8.4-25.7); Calc. Creatinine Clearance 132 mL/min (70-130); Calcium 10.3 mg/dL (7.8-10.44); Estimated GFR-MDRD Greater than 90; Glucose 80 mg/dL (70-105)
[2019-09-23 03:56] LABS: Anion Gap 12 mmol/L (10-20); Carbon Dioxide 38 mmol/L (22-29); Chloride 95 mmol/L (98-107); Potassium 5.1 mmol/L (3.5-5.1); Sodium 140 mmol/L (136-145)
[2019-09-23] MEDS: Mometasone 200 MCG/Formoterol 5 MCG 120 PUFF INHALER INH SCH ×2 (08:06→19:18)
[2019-09-23] MEDS: predniSONE 20 MG TAB PO SCH (08:43)
[2019-09-23] MEDS: Aspirin 81 mg Enteric Coated Tablet PO SCH (08:43)
[2019-09-23] MEDS: Citalopram 20 MG TAB PO SCH (08:43)
[2019-09-23] MEDS: Carvedilol 3.125 MG TAB PO SCH ×2 (08:43→16:53)
[2019-09-23] MEDS: Doxycycline 100 MG CAP PO SCH ×2 (08:44→20:55)
[2019-09-23] MEDS: Enoxaparin Sodium 40 MG/0.4 ML SYRINGE SC SCH (08:44)
[2019-09-23] MEDS: Lorazepam 1 MG TAB PO PRN ×2 (08:49→16:53)
--- NOTE | 2019-09-23 13:36 | PDOC.HOSPP ---
- Subjective Encounter Date: 09/23/19 Encounter Time: 11:10 Subjective: feels quite constipated, getting breathing treatment, tachycardia on the monitor. - Objective Vital Signs & Weight: Vital Signs (12 hours) Temp Pulse Resp Pulse Ox 09/23/19 11:29 96.2 F L 09/23/19 10:37 121 H 18 97 09/23/19 08:04 122 H 20 100 09/23/19 07:26 98 09/23/19 07:19 97.9 F 09/23/19 03:43 97.1 F L 09/23/19 02:39 117 H 18 100 Weight Weight 186 lb Most Recent Monitor Data Heart Rate from ECG 111 NIBP 110/71 NIBP BP-Mean 84 Respiration from ECG 16 SpO2 100 I&O: 09/22/19 09/23/19 09/24/19 06:59 06:59 06:59 Intake Total 1060 1150 1100 Output Total 3152 607 7703 Balance -190 175 -450 Result Diagrams: 09/23/19 03:05 09/23/19 03:05 Hospitalist ROS - Medication Medications: Active Medications Generic Name Dose Route Start Last Admin Trade Name Freq PRN Reason Stop Dose Admin Albuterol/Ipratropium 3 ml 09/20/19 14:30 09/23/19 10:37 Duoneb NEB 3 ml [id number] TIFFANY Administration Aspirin 81 mg 09/21/19 09:00 09/23/19 08:43 Ecotrin PO 81 mg DAILY TIFFANY Administration Carvedilol 3.125 mg 09/20/19 17:00 09/23/19 08:43 Coreg PO 3.125 mg BID-WM TIFFANY Administration Citalopram Hydrobromide 20 mg 09/21/19 09:00 09/23/19 08:43 Celexa PO 20 mg DAILY TIFFANY Administration Doxycycline Hyclate 100 mg 09/21/19 09:00 09/23/19 08:44 Vibramycin PO 09/28/19 09:01 100 mg BID TIFFANY Administration Enoxaparin Sodium 40 mg 09/21/19 09:00 09/23/19 08:44 Lovenox SC 40 mg 0900 TIFFANY Administration Lorazepam 1 mg 09/21/19 10:06 09/23/19 08:49 Ativan PO 1 mg Q4H PRN Administration Anxiety/Agitation Mometasone Furoate/Formoterol Fumar 2 puff 09/20/19 18:30 09/23/19 08:06 Dulera 200 Mcg/5 Mcg Inhaler INH 2 puff BID-RT TIFFANY Administration Prednisone 40 mg 09/23/19 08:00 09/23/19 08:43 Prednisone PO 40 mg QAM-WM TIFFANY Administration - Exam General Appearance: NAD, awake alert Eye: PERRL ENT: normocephalic atraumatic Neck: supple Heart: normal peripheral pulses Heart - other findings: tachycardia Respiratory: normal chest expansion, rales Gastrointestinal: normal bowel sounds, distended Neurological: no focal deficits Psychiatric: A&O x 3 Hosp A/P - Plan Note edited to reflect today's care of plan. 53 year old female who presented with acute onset shortness of breath, found to be in hypercapnic respiratory failure requiring BIPAP Acute hypoxic/hypercapneic respiratory failure COPD exacerbation Bronchitis - started on BIPAP. REpeat ABG shows improvement with pH to 7.3. PCO2 down to 86. He is on nasal cannula at this time - continue IV steroids - switched to oral doxycycline #Meth use #Cannabis use - counseled on cessation - UDS positive for cannabis -case management consult for inpatient rehab chronic Metabolic alkalosis -trial of diamox Leukocytosis---up to 18K steroid induced? -last cxr over a wk ago - repeat CXR and UA -doxycycline for bronchitis Chronic systolic heart failure Non-ischemic CM paroxysmal afib S/p Tri and MV ring annuloplasty s/p AICD placement. - last ECHO Showed EF 25-30%. -cw coreg, lasix Elevated troponin - likely type II NSTEMI. It has downtrended. No chest pain, EKG unremarkable Code status: full code
[2019-09-23] MEDS ORDERED: Docusate 100 MG CAP PO SCH (13:45)
--- NOTE | 2019-09-23 14:50 | PRG ---
DATE OF SERVICE: 09/23/2019 SUBJECTIVE: Carlos Young is about the same. OBJECTIVE: VITAL SIGNS: He is afebrile, heart rate is 106, respiratory rate is 14, oximetry is 100% on 3 L cannula, and blood pressure is 110/71. LUNGS: Free of wheezes. HEART: Regular rhythm. ABDOMEN: Soft. EXTREMITIES: Without edema. LABORATORY DATA: White count 18, hemoglobin 13, and platelets 235. Sodium 140, potassium 5.1, chloride 95, bicarb 38, BUN 25, and creatinine 0.79. Intake and outputs positive 175. IMPRESSION: 1. Chronic obstructive pulmonary disease exacerbation. 2. ? Polysubstance abuse. 3. Systolic cardiomyopathy with ejection fraction of 25% to 30%. 4. History of mitral valve repair. He has been seen by Dr. Islas and Dr. Priest in the past. We will continue to follow. Job ID: [id number]
[2019-09-23] MEDS: AcetaZOLAMIDE 250 MG TAB PO SCH ×2 (16:53→20:55)
[2019-09-23] MEDS: Senokot S 8.6-50 MG TAB PO SCH (20:55)
[2019-09-24 03:39] LABS: Band 15 % (5-11); Hemoglobin 12.8 g/dL (14.0-18.0); Lymphocytes 8 % (21-51); MDiff Complete? YES; Mean Corpuscular HGB CONC 30.1 g/dL (32.0-36.0); Mean Corpuscular Volume 89.8 fL (78.0-98.0); Mean Platelet Volume 8.4 fL (7.4-10.4); Monocytes 5 % (0-10); Neutrophil 72 % (42-75); Platelet Count 198 thou/uL (130-400); Platelet Morphology Comment Appears Adequate; RBC Distribution Width 13.7 % (11.5-14.5); Red Blood Cell (RBC) Count 4.73 mill/uL (4.70-6.10); White Blood Cell (WBC) Count 12.7 thou/uL (4.8-10.8)
[2019-09-24 03:40] LABS: BUN (Urea Nitrogen) 25 mg/dL (8.4-25.7); Calc. Creatinine Clearance 109 mL/min (70-130); Calcium 9.9 mg/dL (7.8-10.44); Estimated GFR-MDRD 83; Glucose 95 mg/dL (70-105)
[2019-09-24 03:50] LABS: Anion Gap 13 mmol/L (10-20); Carbon Dioxide 34 mmol/L (22-29); Chloride 97 mmol/L (98-107); Potassium 4.4 mmol/L (3.5-5.1); Sodium 140 mmol/L (136-145)
[2019-09-24] MEDS: Lorazepam 1 MG TAB PO PRN ×2 (04:44→09:28)
[2019-09-24] MEDS: Senokot S 8.6-50 MG TAB PO SCH ×2 (07:37→21:10)
[2019-09-24] MEDS: predniSONE 20 MG TAB PO SCH (07:41)
[2019-09-24] MEDS: Carvedilol 3.125 MG TAB PO SCH ×2 (07:42→16:55)
[2019-09-24] MEDS: Doxycycline 100 MG CAP PO SCH ×2 (07:42→21:09)
[2019-09-24] MEDS: Enoxaparin Sodium 40 MG/0.4 ML SYRINGE SC SCH (07:42)
[2019-09-24] MEDS: Citalopram 20 MG TAB PO SCH (07:42)
[2019-09-24] MEDS: AcetaZOLAMIDE 250 MG TAB PO SCH ×2 (07:42→21:10)
[2019-09-24] MEDS: Aspirin 81 mg Enteric Coated Tablet PO SCH (07:42)
[2019-09-24] MEDS: Mometasone 200 MCG/Formoterol 5 MCG 120 PUFF INHALER INH SCH ×2 (07:56→18:10)
[2019-09-24] MEDS ORDERED: Diazepam 5 MG TAB PO SCH (10:15)
--- NOTE | 2019-09-24 10:26 | PRG ---
DATE OF SERVICE: 09/24/2019 SUBJECTIVE: This morning, he is better, is less short of breath. Denies any pain or discomfort. OBJECTIVE: VITAL SIGNS: Temperature 98, pulse 115, respiratory rate 18, saturations 100% on 3 L. I have prompted to decrease to 2 L. I's and O's have been consistently negative. CHEST: Decreased breath sounds. No wheezing. CARDIAC: Normal S1 and S2. No gallops. ABDOMEN: No masses. LABORATORY DATA: Unremarkable. ASSESSMENT: End-stage chronic obstructive pulmonary disease, respiratory failure, cardiomyopathy, EF is 25% to 30%. PLAN: Continue supportive care and PT. Minimize sedation. Job ID: [id number]
--- NOTE | 2019-09-24 13:07 | PDOC.HOSPP ---
- Subjective Encounter Date: 09/24/19 Encounter Time: 11:00 Subjective: feels ok, ambulating and sats 935 w.. ambulation, stable to transfer to [facility]. - Objective Vital Signs & Weight: Vital Signs (12 hours) Temp Pulse Resp Pulse Ox 09/24/19 12:00 98.2 F 09/24/19 10:56 115 H 20 99 09/24/19 07:56 112 H 15 100 09/24/19 07:31 98.4 F 09/24/19 07:15 94 L 09/24/19 03:43 98.4 F 09/24/19 02:57 100 Weight Weight 183 lb 1.6 oz Most Recent Monitor Data Heart Rate from ECG 124 NIBP 133/90 NIBP BP-Mean 104 Respiration from ECG 22 SpO2 99 I&O: 09/23/19 09/24/19 09/25/19 06:59 06:59 06:59 Intake Total 1150 3310 520 Output Total 975 5000 1175 Balance 907 -0296 -855 Result Diagrams: 09/24/19 03:11 09/24/19 03:11 Hospitalist ROS - Medication Medications: Active Medications Generic Name Dose Route Start Last Admin Trade Name Freq PRN Reason Stop Dose Admin Albuterol/Ipratropium 3 ml 09/20/19 14:30 09/24/19 10:56 Duoneb NEB 3 ml [id number] TIFFANY Administration Aspirin 81 mg 09/21/19 09:00 09/24/19 07:42 Ecotrin PO 81 mg DAILY TIFFANY Administration Carvedilol 3.125 mg 09/20/19 17:00 09/24/19 07:42 Coreg PO 3.125 mg BID-WM TIFFANY Administration Citalopram Hydrobromide 20 mg 09/21/19 09:00 09/24/19 07:42 Celexa PO 20 mg DAILY TIFFANY Administration Doxycycline Hyclate 100 mg 09/21/19 09:00 09/24/19 07:42 Vibramycin PO 09/28/19 09:01 100 mg BID TIFFANY Administration Enoxaparin Sodium 40 mg 09/21/19 09:00 09/24/19 07:42 Lovenox SC 40 mg 0900 TIFFANY Administration Lorazepam 1 mg 09/21/19 10:06 09/24/19 09:28 Ativan PO 1 mg Q4H PRN Administration Anxiety/Agitation Mometasone Furoate/Formoterol Fumar 2 puff 09/20/19 18:30 09/24/19 07:56 Dulera 200 Mcg/5 Mcg Inhaler INH 2 puff BID-RT TIFFANY Administration Prednisone 40 mg 09/23/19 08:00 09/24/19 07:41 Prednisone PO 40 mg QAM-WM TIFFANY Administration Senna/Docusate Sodium 2 tab 09/23/19 21:00 09/24/19 07:37 Senokot S PO Not Given BID TIFFANY - Exam General Appearance: NAD, awake alert Eye: PERRL ENT: normocephalic atraumatic Neck: supple Heart: RRR Respiratory: CTAB, normal chest expansion Gastrointestinal: soft, normal bowel sounds, no palpable masses Neurological: no focal deficits Hosp A/P - Plan Note edited to reflect today's care of plan. 53 year old female who presented with acute onset shortness of breath, found to be in hypercapnic respiratory failure requiring BIPAP Acute hypoxic/hypercapneic respiratory failure COPD exacerbation Bronchitis - started on BIPAP. REpeat ABG shows improvement with pH to 7.3. PCO2 down to 86. He is on nasal cannula at this time - continue IV steroids - switched to oral doxycycline #Meth use #Cannabis use - counseled on cessation - UDS positive for cannabis -case management consult for inpatient rehab chronic Metabolic alkalosis -trial of diamox Leukocytosis---up to 18K steroid induced? -last cxr over a wk ago - repeat CXR and UA -doxycycline for bronchitis Chronic systolic heart failure Non-ischemic CM paroxysmal afib S/p Tri and MV ring annuloplasty s/p AICD placement. - last ECHO Showed EF 25-30%. -cw coreg, lasix Elevated troponin - likely type II NSTEMI. It has downtrended. No chest pain, EKG unremarkable Code status: full code PT c/s --rehab options vs..[facility]. Pt lives w.. family.
[2019-09-24] MEDS ORDERED: Metoprolol Tartrate 5 MG/5 ML VIAL IVP PRN (14:55)
[2019-09-24] MEDS: HYDROcodone/Acetaminophen 10/325 mg Tablet PO PRN (17:57)
[2019-09-24] MEDS: Diazepam 2 MG TAB PO SCH (21:08)
--- NOTE | 2019-09-25 00:12 | CON ---
DATE OF CONSULTATION: HISTORY: Carlos Young is a 53-year-old white male with history of cardiomyopathy, who follows with Dr. Islas. He was admitted on September 19 with increased shortness of breath. He denied any chest discomfort. At the present time, he is somewhat lethargic, but states that his breathing seems to be doing well. He also smoked methamphetamine the day prior to admission. PAST MEDICAL HISTORY: Chronic nonischemic cardiomyopathy with ejection fraction of 25% to 30%, paroxysmal atrial fibrillation, anxiety and depression, chronic pain syndrome, and history of methamphetamine and marijuana abuse. PAST SURGICAL HISTORY: Mitral and tricuspid valvuloplasties. Dual-chamber ICD placement. SOCIAL HISTORY: He smokes tobacco, marijuana, and methamphetamine. MEDICATIONS: 1. Carvedilol 3.125 b.i.d. 2. Aspirin 325 daily. 3. Keflex 500 q.i.d. 4. Celexa 20 daily. 5. Furosemide 40 mg b.i.d. 6. Cooter p.r.n. ALLERGIES: NONE. REVIEW OF SYSTEMS: Difficult to obtain with the patient's current lethargy. PHYSICAL EXAMINATION: VITAL SIGNS: Blood pressure 123/79 and pulse of 113. HEENT: PERRL. NECK: Supple. CHEST: Clear. CARDIAC: S1 and S2 normal without any S3, S4, or murmurs. ABDOMEN: Normal bowel sounds. EXTREMITIES: Revealed no edema. NEUROLOGICAL: The patient is lethargic. LABORATORY DATA: EKG reveals sinus tachycardia with right bundle-branch block. Hemoglobin 12.8, hematocrit 42.4, white count 12,700, and platelets 198,000. Sodium 140, potassium 4.4, chloride 97, carbon dioxide 34, BUN 25, and creatinine 0.96. Urine drug screen is positive for cannabinoids. Echocardiogram revealed ejection fraction of 25% to 30% with mildly enlarged right ventricle, moderate to severely dilated left atrium, previous repair of the mitral and tricuspid valves, and pacing wire in the right ventricle. IMPRESSION: 1. Chronic obstructive pulmonary disease exacerbation. 2. Acute on chronic systolic heart failure. 3. Status post dual-chamber implantable cardioverter-defibrillator. 4. Smoker. 5. Polysubstance abuse. PLAN: Mr. Young will be restarted on his p.o. Lasix. [facility], will be performed to further evaluate his ICD to better assess his volume status. Job ID: [id number] [facility]
[2019-09-25 04:25] LABS: Band 1 % (5-11); Hemoglobin 13.2 g/dL (14.0-18.0); Hypochromia SLIGHT = 6-15 cells (100X) (0-5/hpf); Lymphocytes 3 % (21-51); MDiff Complete? YES; Mean Corpuscular HGB CONC 28.8 g/dL (32.0-36.0); Mean Corpuscular Hemoglobin 25.6 pg (27.0-31.0); Mean Corpuscular Volume 88.9 fL (78.0-98.0); Mean Platelet Volume 8.8 fL (7.4-10.4); Monocytes 5 % (0-10); Neutrophil 91 % (42-75); Platelet Count 226 thou/uL (130-400); Platelet Morphology Comment Appears Adequate; RBC Distribution Width 14.1 % (11.5-14.5); Red Blood Cell (RBC) Count 5.14 mill/uL (4.70-6.10); White Blood Cell (WBC) Count 11.7 thou/uL (4.8-10.8)
[2019-09-25 04:30] LABS: Anion Gap 12 mmol/L (10-20); BUN (Urea Nitrogen) 24 mg/dL (8.4-25.7); Calc. Creatinine Clearance 127 mL/min (70-130); Calcium 9.6 mg/dL (7.8-10.44); Carbon Dioxide 31 mmol/L (22-29); Chloride 101 mmol/L (98-107); Estimated GFR-MDRD Greater than 90; Glucose 125 mg/dL (70-105); Potassium 4.9 mmol/L (3.5-5.1); Sodium 139 mmol/L (136-145)
[2019-09-25] MEDS: Mometasone 200 MCG/Formoterol 5 MCG 120 PUFF INHALER INH SCH ×2 (06:57→18:34)
[2019-09-25] MEDS ORDERED: Furosemide 40 MG TAB PO SCH (09:00)
[2019-09-25] MEDS: HYDROcodone/Acetaminophen 10/325 mg Tablet PO PRN (09:38)
[2019-09-25] MEDS: Diazepam 2 MG TAB PO SCH ×2 (09:39→21:08)
[2019-09-25] MEDS: Senokot S 8.6-50 MG TAB PO SCH ×2 (09:39→21:08)
[2019-09-25] MEDS: Doxycycline 100 MG CAP PO SCH ×2 (09:39→21:08)
[2019-09-25] MEDS: Enoxaparin Sodium 40 MG/0.4 ML SYRINGE SC SCH (09:40)
[2019-09-25] MEDS: predniSONE 20 MG TAB PO SCH (09:40)
[2019-09-25] MEDS: Carvedilol 3.125 MG TAB PO SCH ×2 (09:40→17:47)
[2019-09-25] MEDS: Citalopram 20 MG TAB PO SCH (09:40)
[2019-09-25] MEDS: Aspirin 81 mg Enteric Coated Tablet PO SCH (09:40)
[2019-09-25] MEDS: AcetaZOLAMIDE 250 MG TAB PO SCH ×2 (10:12→21:33)
--- NOTE | 2019-09-25 11:07 | PRG ---
DATE OF SERVICE: SUBJECTIVE: Mr. Young this morning, still appears to be somewhat confused. He was seen by Cardiology yesterday. Pulmonary morfin, he is stable enough to be transferred home. OBJECTIVE: VITAL SIGNS: Temperature 98, pulse 102, sats 97, blood pressure 107/64. CHEST: No wheezing or crackles. CARDIAC: Normal S1 and S2. No gallops. ABDOMEN: No masses. ASSESSMENT AND PLAN: Chronic obstructive pulmonary disease, congestive heart failure, cardiomyopathy, encephalopathy. Continue PT, supportive care, eventually home. Job ID: [id number]
--- NOTE | 2019-09-25 12:39 | PDOC.CPN ---
- Subjective Date: 09/25/19 Time: 12:32 Interval history: He is doing better. He has diuresed well. Edema is better bit still has ascitis. - Review of Systems General: denies: fever/chills, weight/appetite/sleep changes, night sweats, fatigue Respiratory: reports: shortness of breath. denies: cough, congestion, exercise intolerance Cardiovascular: denies: chest pain, palpitation, edema, paroxysmal nocturnal dyspnea, orthopnea Gastrointestinal: denies: nausea, vomiting, diarrhea, constipation, abd pain, GI bleeding Musculoskeletal: denies: pain, tenderness, stiffness, swelling, arthritis/ arthralgias Neurological: denies: numbness, syncope, seizure, weakness - Objective Allergies/Adverse Reactions: Allergies Allergy/AdvReac Type Severity Reaction Status Date / Time No Known Drug Allergies Allergy Verified 05/19/19 20:57 Visit Medications: Current Medications Hydrocodone Bitart/Acetaminophen ([place] 10/325) 1 tab PO Q6H PRN PRN Reason: Pain Last Admin: 09/25/19 09:38 Dose: 1 tab Acetazolamide (Diamox) 250 mg PO BID [facility] Stop: 09/27/19 21:01 Last Admin: 09/25/19 10:12 Dose: 250 mg Albuterol/Ipratropium (Duoneb) 3 ml NEB [id number] [facility] Last Admin: 09/25/19 10:38 Dose: 3 ml Aspirin (Ecotrin) 81 mg PO DAILY [facility] Last Admin: 09/25/19 09:40 Dose: 81 mg Carvedilol (Coreg) 3.125 mg PO BID-WM [facility] Last Admin: 09/25/19 09:40 Dose: 3.125 mg Citalopram Hydrobromide (Celexa) 20 mg PO DAILY [facility] Last Admin: 09/25/19 09:40 Dose: 20 mg Diazepam (Valium) 2 mg PO BID [facility] Last Admin: 09/25/19 09:39 Dose: 2 mg Doxycycline Hyclate (Vibramycin) 100 mg PO BID [facility] Stop: 09/28/19 09:01 Last Admin: 09/25/19 09:39 Dose: 100 mg Enoxaparin Sodium (Lovenox) 40 mg SC 0900 [facility] Last Admin: 09/25/19 09:40 Dose: 40 mg Furosemide (Lasix) 40 mg PO 0900,1400 [facility] Last Admin: 09/25/19 09:40 Dose: 40 mg Lorazepam (Ativan) 1 mg PO Q4H PRN PRN Reason: Anxiety/Agitation Last Admin: 09/24/19 09:28 Dose: 1 mg Metoprolol Tartrate (Lopressor) 5 mg IVP Q4H PRN PRN Reason: Persistent BP Elevations Stop: 09/27/19 14:56 Mometasone Furoate/Formoterol Fumar (Dulera 200 Mcg/5 Mcg Inhaler) 2 puff INH BID-RT [facility] Last Admin: 09/25/19 06:57 Dose: 2 puff Prednisone (Prednisone) 40 mg PO QAM-WM [facility] Last Admin: 09/25/19 09:40 Dose: 40 mg Senna/Docusate Sodium (Senokot S) 2 tab PO BID [facility] Last Admin: 09/25/19 09:39 Dose: 2 tab Sterile Water (Bacteriostatic Water) 1 ml FS PRN PRN PRN Reason: RECONSTITUTION Vital Signs & Weight: Vital Signs Temp Pulse Pulse Pulse Resp BP BP 09/25/19 10:38 113 H 20 09/25/19 08:36 119 H 113 H 136/78 107/64 09/25/19 08:00 09/25/19 07:30 97.8 F 102 H 15 09/25/19 06:57 102 H 20 09/25/19 06:54 102 H 16 09/25/19 04:00 98.1 F 107 H 20 09/25/19 02:08 104 H 16 BP Pulse Ox 09/25/19 10:38 92 L 09/25/19 08:36 09/25/19 08:00 92 L 09/25/19 07:30 117/70 97 09/25/19 06:57 91 L 09/25/19 06:54 91 L 09/25/19 04:00 124/74 96 09/25/19 02:08 94 L Weight 180 lb 9.6 oz - Physical Exam General: alert & oriented x3 HEENT: mucus membranes moist Neck: supple neck Cardiac: regular rate and rhythm, tachycardia Lungs: clear to auscultation Neuro: grossly intact Abdomen: active bowel sounds, ascites Extremities: no edema Skin: clear Musculoskeletal: no pain - Labs Result Diagrams: 09/25/19 03:26 09/25/19 03:26 Troponin/CKMB Troponin I 0.025 ng/mL (< 0.028) 09/20/19 10:44 - Telemetry Sinus rhythms and dysrhythmias: sinus rhythm - Assessment/Plan Assessment/Plan: 1. Acute on chronic systolic heart failure. 2. Non ischemic CM EF 52-30%. 3. Substance abuse. 4. Non compliance. PLAN: - Continue IV diuresis. - Continue other meds. - Will follow.
[2019-09-25] MEDS: Furosemide 100 MG/10 ML VIAL SLOW IVP SCH (13:40)
--- NOTE | 2019-09-25 16:03 | PDOC.HOSPP ---
- Subjective Encounter Date: 09/25/19 Encounter Time: 15:40 Subjective: pt resting in the bed, less cough, feels still weak.d/c plan discussed -- son will give a ride, when ready. - Objective Vital Signs & Weight: Vital Signs (12 hours) Temp Pulse Pulse Pulse Resp BP BP 09/25/19 14:36 111 H 20 09/25/19 13:46 110 H 16 09/25/19 13:20 09/25/19 11:55 97.3 F L 117 H 21 H 09/25/19 10:38 113 H 20 09/25/19 08:36 119 H 113 H 136/78 107/64 09/25/19 08:00 09/25/19 07:30 97.8 F 102 H 15 09/25/19 06:57 102 H 20 09/25/19 06:54 102 H 16 BP Pulse Ox 09/25/19 14:36 93 L 09/25/19 13:46 96 09/25/19 13:20 97 09/25/19 11:55 132/77 97 09/25/19 10:38 92 L 09/25/19 08:36 09/25/19 08:00 92 L 09/25/19 07:30 117/70 97 09/25/19 06:57 91 L 09/25/19 06:54 91 L Weight Weight 180 lb 9.6 oz Most Recent Monitor Data Heart Rate from ECG 113 NIBP 122/79 NIBP BP-Mean 93 Respiration from ECG 16 SpO2 100 I&O: 09/24/19 09/25/19 09/26/19 06:59 06:59 06:59 Intake Total 3310 1954 477 Output Total 5000 3600 300 Balance -1690 -1646 177 Result Diagrams: 09/25/19 03:26 09/25/19 03:26 Additional Labs: Accuchecks 09/25/19 09/25/19 09/24/19 10:33 06:04 20:30 POC Glucose 183 H 98 161 H Hospitalist ROS - Medication Medications: Active Medications Generic Name Dose Route Start Last Admin Trade Name Freq PRN Reason Stop Dose Admin Hydrocodone Bitart/Acetaminophen 1 tab 09/20/19 16:14 09/25/19 09:38 [place] 10/325 PO 1 tab Q6H PRN Administration Pain Acetazolamide 250 mg 09/24/19 21:00 09/25/19 10:12 Diamox PO 09/27/19 21:01 250 mg BID TIFFANY Administration Albuterol/Ipratropium 3 ml 09/20/19 14:30 09/25/19 14:36 Duoneb NEB 3 ml [id number] TIFFANY Administration Aspirin 81 mg 09/21/19 09:00 09/25/19 09:40 Ecotrin PO 81 mg DAILY TIFFANY Administration Carvedilol 3.125 mg 09/20/19 17:00 09/25/19 09:40 Coreg PO 3.125 mg BID-WM TIFFANY Administration Citalopram Hydrobromide 20 mg 09/21/19 09:00 09/25/19 09:40 Celexa PO 20 mg DAILY TIFFANY Administration Diazepam 2 mg 09/24/19 21:00 09/25/19 09:39 Valium PO 2 mg BID TIFFANY Administration Doxycycline Hyclate 100 mg 09/21/19 09:00 09/25/19 09:39 Vibramycin PO 09/28/19 09:01 100 mg BID TIFFANY Administration Enoxaparin Sodium 40 mg 09/21/19 09:00 09/25/19 09:40 Lovenox SC 40 mg 0900 TIFFANY Administration Furosemide 80 mg 09/25/19 14:00 09/25/19 13:40 Lasix SLOW IVP 80 mg 0600,1400 TIFFANY Administration Lorazepam 1 mg 09/21/19 10:06 09/24/19 09:28 Ativan PO 1 mg Q4H PRN Administration Anxiety/Agitation Mometasone Furoate/Formoterol Fumar 2 puff 09/20/19 18:30 09/25/19 06:57 Dulera 200 Mcg/5 Mcg Inhaler INH 2 puff BID-RT TIFFANY Administration Prednisone 40 mg 09/23/19 08:00 09/25/19 09:40 Prednisone PO 40 mg QAM-WM TIFFANY Administration Senna/Docusate Sodium 2 tab 09/23/19 21:00 09/25/19 09:39 Senokot S PO 2 tab BID TIFFANY Administration - Exam General Appearance: NAD, awake alert Eye: PERRL ENT: normocephalic atraumatic Neck: supple Heart: RRR Respiratory: normal chest expansion, rales, rhonchi Gastrointestinal: normal bowel sounds Neurological: no focal deficits Psychiatric: A&O x 3 Hosp A/P - Plan Note edited to reflect today's care of plan. 53 year old female who presented with acute onset shortness of breath, found to be in hypercapnic respiratory failure requiring BIPAP Acute hypoxic/hypercapneic respiratory failure COPD exacerbation Bronchitis - started on BIPAP. REpeat ABG shows improvement with pH to 7.3. PCO2 down to 86. He is on nasal cannula at this time - continue IV steroids - switched to oral doxycycline #Meth use #Cannabis use - counseled on cessation - UDS positive for cannabis -case management consult for inpatient rehab chronic Metabolic alkalosis -trial of diamox Leukocytosis---up to 18K steroid induced? -last cxr over a wk ago - repeat CXR and UA -doxycycline for bronchitis Chronic systolic heart failure Non-ischemic CM paroxysmal afib S/p Tri and MV ring annuloplasty s/p AICD placement. - last ECHO Showed EF 25-30%. -cw coreg, lasix Elevated troponin - likely type II NSTEMI. It has downtrended. No chest pain, EKG unremarkable Code status: full code PT c/s --rehab options vs..[facility]. Pt lives w.. family. likely dc home tomorrow, if cleared by cardiol and pulm.. on doxycyline upon dc. son be able to take him home.
[2019-09-26 04:52] LABS: Anion Gap 12 mmol/L (10-20); BUN (Urea Nitrogen) 27 mg/dL (8.4-25.7); Calc. Creatinine Clearance 125 mL/min (70-130); Calcium 9.8 mg/dL (7.8-10.44); Carbon Dioxide 32 mmol/L (22-29); Chloride 99 mmol/L (98-107); Estimated GFR-MDRD Greater than 90; Glucose 86 mg/dL (70-105); Potassium 4.6 mmol/L (3.5-5.1); Sodium 138 mmol/L (136-145)
[2019-09-26] MEDS: Furosemide 100 MG/10 ML VIAL SLOW IVP SCH ×2 (06:00→15:45)
[2019-09-26] MEDS: HYDROcodone/Acetaminophen 10/325 mg Tablet PO PRN ×2 (06:08→20:45)
[2019-09-26] MEDS: Mometasone 200 MCG/Formoterol 5 MCG 120 PUFF INHALER INH SCH ×2 (06:35→18:39)
[2019-09-26] MEDS: predniSONE 20 MG TAB PO SCH (09:26)
[2019-09-26] MEDS: Senokot S 8.6-50 MG TAB PO SCH ×2 (09:26→20:48)
[2019-09-26] MEDS: Doxycycline 100 MG CAP PO SCH ×2 (09:26→20:45)
[2019-09-26] MEDS: AcetaZOLAMIDE 250 MG TAB PO SCH ×2 (09:26→20:47)
[2019-09-26] MEDS: Carvedilol 3.125 MG TAB PO SCH ×2 (09:27→17:24)
[2019-09-26] MEDS: Citalopram 20 MG TAB PO SCH (09:27)
[2019-09-26] MEDS: Aspirin 81 mg Enteric Coated Tablet PO SCH (09:27)
[2019-09-26] MEDS: Diazepam 2 MG TAB PO SCH ×2 (09:27→20:48)
[2019-09-26] MEDS: Enoxaparin Sodium 40 MG/0.4 ML SYRINGE SC SCH (09:36)
[2019-09-26] MEDS ORDERED: predniSONE 20 MG TAB PO SCH (10:30)
--- NOTE | 2019-09-26 10:30 | PRG ---
DATE OF SERVICE: 09/26/2019 SUBJECTIVE: This morning, he is better. OBJECTIVE: VITAL SIGNS: Temperature 98, pulse 104, respirations 16, saturations 95 on 3 L, blood pressure 117/76. His I's and O's have been negative. CHEST: No wheezing or crackles. CARDIAC: Normal S1, S2. No gallops. ABDOMEN: No gallops. IMPRESSION: Respiratory failure, congestive heart failure, metabolic alkalosis. PLAN: Pulmonary morfin, he is stable. Disposition, home any time. Follow up with primary care physician. Job ID: [id number]
--- NOTE | 2019-09-26 17:15 | PDOC.CPN ---
- Subjective Date: 09/26/19 Time: 17:13 Interval history: Doing better. Has diuresed well. - Review of Systems General: denies: fever/chills, weight/appetite/sleep changes, night sweats, fatigue Respiratory: denies: cough, congestion, shortness of breath, exercise intolerance Cardiovascular: denies: chest pain, palpitation, edema, paroxysmal nocturnal dyspnea, orthopnea Gastrointestinal: denies: nausea, vomiting, diarrhea, constipation, abd pain, GI bleeding Musculoskeletal: denies: pain, tenderness, stiffness, swelling, arthritis/ arthralgias Neurological: denies: numbness, syncope, seizure, weakness - Objective Allergies/Adverse Reactions: Allergies Allergy/AdvReac Type Severity Reaction Status Date / Time No Known Drug Allergies Allergy Verified 05/19/19 20:57 Visit Medications: Current Medications Hydrocodone Bitart/Acetaminophen ([place] 10/325) 1 tab PO Q6H PRN PRN Reason: Pain Last Admin: 09/26/19 06:08 Dose: 1 tab Acetazolamide (Diamox) 250 mg PO BID [facility] Stop: 09/27/19 21:01 Last Admin: 09/26/19 09:26 Dose: 250 mg Albuterol/Ipratropium (Duoneb) 3 ml NEB [id number] [facility] Last Admin: 09/26/19 15:12 Dose: 3 ml Aspirin (Ecotrin) 81 mg PO DAILY [facility] Last Admin: 09/26/19 09:27 Dose: 81 mg Carvedilol (Coreg) 3.125 mg PO BID-WM [facility] Last Admin: 09/26/19 09:27 Dose: 3.125 mg Citalopram Hydrobromide (Celexa) 20 mg PO DAILY [facility] Last Admin: 09/26/19 09:27 Dose: 20 mg Diazepam (Valium) 2 mg PO BID [facility] Last Admin: 09/26/19 09:27 Dose: 2 mg Doxycycline Hyclate (Vibramycin) 100 mg PO BID [facility] Stop: 09/28/19 09:01 Last Admin: 09/26/19 09:26 Dose: 100 mg Enoxaparin Sodium (Lovenox) 40 mg SC 0900 [facility] Last Admin: 09/26/19 09:36 Dose: 40 mg Furosemide (Lasix) 40 mg SLOW IVP 0600,1400 [facility] Lorazepam (Ativan) 1 mg PO Q4H PRN PRN Reason: Anxiety/Agitation Last Admin: 09/24/19 09:28 Dose: 1 mg Metoprolol Tartrate (Lopressor) 5 mg IVP Q4H PRN PRN Reason: Persistent BP Elevations Stop: 09/27/19 14:56 Mometasone Furoate/Formoterol Fumar (Dulera 200 Mcg/5 Mcg Inhaler) 2 puff INH BID-RT TIFFANY Last Admin: 09/26/19 06:35 Dose: 2 puff Prednisone (Prednisone) 20 mg PO QAM-WM TIFFANY Senna/Docusate Sodium (Senokot S) 2 tab PO BID TIFFANY Last Admin: 09/26/19 09:26 Dose: 2 tab Sterile Water (Bacteriostatic Water) 1 ml FS PRN PRN PRN Reason: RECONSTITUTION Vital Signs & Weight: Vital Signs Temp Pulse Resp BP Pulse Ox 09/26/19 15:50 97.8 F 99 14 120/74 95 09/26/19 15:12 109 H 20 95 09/26/19 10:48 98.0 F 114 H 16 110/66 95 09/26/19 10:23 108 H 20 93 L 09/26/19 07:30 98 F 104 H 16 117/76 96 09/26/19 06:38 96 09/26/19 06:37 102 H 20 96 09/26/19 06:35 91 20 96 Weight 175 lb 4.8 oz - Physical Exam General: alert & oriented x3 HEENT: normocephaly Neck: supple neck Cardiac: no murmur Lungs: normal breath sounds Neuro: grossly intact Abdomen: active bowel sounds, ascites Extremities: no edema Skin: clear Musculoskeletal: no pain - Labs Result Diagrams: 09/25/19 03:26 09/26/19 03:47 Troponin/CKMB Troponin I 0.025 ng/mL (< 0.028) 09/20/19 10:44 - Telemetry Sinus rhythms and dysrhythmias: sinus rhythm - Assessment/Plan Assessment/Plan: 1. Acute on chronic systolic heart failure. 2. Non ischemic CM EF 25-30%. 3. Substance abuse. 4. Non compliance. PLAN: - Continue IV diuresis today, one more day and home tomorrow after AM dose of IV lasix. Significant improvement. - Will start very low dose ACEI. - Home tomorrow.
[2019-09-26] MEDS: Lorazepam 1 MG TAB PO PRN (22:31)
[2019-09-27] MEDS ORDERED: Furosemide 40 MG/4 ML VIAL SLOW IVP SCH (06:00)
[2019-09-27] MEDS: Mometasone 200 MCG/Formoterol 5 MCG 120 PUFF INHALER INH SCH (06:47)
[2019-09-27] MEDS ORDERED: predniSONE 20 MG TAB PO SCH (08:00)
[2019-09-27] MEDS ORDERED: Lisinopril 2.5 MG TAB PO SCH (09:00)
--- NOTE | 2019-09-27 09:46 | PRG ---
DATE OF SERVICE: 09/27/2019 SUBJECTIVE: This morning, he is better, he is sitting on the side of the bed, eating breakfast, in no distress. OBJECTIVE: VITAL SIGNS: Temperature 96, pulse 116, saturations are 100% on 2 L, and blood pressure 101/65. CHEST: Decreased breath sounds. No wheezing. CARDIAC: Normal S1, S2. No gallops. ABDOMEN: No masses. IMPRESSION: Congestive heart failure, chronic obstructive pulmonary disease, cardiomyopathy, improved. Home any time. Continue present treatment. Taper prednisone over a week. Job ID: [id number]
[2019-09-27] MEDS: HYDROcodone/Acetaminophen 10/325 mg Tablet PO PRN (09:49)
[2019-09-27] MEDS: Senokot S 8.6-50 MG TAB PO SCH (09:50)
[2019-09-27] MEDS: Aspirin 81 mg Enteric Coated Tablet PO SCH (09:50)
[2019-09-27] MEDS: Enoxaparin Sodium 40 MG/0.4 ML SYRINGE SC SCH (09:50)
[2019-09-27] MEDS: Doxycycline 100 MG CAP PO SCH (09:50)
[2019-09-27] MEDS: AcetaZOLAMIDE 250 MG TAB PO SCH (09:51)
[2019-09-27] MEDS: Citalopram 20 MG TAB PO SCH (09:51)
[2019-09-27] MEDS: Carvedilol 3.125 MG TAB PO SCH ×2 (09:51→16:47)
[2019-09-27] MEDS: Diazepam 2 MG TAB PO SCH (09:51)
[2019-09-27 11:17] VITALS: TEMP 98.1
[2019-09-27] MEDS: Lorazepam 1 MG TAB PO PRN (11:32)
[2019-09-27] MEDS ORDERED: Furosemide 40 MG TAB PO SCH (14:00)
[2019-09-27 15:32] VITALS: BP 108/67
--- NOTE | 2019-09-27 15:41 | PDOC.HOSPP ---
- Subjective Encounter Date: 09/27/19 Encounter Time: 09:50 Subjective: no acute c/o, being diuresed. output 3450ml. negative balance. - Objective Vital Signs & Weight: Vital Signs (12 hours) Temp Pulse Resp BP Pulse Ox 09/27/19 15:30 98.1 F 101 H 18 108/67 95 09/27/19 11:23 109 H 16 09/27/19 11:16 98.1 F 104 H 18 102/56 L 99 09/27/19 09:38 97.2 F L 98 16 103/65 99 09/27/19 06:49 100 09/27/19 06:47 108 H 16 100 09/27/19 04:11 97.6 F 100 15 101/65 100 Weight Weight 174 lb 11.2 oz Most Recent Monitor Data Heart Rate from ECG 113 NIBP 122/79 NIBP BP-Mean 93 Respiration from ECG 16 SpO2 100 I&O: 09/26/19 09/27/19 09/28/19 06:59 06:59 06:59 Intake Total 2797 1210 Output Total 3200 3450 Balance -403 -2240 Result Diagrams: 09/25/19 03:26 09/26/19 03:47 Hospitalist ROS - Medication Medications: Active Medications Generic Name Dose Route Start Last Admin Trade Name Freq PRN Reason Stop Dose Admin Hydrocodone Bitart/Acetaminophen 1 tab 09/20/19 16:14 09/27/19 09:49 [place] 10/325 PO 1 tab Q6H PRN Administration Pain Acetazolamide 250 mg 09/24/19 21:00 09/27/19 09:51 Diamox PO 09/27/19 21:01 250 mg BID TIFFANY Administration Albuterol/Ipratropium 3 ml 09/20/19 14:30 09/27/19 15:16 Duoneb NEB 3 ml [id number] TIFFANY Administration Aspirin 81 mg 09/21/19 09:00 09/27/19 09:50 Ecotrin PO 81 mg DAILY TIFFANY Administration Carvedilol 3.125 mg 09/20/19 17:00 09/27/19 09:51 Coreg PO 3.125 mg BID-WM TIFFANY Administration Citalopram Hydrobromide 20 mg 09/21/19 09:00 09/27/19 09:51 Celexa PO 20 mg DAILY TIFFANY Administration Diazepam 2 mg 09/24/19 21:00 09/27/19 09:51 Valium PO 2 mg BID TIFFANY Administration Doxycycline Hyclate 100 mg 09/21/19 09:00 09/27/19 09:50 Vibramycin PO 09/28/19 09:01 100 mg BID TIFFANY Administration Enoxaparin Sodium 40 mg 09/21/19 09:00 09/27/19 09:50 Lovenox SC 40 mg 0900 TIFFANY Administration Furosemide 40 mg 09/27/19 14:00 09/27/19 14:30 Lasix PO 40 mg 0900,1400 TIFFANY Administration Lisinopril 1.25 mg 09/27/19 09:00 09/27/19 09:50 Zestril PO 1.25 mg DAILY TIFFANY Administration Lorazepam 1 mg 09/21/19 10:06 09/27/19 11:32 Ativan PO 1 mg Q4H PRN Administration Anxiety/Agitation Mometasone Furoate/Formoterol Fumar 2 puff 09/20/19 18:30 09/27/19 06:47 Dulera 200 Mcg/5 Mcg Inhaler INH 2 puff BID-RT TIFFANY Administration Prednisone 20 mg 09/27/19 08:00 09/27/19 09:51 Prednisone PO 20 mg QAM-WM TIFFANY Administration Senna/Docusate Sodium 2 tab 09/23/19 21:00 09/27/19 09:50 Senokot S PO 2 tab BID TIFFANY Administration - Exam General Appearance: NAD Eye: PERRL ENT: normocephalic atraumatic Neck: supple Heart: RRR Respiratory: CTAB, normal chest expansion Gastrointestinal: soft, non-distended, normal bowel sounds, no rigidity Neurological: no focal deficits Psychiatric: A&O x 3 Hosp A/P - Plan Note edited to reflect today's care of plan. 53 year old female who presented with acute onset shortness of breath, found to be in hypercapnic respiratory failure requiring BIPAP Acute hypoxic/hypercapneic respiratory failure COPD exacerbation Bronchitis - started on BIPAP. REpeat ABG shows improvement with pH to 7.3. PCO2 down to 86. He is on nasal cannula at this time - continue IV steroids - switched to oral doxycycline #Meth use #Cannabis use - counseled on cessation - UDS positive for cannabis -case management consult for inpatient rehab chronic Metabolic alkalosis -trial of diamox Leukocytosis---up to 18K steroid induced? -last cxr over a wk ago - repeat CXR and UA -doxycycline for bronchitis Chronic systolic heart failure Non-ischemic CM paroxysmal afib S/p Tri and MV ring annuloplasty s/p AICD placement. - last ECHO Showed EF 25-30%. -cw coreg, lasix -being diuresed. --negative balance -- output of 3li over 24hrs Elevated troponin - likely type II NSTEMI. It has downtrended. No chest pain, EKG unremarkable Code status: full code son be able to take him home upon dc. prob dc in am after 1st dose of IV lasix.
--- NOTE | 2019-09-27 18:35 | PDOC.CPN ---
- Subjective Date: 09/27/19 Time: 18:33 Interval history: He is doing much better. Breathing back to baseline. Abdomen not distended anymore. - Review of Systems General: denies: fever/chills, weight/appetite/sleep changes, night sweats, fatigue Respiratory: denies: cough, congestion, shortness of breath, exercise intolerance Cardiovascular: denies: chest pain, palpitation, edema, paroxysmal nocturnal dyspnea, orthopnea Gastrointestinal: denies: nausea, vomiting, diarrhea, constipation, abd pain, GI bleeding Musculoskeletal: denies: pain, tenderness, stiffness, swelling, arthritis/ arthralgias Neurological: denies: numbness, syncope, seizure, weakness - Objective Allergies/Adverse Reactions: Allergies Allergy/AdvReac Type Severity Reaction Status Date / Time No Known Drug Allergies Allergy Verified 05/19/19 20:57 Visit Medications: Current Medications Hydrocodone Bitart/Acetaminophen ([place] 10/325) 1 tab PO Q6H PRN PRN Reason: Pain Last Admin: 09/27/19 09:49 Dose: 1 tab Acetazolamide (Diamox) 250 mg PO BID [facility] Stop: 09/27/19 21:01 Last Admin: 09/27/19 09:51 Dose: 250 mg Albuterol/Ipratropium (Duoneb) 3 ml NEB [id number] [facility] Last Admin: 09/27/19 15:16 Dose: 3 ml Aspirin (Ecotrin) 81 mg PO DAILY [facility] Last Admin: 09/27/19 09:50 Dose: 81 mg Carvedilol (Coreg) 3.125 mg PO BID-WM [facility] Last Admin: 09/27/19 16:47 Dose: 3.125 mg Citalopram Hydrobromide (Celexa) 20 mg PO DAILY [facility] Last Admin: 09/27/19 09:51 Dose: 20 mg Diazepam (Valium) 2 mg PO BID [facility] Last Admin: 09/27/19 09:51 Dose: 2 mg Doxycycline Hyclate (Vibramycin) 100 mg PO BID [facility] Stop: 09/28/19 09:01 Last Admin: 09/27/19 09:50 Dose: 100 mg Enoxaparin Sodium (Lovenox) 40 mg SC 0900 [facility] Last Admin: 09/27/19 09:50 Dose: 40 mg Furosemide (Lasix) 40 mg PO 0900,1400 [facility] Last Admin: 09/27/19 14:30 Dose: 40 mg Lisinopril (Zestril) 1.25 mg PO DAILY [facility] Last Admin: 09/27/19 09:50 Dose: 1.25 mg Lorazepam (Ativan) 1 mg PO Q4H PRN PRN Reason: Anxiety/Agitation Last Admin: 09/27/19 11:32 Dose: 1 mg Mometasone Furoate/Formoterol Fumar (Dulera 200 Mcg/5 Mcg Inhaler) 2 puff INH BID-RT TIFFANY Last Admin: 09/27/19 06:47 Dose: 2 puff Prednisone (Prednisone) 20 mg PO QAM-WM [facility] Last Admin: 09/27/19 09:51 Dose: 20 mg Senna/Docusate Sodium (Senokot S) 2 tab PO BID [facility] Last Admin: 09/27/19 09:50 Dose: 2 tab Sterile Water (Bacteriostatic Water) 1 ml FS PRN PRN PRN Reason: RECONSTITUTION Vital Signs & Weight: Vital Signs Temp Pulse Resp BP Pulse Ox 09/27/19 15:30 98.1 F 101 H 18 108/67 95 09/27/19 11:23 109 H 16 09/27/19 11:16 98.1 F 104 H 18 102/56 L 99 09/27/19 09:38 97.2 F L 98 16 103/65 99 09/27/19 06:49 100 09/27/19 06:47 108 H 16 100 Weight 174 lb 11.2 oz - Physical Exam General: alert & oriented x3 HEENT: mucus membranes moist Neck: supple neck Cardiac: regular rate and rhythm Lungs: clear to auscultation Neuro: grossly intact Abdomen: active bowel sounds Extremities: no edema Skin: clear Musculoskeletal: no pain - Labs Result Diagrams: 09/25/19 03:26 09/26/19 03:47 Troponin/CKMB Troponin I 0.025 ng/mL (< 0.028) 09/20/19 10:44 - Telemetry Sinus rhythms and dysrhythmias: sinus tachycardia - Assessment/Plan Assessment/Plan: 1. Acute on chronic systolic heart failure. 2. Non ischemic CM EF 25-30%. 3. Substance abuse. 4. Non compliance. 5. Paroxysmal afib 6. Presence of an AICD PLAN: - PO lasix now - Low dose BB and ACEI - ASA alone for stroke prophylaxis. - Would not do coumadin until he proves compliance. If he follows up will discuss coumadin, not a candidate for Eliquis or new Anti Xa due to valvular afib. - May discharge home. - Follow up in 4 weeks. - Substance abuse cessation counselling.
--- NOTE | 2019-09-28 05:43 | DIS ---
DATE OF ADMISSION: 09/20/2019 DATE OF DISCHARGE: 09/27/2019 DISCHARGE MEDICATIONS: 1. Aspirin 81 mg daily. 2. Coreg 3.125 mg twice a day. 3. Celexa [address] 10/325 every 6 hours as needed. It is a part of his home regimen. 5. Keflex 500 mg q.i.d. Continue his original prescription. 6. Albuterol 0.63 mg nebulizer q.4 hours as needed for shortness of breath. 7. Lasix 40 mg twice a day, his previous home regimen. DISCHARGE DIAGNOSES: 1. Severe chronic obstructive pulmonary disease exacerbation. 2. Acute hypoxic and hypercapnic respiratory failure secondary to chronic obstructive pulmonary disease exacerbation. 3. Methamphetamine as well as cannabis use. 4. Chronic metabolic alkalosis. 5. Leukocytosis due to chronic obstructive pulmonary disease exacerbation as well as steroid induced. 6. Chronic systolic heart failure, stable during this hospitalization. 7. Nonischemic cardiomyopathy with an ejection fraction of 30%. 8. Paroxysmal atrial fibrillation, not on anticoagulation. 9. Status post tricuspid as well as mitral valve ring annuloplasty. 10. Status post automatic implantable cardioverter defibrillator placement. 11. Abnormal troponin with type 2 metabolic mismatch/demand ischemia. 12. He can continue his home regimen of previous Keflex for the remainder of the course. PHYSICAL EXAMINATION: VITAL SIGNS: On the day of discharge, temperature is 98, pulse is 108, saturating 93% on 2 L oxygen, and his blood pressure is 110/66. GENERAL: He is alert, oriented, lying. He is comfortable. He feels strong enough to go home. His son will be giving a ride. CARDIOVASCULAR: Regular rate and rhythm without murmurs, rubs, or gallops. LUNGS: Clear to auscultation bilaterally without wheezing, rales, or rhonchi. ABDOMEN: Soft, nontender, nondistended. Good bowel sounds. EXTREMITIES: Without any pitting edema. HOSPITAL COURSE: This is a 53-year-old male with a history of COPD and drug abuse, presented with hypoxic respiratory failure and monitored with the BiPAP. He gradually weaned off from BiPAP. He is saturating 94% with 2 L oxygen. He is able to ambulate with the oxygen. He does have home oxygen. He has mild elevated leukocytosis and it could be due to both COPD exacerbation as well as steroid induced. He is clinically quite stable. He does not need any further antibiotics. He does have Keflex prescribed at home from his previous that he can continue. He is stable to be discharged home today. DISCHARGE INSTRUCTIONS: 1. Activity as tolerated. 2. Regular diet. 3. Follow up with primary care physician in 1 week. TIME SPENT: Discharge time took over 30 minutes. Job ID: [id number] MTDD
--- NOTE | 2019-09-28 06:56 | DIS ---
DATE OF ADMISSION: 09/20/2019 DATE OF DISCHARGE: 09/27/2019 DISCHARGE DIAGNOSES: Acute hypoxic hypercapnic respiratory failure; chronic obstructive pulmonary disease exacerbation; bronchitis; methadone/cannabis use; chronic metabolic alkalosis; steroid-induced leukocytosis; chronic systolic heart failure; paroxysmal atrial fibrillation, not on anticoagulation at this time; nonischemic cardiomyopathy with ejection fraction 25% to 30%; status post tricuspid and mitral valve ring annuloplasty; status post AICD placement; elevated troponin; type 2 [id number] myocardial infarction; metabolic mismatch. CONSULTS: Cardiology, Critical Care Management. HOSPITAL COURSE: This is a 53-year-old male, admitted being unresponsive, underlying history of AFib, methamphetamine abuse, chronic systolic heart failure. He was started initially on BiPAP for his acute hypoxic hypercapnic respiratory failure and he weaned off in the due course of time and moved to the telemetry floor. He also got few days of IV diuresis. He is clinically improved. He will be following with Cardiology to consider for Coumadin start as an outpatient. The patient does have a history of drug abuse and that should be bared in mind for Coumadin evaluation. He is discharged with aspirin 81 mg daily and Lasix 40 mg twice a day. He does not need any further antibiotic course. He can continue with his home previous dose of Keflex. He also has home oxygen, so he does not require any further evaluation here. DISCHARGE INSTRUCTIONS: 1. Activity, as tolerated. Healthy heart diet, low sodium with less than 2 g a day. 2. Follow up with primary care physician in 1 week. Follow up with Dr. Islas in the clinic in 1 to 2 weeks. Discharge time took over 35 minutes. this is a repeat dc summary as pt was discharged next day. Job ID: [id number] [facility]
--- NOTE | 2019-09-29 15:17 | EKG ---
Test Reason : Blood Pressure : / mmHG Vent. Rate : 133 BPM Atrial Rate : 133 BPM P-R Int : 000 ms QRS Dur : 132 ms QT Int : 330 ms P-R-T Axes : 071 219 033 degrees QTc Int : 491 ms Sinus tachycardia Right bundle branch block Abnormal ECG Confirmed by JOSH LANCASTER M.D. ([id number]), desk editor DEANGELO RIZVI ([id number] on 09/29/2019 3:16:48 PM Referred By: Confirmed By:JOSH LANCASTER M.D.
== END 2019-09-27 19:11 | disposition home or self-care (01) | DRG 189 ==
LOC: ERS 04:11 → IMCU/EMU 06:49 → 2NO 09-24 17:31
PROVIDERS: ADMIT Internal Medicine; ATTEND Internal Medicine
PROC: 5A09357 Assistance with Respiratory Ventilation, Less than 24 Consecutive Hours, Continuous Positive Airway Pressure (ICD-10-PCS; principal; 2019-09-20)
DX: J96.01 Acute respiratory failure with hypoxia (principal); I21.A1 Myocardial infarction type 2; I50.23 Acute on chronic systolic (congestive) heart failure; J44.1 Chronic obstructive pulmonary disease with (acute) exacerbation; E87.3 Alkalosis; I42.8 Other cardiomyopathies; J44.0 Chronic obstructive pulmonary disease with (acute) lower respiratory infection; J96.02 Acute respiratory failure with hypercapnia; F12.90 Cannabis use, unspecified, uncomplicated; F11.90 Opioid use, unspecified, uncomplicated; D72.829 Elevated white blood cell count, unspecified; T38.0X5A Adverse effect of glucocorticoids and synthetic analogues, initial encounter; G89.4 Chronic pain syndrome; F15.90 Other stimulant use, unspecified, uncomplicated; F41.9 Anxiety disorder, unspecified; I48.0 Paroxysmal atrial fibrillation; F17.210 Nicotine dependence, cigarettes, uncomplicated; I25.10 Atherosclerotic heart disease of native coronary artery without angina pectoris; J40 Bronchitis, not specified as acute or chronic; Z95.810 Presence of automatic (implantable) cardiac defibrillator; Z79.01 Long term (current) use of anticoagulants; Z95.2 Presence of prosthetic heart valve; Z71.51 Drug abuse counseling and surveillance of drug abuser; Z91.19 Patient's noncompliance with other medical treatment and regimen
CPT/HCPCS: 36415; 36416; 71045; 80048; 80053; 80306; 81001; 82805; 83605; 83880; 84443; 84484; 85007; 85025; 85027; 87040; 93005; 93306; 94640; 94660; 96365; 96375; J1650; J1940; J2920; J2930; J3475; J3490; J7512; J7611; J7620

== ENCOUNTER 2019-12-15 20:54 | Inpatient (IN) | payer MEDICARE, OTHER ==
[2019-12-15 21:29] LABS: #Eosinphils 0.3 thou/uL (0.0-0.7); #Monocytes 0.7 thou/uL (0.11-0.59); %Basophils 0.5 % (0.0-1.0); %Eosinophils 3.3 % (0.0-10.0); %Lymphocytes 12.4 % (21.0-51.0); %Monocytes 8.7 % (0.0-10.0); %Neutrophils 75.1 % (42.0-75.0); Hemoglobin 13.7 g/dL (14.0-18.0); Mean Corpuscular HGB CONC 29.9 g/dL (32.0-36.0); Mean Corpuscular Hemoglobin 25.6 pg (27.0-31.0); Mean Corpuscular Volume 85.5 fL (78.0-98.0); Mean Platelet Volume 8.8 fL (7.4-10.4); Platelet Count 187 thou/uL (130-400); RBC Distribution Width 15.2 % (11.5-14.5); Red Blood Cell (RBC) Count 5.37 mill/uL (4.70-6.10); White Blood Cell (WBC) Count 7.9 thou/uL (4.8-10.8)
[2019-12-15 21:49] LABS: ALT (SGPT) 48 U/L (8-55); AST (SGOT) 30 U/L (5-34); Albumin 4.1 g/dL (3.5-5.0); Alkaline Phosphatase 96 U/L (40-110); Anion Gap 13 mmol/L (10-20); BUN (Urea Nitrogen) 18 mg/dL (8.4-25.7); Bilirubin, Total 0.5 mg/dL (0.2-1.2); Calc. Creatinine Clearance 0 mL/min (70-130); Calcium 9.4 mg/dL (7.8-10.44); Carbon Dioxide 36 mmol/L (22-29); Chloride 98 mmol/L (98-107); Estimated GFR-MDRD 90; Globulin 2.5 g/dL (2.4-3.5); Glucose 92 mg/dL (70-105); Potassium 4.1 mmol/L (3.5-5.1); Protein, Total 6.6 g/dL (6.0-8.3); Sodium 143 mmol/L (136-145)
--- NOTE | 2019-12-15 21:54 | RAD ---
PORTABLE CHEST ONE VIEW: 12/15/19 at 9:36 p.m. HISTORY: Defibrillator malfunction. COMPARISON: 11/26/19. FINDINGS: Changes of median sternotomy again seen. Left sided AIDC remains in place. The lungs were expanded wi thout lobar consolidation, pneumothoraces, melchor pulmonary edema or pleural effusions. IMPRESSION: No acute process. POS: TEMITOP[place]
[2019-12-15 22:12] LABS: CKMB 2.3 ng/mL (0-6.6)
--- NOTE | 2019-12-15 22:46 | PDOC.HHP ---
Hospitalist HPI - History of Present Illness Possible firing of defibrillator History of Present Illness: Patient is a 54-year-old male with past medical history significant for A. fib, defibrillator placement, congestive heart failure, and drug use. Patient states that he was in his kitchen making a sandwich today and had just taken his carvedilol when he suddenly "felt funny". He turned to walk to the chair and fell on the ground. He states that he had some left arm numbness and felt an electrical shock go through the left side of his body and in his chest. He states that he felt like his defibrillator had fired and that he believes it felt the same as when it had fired in the past. Patient denies any other chest pain, abdominal pain, contact with ill persons. He does claim to of taken his medications as prescribed although he has missed a few doses since coming into the ER. He also states he has been increasingly short of breath today. He normally is on 3 L at home due to his COPD but he has been working to wean himself off of the oxygen. Patient does admit to injecting amphetamines today shortly before this occurred. ED Course: Today in the ER the patient had lab work, EKG, chest x-ray, defibrillator interrogation, and medication administration. He received 324 mg of aspirin. Hospitalist ROS - Review of Systems Constitutional: reports: weakness Cardiovascular: reports: chest pain All other systems reviewed; all pertinent +/- noted in HPI/Subj - Medication Medications: No known drug allergies Current medications: carvedilol Sat Dec 15, 2019 21:33 JIE Hinkle Elizabeth TABLET : Strength - 6.25 mg : ORAL Patient Dose: 12.5 mg Oral 2 times a day. Lasix oral Sat Dec 15, 2019 21:36 JIE Hinkle [place] TABLET : Strength - 40 mg : ORAL Patient Dose: 40 mg Oral 2 times a day. citalopram Sat Dec 15, 2019 21:36 JIE Hinkle [place] tablet : Strength - 20 mg : ORAL Patient Dose: 40 mg Oral once a day. aspirin oral Sat Dec 15, 2019 21:36 JIE Hinkle [place] tablet : Strength - 325 mg : ORAL Patient Dose: 325 mg Oral once a day. Ventolin aerosol inhaler Sat Dec 15, 2019 21:36 JIE Hinkle Elizabeth AEROSOL (GRAM) : Strength - 90 mcg : INHALATION Patient Dose: 1-2 puff(s) Inhaler As Needed. Hospitalist History - Past Medical History Source: patient Cardiac: reports: AFIB, CHF, Valve insufficiency Pulmonary: reports: COPD Hepatobiliary: reports: Hep A/B/C Musculoskeletal: reports: Other (Ankylosing spondylitis) - Past Surgical History Past Surgical History: reports: Other (Tricuspid and mitral valve replaced) - Social History Smoking Status: Current every day smoker Alcohol: reports: None Drugs: reports: marijuana, methamphetamine (once a week by injection) Living Situation: With Family - Exam General Appearance: NAD, awake alert General - other findings: VS: BP 120/83. P 98. Respiratory 22. Temp 98.4. 96 % on 3 L Eye: PERRL, anicteric sclera ENT: normocephalic atraumatic, moist mucosa Neck: supple, symmetric, no lymphadenopathy Heart: RRR, no murmur, no gallops, diminshed peripheral pulses Respiratory: CTAB (Diminished throughout) Gastrointestinal: soft, non-tender, non-distended, normal bowel sounds Extremities: no cyanosis, 2+ LE edema Psychiatric: normal affect, normal behavior Hospitalist Results - Labs Result Diagrams: 12/18/19 04:16 12/18/19 04:16 Lab results: WBC 7.9 thou/uL (4.8-10.8) 12/15/19 21:19 Hgb 13.7 g/dL (14.0-18.0) L 12/15/19 21:19 Hct 45.9 % (42.0-52.0) 12/15/19 21:19 MCV 85.5 fL (78.0-98.0) 12/15/19 21:19 Plt Count 187 thou/uL (130-400) 12/15/19 21:19 Neutrophils % 75.1 % (42.0-75.0) H 12/15/19 21:19 Sodium 143 mmol/L (136-145) 12/15/19 21:19 Potassium 4.1 mmol/L (3.5-5.1) 12/15/19 21:19 Chloride 98 mmol/L (98-107) 12/15/19 21:19 Carbon Dioxide 36 mmol/L (22-29) H 12/15/19 21:19 BUN 18 mg/dL (8.4-25.7) 12/15/19 21:19 Creatinine 0.89 mg/dL (0.7-1.3) 12/15/19 21:19 Glucose 92 mg/dL (70-105) 12/15/19 21:19 Calcium 9.4 mg/dL (7.8-10.44) 12/15/19 21:19 Total Bilirubin 0.5 mg/dL (0.2-1.2) 12/15/19 21:19 AST 30 U/L (5-34) 12/15/19 21:19 ALT 48 U/L (8-55) 12/15/19 21:19 Alkaline Phosphatase 96 U/L (40-110) 12/15/19 21:19 CK-MB (CK-2) 2.3 ng/mL (0-6.6) 12/15/19 21:19 Troponin I 0.032 ng/mL (< 0.028) H 12/15/19 21:19 B-Natriuretic Peptide 166.6 pg/mL (0-100) H 12/15/19 21:19 Serum Total Protein 6.6 g/dL (6.0-8.3) 12/15/19 21:19 Albumin 4.1 g/dL (3.5-5.0) 12/15/19 21:19 Laboratory Tests 12/15/19 12/15/19 21:19 21:19 CK-MB (CK-2) 2.3 Troponin I 0.032 H B-Natriuretic Peptide 166.6 H - EKG Interpretation EKG: Normal sinus rhythm at 96 bpm right bundle branch block Hospitalist H&P A/P - Plan Plan: Syncope with possible defibrillator firing Cardiology consult in a.m. Obtain pacemaker print out if it has not been already Monitor on telemetry Chest pain Serial cardiac enzymes Monitor on telemetry Cardiology consult in a.m. Congestive heart failure Continue home medications, change Lasix p.o. to Lasix IV twice daily Strict I&O Daily weight Continue carvedilol and lisinopril Echo on 09/21/2019 showed EF of 20 to 25% Drug use Consult palliative care, patient struggling with guilt of drug use and poor health UDS VTE prophylaxis with Lovenox, GI prophylaxis with Protonix Surrogate decision maker: Orville Young, son CODE STATUS: Full
[2019-12-15] MEDS ORDERED: Acetaminophen 325 MG TAB ONE (22:47)
[2019-12-15] MEDS ORDERED: Acetaminophen 325 MG TAB PO PRN (23:53)
[2019-12-15] MEDS ORDERED: Ondansetron ODT 4 MG TAB SL PRN (23:53)
[2019-12-15] MEDS ORDERED: Ondansetron PF 4 MG/2 ML Vial IVP PRN (23:53)
[2019-12-16 01:38] LABS: Troponin I 0.024 ng/mL (< 0.028)
[2019-12-16] MEDS ORDERED: Albuterol Sulfate 1.25 MG/3 ML NEB NEB PRN (02:05)
[2019-12-16] MEDS ORDERED: PROVENTIL INHALER 6.7 G (200 INHALATIONS) INH PRN (02:06)
[2019-12-16 05:06] LABS: BUN (Urea Nitrogen) 19 mg/dL (8.4-25.7); Calc. Creatinine Clearance 110 mL/min (70-130); Calcium 9.5 mg/dL (7.8-10.44); Cardiac Risk 2.4 (Less than 4.5); Cholesterol 165 mg/dl (< 200 Desired); Estimated GFR-MDRD 90; Glucose 93 mg/dL (70-105); HDL Cholesterol 69 mg/dL (>60 Neg Risk); LDL Cholesterol, Calculated 86 mg/dL; Magnesium 2.2 mg/dL (1.6-2.6); Triglycerides 49 mg/dL (Less than 150)
[2019-12-16 05:11] LABS: Troponin I 0.027 ng/mL (< 0.028)
[2019-12-16 05:15] LABS: Anion Gap 13 mmol/L (10-20); Carbon Dioxide 40 mmol/L (22-29); Chloride 97 mmol/L (98-107); Potassium 3.7 mmol/L (3.5-5.1); Sodium 146 mmol/L (136-145)
[2019-12-16] MEDS: HYDROcodone/Acetaminophen 10/325 mg Tablet PO PRN ×2 (05:16→13:21)
[2019-12-16 05:47] LABS: Amphetamine Detected (NotDetected); Medtox Reader # READER 1; Methamphetamine Detected (NotDetected); THC/Cannabinoid Screen Detected (NotDetected)
[2019-12-16 05:48] LABS: Barbiturates Screen Not Detected (NotDetected); Benzodiazepine Screen Not Detected (NotDetected); Cocaine Metabolite Screen Not Detected (NotDetected); Medtox Control Line Valid? VALID (VALID); Methadone Not Detected (NotDetected); Opiate Screen Not Detected (NotDetected); Oxycodone Screen Not Detected (NotDetected); Phencyclidine (PCP) Not Detected (NotDetected); Tricyclic Screen Not Detected (NotDetected)
[2019-12-16] MEDS ORDERED: Furosemide 40 MG/4 ML VIAL SLOW IVP SCH (06:00)
[2019-12-16] MEDS ORDERED: Furosemide 40 MG TAB PO SCH (06:00)
[2019-12-16 06:26] LABS: #Eosinphils 0.3 thou/uL (0.0-0.7); #Lymphocytes 1.1 thou/uL (1.20-3.40); #Monocytes 0.8 thou/uL (0.11-0.59); #Neutrophils 5.2 thou/uL (1.40-6.50); %Basophils 0.6 % (0.0-1.0); %Eosinophils 3.7 % (0.0-10.0); %Lymphocytes 14.7 % (21.0-51.0); %Monocytes 10.9 % (0.0-10.0); %Neutrophils 70.1 % (42.0-75.0); Hemoglobin 13.1 g/dL (14.0-18.0); Mean Corpuscular HGB CONC 29.7 g/dL (32.0-36.0); Mean Corpuscular Hemoglobin 25.4 pg (27.0-31.0); Mean Corpuscular Volume 85.5 fL (78.0-98.0); Mean Platelet Volume 8.9 fL (7.4-10.4); Platelet Count 184 thou/uL (130-400); RBC Distribution Width 15.2 % (11.5-14.5); Red Blood Cell (RBC) Count 5.14 mill/uL (4.70-6.10); White Blood Cell (WBC) Count 7.4 thou/uL (4.8-10.8)
[2019-12-16] MEDS: Lisinopril 2.5 MG TAB PO SCH (09:05)
[2019-12-16] MEDS: Citalopram 20 MG TAB PO SCH (09:06)
[2019-12-16] MEDS: Aspirin 81 mg Enteric Coated Tablet PO SCH (09:06)
[2019-12-16] MEDS: Enoxaparin Sodium 40 MG/0.4 ML SYRINGE SC SCH ×2 (09:07→13:14)
[2019-12-16] MEDS: Carvedilol 3.125 MG TAB PO SCH ×3 (09:07→18:36)
[2019-12-16 11:46] LABS: SARS-CoV-2 MS2 Positive; SARS-CoV-2 N Gene Negative; SARS-CoV-2 S Gene Negative; SARS-CoV-2 by NAA Not Detected (NotDetected); SARS-CoV-2 orf1ab Negative
[2019-12-16] MEDS ORDERED: Ondansetron ODT 4 MG TAB PO PRN (12:09)
[2019-12-16] MEDS: ALPRAZolam 0.25 MG TAB PO PRN (13:14)
--- NOTE | 2019-12-16 18:21 | CON ---
DATE OF CONSULTATION: 12/16/2019 INDICATION FOR CONSULTATION: A 54-year-old patient with nonischemic cardiomyopathy, who has a history in the past of using illicit drugs with methamphetamines. He has been found to have ejection fraction in the past of 25% to 30%. He has had an AICD placed. I believe he also has paroxysmal atrial fibrillation. He has a history of a ring valvuloplasty for mitral valve regurgitation. He had been doing relatively well after his last hospitalization, which was not even a month ago, a couple of weeks ago and was at home, moving furniture with his son and apparently found some old methamphetamines and decided to use them. It is unclear whether or not he has been continuing to use methamphetamines on a routine basis, but at this time, he said he felt funny, he felt hot and flushed like he is going to explode, and he said he felt like he had a shock, he fell down. Interrogation of the AICD does not show any shocks were received, and apparently, he has been doing relatively well. There has been no significant ventricular tachycardia or nonsustained ventricular tachycardia on the device since his discharge from the hospital recently. His BNP was 166. He has had no further episodes since being in the hospital. He is maintaining a sinus rhythm. Cardiac enzymes are negative for myocardial infarction. It appears he did have some degree of anxiety. PAST MEDICAL HISTORY: Significant for the mitral valvuloplasty, nonischemic cardiomyopathy, history of depression, anxiety, intermittent atrial fibrillation. He has had back surgery. He has also had an AICD placed. SOCIAL HISTORY: He continues to use tobacco and methamphetamines. MEDICATIONS: Included; 1. Coreg. 2. Celexa. 3. Keflex. 4. [place]. 5. Aspirin. 6. He takes nebulizers at home. He has also been placed on; 1. Coreg 3.125 mg b.i.d. 2. Zestril 1.25 mg a day. 3. Lasix was 40 mg a day. 4. He has also been taking Reglan as needed. 5. He takes the pain medications in the form of hydrocodone or [place]. ALLERGIES: NONE. REVIEW OF SYSTEMS: Unremarkable except for back pain, which is a chronic problem, and also the recent episodes as described above. Otherwise, he has been doing relatively well. PHYSICAL EXAMINATION: GENERAL: Reveals an elderly, somewhat nervous gentleman. VITAL SIGNS: Blood pressure is 119/73. Heart rate is 100 to 106, at times it has been as low as 98. When he is sleeping, the heart rate is still on the high side, but he does not really have a sinus rhythm. This may be due to the residual effects of the methamphetamines that he used yesterday. His respiratory rate is anywhere between 18 to 25. O2 saturations are 99% on nasal cannula. Blood pressure is stable, has been stable. HEENT: Shows the head to be normocephalic and atraumatic. Carotid pulses are present without any bruits. CHEST: Has decreased breath sounds throughout. I believe he may have underlying COPD, I am uncertain, but I do not see that in his diagnosis, but given his history of using inhalers, I suspect that may be the case. He does have a systolic murmur also noted at the apex. Otherwise, there were no heaves or thrills noted. ABDOMEN: Soft and nontender. Positive bowel sounds are present. EXTREMITIES: Show no clubbing, cyanosis, or edema at this time. His pulses are present and pedal pulses are present. He also has multiple tattoos. SKIN: Otherwise was warm and dry. DIAGNOSTIC STUDIES: His chest x-ray, which was performed yesterday in the emergency room, showed no acute changes. He has evidence of the left-sided AICD and no significant pneumonias or any other significant abnormalities or edema were noted on the chest x-ray. His laboratory data shows a WBC of 7.4, hemoglobin 13.1, platelet count was 184,000. Sodium was 146, potassium was 3.7, chloride was 97, BUN was 13, creatinine is 0.89. His blood sugar is 93. Troponin-I as noted above, it continues to trend downward. BNP was only 166. His LDL level was 86. His toxicology report did show amphetamines, methamphetamines, and cannabis. PLAN: At this time, his overall cardiac status appears to be stable. I have suggested he stop using illicit drugs. He said he had been clean for about three months, but then found these drugs and started using them again. If he does not stop using these illicit drugs, then obviously his cardiac function is not going to improve. He did say he had been feeling much better since leaving the hospital until he took the illicit drugs yesterday. From a cardiac standpoint, I do not think that there is any further cardiac workup is indicated at this time and he can be discharged to home. He can follow up as an outpatient. I believe he is seen by Dr. Islas or by Dr. Kothari, and that the device check did show normal, this will also be followed by the robotics engineer. Job ID: [id number]
--- NOTE | 2019-12-16 18:58 | PDOC.HOSPP ---
- Subjective Encounter Date: 12/16/19 Encounter Time: 13:00 Subjective: Patient seen and examined for generalized weakness with near syncope. Denies any chest pain or shortness of breath at this time. - Objective Vital Signs & Weight: Vital Signs (12 hours) Temp Pulse Resp BP BP BP BP 12/16/19 15:41 97.8 F 98 18 112/64 12/16/19 11:46 97.8 F 103 H 18 115/69 12/16/19 09:05 106 H 12/16/19 08:41 106 H 119/78 119/72 119/73 12/16/19 07:31 97.6 F 98 18 116/75 Pulse Ox 12/16/19 15:41 96 12/16/19 11:46 98 12/16/19 09:05 12/16/19 08:41 12/16/19 07:31 98 Weight Weight 176 lb 6.4 oz I&O: 12/15/19 12/16/19 12/17/19 06:59 06:59 06:59 Intake Total 240 Output Total 125 Balance 115 Result Diagrams: 12/16/19 06:05 12/16/19 04:26 Additional Labs: Laboratory Tests 12/15/19 12/16/19 21:19 05:11 Troponin I 0.032 H Ur Amphetamines Screen Detected H U Methamphetamines Scrn Detected H U Cannabinoids Screen Detected H Radiology Reviewed by me: Yes (CXR - normal) EKG Reviewed by me: Yes (Tele SR) Hospitalist ROS - Review of Systems Respiratory: denies: cough, dry, shortness of breath, hemoptysis, SOB with excertion, pleuritic pain, sputum, wheezing, other Cardiovascular: denies: chest pain, palpitations, orthopnea, paroxysmal noc. dyspnea, edema, light headedness, other Gastrointestinal: denies: nausea, vomiting, abdominal pain, diarrhea, constipation, melena, hematochezia, other All other systems reviewed; all pertinent +/- noted in HPI/Subj - Medication Medications: Active Medications Generic Name Dose Route Start Last Admin Trade Name Freq PRN Reason Stop Dose Admin Hydrocodone Bitart/Acetaminophen 1 tab 12/16/19 00:45 12/16/19 13:21 [place] 10/325 PO 1 tab Q6H PRN Administration Pain Albuterol Sulfate 2 puff 12/16/19 02:06 12/16/19 02:21 Proventil Hfa INH 2 puff TIDPRN PRN Administration SOB &/or Wheezing Alprazolam 0.25 mg 12/16/19 12:09 12/16/19 13:14 Xanax PO 0.25 mg TIDPRN PRN Administration Anxiety Aspirin 81 mg 12/16/19 09:00 12/16/19 09:06 Ecotrin PO 81 mg DAILY TIFFANY Administration Carvedilol 3.125 mg 12/16/19 08:00 12/16/19 18:36 Coreg PO 3.125 mg BID-WM TIFFANY Administration Citalopram Hydrobromide 20 mg 12/16/19 09:00 12/16/19 09:06 Celexa PO 20 mg DAILY TIFFANY Administration Enoxaparin Sodium 40 mg 12/16/19 09:00 12/16/19 13:14 Lovenox SC 40 mg 0900 TIFFANY Administration Lisinopril 1.25 mg 12/16/19 09:00 12/16/19 09:05 Zestril PO 1.25 mg DAILY TIFFANY Administration Pantoprazole Sodium 40 mg 12/16/19 09:00 12/16/19 09:06 Protonix PO 40 mg DAILY TIFFANY Administration Sodium Chloride 10 ml 12/16/19 09:00 12/16/19 09:07 Flush - Normal Saline IVF 10 ml Q12HR TIFFANY Administration - Exam General Appearance: ill appearing Neck: supple, no JVD Heart: RRR, no gallops, no rubs, normal peripheral pulses Respiratory: CTAB, no wheezes, no rales, no ronchi, normal chest expansion Gastrointestinal: soft, non-tender, non-distended, normal bowel sounds Extremities: no cyanosis, no clubbing Neurological: no new deficit Psychiatric: normal affect, A&O x 3 Hosp A/P - Plan DVT proph w/SCDs Near syncope probably due to drug abuse Atypical chest painACS ruled out Chronic systolic heart failure compensated History of AICD placement Contraction alkalosis probably due to diuretics Polysubstance abusedrug screen positive for amphetamines, methamphetamines and cannabis CKD stage II Hypernatremia probably due to dehydration from diuretics next chronic pain syndrome Chronic hypoxic respiratory failure on home oxygen History of mitral valvuloplasty Anxiety Plan: Patient was evaluated by cardiology. AICD interrogation was negative for significant arrhythmias. Patient continues to feel lightheaded and dizzy. He also has contraction alkalosis with bicarbonate increasing from 36-40. Will hold IV Lasix for now. Patient does not appear stable for discharge based on clinical examination. We will recheck orthostatic vitals in a.m. Recheck labs in a.m. Probable discharge in a.m. if stable. Patient was counseled on drug cessation.
[2019-12-17] MEDS: Ondansetron PF 4 MG/2 ML Vial IVP PRN ×3 (00:59→17:32)
[2019-12-17 04:41] LABS: #Eosinphils 0.1 thou/uL (0.0-0.7); #Lymphocytes 0.7 thou/uL (1.20-3.40); #Monocytes 0.7 thou/uL (0.11-0.59); #Neutrophils 6.6 thou/uL (1.40-6.50); %Basophils 0.4 % (0.0-1.0); %Eosinophils 1.7 % (0.0-10.0); %Lymphocytes 8.7 % (21.0-51.0); %Monocytes 8.9 % (0.0-10.0); %Neutrophils 80.3 % (42.0-75.0); Hemoglobin 13.7 g/dL (14.0-18.0); Mean Corpuscular HGB CONC 29.2 g/dL (32.0-36.0); Mean Corpuscular Hemoglobin 25.7 pg (27.0-31.0); Mean Corpuscular Volume 87.8 fL (78.0-98.0); Mean Platelet Volume 8.6 fL (7.4-10.4); Platelet Count 184 thou/uL (130-400); RBC Distribution Width 15.1 % (11.5-14.5); Red Blood Cell (RBC) Count 5.33 mill/uL (4.70-6.10); White Blood Cell (WBC) Count 8.3 thou/uL (4.8-10.8)
[2019-12-17] MEDS: ALPRAZolam 0.25 MG TAB PO PRN ×2 (04:42→12:09)
[2019-12-17 04:50] LABS: BUN (Urea Nitrogen) 17 mg/dL (8.4-25.7); Calc. Creatinine Clearance 121 mL/min (70-130); Calcium 9.4 mg/dL (7.8-10.44); Estimated GFR-MDRD Greater than 90; Glucose 108 mg/dL (70-105)
[2019-12-17 04:59] LABS: Anion Gap 13 mmol/L (10-20); Carbon Dioxide 35 mmol/L (22-29); Chloride 95 mmol/L (98-107); Potassium 4.4 mmol/L (3.5-5.1); Sodium 139 mmol/L (136-145)
[2019-12-17] MEDS: HYDROcodone/Acetaminophen 10/325 mg Tablet PO PRN ×2 (09:16→16:43)
[2019-12-17] MEDS: Lisinopril 2.5 MG TAB PO SCH (09:21)
[2019-12-17] MEDS: Citalopram 20 MG TAB PO SCH (09:28)
[2019-12-17] MEDS: Carvedilol 3.125 MG TAB PO SCH ×2 (09:29→16:43)
[2019-12-17] MEDS: Aspirin 81 mg Enteric Coated Tablet PO SCH (09:29)
[2019-12-17] MEDS ORDERED: Enoxaparin Sodium 40 MG/0.4 ML SYRINGE SC SCH (09:45)
--- NOTE | 2019-12-17 12:35 | PDOC.CPN ---
- Subjective Date: 12/17/19 Time: 12:34 Interval history: Not feeling well today. He may be withdrawing. He states his breathing is better but not quite back to normal. - Review of Systems General: denies: fever/chills, weight/appetite/sleep changes, night sweats, fatigue Respiratory: reports: shortness of breath. denies: cough, congestion, exercise intolerance Cardiovascular: denies: chest pain, palpitation, edema, paroxysmal nocturnal dyspnea, orthopnea Gastrointestinal: denies: nausea, vomiting, diarrhea, constipation, abd pain, GI bleeding Musculoskeletal: denies: pain, tenderness, stiffness, swelling, arthritis/ arthralgias Neurological: denies: numbness, syncope, seizure, weakness - Objective Allergies/Adverse Reactions: Allergies Allergy/AdvReac Type Severity Reaction Status Date / Time No Known Drug Allergies Allergy Verified 12/15/19 23:54 Visit Medications: Current Medications Hydrocodone Bitart/Acetaminophen ([place] 10/325) 1 tab PO Q6H PRN PRN Reason: Pain Last Admin: 12/17/19 09:16 Dose: 1 tab Albuterol Sulfate (Albuterol Sulfate) 0.63 mg NEB Q4H PRN PRN Reason: SOB &/or Wheezing Albuterol Sulfate (Proventil Hfa) 2 puff INH TIDPRN PRN PRN Reason: SOB &/or Wheezing Last Admin: 12/16/19 02:21 Dose: 2 puff Albuterol/Ipratropium (Duoneb) 3 ml NEB Q4H PRN PRN Reason: SOB &/or Wheezing Last Admin: 12/17/19 04:58 Dose: 3 ml Alprazolam (Xanax) 0.25 mg PO TIDPRN PRN PRN Reason: Anxiety Last Admin: 12/17/19 12:09 Dose: 0.25 mg Aspirin (Ecotrin) 81 mg PO DAILY [facility] Last Admin: 12/17/19 09:29 Dose: 81 mg Carvedilol (Coreg) 3.125 mg PO BID-[facility] Last Admin: 12/17/19 09:29 Dose: 3.125 mg Citalopram Hydrobromide (Celexa) 20 mg PO DAILY [facility] Last Admin: 12/17/19 09:28 Dose: 20 mg Enoxaparin Sodium (Lovenox) 40 mg SC 09 [facility] Last Admin: 12/16/19 13:14 Dose: 40 mg Lisinopril (Zestril) 1.25 mg PO DAILY [facility] Last Admin: 12/17/19 09:21 Dose: 1.25 mg Ondansetron HCl (Zofran Odt) 4 mg PO Q6H PRN PRN Reason: Nausea/Vomiting Ondansetron HCl (Zofran) 4 mg IVP Q6H PRN PRN Reason: Nausea/Vomiting Last Admin: 12/17/19 12:05 Dose: 4 mg Pantoprazole Sodium (Protonix) 40 mg PO DAILY [facility] Last Admin: 12/17/19 09:29 Dose: 40 mg Sodium Chloride (Flush - Normal Saline) 10 ml IVF Q12HR [facility] Last Admin: 12/17/19 09:31 Dose: 10 ml Sodium Chloride (Flush - Normal Saline) 10 ml IVF PRN PRN PRN Reason: Saline Flush Vital Signs & Weight: Vital Signs Temp Pulse Resp BP BP BP BP 12/17/19 10:47 98.3 F 110 H 20 113/77 12/17/19 09:21 107 H 12/17/19 08:45 107 H 102/59 L 106/60 110/63 12/17/19 07:15 98.4 F 102 H 18 105/65 12/17/19 05:00 126/70 134/65 125/65 12/17/19 04:58 111 H 18 12/17/19 04:36 97.8 F 115 H 20 111/74 12/17/19 01:28 Pulse Ox 12/17/19 10:47 92 L 12/17/19 09:21 12/17/19 08:45 12/17/19 07:15 95 12/17/19 05:00 12/17/19 04:58 96 12/17/19 04:36 92 L 12/17/19 01:28 96 Weight 180 lb - Physical Exam General: alert & oriented x3 HEENT: mucus membranes moist Neck: supple neck Cardiac: regular rate and rhythm Lungs: decreased breath sounds Neuro: grossly intact Abdomen: active bowel sounds Extremities: no edema Skin: clear Musculoskeletal: no pain - Labs Result Diagrams: 12/17/19 04:18 12/17/19 04:18 Troponin/CKMB CK-MB (CK-2) 2.3 ng/mL (0-6.6) 12/15/19 21:19 Troponin I 0.027 ng/mL (< 0.028) 12/16/19 04:26 - Telemetry Sinus rhythms and dysrhythmias: sinus rhythm - Assessment/Plan Assessment/Plan: 1. Acute on chronic systolic CHF 2. Substance abuse. 3. Non compliance 4. Presence of an AICD. 5. Non ischemic CM Ef at 25-30% 6. Paroxysmal afib 7. Mitral and tricuspid valvular rings. PLAN: - Will keep overnight. - high risk for complications with blood thinners given non compliance. - He has valvular afib and ideal medication is coumadin which is not possibility with his non compliance an risk outweigh the benefits at that point. As far as Xarelto or Eliquis or pradaxa he would have an off label use but still high risk for complications due to non compliance and substance abuse. - PO lasix at home dose. - Home tomorrow.
[2019-12-17 14:17] VITALS: BMI 26.6
[2019-12-17] MEDS: Furosemide 20 MG TAB PO SCH (14:30)
[2019-12-17] MEDS: Metoclopramide HCl 10 MG TAB PO PRN (15:17)
--- NOTE | 2019-12-17 16:03 | PDOC.HOSPP ---
- Subjective Encounter Date: 12/17/19 Encounter Time: 09:30 Subjective: Patient seen and examined for congestive heart failure with near syncope. Feels generally weak along with some nausea. No vomiting reported. Denies any chest pain or significant shortness of breath. No focal neurologic deficit. - Objective Vital Signs & Weight: Vital Signs (12 hours) Temp Pulse Resp BP BP BP BP 12/17/19 10:47 98.3 F 110 H 20 113/77 12/17/19 09:21 107 H 12/17/19 08:45 107 H 102/59 L 106/60 110/63 12/17/19 07:15 98.4 F 102 H 18 105/65 12/17/19 05:00 126/70 134/65 125/65 12/17/19 04:58 111 H 18 12/17/19 04:36 97.8 F 115 H 20 111/74 Pulse Ox 12/17/19 10:47 92 L 12/17/19 09:21 12/17/19 08:45 12/17/19 07:15 95 12/17/19 05:00 12/17/19 04:58 96 12/17/19 04:36 92 L Weight Admit Weight 176 lb 6.4 oz Weight 180 lb I&O: 12/16/19 12/17/19 12/18/19 06:59 06:59 06:59 Intake Total 240 2061 Output Total 125 900 Balance 115 1161 Result Diagrams: 12/17/19 04:18 12/17/19 04:18 EKG Reviewed by me: Yes (Sinus rhythm on telemetry) Hospitalist ROS - Review of Systems Respiratory: denies: cough, dry, shortness of breath, hemoptysis, SOB with excertion, pleuritic pain, sputum, wheezing, other Cardiovascular: denies: chest pain, palpitations, orthopnea, paroxysmal noc. dyspnea, edema, light headedness, other - Medication Medications: Active Medications Generic Name Dose Route Start Last Admin Trade Name Freq PRN Reason Stop Dose Admin Hydrocodone Bitart/Acetaminophen 1 tab 12/16/19 00:45 12/17/19 09:16 [place] 10/325 PO 1 tab Q6H PRN Administration Pain Albuterol Sulfate 2 puff 12/16/19 02:06 12/16/19 02:21 Proventil Hfa INH 2 puff TIDPRN PRN Administration SOB &/or Wheezing Albuterol/Ipratropium 3 ml 12/16/19 14:51 12/17/19 04:58 Duoneb NEB 3 ml Q4H PRN Administration SOB &/or Wheezing Alprazolam 0.25 mg 12/16/19 12:09 12/17/19 12:09 Xanax PO 0.25 mg TIDPRN PRN Administration Anxiety Aspirin 81 mg 12/16/19 09:00 12/17/19 09:29 Ecotrin PO 81 mg DAILY TIFFANY Administration Carvedilol 3.125 mg 12/16/19 08:00 12/17/19 09:29 Coreg PO 3.125 mg BID-WM TIFFANY Administration Citalopram Hydrobromide 20 mg 12/16/19 09:00 12/17/19 09:28 Celexa PO 20 mg DAILY TIFFANY Administration Enoxaparin Sodium 40 mg 12/16/19 09:00 12/16/19 13:14 Lovenox SC 40 mg 0900 TIFFANY Administration Furosemide 20 mg 12/17/19 14:00 12/17/19 14:30 Lasix PO 20 mg 0900,1400 TIFFANY Administration Lisinopril 1.25 mg 12/16/19 09:00 12/17/19 09:21 Zestril PO 1.25 mg DAILY TIFFANY Administration Metoclopramide HCl 10 mg 12/17/19 15:05 12/17/19 15:17 Reglan PO 10 mg QIDPRN PRN Administration Headache Ondansetron HCl 4 mg 12/16/19 12:09 12/17/19 12:05 Zofran IVP 4 mg Q6H PRN Administration Nausea/Vomiting Pantoprazole Sodium 40 mg 12/16/19 09:00 12/17/19 09:29 Protonix PO 40 mg DAILY TIFFANY Administration Sodium Chloride 10 ml 12/16/19 09:00 12/17/19 09:31 Flush - Normal Saline IVF 10 ml Q12HR TIFFANY Administration - Exam General Appearance: ill appearing Neck: supple, no JVD Heart: RRR, no gallops Respiratory: no wheezes, no rales, rhonchi Gastrointestinal: soft, non-distended Extremities: no cyanosis, no clubbing Neurological: no new deficit Musculoskeletal: generalized weakness Psychiatric: A&O x 3 Hosp A/P - Plan Near syncope probably due to drug abuse Atypical chest painACS ruled out Chronic systolic heart failure compensated History of AICD placement Contraction alkalosis probably due to diureticsImproving Paroxysmal atrial fibrillationprobably not a candidate for anticoagulation Polysubstance abusedrug screen positive for amphetamines, methamphetamines and cannabis CKD stage II Hypernatremia probably due to dehydration from diuretics Chronic pain syndrome Chronic hypoxic respiratory failure on home oxygen History of mitral valvuloplasty Anxiety Plan: 12/16 Cardiology input appreciated. Patient is not stable for discharge at this time per cardiology.Continue aspirin with carvedilol and lisinopril. Continue cardiac rehab. Recheck labs in a.m. Resume home dose of po Lasix. Continue other medications as above. 12/15 Patient was evaluated by cardiology. AICD interrogation was negative for significant arrhythmias. Patient continues to feel lightheaded and dizzy. He also has contraction alkalosis with bicarbonate increasing from 36-40. Will hold IV Lasix for now. Patient does not appear stable for discharge based on clinical examination. We will recheck orthostatic vitals in a.m. Recheck labs in a.m. Probable discharge in a.m. if stable. Patient was counseled on drug cessation.
[2019-12-17] MEDS ORDERED: Nicotine 14 MG PATCH TD PRN (19:11)
[2019-12-18 04:55] LABS: #Eosinphils 0.1 thou/uL (0.0-0.7); #Monocytes 0.6 thou/uL (0.11-0.59); #Neutrophils 3.2 thou/uL (1.40-6.50); %Basophils 0.7 % (0.0-1.0); %Eosinophils 2.3 % (0.0-10.0); %Lymphocytes 20.8 % (21.0-51.0); %Monocytes 12.3 % (0.0-10.0); %Neutrophils 63.9 % (42.0-75.0); Hemoglobin 12.7 g/dL (14.0-18.0); Mean Corpuscular HGB CONC 29.2 g/dL (32.0-36.0); Mean Corpuscular Hemoglobin 25.5 pg (27.0-31.0); Mean Corpuscular Volume 87.3 fL (78.0-98.0); Mean Platelet Volume 8.9 fL (7.4-10.4); Platelet Count 156 thou/uL (130-400); RBC Distribution Width 14.5 % (11.5-14.5)
[2019-12-18 05:16] LABS: BUN (Urea Nitrogen) 18 mg/dL (8.4-25.7); Calc. Creatinine Clearance 130 mL/min (70-130); Calcium 9.4 mg/dL (7.8-10.44); Estimated GFR-MDRD Greater than 90; Glucose 98 mg/dL (70-105); Magnesium 1.9 mg/dL (1.6-2.6)
[2019-12-18 05:25] LABS: Anion Gap 20 mmol/L (10-20); Carbon Dioxide 32 mmol/L (22-29); Chloride 91 mmol/L (98-107); Potassium 4.3 mmol/L (3.5-5.1); Sodium 139 mmol/L (136-145)
[2019-12-18] MEDS: Aspirin 81 mg Enteric Coated Tablet PO SCH (07:52)
[2019-12-18] MEDS: Lisinopril 2.5 MG TAB PO SCH (07:52)
[2019-12-18] MEDS: Furosemide 20 MG TAB PO SCH ×2 (07:53→13:25)
[2019-12-18] MEDS: ALPRAZolam 0.25 MG TAB PO PRN (07:53)
[2019-12-18] MEDS: Citalopram 20 MG TAB PO SCH (07:53)
[2019-12-18] MEDS: Carvedilol 3.125 MG TAB PO SCH ×2 (07:53→17:51)
[2019-12-18] MEDS: Metoclopramide HCl 10 MG TAB PO PRN ×2 (07:54→15:46)
[2019-12-18] MEDS: Enoxaparin Sodium 40 MG/0.4 ML SYRINGE SC SCH (07:54)
--- NOTE | 2019-12-18 09:17 | PDOC.HOSPP ---
- Subjective Encounter Date: 12/18/19 Encounter Time: 09:16 Subjective: Sleeping upon entry to room. Upon awakening he states that he feels "crappy" from the headache that he has. He has already received Reglan which he takes at home for his headaches. He states he feels this will help him. He denies any shortness of breath, chest pain. When asked if he feels he is ready to be discharged he states he is. - Objective Vital Signs & Weight: Vital Signs (12 hours) Temp Pulse Resp BP BP BP BP 12/18/19 07:33 90 18 12/18/19 07:22 97.9 F 98 20 103/58 L 101/69 109/69 12/18/19 03:14 98.4 F 104 H 22 H 100/65 12/17/19 23:26 97.8 F 112 H 22 H 112/60 Pulse Ox 12/18/19 07:33 12/18/19 07:22 92 L 12/18/19 03:14 99 12/17/19 23:26 96 Weight Admit Weight 176 lb 6.4 oz Weight 181 lb 12.8 oz I&O: 12/17/19 12/18/19 12/19/19 06:59 06:59 06:59 Intake Total 2061 1300 Output Total 900 650 250 Balance 1161 650 -250 Result Diagrams: 12/18/19 04:16 12/18/19 04:16 Hospitalist ROS - Review of Systems Constitutional: reports: other (Headache) - Medication Medications: Active Medications Generic Name Dose Route Start Last Admin Trade Name Freq PRN Reason Stop Dose Admin Hydrocodone Bitart/Acetaminophen 1 tab 12/16/19 00:45 12/17/19 16:43 Hammond 10/325 PO 1 tab Q6H PRN Administration Pain Albuterol Sulfate 2 puff 12/16/19 02:06 12/16/19 02:21 Proventil Hfa INH 2 puff TIDPRN PRN Administration SOB &/or Wheezing Albuterol/Ipratropium 3 ml 12/16/19 14:51 12/18/19 07:33 Duoneb NEB 3 ml Q4H PRN Administration SOB &/or Wheezing Alprazolam 0.25 mg 12/16/19 12:09 12/18/19 07:53 Xanax PO 0.25 mg TIDPRN PRN Administration Anxiety Aspirin 81 mg 12/16/19 09:00 12/18/19 07:52 Ecotrin PO 81 mg DAILY TIFFANY Administration Carvedilol 3.125 mg 12/16/19 08:00 12/18/19 07:53 Coreg PO 3.125 mg BID-WM TIFFANY Administration Citalopram Hydrobromide 20 mg 12/16/19 09:00 12/18/19 07:53 Celexa PO 20 mg DAILY TIFFANY Administration Enoxaparin Sodium 40 mg 12/16/19 09:00 12/18/19 07:54 Lovenox SC 40 mg 0900 TIFFANY Administration Furosemide 20 mg 12/17/19 14:00 12/18/19 07:53 Lasix PO 20 mg 0900,1400 TIFFANY Administration Lisinopril 1.25 mg 12/16/19 09:00 12/18/19 07:52 Zestril PO 1.25 mg DAILY TIFFANY Administration Metoclopramide HCl 10 mg 12/17/19 15:05 12/18/19 07:54 Reglan PO 10 mg QIDPRN PRN Administration Headache Nicotine 14 mg 12/17/19 19:11 12/17/19 20:04 Nicoderm Patch TD 14 mg Q24HR PRN Administration Smoking craving Ondansetron HCl 4 mg 12/16/19 12:09 12/17/19 17:32 Zofran IVP 4 mg Q6H PRN Administration Nausea/Vomiting Pantoprazole Sodium 40 mg 12/16/19 09:00 12/18/19 07:53 Protonix PO 40 mg DAILY TIFFANY Administration Sodium Chloride 10 ml 12/16/19 09:00 12/18/19 08:05 Flush - Normal Saline IVF 10 ml Q12HR TIFFANY Administration - Exam General Appearance: NAD ENT: normocephalic atraumatic, moist mucosa Heart: RRR, no gallops Respiratory: CTAB, no wheezes, no rales, no ronchi Gastrointestinal: soft, non-tender, non-distended Neurological: no new deficit Musculoskeletal: generalized weakness Hosp A/P - Plan Patient with atypical chest painACS ruled out, appreciate cardiac input Chronic systolic heart failure compensated History of AICD placement Polysubstance abusepossible withdrawals Chronic pain syndrome Headachetreated with Reglan which he takes at home for Patient states he feels he is ready for discharge, anticipate discharge this afternoon
[2019-12-18] MEDS: HYDROcodone/Acetaminophen 10/325 mg Tablet PO PRN (13:27)
[2019-12-18 16:11] VITALS: BP 101/67; TEMP 97.3
--- NOTE | 2019-12-19 08:23 | PQF ---
Dear : Holly Jimenez Date: 12/19/2019 Please exercise your independent, professional judgment in responding to the clarification form. Clinical indicators are provided on the bottom of this form for your review Can you please further clarify the diagnosis of the patient? Conflicting documentation was noted in the Medical Record; please clarify if patient is being treated/monitored for: Please check appropriate box(es): [ ] Acute on Chronic systolic CHF [ x ] Chronic systolic CHF [ ] Other diagnosis please specify [ ] Unable to determine Physician Signature: Date/Time: For continuity of documentation, please document condition throughout progress notes and discharge summary. Thank You. To be completed by CDI/Coding staff for physician review: Present Clinical Indicators - Signs / Symptoms / Labs Results and Location in Medical Record [ x ] No acute process Chest x Ray 12/14 [ x ] BNP 166.6H Laboratory [ x ] EF 20 to 25% H and P pg.3 [ x ] Extremities: no edema Consult pg.2 [ x ] Acute on chronic systolic CHF Cardiology Pn pg.4 [ x ] Examine for CHF with near syncope Hospitalist PN pg.1 [ x ] Chronic systolic CHF compensated Hospitalist PN pg.5 [ x ] 2+ LE edema HP 12/14 [ x ] EF 20 to 25% HP 12/14 Present Risk Factors Results and Location in Medical Record [ x ] COPD H and P pg.2 [ x ] AFIB H and P pg.2 [ x ] Current daily smoker H and P pg.2 [ x ] Non ischemic cardiomyopathy Consult pg.1 [ x ] Non compliance Cardiology Pn pg.4 [ x ] Substance abuse Cardiology Pn pg.4 [ x ] CKD II Hospitalist PN pg.4 [ x ] Chronic hypoxic respiratory failure Hospitalist PN pg. 4 Present Treatments Results and Location in Medical Record [ x ] Cardiology Consult Dr. Guthrie 12/15 [ x ] Chest X ray 12/14 [ x ] IV Lasix 40mg MAR [ x ] Strict I/O HP 12/14 [ x ] Daily weight HP 12/14 CDS/Production Superintendent Signature: Nilo Calvo Phone #: ext [phone] Date 12/19/2019 This is a permanent part of the Medical Record [facility]
--- NOTE | 2019-12-19 08:48 | DIS ---
DATE OF ADMISSION: 12/17/2019 DATE OF DISCHARGE: 12/18/2019 DISCHARGE DISPOSITION/FOLLOWUP: The patient was discharged home. He was seen and examined on day of discharge. He denies any new complaints. He is to follow up with Cardiac rehab in 7 days [facility] on 12/24/[address] Islas on 12/31/2019 at 3:15 p.m. INPATIENT CONSULTS: Cardiology. CLINICAL COURSE: The patient is a 54-year-old male with past medical history significant for atrial fibrillation, defibrillator placement, congestive heart failure and illicit drug use. He was at home making a sandwich when he suddenly felt funny. He turned to go to the chair and fell on the floor. He states he had some left arm numbness and felt an electrical shock go through the left side of his body and into his chest. He felt that his defibrillator had fired. In looking at the [employer] report it appears the defibrillator did not fire. He does admit to using illicit drugs that day, amphetamines. Cardiology was consulted to see him. Overall cardiac status appeared to be stable. While in the hospital, he felt a little worse possibly due to withdrawing from the drugs. On the day of discharge, he was complaining of a headache, but no other complaints. Palliative care talked with the patient. He was given a list of AA groups along with rehab houses. FINAL DIAGNOSES: Atypical chest pain. Chronic systolic heart failure, compensated. History of right AICD placement. Polysubstance abuse. Chronic pain syndrome. DISCHARGE MEDICATIONS: 1. Aspirin 81 mg. 2. Carvedilol 3.125 mg p.o. twice a day. 3. Citalopram 20 mg daily. 4. Hydrocodone 10/325. 5. Lisinopril 1.25 mg daily, which a prescription was sent in for. 6. Reglan 10 mg. 7. Albuterol nebulizer and inhaler. 8. Furosemide 40 mg twice a day. DISCHARGE INSTRUCTIONS: The patient was extensively counseled over not using illicit drugs and to follow up with his primary care physician and behavioral health consultant along with cardiac rehab. Resources were given to the patient to help him in the future. He does seem motivated to not use drugs any longer. TIME SPENT: Total time coordinating the discharge of patient was 25 minutes. Job ID: [id number] MTDD
--- NOTE | 2019-12-22 17:02 | EKG ---
Test Reason : Blood Pressure : / mmHG Vent. Rate : 096 BPM Atrial Rate : 096 BPM P-R Int : 156 ms QRS Dur : 136 ms QT Int : 406 ms P-R-T Axes : 077 138 037 degrees QTc Int : 512 ms Normal sinus rhythm Right bundle branch block Abnormal ECG Confirmed by KENNETH NIÑO ([id number]), index editor FLORENTINO GARCIA ([id number] on 12/22/2019 5:00:57 PM Referred By: SERGIO NIÑO Confirmed By:KENNETH NIÑO
== END 2019-12-18 18:11 | disposition home or self-care (01) | DRG 897 ==
LOC: ERS 20:54 → 2SW 22:25 → OBSVTOIN 12-17 08:46
PROVIDERS: ADMIT Internal Medicine; ATTEND Internal Medicine
DX: F15.93 Other stimulant use, unspecified with withdrawal (principal); I42.8 Other cardiomyopathies; I50.22 Chronic systolic (congestive) heart failure; E87.0 Hyperosmolality and hypernatremia; E87.3 Alkalosis; J96.11 Chronic respiratory failure with hypoxia; Z20.828 Contact with and (suspected) exposure to other viral communicable diseases; R07.89 Other chest pain; J44.9 Chronic obstructive pulmonary disease, unspecified; N18.2 Chronic kidney disease, stage 2 (mild); E86.0 Dehydration; F12.10 Cannabis abuse, uncomplicated; I48.0 Paroxysmal atrial fibrillation; F17.210 Nicotine dependence, cigarettes, uncomplicated; I34.0 Nonrheumatic mitral (valve) insufficiency; F41.9 Anxiety disorder, unspecified; G89.4 Chronic pain syndrome; Z95.810 Presence of automatic (implantable) cardiac defibrillator; Z99.81 Dependence on supplemental oxygen; Z79.82 Long term (current) use of aspirin; Z79.899 Other long term (current) drug therapy; Z95.2 Presence of prosthetic heart valve; Z91.14 Patient's other noncompliance with medication regimen
CPT/HCPCS: 36415; 71045; 80048; 80053; 80061; 80306; 82553; 83735; 83880; 84484; 85025; 87635; 93005; 94640; 94760; 96374; G0378; J1650; J1940; J2405; J7620; Q0162; U0003

== ENCOUNTER 2020-02-21 01:42 | Emergency (ER) | payer MEDICARE ==
[2020-02-21] MEDS ORDERED: methylPREDNISolone Sod Succ/PF 125 MG/2 ML VIAL ONE (02:24)
[2020-02-21 02:30] LABS: #Basophils 0.1 thou/uL (0.0-0.2); #Eosinphils 0.2 thou/uL (0.0-0.7); #Lymphocytes 1.5 thou/uL (1.20-3.40); #Monocytes 1.1 thou/uL (0.11-0.59); #Neutrophils 6.7 thou/uL (1.40-6.50); %Basophils 0.8 % (0.0-1.0); %Eosinophils 2.6 % (0.0-10.0); %Lymphocytes 15.8 % (21.0-51.0); %Monocytes 11.2 % (0.0-10.0); %Neutrophils 69.7 % (42.0-75.0); Hemoglobin 14.9 g/dL (14.0-18.0); Mean Corpuscular HGB CONC 31.2 g/dL (32.0-36.0); Mean Corpuscular Hemoglobin 27.4 pg (27.0-31.0); Mean Corpuscular Volume 87.9 fL (78.0-98.0); Mean Platelet Volume 8.4 fL (7.4-10.4); Platelet Count 185 thou/uL (130-400); RBC Distribution Width 13.8 % (11.5-14.5); Red Blood Cell (RBC) Count 5.43 mill/uL (4.70-6.10); White Blood Cell (WBC) Count 9.6 thou/uL (4.8-10.8)
[2020-02-21 02:55] LABS: ALT (SGPT) 55 U/L (8-55); AST (SGOT) 31 U/L (5-34); Albumin 4.2 g/dL (3.5-5.0); Alkaline Phosphatase 100 U/L (40-110); BUN (Urea Nitrogen) 21 mg/dL (8.4-25.7); Bilirubin, Total 0.4 mg/dL (0.2-1.2); Calc. Creatinine Clearance 0 mL/min (70-130); Estimated GFR-MDRD Greater than 90; Globulin 3.2 g/dL (2.4-3.5); Glucose 84 mg/dL (70-105); Protein, Total 7.4 g/dL (6.0-8.3)
[2020-02-21 03:06] LABS: Anion Gap 17 mmol/L (10-20); Carbon Dioxide 35 mmol/L (22-29); Chloride 95 mmol/L (98-107); Potassium 4.8 mmol/L (3.5-5.1); Sodium 142 mmol/L (136-145)
[2020-02-21] MEDS ORDERED: Carvedilol 6.25 MG TAB PO SCH (05:00)
--- NOTE | 2020-02-21 07:19 | RAD ---
RADIOGRAPH CHEST 1 VIEW: DATE: 02/21/2020 HISTORY: 54-year-old male with dyspnea FINDINGS: There are no airspace densities, pulmonary edema, pneumothorax, or cardiomegaly. The lateral costophr enic angles are sharp. Left subclavian AICD. Left atrial closure device. Sternotomy wires. IMPRESSION: No acute cardiopulmonary findings.
[2020-02-21 17:38] LABS: SARS-CoV-2 MS2 Positive; SARS-CoV-2 N Gene Negative; SARS-CoV-2 S Gene Negative; SARS-CoV-2 by NAA Not Detected (NotDetected); SARS-CoV-2 orf1ab Negative
== END 2020-02-21 05:40 | disposition home or self-care (01) ==
LOC: ERS 01:42
DX: J44.1 Chronic obstructive pulmonary disease with (acute) exacerbation (principal); I50.9 Heart failure, unspecified; I48.91 Unspecified atrial fibrillation; Z79.899 Other long term (current) drug therapy; Z79.82 Long term (current) use of aspirin
CPT/HCPCS: 71045; 80053; 83880; 84484; 85025; 93005; 94640; 94760; 96374; 99285; U0003; 36415; 87635; J2930; J7620

== ENCOUNTER 2020-05-12 13:26 | Outpatient (CLI) | payer MEDICARE ==
--- NOTE | 2020-05-12 13:52 | RAD ---
EXAM: Chest 2 views: HISTORY: Dyspnea COMPARISON: 02/21/2020 FINDINGS: There is an enlarged cardiomediastinal silhouette. The pacemaker is unchanged in position. The patie nt is status post sternotomy for aortic valve repair. Diffuse increased interstitial markings are stable. An atrial appendage occlusive device is seen along the left heart border. There is no eviden ce of consolidation, mass, or pleural effusion. No acute osseous abnormality. IMPRESSION: No evidence of acute cardiopulmonary disease
== END 2020-05-12 13:27 | disposition home or self-care (01) ==
LOC: BICRAD 13:26
PROVIDERS: ATTEND Internal Medicine Pulmonary Disease
DX: R06.00 Dyspnea, unspecified (principal)
CPT/HCPCS: 71046

== ENCOUNTER 2020-08-20 13:16 | Outpatient (CLI) | payer MEDICARE | END 2020-08-20 13:17 | disposition home or self-care (01) | LOC: BICRAD 13:16 | PROVIDERS: ATTEND Internal Medicine Pulmonary Disease | DX: R06.00 Dyspnea, unspecified (principal); R91.8 Other nonspecific abnormal finding of lung field | CPT/HCPCS: 71046 ==

== ENCOUNTER 2020-10-29 20:45 | Emergency (ER) | payer MEDICARE ==
[2020-10-29 21:21] LABS: Bilirubin Negative (Negative); Blood, Urine Negative (Negative); Glucose, Urine (Dipstick) Normal (Negative); Ketone, Urine 100 mg/dL (Negative); Leukocyte 25 Leu/uL (Negative); Nitrite Negative (Negative); Protein, Urine (Dipstick) 100 mg/dL (Neg-Trace); Specific Gravity, Urine 1.026 (1.002-1.036); Squamous Epithelial None Seen HPF (0-3); Urobilinogen 3 mg/dL (Less than 2)
[2020-10-29 21:29] LABS: Amphetamine Detected (NotDetected); Barbiturates Screen Not Detected (NotDetected); Benzodiazepine Screen Detected (NotDetected); Cocaine Metabolite Screen Not Detected (NotDetected); Methadone Not Detected (NotDetected); Methamphetamine Detected (NotDetected); Opiate Screen Not Detected (NotDetected); Oxycodone Screen Not Detected (NotDetected); Phencyclidine (PCP) Not Detected (NotDetected); THC/Cannabinoid Screen Detected (NotDetected); Tricyclic Screen Not Detected (NotDetected)
[2020-10-29 21:31] LABS: Clarity Cloudy (Clear)
[2020-10-29 21:32] LABS: Bacteria/HPF Rare-Few HPF (None Seen); Sperm/HPF 2+ HPF (None Seen)
[2020-10-29 22:02] LABS: Hemoglobin 14.4 g/dL (14.0-18.0); Mean Corpuscular HGB CONC 29.4 g/dL (32.0-36.0); Mean Platelet Volume 8.6 fL (7.4-10.4); Platelet Count 248 thou/uL (130-400); RBC Distribution Width 15.1 % (11.5-14.5); Red Blood Cell (RBC) Count 5.78 mill/uL (4.70-6.10); White Blood Cell (WBC) Count 8.1 thou/uL (4.8-10.8)
[2020-10-29 22:12] LABS: #Eosinphils 0.3 thou/uL (0.0-0.7); #Lymphocytes 1.4 thou/uL (1.20-3.40); #Monocytes 0.8 thou/uL (0.11-0.59); #Neutrophils 5.6 thou/uL (1.40-6.50); %Basophils 0.4 % (0.0-1.0); %Eosinophils 3.9 % (0.0-10.0); %Monocytes 9.7 % (0.0-10.0); %Neutrophils 68.9 % (42.0-75.0)
[2020-10-29 22:31] LABS: ALT (SGPT) 57 U/L (8-55); AST (SGOT) 34 U/L (5-34); Acetaminophen Less than 6.0 mcg/mL (10.0-30.0); Alcohol Less than 10 mg/dL (Less than 10); Alkaline Phosphatase 79 U/L (40-110); Anion Gap 13 mmol/L (10-20); BUN (Urea Nitrogen) 10 mg/dL (8.4-25.7); Bilirubin, Total 0.8 mg/dL (0.2-1.2); CK (CPK) 24 U/L (30-200); Calc. Creatinine Clearance 0 mL/min (70-130); Calcium 10.2 mg/dL (7.8-10.44); Carbon Dioxide 29 mmol/L (22-29); Chloride 100 mmol/L (98-107); Globulin 3.4 g/dL (2.4-3.5); Glucose 84 mg/dL (70-105); Protein, Total 7.4 g/dL (6.0-8.3); Salicylate Less than 8.0 mg/dL (15.0-30.0); Sodium 138 mmol/L (136-145)
[2020-10-30] MEDS ORDERED: HYDROcodone/Acetaminophen 10/325 mg Tablet ONE (03:45)
== END 2020-10-30 03:56 | disposition home or self-care (01) ==
LOC: ERS 20:45
DX: F43.0 Acute stress reaction (principal); J44.9 Chronic obstructive pulmonary disease, unspecified; I50.9 Heart failure, unspecified; I48.91 Unspecified atrial fibrillation; Z86.19 Personal history of other infectious and parasitic diseases; Z87.891 Personal history of nicotine dependence; Z79.82 Long term (current) use of aspirin; Z79.899 Other long term (current) drug therapy
CPT/HCPCS: 36415; 76870; 80053; 80306; 80307; 81003; 81015; 82550; 84443; 85025; 87086; 93005; 93976